=== PATIENT | male | born 1945 | race Caucasian/White ===

== ENCOUNTER → 2016-10-21 | Outpatient (CLI) | payer OTHER ==
[~2016-10-21] MED LIST: ASCO10003 PO; CHOL1000 PO; CITA20TA9 PO; CYAN100020 PO; DOCU-94 PO; FEXO1TAB49 PO; FINA5TAB PO; HYDR-4079 PO; LIDOCAINE HCL 2% 2 ML VIAL (20MG/ML) ONE; LOSA1TAB PO; MULT-506 PO; OMEG10007 PO; OMEP40CA PO; POME250C2 PO; PROPOFOL IV EMULSION 10 MG/ML 20 ML VIAL IV ONE; SALM50AE2 INH; TAMS0.4C38 PO; [UNRECOGNIZED DRUG - REMARK]
== END | disposition home or self-care (01) ==
LOC: C.LABPBG 11:28
PROVIDERS: ATTEND Neuromusculoskeletal Medicine & OMM
DX: Z11.59 Encounter for screening for other viral diseases (principal)

== ENCOUNTER → 2017-02-01 | Outpatient (CLI) | payer OTHER ==
[~2017-02-01] MED LIST changes: +ACET-1311 PO; +AMOX400S2 PO; +CLC6 PO; -LIDOCAINE HCL 2% 2 ML VIAL (20MG/ML) ONE; +MAGIC1 PO; +OMEP20TA PO; +PRD20 PO; +PRED20TA PO; -PROPOFOL IV EMULSION 10 MG/ML 20 ML VIAL IV ONE; +SRVDIN50 INH
[2017-02-01 12:59] LABS: BASO % 0.8 %; BASO ABS # 0.07 K/uL (0-0.2); COMPLETE YES; EOS % 2.7 %; IG% 0.1 %; LYMPH % 12.5 %; LYMPH ABS # 1.07 K/uL (1.2-3.4); MEAN CELL VOLUME 94.1 fL (80-100); MEAN CORPUSCULAR HEMOGLOBIN 31.5 pg (25-34); MEAN CORPUSCULAR HGB CONC 33.5 g/dl (32-36); MEAN PLATELET VOLUME 11.4 fL (7.4-10.4); MONO % 8.1 %; NEUT % 75.8 %; PLATELET COUNT 264 K/uL (130-400); RED BLOOD COUNT 4.89 M/uL (4.7-6.1); WHITE BLOOD COUNT 8.59 K/uL (4.8-10.8)
[2017-02-01 13:34] LABS: ESTIMATED AVERAGE GLUCOSE 126 mg/dl; HA1C FLAG Normal (Normal)
[2017-02-01 15:10] LABS: ALT/SGPT 47 U/L (12-78); AST/SGOT 50 U/L (15-37); BLOOD UREA NITROGEN 22 mg/dl (7-18); BUN/CREATININE RATIO 16.7 (10-20); CALCIUM 9.3 mg/dl (8.5-10.1); CARBON DIOXIDE 28 mmol/L (21-32); CHLORIDE 106 mmol/L (98-107); GLUCOSE 125 mg/dl (70-99); POTASSIUM 4.1 mmol/L (3.5-5.1); SODIUM 141 mmol/L (136-145)
[2017-02-01 15:15] LABS: ALB/GLOB RATIO 1.1 (0.9-2); ALKALINE PHOSPHATASE 64 U/L (45-117); CHOLESTEROL 231 mg/dl (0-200); CHOLESTEROL/HDL RATIO 4.9; HDL CHOLESTEROL 47 mg/dl; LDL CHOLESTEROL CALCULATED 125 mg/dl; TRIGLYCERIDES 296 mg/dl (0-150); VERY LOW DENSITY LIPOPROT CALC 59 mg/dl
--- NOTE | 2017-02-05 10:08 | CODING QUERY MEDICAL NECESSITY ---
CQSUPPORTING DIAGNOSIS NEEDED A supporting diagnosis is required for the test/procedure performed on this patient in order for us to be reimbursed by the patient's insurance. Please provide a supporting diagnosis for the following test/procedure listed below next to the test name along with your signature. *If there is no additional diagnosis for this patient that would support the following test/procedure please document that below next to the test/procedure. Test(s)/Procedure(s) that require a supporting diagnosis: DOS 02/01/17 GLYCATED HEMOGLOBIN Provider Signature: Date: Thank you Fauzia Hernandez [employer] Once completed, please kindly fax back to [phone] For questions please call [phone]
== END | disposition home or self-care (01) ==
LOC: C.LABPBG 10:54
PROVIDERS: ATTEND Internal Medicine
DX: K76.0 Fatty (change of) liver, not elsewhere classified (principal); Z12.5 Encounter for screening for malignant neoplasm of prostate; R73.01 Impaired fasting glucose

== ENCOUNTER 2017-07-16 07:03 | Inpatient (IN) | payer OTHER ==
[~2017-07-16] VITALS: Ht 182.9 cm; Wt 94.3 kg
[~2017-07-16 07:03] MED LIST changes: -ACET-1311 PO; -AMOX400S2 PO; -CLC6 PO; -MAGIC1 PO; -OMEP20TA PO; -PRD20 PO; -PRED20TA PO; -SRVDIN50 INH
--- NOTE | 2017-07-16 07:29 | EMERGENCY ROOM VISIT NOTE ---
History Report prepared by Ney: Mary Styles Under the Supervision of: Dr. Sadiq Martinez M.D. First contact with patient: 07:14 Chief Complaint: LEG PAIN,LEG INJURY Stated Complaint: LEG PAIN History of Present Illness The patient is a 71 year old male who presents to the Emergency Room with complaints of worsening right leg pain for the past couple of days. The majority of his pain is located across the top of his right foot. Standing and bearing weight exacerbate his pain. The patient states that his pain radiates up his leg and into his right knee. He reports swelling to the foot. He denies any recent injury or trauma to the leg. He rates his pain as a 10/10 in severity. He took 3 Tylenol and 3 hydrocodone this morning for his pain. He also reports right-sided back pain that started this morning. It is worsened with a deep breath or coughing. Source of History: patient Onset: a couple of days ago Position: leg (right) Symptom Intensity: 10/10 Quality: other (radiating) Timing: worsening Modifying Factors (Worsening): other (standing/weight bearing) Associated Symptoms: + back pain Review of Systems All systems have been listed, reviewed, and are negative other than those previously mentioned. Please see Additional Medical History Sheet. Past Medical & Surgical Medical Problems: (1) Anxiety (2) BPH (benign prostatic hypertrophy) (3) Cervical stenosis of spinal canal (4) Fatty liver (5) HX-ORAL/PHARYNX MALG NEC (6) Hyperlipidemia (7) HYPERTENSION NOS (8) Malignant neoplasm of tonsil (9) Pneumonia (10) Pulmonary nodules (11) UMBILICAL HERNIA Surgical Problems: (1) H/O colonoscopy (2) H/o kidney stone removal (3) H/O umbilical hernia repair (4) Hx of esophagogastroduodenoscopy (5) S/P tonsillectomy Family History Cardiac disorder BROTHER SISTER GRANDMOTHER FH: cancer MOTHER (liver [place]) BROTHER FATHER (lung [place]) Hypertension MOTHER BROTHER Stroke GRANDMOTHER Social History Smoking Status: Former Smoker Alcohol Use: none Marital Status: Housing Status: lives with family Occupation Status: retired Current/Historical Medications Scheduled Ascorbic Acid (Vitamin C), 1,000 MG PO DAILY Cholecalciferol (Vitamin D3), 2 TABS PO QAM Citalopram Hydrobromide (Celexa), 20 MG PO QPM Cyanocobalamin (Vitamin B12), 1,000 MCG PO QAM Diphenhy/Alum/Mag/Sucralfa (Magic Swizzle - Diphenhy/Alum/Mag/Sucralfa), 1 TSP PO DIRECTED Docusate Sodium (Colace), 1 CAP PO QAM Finasteride (Proscar), 5 MG PO QAM Fish Oil (Monterey-3), 1 CAP PO QAM Losartan Potassium (Cozaar), 25 MG PO QAM Multivitamin (Multivitamin), 1 TAB PO QAM Omeprazole (Omeprazole), 40 MG PO DAILY Pomegranate (Punica Granatum) (Pomegranate), 1 TAB PO QAM Prednisone (Prednisone), 20 MG PO BID Salmeterol Xinafoate (Serevent Diskus), 1 PUFF INH BID Tamsulosin Hcl (Flomax), 0.4 MG PO QPM Scheduled PRN Acetaminophen (Tylenol), 650 MG PO DIRECTED PRN for Pain Fexofenadine Hcl (Yue Allergy), 1 TAB PO QAM PRN for Seasonal Allergies Hydrocodone/Acetaminophen 10MG/325MG (C[place]alt 10MG/325MG), 1 TABS PO QID PRN for Pain Allergies Coded Allergies: Latex1 -Allergic Contact Dermititis (Verified Allergy, Unknown, patient states had allergy tests which tested + , 07/03/16) NO KNOWN DRUG ALLERGIES (Verified Allergy, Unknown, NKDA, 07/03/16) Physical Exam Vital Signs Date Time Temp Pulse Resp B/P (MAP) Pulse Ox O2 Delivery O2 Flow Rate FiO2 07/16/17 08:43 102 18 112/81 92 Room Air 07/16/17 07:14 36.9 101 20 163/96 91 Room Air Physical Exam GENERAL: Patient awake, alert, oriented x 3. Patient follows commands. Patient does not appear toxic. Patient is adequately hydrated and well- nourished. SKIN: No erythema, pallor, cyanosis or rash HEENT: Normal head, pupils equal, reactive to light and accommodation. Ears normal. Oral cavity and posterior pharynx appear normal. Neck: Without adenopathy, no neck vein distention. LUNGS: Clear to auscultation. Faint wheezing bilaterally, no rales, no rhonchi. HEART: No murmurs. No gallops. No rubs ABDOMEN: Soft, nontender. EXTREMITIES: Patient has slight swelling of the dorsum of the right foot and some palpable tenderness, no erythema or increased warmth. NEUROLOGIC: Cranial nerves II-XII within normal limits. No gross motor sensory function deficits. Medical Decision & Procedures ER Provider Diagnostic Interpretation: Radiology results as stated below per my review and radiologist interpretation: RIGHT FOOT 3 VIEWS CLINICAL HISTORY: Right foot pain. No trauma. FINDINGS: 3 views of the right foot are obtained. No prior studies are available for comparison at the time of dictation. The skeletal structures are osteopenic. No fracture is seen. Degenerative spurring is noted along the dorsal aspect of the tarsal bones and along the anterior tibial plafonds. Mild arthritic change and hallux valgus is present at the first metatarsophalangeal joint. The joint spaces are otherwise preserved. There is a tiny plantar calcaneal enthesophyte. Soft tissue edema is present along the dorsal aspect of the foot. IMPRESSION: 1. Dorsal soft tissue edema. No right foot fracture is identified. 2. Osteopenia and mild arthritic change as above. Electronically signed by: Rito García M.D. 07/16/2017 8:26 AM Dictated Date/Time: 07/16/2017 8:25 AM TWO VIEW CHEST CLINICAL HISTORY: Back pain. FINDINGS: PA and lateral chest radiographs are compared to study dated 12/07/2015. Correlation is made with chest CT dated 12/07/2015. The heart is top normal for projection and there is atherosclerotic calcification of the thoracic aorta. The pulmonary vasculature is noncongested. Chronic interstitial thickening and apical scarring are similar to previous. Airspace consolidation is present the right lung base, likely in the right middle lobe. No pleural effusion or pneumothorax is identified. The skeletal structures are osteopenic. Degenerative change is seen throughout the thoracic spine. Mild compression deformities are suggested in the midthoracic region. Fusion hardware is noted in the lower cervical spine. There is a subacute appearing/healing right rib fracture. IMPRESSION: 1. Airspace consolidation is seen at the right lung base, likely in the right middle lobe. Correlate clinically for evidence of aspiration pneumonitis/pneumonia. Radiographic follow-up to resolution is recommended. 2. Mild age-indeterminate compression deformities are suggested in the midthoracic region. There is also a subacute appearing/healing right-sided rib fracture. Electronically signed by: Rito García M.D. 07/16/2017 8:30 AM Dictated Date/Time: 07/16/2017 8:27 AM Laboratory Results 07/16/17 07:25 Red Blood Count 3.87, Mean Corpuscular Volume 93.8, Mean Corpuscular Hemoglobin 31.0, Mean Corpuscular Hemoglobin Concent 33.1, Mean Platelet Volume 10.5, Neutrophils (%) (Auto) 89.0, Lymphocytes (%) (Auto) 3.9, Monocytes (%) (Auto) 6.7, Eosinophils (%) (Auto) 0.0, Basophils (%) (Auto) 0.1, Neutrophils # (Auto) 7.07, Lymphocytes # (Auto) 0.31, Monocytes # (Auto) 0.53, Eosinophils # (Auto) 0.00, Basophils # (Auto) 0.01 07/16/17 07:25 Test 07/16/17 07:25 White Blood Count 7.94 K/uL (4.8-10.8) Red Blood Count 3.87 M/uL (4.7-6.1) Hemoglobin 12.0 g/dL (14.0-18.0) Hematocrit 36.3 % (42-52) Mean Corpuscular Volume 93.8 fL (80-100) Mean Corpuscular Hemoglobin 31.0 pg (25-34) Mean Corpuscular Hemoglobin Concent 33.1 g/dl (32-36) Platelet Count 173 K/uL (130-400) Mean Platelet Volume 10.5 fL (7.4-10.4) Neutrophils (%) (Auto) 89.0 % Lymphocytes (%) (Auto) 3.9 % Monocytes (%) (Auto) 6.7 % Eosinophils (%) (Auto) 0.0 % Basophils (%) (Auto) 0.1 % Neutrophils # (Auto) 7.07 K/uL (1.4-6.5) Lymphocytes # (Auto) 0.31 K/uL (1.2-3.4) Monocytes # (Auto) 0.53 K/uL (0.11-0.59) Eosinophils # (Auto) 0.00 K/uL (0-0.5) Basophils # (Auto) 0.01 K/uL (0-0.2) RDW Standard Deviation 50.4 fL (36.4-46.3) RDW Coefficient of Variation 14.8 % (11.5-14.5) Immature Granulocyte % (Auto) 0.3 % Immature Granulocyte # (Auto) 0.02 K/uL (0.00-0.02) Anion Gap 8.0 mmol/L (3-11) Est Creatinine Clear Calc Drug Dose 33.8 ml/min Estimated GFR () 31.4 Estimated GFR (Non- 27.1 BUN/Creatinine Ratio 27.6 (10-20) Uric Acid 9.2 mg/dl (2.6-7.2) Calcium Level 8.9 mg/dl (8.5-10.1) Laboratory results as stated above per my review. Medications Administered Medications (Trade) Dose Ordered Sig/Chay Route Start Time Stop Time Status Last Admin Dose Admin Tramadol HCl (Ultram Tab) 50 mg NOW STAT PO 07/16/17 09:52 07/16/17 09:54 DC 07/16/17 10:20 50 MG Prednisone (PredniSONE TAB) 20 mg ONE ONCE PO 07/16/17 10:15 07/16/17 10:16 DC 07/16/17 10:21 20 MG ED Course 0714: Past medical records reviewed. The patient was evaluated in room A10. A complete history and physical examination was performed. 0942: I reassessed the patient at this time. He is feeling better and resting comfortably. I discussed the results and treatment plan with the patient. I answered all pertaining questions that he had. He expressed understanding and verbalized agreement. 0948: I spoke with Dr. Cisneros. We discussed the patients case. The patient will be evaluated by the [facility] for further management. 0952: Ultram 50 mg PO 1000: Prednisone 20 mg PO Medical Decision Nurses notes reviewed. Medical history sheet reviewed. Differential diagnosis includes but is not limited to: gout, stress fracture, DVT, cellulitis, bronchitis, pneumonia, musculoskeletal pain. The patient arrived here complaining of right foot pain. Later in his stay he admitted to cough and occasional aspiration. Multiple labs and imaging were performed. The patient was found to have an aspiration pneumonia. He also has significant decline in his renal function. Uric acid is mildly elevated which may explain the pain in his foot. This is in conjunction with his renal insufficiency. The patient has a history of tonsillar carcinoma with radiation and chemotherapy. The patient will require further evaluation in the hospital with IV antibiotics. The patient was started on prednisone for treatment of possible gout. NSAIDs may be contraindicated in light of his renal function. Medication Reconcilliation Current Medication List: was personally reviewed by me Blood Pressure Screening Patient's blood pressure: Normal blood pressure Consults Time Called: 09 Consulting Physician: Dr. Cisneros Returned Call: [phone] Cisneros. We discussed the patients case. The patient will be evaluated by the [facility] for further management. Impression Primary Impression: Aspiration pneumonia Additional Impressions: Renal insufficiency Gout Hx of malignant neoplasm of tonsil Scribe Attestation The scribe's documentation has been prepared under my direction and personally reviewed by me in its entirety. I confirm that the note above accurately reflects all work, treatment, procedures, and medical decision making performed by me. Departure Information Dispostion Being Evaluated By Hospitalist Referrals Carlo Ahn M.D. (PCP) Patient Instructions My [facility] Problem Qualifiers Primary Impression: Aspiration pneumonia
[2017-07-16 07:38] LABS: BASO % 0.1 %; BASO ABS # 0.01 K/uL (0-0.2); COMPLETE YES; HEMATOCRIT 36.3 % (42-52); IG% 0.3 %; LYMPH % 3.9 %; LYMPH ABS # 0.31 K/uL (1.2-3.4); MEAN CELL VOLUME 93.8 fL (80-100); MEAN CORPUSCULAR HGB CONC 33.1 g/dl (32-36); MEAN PLATELET VOLUME 10.5 fL (7.4-10.4); MONO % 6.7 %; PLATELET COUNT 173 K/uL (130-400); RED BLOOD COUNT 3.87 M/uL (4.7-6.1); WHITE BLOOD COUNT 7.94 K/uL (4.8-10.8)
[2017-07-16] MEDS ORDERED: ACET-1311 PO (07:39)
[2017-07-16] MEDS ORDERED: OMEP20TA PO (07:39)
[2017-07-16] MEDS ORDERED: SRVDIN50 INH (07:39)
[2017-07-16] MEDS ORDERED: PRED20TA PO (07:39)
[2017-07-16] MEDS ORDERED: MAGIC1 PO (07:39)
[2017-07-16 07:56] LABS: BUN/CREATININE RATIO 27.6 (10-20); CALCIUM 8.9 mg/dl (8.5-10.1); CREATININE 2.36 mg/dl (0.60-1.40); POTASSIUM 4.5 mmol/L (3.5-5.1); URIC ACID 9.2 mg/dl (2.6-7.2)
--- NOTE | 2017-07-16 08:28 | DIAGNOSTIC IMAGING REPORT ---
RIGHT FOOT 3 VIEWS CLINICAL HISTORY: Right foot pain. No trauma. FINDINGS: 3 views of the right foot are obtained. No prior studies are available for comparison at the time of dictation. The skeletal structures are osteopenic. No fracture is seen. Degenerative spurring is noted along the dorsal aspect of the tarsal bones and along the anterior tibial plafonds. Mild arthritic change and hallux valgus is present at the first metatarsophalangeal joint. The joint spaces are otherwise preserved. There is a tiny plantar calcaneal enthesophyte. Soft tissue edema is present along the dorsal aspect of the foot. IMPRESSION: 1. Dorsal soft tissue edema. No right foot fracture is identified. 2. Osteopenia and mild arthritic change as above. Electronically signed by: Rito García M.D. 07/16/2017 8:26 AM Dictated Date/Time: 07/16/2017 8:25 AM
--- NOTE | 2017-07-16 08:31 | DIAGNOSTIC IMAGING REPORT ---
TWO VIEW CHEST CLINICAL HISTORY: Back pain. FINDINGS: PA and lateral chest radiographs are compared to study dated 12/07/2015. Correlation is made with chest CT dated 12/07/2015. The heart is top normal for projection and there is atherosclerotic calcification of the thoracic aorta. The pulmonary vasculature is noncongested. Chronic interstitial thickening and apical scarring are similar to previous. Airspace consolidation is present the right lung base, likely in the right middle lobe. No pleural effusion or pneumothorax is identified. The skeletal structures are osteopenic. Degenerative change is seen throughout the thoracic spine. Mild compression deformities are suggested in the midthoracic region. Fusion hardware is noted in the lower cervical spine. There is a subacute appearing/healing right rib fracture. IMPRESSION: 1. Airspace consolidation is seen at the right lung base, likely in the right middle lobe. Correlate clinically for evidence of aspiration pneumonitis/pneumonia. Radiographic follow-up to resolution is recommended. 2. Mild age-indeterminate compression deformities are suggested in the midthoracic region. There is also a subacute appearing/healing right-sided rib fracture. Electronically signed by: Rito García M.D. 07/16/2017 8:30 AM Dictated Date/Time: 07/16/2017 8:27 AM
[2017-07-16] MEDS ORDERED: TRAMADOL HCL 50 MG TAB PO STA (09:52)
[2017-07-16] MEDS ORDERED: ALUMINUM/MAGNESIUM/SIMETH (MAALOX MAX) 30 ML UDC PO PRN (10:30)
[2017-07-16] MEDS ORDERED: MAGNESIUM HYDROXIDE SUSP 30 ML UDC PO PRN (10:30)
[2017-07-16] MEDS ORDERED: ONDANSETRON INJ 2 MG/ML 2 ML VIAL IV PRN (10:30)
[2017-07-16] MEDS ORDERED: IV FLUIDS COMPLETED PRN (11:00)
[2017-07-16 11:41] VITALS: BP 166/90; PULSE 104; TEMP 36.7; O2SAT 93
[2017-07-16] MEDS ORDERED: COLCHICINE 0.6 MG TAB PO ONE ×2 (12:15→13:30)
[2017-07-16] MEDS ORDERED: SODIUM CHLORIDE 0.9% 1000ML 1,000 ML IV SCH (12:15)
[2017-07-16] MEDS ORDERED: FEXOFENADINE HCL 180 MG TAB PO PRN (12:45)
[2017-07-16] MEDS: HYDROCODONE/ACETAMI 10/325 TAB PO PRN ×2 (13:40→19:09)
[2017-07-16] MEDS: SODIUM CHLOR 0.45% + 20MEQ KCL 1,000 ML IV SCH ×2 (13:42→23:44)
[2017-07-16 14:17] LABS: URINE APPEARANCE CLEAR (CLEAR); URINE BILIRUBIN NEG (NEG); URINE COLOR YELLOW; URINE NITRITE NEG (NEG); URINE SPECIFIC GRAVITY 1.028 (1.000-1.030); UROBILINOGEN NEG (NEG)
[2017-07-16 14:26] LABS: MANUAL MICROSCOPIC REQUIRED? NO; REVIEW REQ? YES
--- NOTE | 2017-07-16 14:44 | DIAGNOSTIC IMAGING REPORT ---
VIDEO SWALLOW CLINICAL HISTORY: 71 years-old Male with please schedule per order. Pneumonia with history of upper esophageal with COMPARISON: Barium swallow study 06/16/2016, chest radiograph 07/16/2017 TECHNIQUE: Video fluoroscopic evaluation of swallowing was performed in the AP and lateral projections by the speech pathology staff. The patient is fed nectar-thick and thin liquid barium, a barium coated wafer, and barium pudding. FLUOROSCOPY TIME: 4.2 minutes. FINDINGS: Deep penetration and aspiration noted with thin and nectar thick liquid barium consistencies. Residue collection within the vallecula noted with pudding and cracker consistency. Anterior plate and screw fusion hardware with discectomy changes of the cervical spine again noted. IMPRESSION: 1. Aspiration with nectar thick and thin liquid consistencies. 2. Please see the speech pathologist report for detailed findings and recommendations. Electronically signed by: Abundio Taveras M.D. 07/16/2017 2:43 PM Dictated Date/Time: 07/16/2017 2:38 PM
[2017-07-16 15:00] VITALS: BP 148/84; PULSE 89; TEMP 36.8; O2SAT 91
[2017-07-16] MEDS: AMPICILLIN/SULBACTAM SOD INJ 3,000 MG in SODIUM CHLORIDE 0.9% 100ML 100 ML IV SCH ×2 (16:12→20:15)
[2017-07-16] MEDS ORDERED: NURSING VERBAL MED ORDER ONE (17:00)
[2017-07-16 19:21] VITALS: BP 185/93; PULSE 109; TEMP 37.1; O2SAT 93
--- NOTE | 2017-07-16 19:49 | History and Physical ---
History & Physical Date of Service Jul 16, 2017. History & Physical see dictation#[id number] gout - colchicine, steroids ARF - from poor PO intake, exceedingly likely prerenal. UA, IVF, BMP in AM aspiration pneumonia - appearing chronic aspiration - unasyn, speech eval rib fx - ?subacute. check vitamin D. if no clear nidus for osteoporosis, then dedicated rib imaging to r/o other underlying pathology
[2017-07-16] MEDS: SALMETEROL XINAFOATE 50MCG 28 BLISTER INH INH SCH (20:15)
[2017-07-16] MEDS: TAMSULOSIN HCL 0.4 MG CAP PO SCH (20:18)
[2017-07-16] MEDS: CITALOPRAM 20 MG TAB PO SCH (20:18)
[2017-07-16] MEDS: ACETAMINOPHEN 325 MG TAB PO PRN (20:41)
[2017-07-17] VITALS (10 sets, daily range): BP systolic 162–209; BP diastolic 74–105; PULSE 87–109; TEMP 36.8–37.6; O2SAT 92–98; BMI 34.0
[2017-07-17] MEDS: HYDROCODONE/ACETAMI 10/325 TAB PO PRN ×2 (00:44→08:16)
[2017-07-17] MEDS: ACETAMINOPHEN 325 MG TAB PO PRN (00:46)
[2017-07-17] MEDS ORDERED: MoRPHine SULFATE 2 MG/ML CARP IV ONE (02:00)
[2017-07-17] MEDS ORDERED: NURSING VERBAL MED ORDER ONE (02:00)
[2017-07-17] MEDS: AMPICILLIN/SULBACTAM SOD INJ 3,000 MG in SODIUM CHLORIDE 0.9% 100ML 100 ML IV SCH (02:12)
[2017-07-17] MEDS: SODIUM CHLOR 0.45% + 20MEQ KCL 1,000 ML IV SCH ×4 (05:44→21:32)
[2017-07-17] MEDS: LIDOCAINE HCL 2% VISCOUS SOLN 60 ML, DiphenhydrAMINE HCL SYRUP 150 MG, ALUMINUM/MAGNESI... MT PRN ×8 (05:47→08:37)
[2017-07-17] MEDS ORDERED: VANCOMYCIN INJ 2,000 MG in SODIUM CHLORIDE 0.9% 500ML 500 ML IV ONE (06:45)
[2017-07-17] MEDS ORDERED: VANCOMYCIN CONSULT ACTIVE PRN (06:45)
[2017-07-17 07:10] LABS: BUN/CREATININE RATIO 41.4 (10-20); CALCIUM 8.5 mg/dl (8.5-10.1); CREATININE 1.3 mg/dl (0.60-1.40); POTASSIUM 4.8 mmol/L (3.5-5.1)
[2017-07-17] MEDS: ASCORBIC ACID 500 MG TAB PO SCH (08:00)
[2017-07-17] MEDS: DOCUSATE SODIUM 100 MG CAP PO SCH (08:00)
[2017-07-17] MEDS ORDERED: POMEGRANATE PO SCH (08:00)
[2017-07-17] MEDS: SALMETEROL XINAFOATE 50MCG 28 BLISTER INH INH SCH ×2 (08:00→20:27)
[2017-07-17] MEDS: MULTIVITAMIN TAB PO SCH (08:00)
[2017-07-17] MEDS: OMEGA-3 (PURIFIED FISH OIL) 1 GM CAP PO SCH (08:00)
[2017-07-17] MEDS: CYANOCOBALAMIN 500 MCG TAB (VIT B-12) PO SCH (08:19)
[2017-07-17] MEDS: FINASTERIDE 5 MG TAB PO SCH (08:19)
[2017-07-17] MEDS: CHOLECALCIFEROL 1000 INTER.UNIT TAB PO SCH (08:20)
[2017-07-17] MEDS: PANTOprazole SOD 40 MG TAB PO SCH (08:20)
--- NOTE | 2017-07-17 08:38 | Pharmacy Progress Note ---
Pharmacy Abx Initial Consult Date of Service Jul 17, 2017. Pharmacy Dosing Scope Date of Consult: 07/17/17 Consultation requested by: Dr. Jean Baptiste Pharmacy is consulted to initiate VANCOMYCIN IV dosing therapy, order appropriate labs and adjust drug dose/frequency. Subjective The patient is a 71 year old male admitted on Jul 16, 2017 at 10:17 with complaints of L leg/foot pain as well as R sided back pain Objective Height (Feet): 5 Height (Inches): 8.00 Weight (Kilograms): 101.400 Vital Signs (Past 12Hrs) Vital Signs Past 12 Hours Date Time Temp Pulse Resp B/P (MAP) Pulse Ox O2 Delivery O2 Flow Rate FiO2 07/17/17 07:17 36.8 93 20 170/88 (115) 98 Nasal Cannula 2.0 07/17/17 03:10 90 172/86 (114) 07/17/17 01:26 96 190/96 (127) 07/17/17 00:18 37.6 95 20 188/95 (126) 92 Room Air 07/17/17 00:05 Nasal Cannula Lab Results (24Hrs) Laboratory Tests (24 Hours) Test 07/17/17 08:22 Micro Results Date/Time Source Procedure Growth Status 07/16/17 15:55 Blood Blood Culture - Preliminary Gram Positive Cocci Resulted 07/16/17 15:50 Blood Blood Culture - Preliminary Gram Positive Cocci Resulted Assessment & Plan Assessment * 71 year old male found to be bacteremic with 2 of 2 blood cx's growing GPC * CXR read as R lunch base airspace consolidation, likely in the RML * Vancomycin ordered for coverage of GPC bacteremia and aspiration PNX (+ aspiration noted on video swallow) * CLIVE noted on admission, likely secondary to decreased PO intake. Renal fxn appears to be recovering w/ IV hydration (SCR 2.36 -->1.3), good U.O. thus far * VSS, noted to be tachycardic but no hypotension noted. Has been afebrile since admission. Currently on 2L NC and O2 sat in upper 90's Plan Vancomycin IV * Loading dose: 2000 mg (~20 mg/kg) x 1 * Maintenance dose: 1500 mg IV (~15 mg/kg) every 16 hours * Goal trough level for bacteremia / pnx : 15 to 20 mcg/mL * Trough level ordered for 10/30/17 w/ 3rd maintenance dose * p'kinetic estimates: Vd 0.7L/kg; half-life ~12-13 hours Pharmacy will continue to follow and will adjust dose/frequency as necessary. Thank you.
[2017-07-17] MEDS ORDERED: VANCOMYCIN INJ 1,000 MG in SODIUM CHLORIDE 0.9% 250ML 250 ML IV SCH (09:00)
[2017-07-17] MEDS ORDERED: PERFLUTREN LIPID MICROSPHERE (DEFINITY) IV ONE (10:16)
[2017-07-17] MEDS ORDERED: MoRPHine SULFATE 4 MG/ML 1 ML CARP\\VIAL ONE (10:26)
[2017-07-17] MEDS ORDERED: LIDODERM (LIDOCAINE) PATCH 5% TD ONE (10:48)
--- NOTE | 2017-07-17 11:58 | DIAGNOSTIC IMAGING REPORT ---
(CHEST) THORAX WITHOUT CT DOSE: 728.43 mGy.cm HISTORY: Pain pneumonia, rib fracture, pain R back T10-12 region TECHNIQUE: Multiaxial CT images of the chest were performed without contrast. A dose lowering technique was utilized adhering to the principles of ALARA. COMPARISON: None. FINDINGS: Diffuse parenchymal infiltrate right mid and lower lung region. Underlying subtle multinodular component. Left lung is considered clear. No evidence for bulky adenopathy within the limitations of an unenhanced scan. Thoracic aorta shows moderate atherosclerotic change. There is a healing fracture of the right eighth rib in the midaxillary line. Limited evaluation the upper abdomen is unremarkable. IMPRESSION: 1. Diffuse parenchymal infiltrative process right mid and lower lung with underlying subtle nodular component. 2. Follow-up to resolution is suggested. 3. Healing fracture right eighth rib midaxillary line. The above report was generated using voice recognition software. It may contain grammatical, syntax or spelling errors. Electronically signed by: Rigo Goldberg M.D. 07/17/2017 11:56 AM Dictated Date/Time: 07/17/2017 11:54 AM
--- NOTE | 2017-07-17 12:25 | ECHOCARDIOGRAM REPORT ---
*NOTICE TO RECEIVING CONSTITUTION PARTY AGENCY This information is strictly Confidential and protected under [place] law. [place] law prohibits you from making any further disclosure of this information unless further disclosure is expressly permitted by the written consent of the person to whom it pertains or is authorized by law. A general authorization for the release of medical or other information is not sufficient for this purpose. Hospital accepts no responsibility if the information is made available to any other person, INCLUDING THE PATIENT. Interpretation Summary * Name: DEWAYNE BAKER Study Date: 07/17/2017 09:56 AM BP: 170/88 mmHg * Patient Location: [id number].[id number]\E409\[id number]\1 HR: 93 * : 1945 (M/d/yyyy) Gender: Male Height: 68 in * Age: 71 yrs Ethnicity: [place] Weight: 223 lb * Ordering Physician: Sohan Donohue * Performed By: Lelo Grey RDCS * * Reason For Study: ENDOCARDITIS * BSA: 2.1 m2 * -- Conclusions -- * 1. Normal LV size. Borderline concentric LVH. * 2. Normal LV systolic function. LVEF 60-65%. No regional wall motion abnormalities. * 3. Normal RV size and function. * 4. No significant valvular pathology. * 5. Borderline aortic root dilation (3.8 cm). * 6. No prior studies for comparison. Procedure Details * A complete two-dimensional transthoracic echocardiogram was performed (2D, M-mode, Doppler and color flow Doppler). * The study was technically difficult. * There were technical limitations due to patient'sPoor acoustic windows secondary to severe lung disease. * A contrast injection of Definity was performed to improve assessment of LV function. * Contrast was injected into an intravenous site in the right arm. * One vial of Definity ultrasound contrast was diluted in normal saline to a total volume of 10 ml. A total of '3' ml of solution was administered during imaging. * Lot # [id number] of Definity utilized for procedure. * Expiration date 07/07. * The attending nurse who injected the contrast agent was LORETA FERRERA RN. Left Ventricle * The left ventricle is grossly normal size. * There is borderline concentric left ventricular hypertrophy. * Ejection Fraction = 60-65%. * No regional wall motion abnormalities noted. Right Ventricle * The right ventricle is not well visualized. * The right ventricular systolic function is qualitatively normal. Atria * The left atrial size is normal. * Right atrial size is normal. * No ASD detected; PFO is not assessed. Mitral Valve * The mitral valve is grossly normal. * There is no vegetation seen on the mitral valve. * There is no mitral valve stenosis. * There is trace mitral regurgitation. Tricuspid Valve * The tricuspid valve is not well visualized. * Significant tricuspid regurgitation is absent. Aortic Valve * The aortic valve is not well visualized. * No hemodynamically significant valvular aortic stenosis. * There is no significant aortic regurgitation. Pulmonic Valve * The pulmonary valve is inadequately visualized, but the Doppler data is adequate for interpretation. * Pulmonic stenosis is absent. * There is no significant pulmonary regurgitation. Great Vessels * Borderline aortic root dilatation. Pericardium/Pleural * There is no pericardial effusion. Great Vessels * Normal inferior vena cava size and collapsability with sniff indicates a normal right atrial pressure of 3 mmHg MMode 2D Measurements and Calculations IVSd 1.2 cm IVSs 1.8 cm LVIDd 4.8 cm LVIDs 3.1 cm LVPWd 1.0 cm LVPWs 2.2 cm IVS/LVPW 1.2 FS 34.6 % EDV(Teich) 104.9 ml ESV(Teich) 38.1 ml EF(Teich) 63.7 % EDV(cubed) 107.2 ml ESV(cubed) 29.9 ml EF(cubed) 72.1 % % IVS thick 45.7 % % LVPW thick 110.1 % LV mass(C)d 199.8 grams LV mass(C)dI 93.3 grams/m\S\2 LV mass(C)s 272.5 grams LV mass(C)sI 127.3 grams/m\S\2 SV(Teich) 66.9 ml SI(Teich) 31.2 ml/m\S\2 SV(cubed) 77.3 ml SI(cubed) 36.1 ml/m\S\2 ACS 1.6 cm LVOT diam 2.0 cm LVOT area 3.0 cm\S\2 LVAd ap4 36.7 cm\S\2 LVLd ap4 9.3 cm EDV(MOD-sp4) 117.0 ml EDV(sp4-el) 123.4 ml LVAs ap4 18.3 cm\S\2 LVLs ap4 7.3 cm ESV(MOD-sp4) 36.4 ml ESV(sp4-el) 38.8 ml EF(MOD-sp4) 68.9 % EF(sp4-el) 68.5 % LVAd ap2 37.7 cm\S\2 LVLd ap2 9.6 cm EDV(MOD-sp2) 121.0 ml EDV(sp2-el) 125.5 ml LVAs ap2 19.2 cm\S\2 LVLs ap2 7.8 cm ESV(MOD-sp2) 39.4 ml ESV(sp2-el) 40.5 ml EF(MOD-sp2) 67.5 % EF(sp2-el) 67.7 % LVLd %diff 3.7 % EDV(MOD-bp) 120.6 ml LVLs %diff 5.6 % ESV(MOD-bp) 37.5 ml EF(MOD-bp) 68.9 % SV(MOD-sp4) 80.6 ml SI(MOD-sp4) 37.7 ml/m\S\2 SV(MOD-sp2) 81.6 ml SI(MOD-sp2) 38.1 ml/m\S\2 SV(MOD-bp) 83.1 ml SI(MOD-bp) 38.8 ml/m\S\2 SV(sp4-el) 84.6 ml SI(sp4-el) 39.5 ml/m\S\2 SV(sp2-el) 85.0 ml SI(sp2-el) 39.7 ml/m\S\2 Doppler Measurements and Calculations MV E max carla 120.2 cm/sec MV A max carla 104.1 cm/sec MV E/A 1.2 MV dec time 0.20 sec Ao V2 max 176.0 cm/sec Ao max PG 12.4 mmHg Ao max PG (full) 8.0 mmHg EDDIE(V,A) 1.8 cm\S\2 EDDIE(V,D) 1.8 cm\S\2 LV V1 max PG 4.3 mmHg LV V1 max 104.3 cm/sec MR max carla 614.3 cm/sec MR max PG 150.9 mmHg PA V2 max 106.9 cm/sec PA max PG 4.6 mmHg
--- NOTE | 2017-07-17 12:27 | DIAGNOSTIC IMAGING REPORT ---
ORBITS FOR MRI HISTORY: Pre-MRI pre-MRI screening. COMPARISON: None. FINDINGS: There are no radiopaque foreign bodies identified within the orbits. Small metallic foreign body overlying the right mandible. IMPRESSION: No radiopaque foreign bodies identified within the orbits. The above report was generated using voice recognition software. It may contain grammatical, syntax or spelling errors. Electronically signed by: Rigo Goldberg M.D. 07/17/2017 12:26 PM Dictated Date/Time: 07/17/2017 12:25 PM
--- NOTE | 2017-07-17 13:44 | DIAGNOSTIC IMAGING REPORT ---
R LOWER EXT NONJOINT W/O CLINICAL HISTORY: right foot extensor pain/swelling, bacteremia. ?myositis TECHNIQUE: Multiaxial MRI acquisition COMPARISON STUDY: None FINDINGS: Considerable soft tissue edema over the dorsal aspect of the foot. Findings of considerable degenerative change of the intertarsal as well as tarsometatarsal joints. The configuration of the bone marrow changes suggest the possibility of arthritic change versus potential gouty arthritis. A drainable abscess or collection is not appreciated. All major ligamentous and tendinous structures appear to be intact. IMPRESSION: 1. Considerable soft tissue edema primarily involving the subcutaneous fat dorsal to the foot 2. Considerable degenerative change of the intertarsal as well as tarsometatarsal joints. 3. Partial bone marrow replacing changes adjacent to the articular surface combined with degenerative subchondral cysts. 4. This potentially indicates underlying considerable erosive osteoarthritic change versus gouty arthritis. 5. Osteomyelitis cannot be entirely excluded, although this is felt to be less likely compared to the additional etiologies as noted 6. Mild soft tissue edema at the plantar aspect of the foot. 7. No evidence for significant ligamentous or tendinous disruption 8. No evidence for drainable abscess or collection. The above report was generated using voice recognition software. It may contain grammatical, syntax or spelling errors. Electronically signed by: Rigo Goldberg M.D. 07/17/2017 1:43 PM Dictated Date/Time: 07/17/2017 1:38 PM
[2017-07-17] MEDS: MoRPHine SULFATE 4 MG/ML 1 ML CARP\\VIAL IV PRN ×2 (13:57→20:24)
[2017-07-17] MEDS ORDERED: METOPROLOL TARTRATE 25 MG TAB PO ONE (14:57)
--- NOTE | 2017-07-17 17:16 | Progress Note ---
Subjective Date of Service: Jul 17, 2017. Subjective Pt evaluation today including: conversation w/ patient, physical exam, chart review, lab review, review of inpatient medication list foot hurts worse - top of foot worse when passively bending toes down, worse when actively bending toes up can't really walk on it and L foot hurting now too back pain worse breathing still OK no f/c/s discussed blood cultures discussed dx's / progress / next steps/ ddx etc w pt and with friends who came to visit him (with pt's permission) 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 Status: Acute (4) Renal insufficiency Status: Acute Review of Systems all other ROS otherwise negative except for as above Objective Vital Signs Date Time Temp Pulse Resp B/P (MAP) Pulse Ox O2 Delivery O2 Flow Rate FiO2 07/17/17 15:03 37.0 109 20 194/92 (126) 97 Nasal Cannula 2.0 07/17/17 08:00 98 Nasal Cannula 2.0 07/17/17 07:17 36.8 93 20 170/88 (115) 98 Nasal Cannula 2.0 07/17/17 03:10 90 172/86 (114) 07/17/17 01:26 96 190/96 (127) 07/17/17 00:18 37.6 95 20 188/95 (126) 92 Room Air 07/17/17 00:05 Nasal Cannula 07/16/17 19:21 37.1 109 20 185/93 (123) 93 Room Air Physical Exam General Appearance: no apparent distress Eyes: EOMI ENT: hearing grossly normal Neck: trachea midline Respiratory/Chest: no respiratory distress, no accessory muscle use, + pertinent finding (scattered rhonchi/wheeze R mid and lower lung, left fairly clear. tender to palp R mid back lower than yseterday more in area of ~10th rib ) Extremities: normal range of motion Neurologic/Psychiatric: bill board poster II-XII nml as tested, alert, normal mood/affect Skin: normal color, warm/dry Laboratory Results Last 24 Hours Test 07/17/17 05:27 Sodium Level 136 mmol/L Potassium Level 4.8 mmol/L Chloride Level 103 mmol/L Carbon Dioxide Level 23 mmol/L Anion Gap 10.0 mmol/L Blood Urea Nitrogen 54 mg/dl Creatinine 1.30 mg/dl Est Creatinine Clear Calc Drug Dose 61.3 ml/min Estimated GFR () 64.5 Estimated GFR (Non- 55.7 BUN/Creatinine Ratio 41.4 Random Glucose 116 mg/dl Calcium Level 8.5 mg/dl 25-Hydroxy Vitamin D Total 41.3 ng/ml Procalcitonin 4.69 ng/ml Assessment and Plan gram positive bacteremia -vanco pendning further ID&S -concern for septic emboli w foot pain - MRI foot, CT chest (more to assess rib for septic emboli, strongly suspect pneumonia is aspiration, and probably most likely nidus for bacteremia) -echo -once bacteria identified likely to need ID consult aspiration / dysphagia/ aspiration pneumonia -unasyn -speech eval and treat -supportive care ARF -due to poor PO intake -improved w fluids -continue to follow foot pain -gout vs infectious -stop steroids -check MRI -abx as above DVT proph -lovenox pain control -pain from above -tiered approach for pain control -follow
--- NOTE | 2017-07-17 18:08 | HISTORY & PHYSICAL EXAMINATION ---
DATE OF ADMISSION: 07/17/2017 ADMISSION HISTORY AND PHYSICAL CHIEF COMPLAINT: Right foot pain. HISTORY OF PRESENT ILLNESS: The patient is a pleasant 71-year-old male who notes that he has had right foot pain for about the last few days, it is mostly across the top of his right foot, it is worse with standing or weightbearing. He went to urgent care, I believe it was yesterday and they gave him prednisone, but it has not really helped and he came to the ER for that. He has not had fevers, chills, or sweats, but the foot pain has been getting worse. He incidentally also notes that he has really had poor p.o. intake recently, his corroborates this. He is having a hard time quantifying, but the medical student who initially interviewed the patient, he related possibly taking in as a little as 16 ounces of water a day recently and has had some trouble with esophageal pain with swallowing. Denies any cough or shortness of breath and again denies fevers, chills, or sweats. REVIEW OF SYSTEMS: Otherwise negative, except for as above. PAST MEDICAL HISTORY: Most notable for a primary squamous cell cancer of the throat, although this is a longstanding status post treatment issue that he believes is in remission, CKD stage III, COPD, chronic low back pain, anxiety, GERD, hyperglycemia, hypertension, fatty liver. HOME MEDICATIONS: Yue, calcium, Celexa, Colace, finasteride, fish oil, hydrocodone/acetaminophen, losartan, metaxalone, magic swizzle, omeprazole, pomegranate, Serevent, tamsulosin, vitamin B12 and vitamin C. PAST SURGICAL HISTORY: Includes nephrectomy, tonsillectomy, umbilical hernia repair, and cervical surgery. FAMILY HISTORY: Brother with hypertension and mom with anxiety. SOCIAL HISTORY: He is a former smoker. He is . ALLERGIES: LATEX. No known drug allergies. PHYSICAL EXAMINATION: VITAL SIGNS: Temp 36.9, pulse 101, respiratory rate 20, blood pressure 163/96, 91% on room air. GENERAL: He is awake, alert, oriented x3, pleasant, in no acute distress. HEENT: Normocephalic, atraumatic. Mucous membranes are moist. CARDIOVASCULAR: Regular without rubs, murmurs, or gallops. LUNGS: Show right-sided scattered rhonchi, a little bit diminished air entry in the right middle and lower with maybe a few rales and his right mid back is somewhat tender to palpation without any crepitus. His left lung is clear without rales, rhonchi, or wheezes. ABDOMEN: Soft, nondistended, nontender, no masses or organomegaly. EXTREMITIES: Without cyanosis, clubbing or edema. No calf tenderness. His right foot does have a mild degree of swelling, is fairly tender over the dorsum of his foot without crepitus without any focal joint swelling and actually does not hurt to move his toes as much as to push on the top of his foot and most of the pain when moving his toes is actually referred to the top of his foot, not in toe joints. SKIN: Shows no rashes, no pallor or icterus. Top of his foot only has very splotchy erythema, nothing contiguous, nothing dense, nothing of any true significance. NEUROLOGIC: Shows cranial nerves II-XII to be grossly intact. Gross motor and sensory are intact. MUSCULOSKELETAL: Shows the rib tenderness to palpation and the foot changes as above, otherwise no gross lesions. MENTAL STATUS: Shows good recent and remote recall. Normal mood and affect. Good judgment and insight. LABORATORY DATA AND DIAGNOSTICS: CBC shows a white count of 7.94, hemoglobin 12, platelets 173. Basic metabolic panel with sodium 137, potassium 4.5, chloride 104, CO2 25, BUN 65, creatinine 2.36, calcium 8.9, glucose 124; urate 9.2. Urinalysis is yellow, clear, specific gravity 1.028, 2+ protein, 2+ blood, 5-10 hyaline casts, 10-20 epithelial cells. Foot x-ray shows dorsal soft tissue edema, no fracture, osteopenia and arthritic changes. Chest x-ray shows airspace consolidation of the right lung base and likely in the right middle lobe consistent with an aspiration pneumonia pneumonitis as well as compression deformities in the mid thoracic region and a subacute healing appearing right rib fracture. ASSESSMENT AND PLAN: 1. Right foot pain and swelling. This appears most consistent with gout. He has been on prednisone, will continue this. We will also give him colchicine x1 and follow for improvement. 2. Acute renal failure, this is likely due to his poor p.o. intake. We will rehydrate and follow renal ultrasound and further workup if he does not respond linearly with fluids. 3. Dysphagia with aspiration pneumonia. This is likely chronic and he is surprisingly asymptomatic with it. We will start him on Unasyn, get a speech consult and then follow from there. 4. Hypertension. Continue his home medications except for hold his ARB, diuretic for now while he is in renal failure. 5. Mild anemia. Outpatient followup. 6. Benign prostatic hypertrophy. Continue his home medications. 7. Deep venous thrombosis prophylaxis. Ambulation for now. 8. Rib fracture. It is uncertain exactly how this came about. He does not really remember much trauma. We will check a vitamin D to screen for possibility of osteoporosis. Obviously, this is indefinitive, but it is extremely low than an osteoporotic fracture would seem likely and if it is not clearly osteoporosis then will need to workup further for possibly a different pathologic fracture, although this seems less likely. SHREED
[2017-07-17] MEDS: OXYCODONE/ACETAMINOPHEN 5-325 TAB PO PRN (18:37)
[2017-07-17] MEDS ORDERED: METOPROLOL TARTRATE 25 MG TAB PO SCH (20:00)
[2017-07-17] MEDS: CITALOPRAM 20 MG TAB PO SCH (20:28)
[2017-07-17] MEDS: TAMSULOSIN HCL 0.4 MG CAP PO SCH (20:29)
[2017-07-17] MEDS ORDERED: VANCOMYCIN INJ 1,500 MG in SODIUM CHLORIDE 0.9% 500ML 500 ML IV SCH (22:00)
[2017-07-18] VITALS (7 sets, daily range): BP systolic 165–205; BP diastolic 88–110; PULSE 80–108; TEMP 36.8–37.3; O2SAT 94–98; BMI 30.8
[2017-07-18] MEDS ORDERED: NURSING VERBAL MED ORDER ONE ×2 (00:30→02:45)
[2017-07-18] MEDS ORDERED: METOPROLOL TARTRATE 25 MG TAB PO STA (00:43)
[2017-07-18] MEDS ORDERED: HydrALAZINE HCL 20 MG/ML VIAL IV. ONE (03:00)
[2017-07-18] MEDS: OXYCODONE/ACETAMINOPHEN 5-325 TAB PO PRN ×3 (03:07→16:27)
[2017-07-18] MEDS: SODIUM CHLOR 0.45% + 20MEQ KCL 1,000 ML IV SCH ×3 (06:05→22:18)
[2017-07-18 06:13] LABS: PARTIAL THROMBOPLASTIN RATIO 1.3; PROTHROMBIN TIME (PATIENT) 11.2 SECONDS (9.0-12.0)
[2017-07-18 06:43] LABS: CREATININE 0.92 mg/dl (0.60-1.40)
[2017-07-18] MEDS: MULTIVITAMIN TAB PO SCH (09:25)
[2017-07-18] MEDS: SALMETEROL XINAFOATE 50MCG 28 BLISTER INH INH SCH (09:25)
[2017-07-18] MEDS: DOCUSATE SODIUM 100 MG CAP PO SCH (09:25)
[2017-07-18] MEDS: OMEGA-3 (PURIFIED FISH OIL) 1 GM CAP PO SCH (09:26)
[2017-07-18] MEDS: ASCORBIC ACID 500 MG TAB PO SCH (09:26)
[2017-07-18] MEDS: CHOLECALCIFEROL 1000 INTER.UNIT TAB PO SCH (09:27)
[2017-07-18] MEDS: LIDODERM (LIDOCAINE) PATCH 5% TD SCH (09:27)
[2017-07-18] MEDS: FINASTERIDE 5 MG TAB PO SCH (09:27)
[2017-07-18] MEDS: PANTOprazole SOD 40 MG TAB PO SCH (09:28)
[2017-07-18] MEDS: CYANOCOBALAMIN 500 MCG TAB (VIT B-12) PO SCH (09:28)
[2017-07-18] MEDS: ENOXAPARIN 40 MG/0.4 ML SYR SQ SCH (10:00)
--- NOTE | 2017-07-18 10:47 | Pharmacy Progress Note ---
Pharmacy Abx Dose Short Note Date of Service Jul 18, 2017. Assessment & Plan Assessment 71 year old male receiving Vancomycin for treatment of bacteremia, goal trough 15-20 mcg/mL. Based on decrease in Scr, will increase dose of vanc. Estimated CrCl=87 ml/min Day # 2 of antimicrobial therapy. Blood cultures pending. Plan Vancomycin * Vancomycin 1.75gm (17 mg/kg) IV q 14 hours * Trough level ordered for 07/19/17 @ 1330 Pharmacy will continue to follow and will adjust dose/frequency as necessary. Thank you.
[2017-07-18] MEDS: KETOROLAC TROMETHAMINE 15 MG/ML VIAL IV PRN ×2 (12:15→20:54)
[2017-07-18] MEDS: VANCOMYCIN INJ 1,750 MG in SODIUM CHLORIDE 0.9% 500ML 500 ML IV SCH (12:17)
--- NOTE | 2017-07-18 15:34 | Progress Note ---
Subjective Date of Service: Jul 18, 2017. Subjective Pt evaluation today including: conversation w/ patient, conversation w/ family , physical exam, chart review, lab review, review of studies, review of inpatient medication list updated on CT chest, MRI foot, echo feeling about the same - foot still really hurts and is really swollen, can't really bear weight sob actually a little today - notes that he can't really cough stuff up that he feels like he needs to present updated and answered all questions to the best of my ability 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 Status: Acute (4) Renal insufficiency Status: Acute Review of Systems all other ROS otherwise negative except for as above Objective Vital Signs Date Time Temp Pulse Resp B/P (MAP) Pulse Ox O2 Delivery O2 Flow Rate FiO2 07/18/17 15:16 Nasal Cannula 2.0 07/18/17 09:30 Nasal Cannula 2.0 07/18/17 07:25 37.2 80 20 176/98 (124) 97 07/18/17 03:15 200/104 (136) 07/18/17 00:00 97 Nasal Cannula 2.0 07/17/17 23:45 37.1 87 20 209/93 (131) 96 Nasal Cannula 2.0 190/105 (133) 07/17/17 20:31 103 202/98 (132) 07/17/17 16:40 89 162/74 (103) 07/17/17 16:00 97 Nasal Cannula 2.0 Physical Exam General Appearance: no apparent distress Eyes: EOMI ENT: hearing grossly normal Neck: trachea midline Respiratory/Chest: no respiratory distress, no accessory muscle use Extremities: + pertinent finding (b/l dorsum of foot swelling - R far worse than L. edematous tender no clear erythema today, no crepitis no fluctuance) Neurologic/Psychiatric: trust evaluation supervisor II-XII nml as tested, alert, normal mood/affect Skin: normal color, warm/dry Laboratory Results Last 24 Hours Test 07/18/17 05:27 Prothrombin Time 11.2 SECONDS Prothromb Time International Ratio 1.0 Activated Partial Thromboplast Time 33.1 SECONDS Partial Thromboplastin Ratio 1.3 Creatinine 0.92 mg/dl Est Creatinine Clear Calc Drug Dose 87.5 ml/min Estimated GFR () 98.0 Estimated GFR (Non- 84.6 Assessment and Plan strep bacteremia -consult ID -vanco pendning further ID&S -concern for septic emboli w foot pain - MRI foot most c/w gout but b/l feet, did not improve w colchicine -- will continue to follow and ask ID input in this regard -echo without vegetations, will await ID input on ?necessity of ELBERT aspiration / dysphagia/ aspiration pneumonia -unasyn -speech eval and treat -supportive care -add nebs ARF -due to poor PO intake -normalized w fluids -continue to follow foot pain -gout vs infectious -stopped steroids -MRI more c/w gout but with bacteremia, lack of response to colchicine and steroids, have concerns on infectious -abx as above, continue to follow -nothing appearing drainable DVT proph -lovenox pain control -pain from above -tiered approach for pain control -with normalization of creatinine, can safely add toradol rib fracture -noted. nothing pathologic appearing on CT
[2017-07-18] MEDS: ALBUT/IPRATROP 3MG/0.5MG NEB 3 ML VIAL INH SCH ×2 (16:00→19:04)
[2017-07-18] MEDS ORDERED: AMLODIPINE BESYLATE 5 MG TAB PO ONE (16:15)
[2017-07-18] MEDS: FLUTICASONE/SALMETEROL 250/50 (ADVAIR) 14 PUFF/1 INHALER INH SCH (20:00)
[2017-07-18] MEDS: METOPROLOL TARTRATE 25 MG TAB PO SCH (21:00)
[2017-07-18] MEDS: CITALOPRAM 20 MG TAB PO SCH (21:01)
[2017-07-18] MEDS: TAMSULOSIN HCL 0.4 MG CAP PO SCH (21:01)
[2017-07-19] VITALS (11 sets, daily range): BP systolic 155–187; BP diastolic 74–93; PULSE 78–105; TEMP 37–37.2; O2SAT 93–97; BMI 29.9
[2017-07-19] MEDS: OXYCODONE/ACETAMINOPHEN 5-325 TAB PO PRN ×4 (00:06→18:04)
[2017-07-19] MEDS: VANCOMYCIN INJ 1,750 MG in SODIUM CHLORIDE 0.9% 500ML 500 ML IV SCH ×2 (02:15→16:03)
[2017-07-19] MEDS: MoRPHine SULFATE 4 MG/ML 1 ML CARP\\VIAL IV PRN ×3 (04:49→20:43)
[2017-07-19] MEDS: SODIUM CHLOR 0.45% + 20MEQ KCL 1,000 ML IV SCH ×2 (04:53→07:49)
[2017-07-19] MEDS ORDERED: VANCOMYCIN TROUGH SCH ×2 (05:30→13:30)
[2017-07-19] MEDS: ALBUT/IPRATROP 3MG/0.5MG NEB 3 ML VIAL INH SCH ×5 (06:59→19:32)
[2017-07-19 07:30] LABS: CREATININE 0.94 mg/dl (0.60-1.40)
[2017-07-19] MEDS: KETOROLAC TROMETHAMINE 15 MG/ML VIAL IV PRN ×2 (07:44→16:06)
[2017-07-19] MEDS: FINASTERIDE 5 MG TAB PO SCH (07:49)
[2017-07-19] MEDS: DOCUSATE SODIUM 100 MG CAP PO SCH (07:49)
[2017-07-19] MEDS: FLUTICASONE/SALMETEROL 250/50 (ADVAIR) 14 PUFF/1 INHALER INH SCH (07:49)
[2017-07-19] MEDS: CHOLECALCIFEROL 1000 INTER.UNIT TAB PO SCH (07:50)
[2017-07-19] MEDS: CYANOCOBALAMIN 500 MCG TAB (VIT B-12) PO SCH (07:50)
[2017-07-19] MEDS: PANTOprazole SOD 40 MG TAB PO SCH (07:51)
[2017-07-19] MEDS: METOPROLOL TARTRATE 25 MG TAB PO SCH ×2 (07:51→20:36)
[2017-07-19] MEDS: OMEGA-3 (PURIFIED FISH OIL) 1 GM CAP PO SCH (07:52)
[2017-07-19] MEDS: ENOXAPARIN 40 MG/0.4 ML SYR SQ SCH (07:52)
[2017-07-19] MEDS: LIDODERM (LIDOCAINE) PATCH 5% TD SCH (07:53)
[2017-07-19] MEDS: MULTIVITAMIN TAB PO SCH (07:54)
[2017-07-19] MEDS: ASCORBIC ACID 500 MG TAB PO SCH (07:54)
[2017-07-19] MEDS ORDERED: AMLODIPINE BESYLATE 5 MG TAB PO SCH (08:00)
--- NOTE | 2017-07-19 10:25 | Progress Note ---
Progress Note Date of Service Jul 19, 2017. Progress Note ID Consult Dictated #[id number] A/P: 1. GBS Septicemia 2. Aspiration PNA -continue vanco for now, await final sensitivities and hopefully change to po abx for total 14 days, repeat cultures pending -thank you
[2017-07-19] MEDS ORDERED: AMLODIPINE BESYLATE 5 MG TAB PO ONE (10:30)
--- NOTE | 2017-07-19 10:34 | INFECT. DISEASE CONSULTATION ---
DATE OF CONSULTATION: 07/19/2017 REQUESTING PHYSICIAN: Sohan Donohue DO HISTORY OF PRESENT ILLNESS: This is a 71-year-old gentleman who was admitted to the hospital with right foot pain which began days prior to admission. He was diagnosed with suspected gout and treated with steroids and colchicine. He states his right foot pain is much improved, but now he is having pain in the left foot as well. He states that overall he is feeling much better. As part of his initial workup, blood cultures were obtained and are growing group B strep. Repeat blood cultures were obtained and are pending. He has been on broad spectrum antibiotics since admission. He currently is on vancomycin. He did have a mild temperature elevation upon admission, but has otherwise been afebrile. He does have a history of aspiration and a dry cough. A chest x-ray was done which did show right lower lobe infiltrate. A CAT scan of the chest was also performed which shows right lower lobe and right middle lobe infiltration. A sputum culture was obtained. He also had an MRI of the foot which showed osteoarthritis but no evidence of infection. He states he is tolerating antibiotics well. He is eating without difficulty. He did have a video swallow which did show aspiration of thickened liquids. He denies any chest pain or shortness of breath at this time. He denies any nausea, vomiting, diarrhea or abdominal pain. His remaining review of systems is reviewed and is unremarkable. PAST MEDICAL HISTORY: Significant for squamous cell cancer of the throat, chronic kidney disease, COPD, anxiety, GERD, hypertension and fatty liver. PAST SURGICAL HISTORY: Significant for nephrectomy, tonsillectomy, hernia repair and a spine surgery. FAMILY HISTORY: Noncontributory. SOCIAL HISTORY: Significant for history of tobacco use. He denies any alcohol or drug use. He is and lives with his . ALLERGIES: He has no known drug allergies. CURRENT MEDICATIONS: Include Norvasc, Lopressor, Advair, DuoNebs, vancomycin, Toradol, lidocaine patch, Lovenox, Percocet, morphine, vitamin D, Colace, Proscar, fish oil, multivitamins, vitamin C, vitamin B12, Protonix, Celexa, Flomax, Yue, Tylenol, Maalox, milk of magnesia and Zofran. PHYSICAL EXAMINATION: VITAL SIGNS: He is afebrile, pulse 94, respiratory rate 18, blood pressure 177/84, and oxygen saturation is 97% on room air. GENERAL: He is awake, alert and oriented x3. He is in no acute distress. HEENT: Mucous membranes are moist. Extraocular muscles are intact. HEART: Regular. LUNGS: Clear bilaterally. ABDOMEN: Soft, nontender. EXTREMITIES: There is no lower extremity edema. There is no erythema of either lower extremity. There are no open lesions. LABORATORY STUDIES: CBC reveals a white blood cell count of 7.9, hemoglobin 12, platelets of 173. Chemistry panel reveals a sodium of 136, potassium 4.8, chloride 103, bicarbonate 23, BUN 54, creatinine 1.3, it has improved to 0.9 today, glucose is 116. Procalcitonin is 4.6. Urinalysis was unremarkable. Blood cultures from the are growing group B strep. Final sensitivities are pending. Repeat blood cultures from the are pending. IMAGING: As above. ASSESSMENT AND PLAN: Group B strep septicemia, likely secondary to aspiration pneumonia. At this time, he can remain on vancomycin. Hopefully, sensitivities will return within the next 24 hours and hopefully he will be transitioned to oral antibiotics to complete a 2-week course. Echocardiogram could be performed as well to rule out any evidence of vegetation and his repeat blood cultures are pending. Thank you for this consultation.
--- NOTE | 2017-07-19 11:01 | Progress Note ---
Subjective Date of Service: Jul 19, 2017. 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, review of inpatient medication list Pain: pain in feet much better PO Intake: adequate Voiding: no voiding problems patient says that overall he is feeling better coughing up sofia sputum, less dyspnea no fever or chills, did have some sweats overnight reviewed blood cultures with Strep, repeat cultures pending Cr still stable eating and drinking well, will stop fluids appreciate ID consultation, strep bacteremia likely from pneumonia 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 Status: Acute (4) Renal insufficiency Status: Acute Review of Systems Constitutional: + sweats, + weakness, + fatigue Musculoskeletal: + joint pain (feet bilaterally, mostly in large toes) All Other Systems: Reviewed and Negative Medications Current Inpatient Medications Medications (Trade) Dose Ordered Sig/Chay Route Start Time Stop Time Status Last Admin Dose Admin Acetaminophen (Tylenol Tab) 650 mg Q4H PRN PO 07/16/17 10:30 08/15/17 10:29 07/17/17 00:46 650 MG Al Hydrox/Mg Hydrox/Simethicone (Maalox Max Susp) 15 ml Q4H PRN PO 07/16/17 10:30 08/15/17 10:29 Magnesium Hydroxide (Milk Of Magnesia Susp) 30 ml Q6H PRN PO 07/16/17 10:30 08/15/17 10:29 Ondansetron HCl (Zofran Inj) 4 mg Q6H PRN IV 07/16/17 10:30 08/15/17 10:29 Miscellaneous (Iv Fluids Completed) 1 ea PRN PRN N/A 07/16/17 11:00 07/16/18 10:59 Cholecalciferol (Vitamin D Tab) 2,000 inter.unit QAM PO 07/17/17 08:00 08/16/17 07:59 07/19/17 07:50 2,000 INTER.UNIT Citalopram Hydrobromide (celeXA TAB) 20 mg QPM PO 07/16/17 21:00 08/15/17 20:59 07/18/17 21:01 20 MG Docusate Sodium (coLACE CAP) 100 mg QAM PO 07/17/17 08:00 08/16/17 07:59 Fexofenadine HCl (Yue Tab) 180 mg QAM PRN PO 07/16/17 12:45 08/15/17 12:44 Finasteride (Proscar Tab) 5 mg QAM PO 07/17/17 08:00 08/16/17 07:59 07/19/17 07:49 5 MG Fish Oil ([place]-3 (Purified Fish Oil) Cap) 1 gm QAM PO 07/17/17 08:00 08/16/17 07:59 Multivitamins (Multivitamin Tab) 1 tab QAM PO 07/17/17 08:00 08/16/17 07:59 Tamsulosin HCl (Flomax Cap) 0.4 mg QPM PO 07/16/17 21:00 08/15/17 20:59 07/18/17 21:01 0.4 MG Ascorbic Acid (Vitamin C Tab) 1,000 mg DAILY PO 07/17/17 08:00 08/16/17 07:59 Cyanocobalamin (Vitamin B-12 Tab) 1,000 mcg QAM PO 07/17/17 08:00 08/16/17 07:59 07/19/17 07:50 1,000 MCG Pantoprazole Sodium (Protonix Tab) 40 mg QAM PO 07/17/17 08:00 08/16/17 07:59 07/19/17 07:51 40 MG Lidocaine HCl/ Diphenhydramine HCl/Al Hydroxide/ Mg Hydroxide/ Glycerin/Barcode Q4H PRN MT 07/16/17 17:15 08/15/17 17:14 07/17/17 08:37 5 ML Vancomycin HCl (Consult) 1 ea UD PRN N/A 07/17/17 06:45 08/16/17 06:44 Oxycodone/ Acetaminophen (Percocet 5-325mg Tab) 1 tab Q4H PRN PO 07/17/17 10:00 07/31/17 09:59 07/19/17 07:44 1 TAB Morphine Sulfate (MoRPHine SULFATE INJ) 4 mg Q4 PRN IV 07/17/17 10:00 07/31/17 09:59 07/19/17 10:34 4 MG Lidocaine (Lidoderm Patch 5%) 1 patch QAM TD 07/18/17 08:00 08/17/17 07:59 Miscellaneous (Remove Lidoderm Patch) 1 ea DAILY@21 N/A 07/17/17 21:00 08/16/17 20:59 07/17/17 20:28 1 EA Enoxaparin Sodium (Lovenox Inj) 40 mg QAM SQ 07/18/17 08:00 08/17/17 07:59 07/19/17 07:52 40 MG Metoprolol Tartrate (Lopressor Tab) 25 mg BID PO 07/18/17 20:00 08/16/17 19:59 07/19/17 07:51 25 MG Ketorolac Tromethamine (Toradol Inj) 15 mg Q6H PRN IV 07/18/17 08:45 07/23/17 08:44 07/19/17 07:44 15 MG Vancomycin HCl 1750 mg/Sodium Chloride 535 ml @ 200 mls/hr Q14H IV 07/18/17 12:00 07/31/17 21:59 07/19/17 02:15 200 MLS/HR Albuterol/ Ipratropium (Duoneb) 3 ml QIDR INH 07/18/17 16:00 08/17/17 15:59 07/19/17 06:59 3 ML Salmeterol Xinafoate/ Fluticasone (Advair Diskus 250/50 Inh) 1 puff BID INH 07/18/17 20:00 08/17/17 19:59 Amlodipine Besylate (Norvasc Tab) 10 mg QAM PO 07/20/17 08:00 08/18/17 07:59 Objective Vital Signs Date Time Temp Pulse Resp B/P (MAP) Pulse Ox O2 Delivery O2 Flow Rate FiO2 07/19/17 10:37 88 157/83 (107) 07/19/17 08:00 177/84 (115) 07/19/17 07:49 37.2 94 18 187/93 (124) 97 Room Air 07/19/17 07:01 91 16 96 Room Air 07/19/17 00:00 Room Air 07/18/17 23:25 37.3 80 20 165/94 (117) 94 Room Air 07/18/17 20:58 108 205/88 (127) 07/18/17 20:00 Room Air 07/18/17 19:08 100 16 96 Room Air 07/18/17 16:05 36.8 81 20 192/110 (137) 98 07/18/17 15:16 Nasal Cannula 2.0 Physical Exam General Appearance: WD/WN, no apparent distress Eyes: normal inspection, EOMI, sclerae normal ENT: normal ENT inspection, hearing grossly normal, pharynx normal Neck: supple, no adenopathy, no JVD, trachea midline Respiratory/Chest: chest non-tender, lungs clear, normal breath sounds, no respiratory distress, no accessory muscle use Cardiovascular: no edema, no gallop, no JVD, no murmur, + irregularly irregular Abdomen: normal bowel sounds, non tender, soft, no organomegaly Extremities: no pedal edema, no calf tenderness, pelvis stable, + pertinent finding (feet swollen, tender, decreased ROM) 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, no motor/sensory deficits, alert, normal mood/affect, oriented x 3 Skin: normal color, warm/dry, no rash Lymphatic: no adenopathy Laboratory Results Last 24 Hours Test 07/19/17 06:19 Creatinine 0.94 mg/dl Est Creatinine Clear Calc Drug Dose 90.8 ml/min Estimated GFR () 95.5 Estimated GFR (Non- 82.4 Assessment and Plan Strep bacteremia: most likely from pneumonia ID recommends to continue Vancomycin, follow up sensitivities and repeat cultures TTE negative for vegetations, no murmur on exam and no fevers, hold on ELBERT for now Aspiration / dysphagia/ aspiration pneumonia Vancomycin IV, will transition to PO once sensitivities back -speech eval and treat, soft diet nebulizers PRN coughing up sofia sputum today, less dyspnea ARF -due to poor PO intake -normalized w fluids - stop fluids today, eating and drinking well Irregular rhythm: on exam today was not consistent, could not make out if it was PVC's with pause will check EKG for rhythm check foot pain , suspect Gout will treat with Prednisone 20mg daily, Colchicine 0.6mg BID -MRI more c/w gout - feeling better today - uric acid was 9.6 feet swollen but less tender, no erythema DVT proph -lovenox pain control -pain from above -tiered approach for pain control -with normalization of creatinine, can safely add toradol rib fracture -noted. nothing pathologic appearing on CT PT/OT
[2017-07-19] MEDS ORDERED: COLCHICINE 0.6 MG TAB PO ONE (11:15)
[2017-07-19] MEDS ORDERED: NURSING VERBAL MED ORDER ONE (13:15)
[2017-07-19] MEDS: SALMETEROL XINAFOATE 50MCG 28 BLISTER INH INH SCH (20:35)
[2017-07-19] MEDS: COLCHICINE 0.6 MG TAB PO SCH (20:37)
[2017-07-19] MEDS: TAMSULOSIN HCL 0.4 MG CAP PO SCH (20:37)
[2017-07-19] MEDS: CITALOPRAM 20 MG TAB PO SCH (20:38)
[2017-07-20] VITALS (14 sets, daily range): BP systolic 154–176; BP diastolic 73–90; PULSE 76–98; TEMP 36.3–36.9; O2SAT 94–97; BMI 29.6
[2017-07-20] MEDS: OXYCODONE/ACETAMINOPHEN 5-325 TAB PO PRN ×4 (03:32→19:47)
[2017-07-20] MEDS: KETOROLAC TROMETHAMINE 15 MG/ML VIAL IV PRN ×2 (05:40→13:32)
[2017-07-20 06:39] LABS: MEAN CELL VOLUME 90.7 fL (80-100); MEAN CORPUSCULAR HEMOGLOBIN 30.9 pg (25-34); MEAN CORPUSCULAR HGB CONC 34.1 g/dl (32-36); MEAN PLATELET VOLUME 10.5 fL (7.4-10.4); PLATELET COUNT 191 K/uL (130-400); RED BLOOD COUNT 3.75 M/uL (4.7-6.1); WHITE BLOOD COUNT 9.83 K/uL (4.8-10.8)
[2017-07-20] MEDS: ALBUT/IPRATROP 3MG/0.5MG NEB 3 ML VIAL INH SCH ×4 (06:56→19:11)
[2017-07-20 07:10] LABS: CREATININE 0.93 mg/dl (0.60-1.40)
[2017-07-20] MEDS: SALMETEROL XINAFOATE 50MCG 28 BLISTER INH INH SCH ×2 (08:26→19:50)
[2017-07-20] MEDS: AMOXICILLIN/CLAVULANATE TAB 875 MG TAB PO SCH ×2 (08:27→15:46)
[2017-07-20] MEDS: COLCHICINE 0.6 MG TAB PO SCH ×2 (08:28→22:14)
[2017-07-20] MEDS: DOCUSATE SODIUM 100 MG CAP PO SCH (08:28)
[2017-07-20] MEDS: MULTIVITAMIN TAB PO SCH (08:29)
[2017-07-20] MEDS: METOPROLOL TARTRATE 25 MG TAB PO SCH ×2 (08:29→19:52)
[2017-07-20] MEDS: OMEGA-3 (PURIFIED FISH OIL) 1 GM CAP PO SCH (08:30)
[2017-07-20] MEDS: FINASTERIDE 5 MG TAB PO SCH (08:31)
[2017-07-20] MEDS: CYANOCOBALAMIN 500 MCG TAB (VIT B-12) PO SCH (08:32)
[2017-07-20] MEDS: PANTOprazole SOD 40 MG TAB PO SCH (08:32)
[2017-07-20] MEDS: ASCORBIC ACID 500 MG TAB PO SCH (08:32)
[2017-07-20] MEDS: CHOLECALCIFEROL 1000 INTER.UNIT TAB PO SCH (08:33)
[2017-07-20] MEDS: ENOXAPARIN 40 MG/0.4 ML SYR SQ SCH (08:34)
[2017-07-20] MEDS: LIDODERM (LIDOCAINE) PATCH 5% TD SCH (08:35)
[2017-07-20] MEDS: AMLODIPINE BESYLATE 5 MG TAB PO SCH (08:45)
[2017-07-20] MEDS: LIDOCAINE HCL 2% VISCOUS SOLN 60 ML, DiphenhydrAMINE HCL SYRUP 150 MG, ALUMINUM/MAGNESI... MT PRN ×4 (09:43)
--- NOTE | 2017-07-20 10:22 | Progress Note ---
Subjective Date of Service: Jul 20, 2017. Subjective no overnight events. afebrile abx transitioned to po augmentin yesterday after sensitivities returned. repeat cultures negative. TTE negative. wbc nml. 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 Status: Acute (4) Renal insufficiency Status: Acute Objective Vital Signs Date Time Temp Pulse Resp B/P (MAP) Pulse Ox O2 Delivery O2 Flow Rate FiO2 07/20/17 10:07 95 Room Air 07/20/17 08:42 Room Air 07/20/17 07:40 157/90 (112) 07/20/17 07:36 36.9 18 96 Room Air 07/20/17 06:57 87 16 96 Room Air 07/20/17 00:15 Room Air 07/19/17 23:55 37.0 90 20 165/74 (104) 96 Room Air 07/19/17 20:34 105 167/77 (107) 07/19/17 19:32 84 16 95 Room Air 07/19/17 16:00 Room Air 07/19/17 15:44 37.2 99 18 179/87 (117) 95 Room Air 07/19/17 15:17 78 16 95 Room Air 07/19/17 14:47 102 155/79 (104) 07/19/17 11:10 86 16 93 Room Air 07/19/17 10:37 88 157/83 (107) Laboratory Results Item Value Date Time Blood Culture - Final Complete 07/16/17 1555 Blood Group B Beta Strep Blood Culture - Final Complete 07/16/17 1550 Blood Group B Beta Strep Blood Culture - Preliminary Resulted 07/18/17 0904 Blood NO GROWTH TO DATE. Blood Culture - Preliminary Resulted 07/18/17 0920 Blood NO GROWTH TO DATE. Last 24 Hours Test 07/19/17 15:11 07/20/17 06:23 Vancomycin Level Trough 22.8 mcg/ml White Blood Count 9.83 K/uL Red Blood Count 3.75 M/uL Hemoglobin 11.6 g/dL Hematocrit 34.0 % Mean Corpuscular Volume 90.7 fL Mean Corpuscular Hemoglobin 30.9 pg Mean Corpuscular Hemoglobin Concent 34.1 g/dl RDW Standard Deviation 48.3 fL RDW Coefficient of Variation 14.7 % Platelet Count 191 K/uL Mean Platelet Volume 10.5 fL Creatinine 0.93 mg/dl Est Creatinine Clear Calc Drug Dose 91.3 ml/min Estimated GFR () 96.7 Estimated GFR (Non- 83.5 Assessment and Plan (1) Beta-hemolytic group B streptococcal sepsis Assessment & Plan: would give 14 days po augmentin from first negative culture. ok for d/c when otherwise stable. (2) Pneumonia
--- NOTE | 2017-07-20 14:39 | Progress Note ---
Subjective Date of Service: Jul 20, 2017. Subjective Pt evaluation today including: conversation w/ patient, conversation w/ family , physical exam, lab review, review of inpatient medication list Pain: still pain in feet but less, pain in low back and left hip PO Intake: adequate Voiding: no voiding problems patient feeling better overall, breathing better, less pain in feet ambulating better with walker c/o left hip hurting him, difficult to find comfortable position has a history of lumbar spinal stenosis, was supposed to have surgery over the summer discussed with , she has some concerns about his history of throat cancer, metastatic disease reviewed micro results, Strep sensitive to PCN discussed with Dr. 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 Status: Acute (4) Renal insufficiency Status: Acute Review of Systems Constitutional: + weakness, + fatigue Respiratory: + dyspnea on exertion Musculoskeletal: + joint pain (feet bilaterally, lower back, left hip, neck) All Other Systems: Reviewed and Negative Medications Current Inpatient Medications Medications (Trade) Dose Ordered Sig/Chay Route Start Time Stop Time Status Last Admin Dose Admin Acetaminophen (Tylenol Tab) 650 mg Q4H PRN PO 07/16/17 10:30 08/15/17 10:29 07/17/17 00:46 650 MG Al Hydrox/Mg Hydrox/Simethicone (Maalox Max Susp) 15 ml Q4H PRN PO 07/16/17 10:30 08/15/17 10:29 Magnesium Hydroxide (Milk Of Magnesia Susp) 30 ml Q6H PRN PO 07/16/17 10:30 08/15/17 10:29 Ondansetron HCl (Zofran Inj) 4 mg Q6H PRN IV 07/16/17 10:30 08/15/17 10:29 Miscellaneous (Iv Fluids Completed) 1 ea PRN PRN N/A 07/16/17 11:00 07/16/18 10:59 Cholecalciferol (Vitamin D Tab) 2,000 inter.unit QAM PO 07/17/17 08:00 08/16/17 07:59 07/20/17 08:33 2,000 INTER.UNIT Citalopram Hydrobromide (celeXA TAB) 20 mg QPM PO 07/16/17 21:00 11/26/17 20:59 07/19/17 20:38 20 MG Docusate Sodium (coLACE CAP) 100 mg QAM PO 07/17/17 08:00 08/16/17 07:59 07/20/17 08:28 100 MG Fexofenadine HCl (Yue Tab) 180 mg QAM PRN PO 07/16/17 12:45 08/15/17 12:44 Finasteride (Proscar Tab) 5 mg QAM PO 07/17/17 08:00 08/16/17 07:59 07/20/17 08:31 5 MG Fish Oil ([place]-3 (Purified Fish Oil) Cap) 1 gm QAM PO 07/17/17 08:00 08/16/17 07:59 Multivitamins (Multivitamin Tab) 1 tab QAM PO 07/17/17 08:00 08/16/17 07:59 07/20/17 08:29 1 TAB Tamsulosin HCl (Flomax Cap) 0.4 mg QPM PO 07/16/17 21:00 08/15/17 20:59 07/19/17 20:37 0.4 MG Ascorbic Acid (Vitamin C Tab) 1,000 mg DAILY PO 07/17/17 08:00 08/16/17 07:59 07/20/17 08:32 1,000 MG Cyanocobalamin (Vitamin B-12 Tab) 1,000 mcg QAM PO 07/17/17 08:00 08/16/17 07:59 07/20/17 08:32 1,000 MCG Pantoprazole Sodium (Protonix Tab) 40 mg QAM PO 07/17/17 08:00 08/16/17 07:59 07/20/17 08:32 40 MG Lidocaine HCl/ Diphenhydramine HCl/Al Hydroxide/ Mg Hydroxide/ Glycerin/Barcode Q4H PRN MT 07/16/17 17:15 08/15/17 17:14 07/20/17 09:43 5 ML Oxycodone/ Acetaminophen (Percocet 5-325mg Tab) 1 tab Q4H PRN PO 07/17/17 10:00 07/31/17 09:59 07/20/17 11:02 1 TAB Morphine Sulfate (MoRPHine SULFATE INJ) 4 mg Q4 PRN IV 07/17/17 10:00 07/31/17 09:59 07/19/17 20:43 4 MG Lidocaine (Lidoderm Patch 5%) 1 patch QAM TD 07/18/17 08:00 08/17/17 07:59 07/20/17 08:35 1 PATCH Miscellaneous (Remove Lidoderm Patch) 1 ea DAILY@21 N/A 07/17/17 21:00 08/16/17 20:59 07/17/17 20:28 1 EA Enoxaparin Sodium (Lovenox Inj) 40 mg QAM SQ 07/18/17 08:00 08/17/17 07:59 07/20/17 08:34 40 MG Metoprolol Tartrate (Lopressor Tab) 25 mg BID PO 07/18/17 20:00 08/16/17 19:59 07/20/17 08:29 25 MG Ketorolac Tromethamine (Toradol Inj) 15 mg Q6H PRN IV 07/18/17 08:45 07/23/17 08:44 07/20/17 13:32 15 MG Albuterol/ Ipratropium (Duoneb) 3 ml QIDR INH 07/18/17 16:00 08/17/17 15:59 07/20/17 11:32 3 ML Amlodipine Besylate (Norvasc Tab) 10 mg QAM PO 07/20/17 08:00 08/18/17 07:59 07/20/17 08:45 10 MG Colchicine (Colchicine Tab) 0.6 mg BID PO 07/19/17 20:00 08/18/17 19:59 07/20/17 08:28 0.6 MG Prednisone (PredniSONE TAB) 20 mg DAILY PO 07/20/17 08:00 08/19/17 07:59 07/20/17 08:31 20 MG Salmeterol Xinafoate (Serevent Diskus Inh) 1 puffs BID INH 07/19/17 20:00 08/18/17 19:59 07/20/17 08:26 1 PUFFS Amoxicillin/ Clavulanate Potassium (Augmentin Tab) 875 mg BIDM PO 07/20/17 08:00 07/31/17 07:59 07/20/17 08:27 875 MG Objective Vital Signs Date Time Temp Pulse Resp B/P (MAP) Pulse Ox O2 Delivery O2 Flow Rate FiO2 10/31/17 11:32 89 16 96 Room Air 07/20/17 11:27 158/82 (107) 07/20/17 11:19 36.7 85 20 96 Room Air 07/20/17 10:07 95 Room Air 07/20/17 08:42 Room Air 07/20/17 07:40 157/90 (112) 07/20/17 07:36 36.9 18 96 Room Air 07/20/17 06:57 87 16 96 Room Air 07/20/17 00:15 Room Air 07/19/17 23:55 37.0 90 20 165/74 (104) 96 Room Air 07/19/17 20:34 105 167/77 (107) 07/19/17 19:32 84 16 95 Room Air 07/19/17 16:00 Room Air 07/19/17 15:44 37.2 99 18 179/87 (117) 95 Room Air 07/19/17 15:17 78 16 95 Room Air 07/19/17 14:47 102 155/79 (104) Physical Exam General Appearance: WD/WN, no apparent distress ENT: normal ENT inspection, hearing grossly normal, pharynx normal Neck: supple, no adenopathy, no JVD, trachea midline Respiratory/Chest: chest non-tender, lungs clear, normal breath sounds, no respiratory distress, no accessory muscle use Cardiovascular: regular rate, rhythm, no edema, no gallop, no JVD, no murmur Abdomen: normal bowel sounds, non tender, soft, no organomegaly Extremities: non-tender, normal inspection, no pedal edema, no calf tenderness , normal capillary refill, pelvis stable 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, alert, normal mood/affect, oriented x 3, + pertinent finding (feet swollen and tender, decreased ROM of left hip due to pain) Skin: normal color, warm/dry, no rash Laboratory Results Last 24 Hours Test 07/19/17 15:11 07/20/17 06:23 Vancomycin Level Trough 22.8 mcg/ml White Blood Count 9.83 K/uL Red Blood Count 3.75 M/uL Hemoglobin 11.6 g/dL Hematocrit 34.0 % Mean Corpuscular Volume 90.7 fL Mean Corpuscular Hemoglobin 30.9 pg Mean Corpuscular Hemoglobin Concent 34.1 g/dl RDW Standard Deviation 48.3 fL RDW Coefficient of Variation 14.7 % Platelet Count 191 K/uL Mean Platelet Volume 10.5 fL Creatinine 0.93 mg/dl Est Creatinine Clear Calc Drug Dose 91.3 ml/min Estimated GFR () 96.7 Estimated GFR (Non- 83.5 Assessment and Plan Strep bacteremia: most likely from pneumonia ID recommends to treat with Augmentin, started today, complete 14 days total from negative cultures TTE negative for vegetations, no murmur on exam and no fevers Aspiration / dysphagia/ aspiration pneumonia Vancomycin IV initially, now treat with Augmentin for another 14 days -speech eval and treat, soft diet nebulizers PRN dyspnea improving, less coughing today ARF -resolved, stopped fluids Irregular rhythm: EKG with sinus rhythm and frequent PVC's foot pain , suspect Gout will treat with Prednisone 20mg daily, Colchicine 0.6mg BID -MRI more c/w gout - continues to improve, can now walk on feet although still painful - uric acid was 9.6 DVT proph -lovenox rib fracture -noted. nothing pathologic appearing on CT PT/OT Plan: continue Augmentin, look for pain in feet to improve to point he can go home
[2017-07-20] MEDS: CITALOPRAM 20 MG TAB PO SCH (19:53)
[2017-07-20] MEDS: TAMSULOSIN HCL 0.4 MG CAP PO SCH (19:53)
[2017-07-21] VITALS (11 sets, daily range): BP systolic 145–176; BP diastolic 74–78; PULSE 48–104; TEMP 36.5–36.9; O2SAT 92–98; BMI 28.4
[2017-07-21] MEDS: OXYCODONE/ACETAMINOPHEN 5-325 TAB PO PRN ×3 (00:58→08:57)
[2017-07-21] MEDS: KETOROLAC TROMETHAMINE 15 MG/ML VIAL IV PRN ×2 (05:48→12:25)
[2017-07-21] MEDS: ALBUT/IPRATROP 3MG/0.5MG NEB 3 ML VIAL INH SCH ×4 (07:06→19:08)
[2017-07-21] MEDS ORDERED: NURSING DECISION MEDICATION ORDER SCH (08:15)
[2017-07-21] MEDS: CHOLECALCIFEROL 1000 INTER.UNIT TAB PO SCH (08:51)
[2017-07-21] MEDS: DOCUSATE SODIUM 100 MG CAP PO SCH (08:51)
[2017-07-21] MEDS: METOPROLOL TARTRATE 25 MG TAB PO SCH ×2 (08:51→20:04)
[2017-07-21] MEDS: MULTIVITAMIN TAB PO SCH (08:51)
[2017-07-21] MEDS: COLCHICINE 0.6 MG TAB PO SCH ×2 (08:51→20:05)
[2017-07-21] MEDS: PANTOprazole SOD 40 MG TAB PO SCH (08:51)
[2017-07-21] MEDS: CYANOCOBALAMIN 500 MCG TAB (VIT B-12) PO SCH (08:51)
[2017-07-21] MEDS: AMLODIPINE BESYLATE 5 MG TAB PO SCH (08:51)
[2017-07-21] MEDS: SALMETEROL XINAFOATE 50MCG 28 BLISTER INH INH SCH ×2 (08:51→20:03)
[2017-07-21] MEDS: ASCORBIC ACID 500 MG TAB PO SCH (08:52)
[2017-07-21] MEDS: LIDODERM (LIDOCAINE) PATCH 5% TD SCH (08:52)
[2017-07-21] MEDS: ENOXAPARIN 40 MG/0.4 ML SYR SQ SCH (08:52)
[2017-07-21] MEDS: OMEGA-3 (PURIFIED FISH OIL) 1 GM CAP PO SCH (08:52)
[2017-07-21] MEDS: FINASTERIDE 5 MG TAB PO SCH (08:53)
[2017-07-21] MEDS: AMOXICILLIN/CLAVULANATE SUSP 400 MG/5 ML PO SCH ×2 (08:56→18:06)
--- NOTE | 2017-07-21 12:28 | Clinical Documentation Query ---
CLINICAL DOCUMENTATION QUERY Dr. SHAH, Internal medicine progress notes indicate pt with strep bacteremia. ID progress note indicates strep sepsis. To aid the coders in proper code assignment, please indicate if pt presented with sepsis. In your clinical opinion is this patient being managed for: ( ) Sepsis ( x) Not Agree ( ) Other explanation of clinical findings (Please Explain) ( ) Unable to determine (Please Define) ( ) Need to Discuss The medical record reflects the following clinical findings, treatment, and risk factors. Clinical Indicators: 71 yo male presenting with aspiration pneumonia. Presented with tachycardia, Cr 2.36, procalcitonin 4.69. Pt had been receiving treatment as an outpatient with prednisone therapy. Treatment: IV fluids, IV unasyn, ID consult, IV vancomycin, po augmentin Risk Factors: age, prednisone therapy, aspiration pneumonia Please clarify and document your clinical opinion in the progress notes and discharge summary. Terms such as "probable", "suspected", "likely", "questionable", "possible", or "still to be ruled out" are acceptable. IF IN AGREEMENT, YOU MUST DOCUMENT ABOVE DIAGNOSTIC STATEMENT IN DAILY PROGRESS NOTES AND DISCHARGE SUMMARY. This document is not part of the patient's record. Thank You, Mandi Victoria, RN [phone]
--- NOTE | 2017-07-21 12:49 | Progress Note ---
Subjective Date of Service: Jul 21, 2017. Subjective Pt evaluation today including: conversation w/ patient, physical exam, lab review, review of studies, review of inpatient medication list Pain: increased pain in ankles and feet PO Intake: adequate Voiding: no voiding problems patient was feeling better yesterday, he was ambulating better, was hoping to go home today but this morning his pain in the feet and ankles got a lot worse ankles and feet still considerably swollen reviewed MRI report again, described as sever, erosive osteoarthritic changes from patient's description, never had issues with his feet so this is all new discussed increasing Prednisone dose will ask Rheumatology to evaluate since he is not improving 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 Status: Acute (4) Renal insufficiency Status: Acute Review of Systems Musculoskeletal: + joint pain (feet and ankles bilaterally) All Other Systems: Reviewed and Negative Medications Current Inpatient Medications Medications (Trade) Dose Ordered Sig/Chay Route Start Time Stop Time Status Last Admin Dose Admin Acetaminophen (Tylenol Tab) 650 mg Q4H PRN PO 07/16/17 10:30 08/15/17 10:29 07/17/17 00:46 650 MG Al Hydrox/Mg Hydrox/Simethicone (Maalox Max Susp) 15 ml Q4H PRN PO 07/16/17 10:30 08/15/17 10:29 Magnesium Hydroxide (Milk Of Magnesia Susp) 30 ml Q6H PRN PO 07/16/17 10:30 08/15/17 10:29 Ondansetron HCl (Zofran Inj) 4 mg Q6H PRN IV 07/16/17 10:30 08/15/17 10:29 Miscellaneous (Iv Fluids Completed) 1 ea PRN PRN N/A 07/16/17 11:00 07/16/18 10:59 Cholecalciferol (Vitamin D Tab) 2,000 inter.unit QAM PO 07/17/17 08:00 08/16/17 07:59 07/21/17 08:51 2,000 INTER.UNIT Citalopram Hydrobromide (celeXA TAB) 20 mg QPM PO 07/16/17 21:00 08/15/17 20:59 07/20/17 19:53 20 MG Docusate Sodium (coLACE CAP) 100 mg QAM PO 07/17/17 08:00 08/16/17 07:59 07/21/17 08:51 100 MG Fexofenadine HCl (Yue Tab) 180 mg QAM PRN PO 07/16/17 12:45 08/15/17 12:44 Finasteride (Proscar Tab) 5 mg QAM PO 07/17/17 08:00 08/16/17 07:59 07/21/17 08:53 5 MG Fish Oil ([place]-3 (Purified Fish Oil) Cap) 1 gm QAM PO 07/17/17 08:00 08/16/17 07:59 Multivitamins (Multivitamin Tab) 1 tab QAM PO 07/17/17 08:00 08/16/17 07:59 07/21/17 08:51 1 TAB Tamsulosin HCl (Flomax Cap) 0.4 mg QPM PO 07/16/17 21:00 08/15/17 20:59 07/20/17 19:53 0.4 MG Ascorbic Acid (Vitamin C Tab) 1,000 mg DAILY PO 07/17/17 08:00 08/16/17 07:59 07/21/17 08:52 1,000 MG Cyanocobalamin (Vitamin B-12 Tab) 1,000 mcg QAM PO 07/17/17 08:00 08/16/17 07:59 07/21/17 08:51 1,000 MCG Pantoprazole Sodium (Protonix Tab) 40 mg QAM PO 07/17/17 08:00 08/16/17 07:59 07/21/17 08:51 40 MG Lidocaine HCl/ Diphenhydramine HCl/Al Hydroxide/ Mg Hydroxide/ Glycerin/Barcode Q4H PRN MT 07/16/17 17:15 08/15/17 17:14 07/20/17 09:43 5 ML Oxycodone/ Acetaminophen (Percocet 5-325mg Tab) 1 tab Q4H PRN PO 07/17/17 10:00 07/31/17 09:59 07/21/17 08:57 1 TAB Morphine Sulfate (MoRPHine SULFATE INJ) 4 mg Q4 PRN IV 07/17/17 10:00 07/31/17 09:59 07/19/17 20:43 4 MG Lidocaine (Lidoderm Patch 5%) 1 patch QAM TD 07/18/17 08:00 08/17/17 07:59 07/21/17 08:52 1 PATCH Miscellaneous (Remove Lidoderm Patch) 1 ea DAILY@21 N/A 07/17/17 21:00 08/16/17 20:59 07/20/17 19:53 1 EA Enoxaparin Sodium (Lovenox Inj) 40 mg QAM SQ 07/18/17 08:00 08/17/17 07:59 07/21/17 08:52 40 MG Metoprolol Tartrate (Lopressor Tab) 25 mg BID PO 07/18/17 20:00 08/16/17 19:59 07/21/17 08:51 25 MG Ketorolac Tromethamine (Toradol Inj) 15 mg Q6H PRN IV 07/18/17 08:45 07/23/17 08:44 07/21/17 12:25 15 MG Albuterol/ Ipratropium (Duoneb) 3 ml QIDR INH 07/18/17 16:00 08/17/17 15:59 07/21/17 11:28 3 ML Amlodipine Besylate (Norvasc Tab) 10 mg QAM PO 07/20/17 08:00 08/18/17 07:59 07/21/17 08:51 10 MG Colchicine (Colchicine Tab) 0.6 mg BID PO 07/19/17 20:00 08/18/17 19:59 07/21/17 08:51 0.6 MG Salmeterol Xinafoate (Serevent Diskus Inh) 1 puffs BID INH 07/19/17 20:00 08/18/17 19:59 07/21/17 08:51 1 PUFFS Amoxicillin/ Clavulanate Potassium (Augmentin Susp) 10.9 ml BIDM PO 07/21/17 08:00 07/31/17 08:01 07/21/17 08:56 10.9 ML Prednisone (PredniSONE TAB) 60 mg DAILY PO 07/22/17 08:00 08/19/17 07:59 Objective Vital Signs Date Time Temp Pulse Resp B/P (MAP) Pulse Ox O2 Delivery O2 Flow Rate FiO2 07/21/17 11:30 80 16 98 Room Air 07/21/17 11:08 Room Air 07/21/17 10:19 36.5 80 20 145/78 (100) 96 Room Air 07/21/17 08:58 76 07/21/17 07:21 36.8 48 22 170/78 (108) 98 Room Air 07/21/17 07:13 98 Room Air 07/21/17 07:09 67 16 98 Room Air 07/21/17 03:59 36.9 60 19 149/74 (99) 96 Room Air 07/21/17 00:00 Room Air 07/20/17 23:54 36.8 78 20 154/86 (108) 94 Room Air 07/20/17 20:00 Room Air 07/20/17 19:49 98 176/80 (112) 07/20/17 19:24 36.3 97 20 170/73 (105) 97 Room Air 07/20/17 19:11 81 16 96 Room Air 07/20/17 16:33 36.6 76 18 165/75 (105) 94 07/20/17 16:10 36.6 76 18 165/75 (105) 94 07/20/17 15:49 85 16 95 Room Air 07/20/17 15:28 Room Air Physical Exam General Appearance: WD/WN, no apparent distress ENT: normal ENT inspection, hearing grossly normal, pharynx normal Neck: supple, no adenopathy, no JVD, trachea midline Respiratory/Chest: chest non-tender, lungs clear, normal breath sounds, no respiratory distress, no accessory muscle use Cardiovascular: regular rate, rhythm, no edema, no gallop, no JVD, no murmur Abdomen: normal bowel sounds, non tender, soft, no organomegaly Extremities: no pedal edema, no calf tenderness, normal capillary refill, pelvis stable, + pertinent finding (bilateral ankle and foot swelling, tender, decreased ROM due to pain) Neurologic/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, no motor/sensory deficits, alert, normal mood/affect, oriented x 3 Skin: normal color, warm/dry, no rash Assessment and Plan Strep bacteremia, not sepsis: most likely from pneumonia ID recommends to treat with Augmentin, started today, complete 14 days total from negative cultures TTE negative for vegetations, no murmur on exam and no fevers Aspiration / dysphagia/ aspiration pneumonia Vancomycin IV initially, now treat with Augmentin for another 14 days -speech eval and treat, soft diet nebulizers PRN dyspnea improving, less coughing today ARF -resolved, stopped fluids Irregular rhythm: EKG with sinus rhythm and frequent PVC's foot pain and ankle pain and swelling, suspect Gout continues to have severe pain and swelling reviewed MRI again, described as 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 reactive arthritis? DVT proph -lovenox rib fracture -noted. nothing pathologic appearing on CT PT/OT Plan: continue Augmentin, Rheumatology consult, hopeful that increase Prednisone dose will improve pain so he can go home tomorrow
[2017-07-21] MEDS: OXYCODONE/ACETAMINOPHEN 10/325MG TAB PO PRN ×2 (15:39→20:03)
--- NOTE | 2017-07-21 17:54 | Rheumatology Consultation ---
Rheumatology Consultation Date of Consultation: Jul 21, 2017. 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 He had to leave work after a few hours and presented to [facility] where he was evaluated and told that his foot pain and swelling was due to gout. He recalls one prior episode of gout many years ago. He was prescribed prednisone. He went to hand picker the prescription and took his first dose in [place] parking lot [place] the shopping center. The next day , he could not bare weight so he called EMS and was brought to the emergency room. On admission, his labs were notable for elevated creatinine of 2.3, uric acid of 9.2, and normal CBC. His procalcitonin was elevated. Chest imaging demonstrated pneumonia for which he was started on IV antibiotics. He was given prednisone and colchicine. X-rays of his right foot did not demonstrate any fractures. MRI of the right foot showed soft tissue swelling with no distinct fluid collection, and bony changes suggestive of erosive osteoarthritic versus gouty arthritis. He was initially on prednisone 20 mg BID. His was noting some improvement in his foot pain until this morning when he had trouble ambulating. His prednisone was increased to 60 mg and rheumatology was consulted. He has a history of degenerative arthritis affecting his cervical and lumbar spine. He had cervical spine surgery and was to have lumbar spine surgery this year which he deferred. He wonders if being dehydrated could have triggered his gout flare. He does consume seafood but did not have any recently and he denies alcohol use. There is no family history of gout. This evening, his feet are feeling better, and he has been able to walk using the walker. 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 Stage III CKD PSH Cervical spine surgery Hernia repiar Nephrectomy Social History Smoking Status: Former Smoker History of Alcohol Use: No Marital Status: Housing Status: lives with significant other Occupation Status: retired Review of Systems Constitutional: No fever, No chills, No sweats, No weight loss, No weakness Eyes: No worsening of vision ENT: No sore throat Respiratory: No cough, No shortness of breath Cardiac: No chest pain Abdomen: No pain, No diarrhea, No constipation Musculoskeletal: + joint pain, + swelling, No muscle pain Neurologic: No weakness, No numbness/tingling Allergies Coded Allergies: Latex1 -Allergic Contact Dermititis (Verified Allergy, Unknown, patient states had allergy tests which tested + , 07/03/16) NO KNOWN DRUG ALLERGIES (Verified Allergy, Unknown, NKDA, 07/03/16) Medications Current Inpatient Medications Medications (Trade) Dose Ordered Sig/Chay Route Start Time Stop Time Status Last Admin Dose Admin Acetaminophen (Tylenol Tab) 650 mg Q4H PRN PO 07/16/17 10:30 08/15/17 10:29 07/17/17 00:46 650 MG Al Hydrox/Mg Hydrox/Simethicone (Maalox Max Susp) 15 ml Q4H PRN PO 07/16/17 10:30 08/15/17 10:29 Magnesium Hydroxide (Milk Of Magnesia Susp) 30 ml Q6H PRN PO 07/16/17 10:30 08/15/17 10:29 Ondansetron HCl (Zofran Inj) 4 mg Q6H PRN IV 07/16/17 10:30 08/15/17 10:29 Miscellaneous (Iv Fluids Completed) 1 ea PRN PRN N/A 07/16/17 11:00 07/16/18 10:59 Cholecalciferol (Vitamin D Tab) 2,000 inter.unit QAM PO 07/17/17 08:00 08/16/17 07:59 07/21/17 08:51 2,000 INTER.UNIT Citalopram Hydrobromide (celeXA TAB) 20 mg QPM PO 07/16/17 21:00 08/15/17 20:59 07/20/17 19:53 20 MG Docusate Sodium (coLACE CAP) 100 mg QAM PO 07/17/17 08:00 08/16/17 07:59 07/21/17 08:51 100 MG Fexofenadine HCl (Yue Tab) 180 mg QAM PRN PO 07/16/17 12:45 08/15/17 12:44 Finasteride (Proscar Tab) 5 mg QAM PO 07/17/17 08:00 08/16/17 07:59 07/21/17 08:53 5 MG Fish Oil ([place]-3 (Purified Fish Oil) Cap) 1 gm QAM PO 07/17/17 08:00 08/16/17 07:59 Multivitamins (Multivitamin Tab) 1 tab QAM PO 07/17/17 08:00 08/16/17 07:59 07/21/17 08:51 1 TAB Tamsulosin HCl (Flomax Cap) 0.4 mg QPM PO 07/16/17 21:00 08/15/17 20:59 07/20/17 19:53 0.4 MG Ascorbic Acid (Vitamin C Tab) 1,000 mg DAILY PO 07/17/17 08:00 08/16/17 07:59 07/21/17 08:52 1,000 MG Cyanocobalamin (Vitamin B-12 Tab) 1,000 mcg QAM PO 07/17/17 08:00 08/16/17 07:59 07/21/17 08:51 1,000 MCG Pantoprazole Sodium (Protonix Tab) 40 mg QAM PO 07/17/17 08:00 08/16/17 07:59 07/21/17 08:51 40 MG Lidocaine HCl/ Diphenhydramine HCl/Al Hydroxide/ Mg Hydroxide/ Glycerin/Barcode Q4H PRN MT 07/16/17 17:15 08/15/17 17:14 07/20/17 09:43 5 ML Morphine Sulfate (MoRPHine SULFATE INJ) 4 mg Q4 PRN IV 07/17/17 10:00 07/31/17 09:59 07/19/17 20:43 4 MG Lidocaine (Lidoderm Patch 5%) 1 patch QAM TD 07/18/17 08:00 08/17/17 07:59 07/21/17 08:52 1 PATCH Miscellaneous (Remove Lidoderm Patch) 1 ea DAILY@21 N/A 07/17/17 21:00 08/16/17 20:59 07/20/17 19:53 1 EA Enoxaparin Sodium (Lovenox Inj) 40 mg QAM SQ 07/18/17 08:00 08/17/17 07:59 07/21/17 08:52 40 MG Metoprolol Tartrate (Lopressor Tab) 25 mg BID PO 07/18/17 20:00 08/16/17 19:59 07/21/17 08:51 25 MG Ketorolac Tromethamine (Toradol Inj) 15 mg Q6H PRN IV 07/18/17 08:45 07/23/17 08:44 07/21/17 12:25 15 MG Albuterol/ Ipratropium (Duoneb) 3 ml QIDR INH 07/18/17 16:00 08/17/17 15:59 07/21/17 15:28 3 ML Amlodipine Besylate (Norvasc Tab) 10 mg QAM PO 07/20/17 08:00 08/18/17 07:59 07/21/17 08:51 10 MG Colchicine (Colchicine Tab) 0.6 mg BID PO 07/19/17 20:00 08/18/17 19:59 07/21/17 08:51 0.6 MG Salmeterol Xinafoate (Serevent Diskus Inh) 1 puffs BID INH 07/19/17 20:00 08/18/17 19:59 07/21/17 08:51 1 PUFFS Amoxicillin/ Clavulanate Potassium (Augmentin Susp) 10.9 ml BIDM PO 07/21/17 08:00 07/31/17 08:01 07/21/17 08:56 10.9 ML Prednisone (PredniSONE TAB) 60 mg DAILY PO 07/22/17 08:00 08/19/17 07:59 Oxycodone/ Acetaminophen (Percocet 10-325MG Tab) 1 tab Q4H PRN PO 07/21/17 15:30 08/04/17 15:29 07/21/17 15:39 1 TAB Physical Exam Date Time Temp Pulse Resp B/P (MAP) Pulse Ox O2 Delivery O2 Flow Rate FiO2 07/21/17 16:00 97 Room Air 07/21/17 15:30 60 16 97 Room Air 07/21/17 11:30 80 16 98 Room Air 07/21/17 11:08 Room Air 07/21/17 10:19 36.5 80 20 145/78 (100) 96 Room Air 07/21/17 08:58 76 07/21/17 07:21 36.8 48 22 170/78 (108) 98 Room Air 07/21/17 07:13 98 Room Air 07/21/17 07:09 67 16 98 Room Air 07/21/17 03:59 36.9 60 19 149/74 (99) 96 Room Air 07/21/17 00:00 Room Air 07/20/17 23:54 36.8 78 20 154/86 (108) 94 Room Air 07/20/17 20:00 Room Air 07/20/17 19:49 98 176/80 (112) 07/20/17 19:24 36.3 97 20 170/73 (105) 97 Room Air 07/20/17 19:11 81 16 96 Room Air General Appearance: WD/WN, no apparent distress Eyes: bilateral eyes normal inspection, bilateral eyes EOMI ENT: normal ENT inspection, hearing grossly normal Neck: supple Respiratory: chest non-tender, lungs clear, normal breath sounds Cardiovascular: regular rate, rhythm Abdomen: normal bowel sounds, non tender, soft Musculoskeletal: soft tissue swelling right greater than left of both feet; tenderness of the right midfoot. Neurologic/Psychiatric: no motor/sensory deficits uric acid 9.2 Assessment & Plan Assessment & Plan: 71 year old man with acute onset of pain and swelling of his right foot and interval development of swelling of his left foot. His presentation is consistent with a clinical diagnosis gout. He has osteoarthritis and the changes on MRI could still reflect erosive osteoarthritis. He noted initial improvement on prednisone. Given ongoing symptoms, he may metabolize methylprednisolone better or require higher dose of prednisone to treat this flare. Can also consider longer course of colchicine. Given that this is his first flare in many years, urate lowering therapy is not indicated at this time. I reviewed with the patient the lifestyle measures that can help to minimize gout flares. Reviewed how colchicine is used to treat first sign of gout flare if he develops another episode. Treatment of erosive osteoarthritis is symptomatic. Given his age and renal status, would avoid NSAIDs. I discussed with the patient that if he wants to see rheumatology as an outpatient he can be seen as a return patient in 2-4 weeks. Recommendations 1. Continue prednisone 60 mg daily for 3 more days then taper by 10 mg every 3 days until off 2. Consider adding colchicine 0.6 mg daily for 1 week. Potential side effects of colchicine reviewed. 3. Have patient follow-up with his PCP in 1-2 weeks from discharge. Thank you for allowing rheumatology to participate in the care of this patient.
[2017-07-21] MEDS: CITALOPRAM 20 MG TAB PO SCH (20:05)
[2017-07-21] MEDS: TAMSULOSIN HCL 0.4 MG CAP PO SCH (20:06)
[2017-07-22] VITALS: BP 156/74; PULSE 77; TEMP 36.7; O2SAT 95
[2017-07-22] MEDS: OXYCODONE/ACETAMINOPHEN 10/325MG TAB PO PRN ×2 (00:12→07:52)
[2017-07-22] MEDS: KETOROLAC TROMETHAMINE 15 MG/ML VIAL IV PRN (04:08)
[2017-07-22 04:12] VITALS: BP 165/89; PULSE 76; TEMP 36.7; O2SAT 97
[2017-07-22 06:26] VITALS: Ht 182.9 cm; Wt 94.3 kg
[2017-07-22] MEDS: ALBUT/IPRATROP 3MG/0.5MG NEB 3 ML VIAL INH SCH ×2 (07:12→11:21)
[2017-07-22 07:13] VITALS: PULSE 74; O2SAT 98
[2017-07-22 07:45] VITALS: BP 162/83; PULSE 76; TEMP 36.5; O2SAT 99
[2017-07-22] MEDS: AMLODIPINE BESYLATE 5 MG TAB PO SCH (07:45)
[2017-07-22] MEDS: SALMETEROL XINAFOATE 50MCG 28 BLISTER INH INH SCH (07:45)
[2017-07-22] MEDS: FINASTERIDE 5 MG TAB PO SCH (07:46)
[2017-07-22] MEDS: MULTIVITAMIN TAB PO SCH (07:46)
[2017-07-22] MEDS: CYANOCOBALAMIN 500 MCG TAB (VIT B-12) PO SCH (07:46)
[2017-07-22] MEDS: DOCUSATE SODIUM 100 MG CAP PO SCH (07:46)
[2017-07-22] MEDS: CHOLECALCIFEROL 1000 INTER.UNIT TAB PO SCH (07:46)
[2017-07-22] MEDS: PANTOprazole SOD 40 MG TAB PO SCH (07:46)
[2017-07-22] MEDS: METOPROLOL TARTRATE 25 MG TAB PO SCH (07:46)
[2017-07-22] MEDS: COLCHICINE 0.6 MG TAB PO SCH (07:46)
[2017-07-22] MEDS: ASCORBIC ACID 500 MG TAB PO SCH (07:47)
[2017-07-22] MEDS: ENOXAPARIN 40 MG/0.4 ML SYR SQ SCH (07:47)
[2017-07-22] MEDS: LIDODERM (LIDOCAINE) PATCH 5% TD SCH (07:47)
[2017-07-22] MEDS: OMEGA-3 (PURIFIED FISH OIL) 1 GM CAP PO SCH (07:47)
[2017-07-22] MEDS: LIDOCAINE HCL 2% VISCOUS SOLN 60 ML, DiphenhydrAMINE HCL SYRUP 150 MG, ALUMINUM/MAGNESI... MT PRN ×4 (07:52)
[2017-07-22] MEDS: AMOXICILLIN/CLAVULANATE SUSP 400 MG/5 ML PO SCH (07:52)
[2017-07-22 08:02] LABS: CREATININE 0.98 mg/dl (0.60-1.40)
[2017-07-22] MEDS ORDERED: PRD20 PO (09:16)
[2017-07-22] MEDS ORDERED: AMOX400S2 PO (09:16)
[2017-07-22] MEDS ORDERED: CLC6 PO (09:23)
--- NOTE | 2017-07-22 09:23 | Discharge Instructions ---
Discharge Instructions Date of Service Jul 22, 2017. Admission Reason for Admission: Pneumonia Discharge Discharge Diagnosis / Problem: Aspiration pneumonia, Strep bacteremia, acute gouty arthritis Discharge Goals Goal(s): Decrease discomfort, Improve function Activity Recommendations Activity Limitations: resume your previous activity Driving or Machine Use: do not drive while taking narcotics . Instructions / Follow-Up Instructions / Follow-Up Medications: - PREDNISONE: 60mg (3 tabs) for two more days (starting tomorrow AM) then decrease by 10mg to 50mg (2.5 tablets) for three days then 40mg for three days, 30mg for three days, 20mg for three days, 10mg for four days then stop - COLCHICINE: 0.6mg daily x 7 days - AUGMENTIN: one tablet twice a day for 10 more days, next dose due this evening , last dose would be evening on 08/01 Pneumonia with group B strep bacteremia: responding well to antibiotics, sensitive to Augmentin which you have been on for three days take Augmentin twice a day until 08/01 which would be 14 days total since negative blood cultures Acute gouty arthritis: recommendations from rheumatology, take Prednisone taper as described above, Colchicine for one more week dietary changes which include avoiding high protein intake, avoiding alcohol as this can increase uric acid levels FOLLOW UP - call for appointment with Dr. Carlo Ahn in 5-7 days for hospital follow up Current Hospital Diet Patient's current hospital diet: Regular Diet Discharge Diet Recommended Diet: Regular Diet (low protein, no alcohol) Pending Studies Studies pending at discharge: no Medical Emergencies . Who to Call and When: Medical Emergencies: If at any time you feel your situation is an emergency, please call 911 immediately. . Non-Emergent Contact Non-Emergency issues call your: Primary Care Provider Call Non-Emergent contact if: you have a fever, your pain is not controlled, your pain is worsening, you have any medication questions . . "Provider Documentation" section prepared by Mani Rosa. . [employer] Supervisor Recommendations [employer] Supervisor Recommendations: Rheumatology Recommendations 1. Continue prednisone 60 mg daily for 3 more days then taper by 10 mg every 3 days until off 2. Consider adding colchicine 0.6 mg daily for 1 week. Potential side effects of colchicine reviewed. 3. Have patient follow-up with his PCP in 1-2 weeks from discharge. VTE Core Measure Inpt VTE Proph given/why not?: Enoxaparin (Lovenox)SQ [place] Drug Monitoring Program Search Results: no issues identified
[2017-07-22 09:41] VITALS: BP 162/83; PULSE 76; TEMP 36.5; O2SAT 99
--- NOTE | 2017-07-22 11:05 | Discharge Summary ---
Discharge Summary Date of Service Jul 22, 2017. Discharge Summary Admission Date: Jul 17, 2017 at 08:47 Discharge Date: Jul 22, 2017 Discharge Disposition: Home with services Principal Diagnosis: Group B strep bacteremia from pneumonia Problems/Secondary Diagnoses: Acute gouty arthritis of bilateral ankles CLIVE, resolved Immunizations: Have You Had Influenza Vaccine: Yes History of Tetanus Vaccine?: No History of Pneumococcal: Yes History of Hepatitis B Vaccine: No Procedures: none Consultations: Infectious disease Rheumatology PT/OT Medication Reconciliation New Medications: Amoxicillin & Pot Clavulanate (Amoxicillin/Clavulanate P) 1 Melanie Melanie 10.9 ML PO BIDM, #21 TABS 0 Refills Colchicine (Colcrys) 0.6 Mg Tab 0.6 MG PO DAILY for 7 Days, #7 TAB 0 Refills Prednisone (Prednisone) 20 Mg Tab 60 MG PO DAILY, #29 TAB 0 Refills taper: 60mg x 2 days, then 50mg x 3 days, decrease by 10mg every 3 days until done Continued Medications: Acetaminophen (Tylenol) 325 Mg Tab 650 MG PO DIRECTED PRN for Pain, TAB Ascorbic Acid (Vitamin C) 1,000 Mg Tab 1000 MG PO DAILY for TAKES IN WINTER SEASON Cholecalciferol (Vitamin D3) 1,000 Unit Tab 2 TABS PO QAM for 90 Days, TAB 3 Refills Citalopram Hydrobromide (Celexa) 20 Mg Tab 20 MG PO QPM, TAB Cyanocobalamin (Vitamin B12) 1,000 Mcg Tab 1000 MCG PO QAM Diphenhy/Alum/Mag/Sucralfa (Magic Swizzle - Diphenhy/Alum/Mag/Sucralfa) Susp 1 TSP PO DIRECTED, #200 ML 1 Refill 30ML DIPHENHYDRAMINE SLN 12.5/5ML 60ML MAALOX 4GM CARAFATE SWISH AND SPIT Docusate Sodium (Colace) 100 Mg Cap 1 CAP PO QAM for 30 Days, #30 CAP TAKES ONLY NEEDED Fexofenadine Hcl (Yue Allergy) 180 Mg Tab 1 TAB PO QAM PRN for Seasonal Allergies for 14 Days, #14 TAB 2 Refills Finasteride (Proscar) 5 Mg Tab 5 MG PO QAM, TAB Fish Oil ([place]-3) 1 Ea Cap 1 CAP PO QAM, 0 Refills Hydrocodone/Acetaminophen 10MG/325MG ([place] 10MG/325MG) Tab 1 TABS PO QID PRN for Pain, TAB Losartan Potassium (Cozaar) 25 Mg Tab 25 MG PO QAM, TAB Multivitamin (Multivitamin) Tab 1 TAB PO QAM, 0 Refills Omeprazole (Omeprazole) 20 Mg Tab 40 MG PO DAILY, TAB 3 Refills Pomegranate (Punica Granatum) (Pomegranate) 250 Mg Cap 1 TAB PO QAM Salmeterol Xinafoate (Serevent Diskus) 28 Puffs/1400 Mcg Aerp 1 PUFF INH BID Tamsulosin Hcl (Flomax) 0.4 Mg Cap 0.4 MG PO QPM, CAP Discontinued Medications: Prednisone (Prednisone) 20 Mg Tab 20 MG PO BID, TAB Discharge Exam Patient feeling a lot better today, ambulating well, actually smiling today, pain improved greatly. He feels swelling in ankles is better. Appreciate rheumatology consultation and recommendations. Discussed plans for discharge in detail and provided detailed written instructions, all questions answered to his satisfaction. Review of Systems: Constitutional: + weakness, No fever, No chills, No sweats, No weight loss, No fatigue, No problem reported Eyes: No worsening of vision, No eye pain, No redness, No discharge, No diplopia, No problem reported ENT: No hearing loss, No unusual epistaxis, No nasal symptoms, No sore throat, No tinnitus, No dental problems, No trouble swallowing, No problem reported Respiratory: No cough, No sputum, No wheezing, No shortness of breath, No dyspnea on exertion, No dyspnea at rest, No hemoptysis, No problem reported Cardiovascular: No chest pain, No orthopnea, No PND, No edema, No claudication, No palpitations, No problem reported Abdomen: No pain, No nausea, No vomiting, No diarrhea, No constipation, No GI bleeding, No problem reported Musculoskeletal: + joint pain (mild pain in ankles bilaterally, much improved), No muscle pain, No swelling, No calf pain, No problem reported Genitourinary - Male: No hematuria, No dysuria, No urinary frequency, No urinary urgency Neurologic: No memory loss, No paralysis, No weakness, No numbness/tingling , No vertigo, No balance problems, No problem reported Psychiatric: No depression symptoms, No anhedonism, No anxiety, No insomnia , No substance abuse, No problem reported Endocrine: No fatigue, No excessive thirst, No excessive urination, No problem reported Hematologic / Lymphatic: No abnormal bleeding/bruising, No clotting problems , No swollen lymph nodes, No night sweats, No problem reported Integumentary: No rash, No itch, No new/changing skin lesions, No color change, No bleeding, No problem reported Physical Exam: General Appearance: WD/WN, no apparent distress Eyes: normal inspection, EOMI, sclerae normal ENT: normal ENT inspection, hearing grossly normal, pharynx normal Neck: supple, no adenopathy, no JVD, trachea midline Respiratory/Chest: chest non-tender, lungs clear, normal breath sounds, no respiratory distress, no accessory muscle use Cardiovascular: regular rate, rhythm, no edema, no gallop, no JVD, no murmur , normal peripheral pulses Abdomen / GI: normal bowel sounds, non tender, soft, no organomegaly Extremities: no calf tenderness, normal capillary refill, no pedal edema, pelvis stable, + swelling (bilateral ankles, less swollen today, less tender, increased active ROM) 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, no motor/sensory deficits , alert, normal mood/affect, normal reflexes, oriented x 3 Skin: normal color, warm/dry, no rash Lymphatic: no adenopathy Hospital Course Strep bacteremia, not sepsis: most likely from aspiration pneumonia ID recommends to treat with Augmentin, started 07/21, complete 14 days total from negative cultures last dose would be on 08/01 in the evening TTE negative for vegetations, no murmur on exam and no fevers, thus no evidence for endocarditis Aspiration / dysphagia/ aspiration pneumonia Vancomycin IV initially, now treat with Augmentin, complete 14 days which will be 08/01 in the evening -speech eval and treat, soft diet nebulizers PRN dyspnea and cough resolved, feels like he is breathing normally ARF -resolved, stopped fluids - was prerenal etiology in setting of pneumonia and bacteremia Irregular rhythm: EKG with sinus rhythm and frequent PVC's foot pain and ankle pain and swelling - - Acute gouty arthritis much improved on 60mg of Prednisone appreciate consult from Dr. 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 nothing pathologic appearing on CT PT/OT Plan: d/c to home with PCP follow up in one week, finish course of Augmentin, finish Prednisone taper and Colchicine for 1 week Total Time Spent: Greater than 30 minutes This includes examination of the patient, discharge planning, medication reconciliation, and communication with other providers. Discharge Instructions Please refer to the electronic Patient Visit Report (Discharge Instructions) for additional information. Follow-Up Dr. Ahn in 5-7 days Additional Copies To Carlo Ahn M.D.
[2017-07-22 11:22] VITALS: BP 136/78; PULSE 74; TEMP 36.7; O2SAT 93
== END 2017-07-22 12:26 | disposition home or self-care (01) | DRG 178 ==
LOC: EDBD 07:03 → C.EDA 07:04 → C.4E 10:17 → ENRESERV 11:02 → OBSVTOIN 07-17 08:47
PROVIDERS: ADMIT Family Medicine; ATTEND Internal Medicine
DX: J69.0 Pneumonitis due to inhalation of food and vomit (principal); R78.81 Bacteremia; N17.9 Acute kidney failure, unspecified; B95.1 Streptococcus, group B, as the cause of diseases classified elsewhere; M10.9 Gout, unspecified; R13.10 Dysphagia, unspecified; S22.31XD Fracture of one rib, right side, subsequent encounter for fracture with routine healing; X58.XXXD Exposure to other specified factors, subsequent encounter; I49.3 Ventricular premature depolarization; M15.4 Erosive (osteo)arthritis; I12.9 Hypertensive chronic kidney disease with stage 1 through stage 4 chronic kidney disease, or unspecified chronic kidney disease; N18.3 Chronic kidney disease, stage 3 (moderate); J44.9 Chronic obstructive pulmonary disease, unspecified; K21.9 Gastro-esophageal reflux disease without esophagitis; G89.29 Other chronic pain; M54.5 Low back pain; N40.0 Benign prostatic hyperplasia without lower urinary tract symptoms; D64.9 Anemia, unspecified; F41.9 Anxiety disorder, unspecified; Z87.891 Personal history of nicotine dependence; Z79.899 Other long term (current) drug therapy; Z79.52 Long term (current) use of systemic steroids; Z79.891 Long term (current) use of opiate analgesic

== ENCOUNTER → 2017-07-26 | Outpatient (CLI) | payer OTHER ==
[~2017-07-26] MED LIST changes: +ACET-1311 PO; +AMOX400S2 PO; +CLC6 PO; +MAGIC1 PO; +OMEP20TA PO; -OMEP40CA PO; +PRD20 PO; -SALM50AE2 INH; +SRVDIN50 INH; -[UNRECOGNIZED DRUG - REMARK]
[2017-07-26 12:19] LABS: BASO % 0.5 %; BASO ABS # 0.08 K/uL (0-0.2); COMPLETE YES; EOS % 0.5 %; HEMATOCRIT 37.3 % (42-52); IG% 0.7 %; LYMPH ABS # 1.62 K/uL (1.2-3.4); MEAN CELL VOLUME 93.5 fL (80-100); MEAN CORPUSCULAR HEMOGLOBIN 30.3 pg (25-34); MEAN CORPUSCULAR HGB CONC 32.4 g/dl (32-36); MONO % 6.9 %; NEUT % 81.4 %; PLATELET COUNT 602 K/uL (130-400); RED BLOOD COUNT 3.99 M/uL (4.7-6.1); WHITE BLOOD COUNT 16.18 K/uL (4.8-10.8)
[2017-07-26 12:53] LABS: ALT/SGPT 101 U/L (12-78); BLOOD UREA NITROGEN 36 mg/dl (7-18); BUN/CREATININE RATIO 29.5 (10-20); CALCIUM 9.4 mg/dl (8.5-10.1); CARBON DIOXIDE 31 mmol/L (21-32); CHLORIDE 97 mmol/L (98-107); CREATININE 1.23 mg/dl (0.60-1.40); GLUCOSE 80 mg/dl (70-99); POTASSIUM 4.4 mmol/L (3.5-5.1); SODIUM 133 mmol/L (136-145); URIC ACID 5.6 mg/dl (2.6-7.2)
[2017-07-26 12:56] LABS: ALB/GLOB RATIO 0.7 (0.9-2); ALKALINE PHOSPHATASE 88 U/L (45-117); AST/SGOT 42 U/L (15-37)
== END | disposition home or self-care (01) ==
LOC: C.LABPBG 09:20
PROVIDERS: ATTEND Internal Medicine
DX: N18.3 Chronic kidney disease, stage 3 (moderate) (principal); J69.0 Pneumonitis due to inhalation of food and vomit; R78.81 Bacteremia; M10.9 Gout, unspecified

== ENCOUNTER → 2017-08-09 | Outpatient (CLI) | payer OTHER ==
[2017-08-09 12:15] LABS: BASO % 0.3 %; BASO ABS # 0.04 K/uL (0-0.2); COMPLETE YES; EOS % 0.4 %; HEMATOCRIT 35.8 % (42-52); IG% 0.8 %; LYMPH % 5.9 %; MEAN CORPUSCULAR HEMOGLOBIN 30.6 pg (25-34); MEAN CORPUSCULAR HGB CONC 31.8 g/dl (32-36); MEAN PLATELET VOLUME 10.5 fL (7.4-10.4); MONO % 3.4 %; NEUT % 89.2 %; PLATELET COUNT 182 K/uL (130-400); RED BLOOD COUNT 3.73 M/uL (4.7-6.1); WHITE BLOOD COUNT 11.88 K/uL (4.8-10.8)
[2017-08-09 13:16] LABS: ALT/SGPT 60 U/L (12-78); AST/SGOT 24 U/L (15-37); BLOOD UREA NITROGEN 31 mg/dl (7-18); CALCIUM 9.2 mg/dl (8.5-10.1); CARBON DIOXIDE 26 mmol/L (21-32); CHLORIDE 104 mmol/L (98-107); CREATININE 1.07 mg/dl (0.60-1.40); GLUCOSE 118 mg/dl (70-99); POTASSIUM 4.7 mmol/L (3.5-5.1); SODIUM 138 mmol/L (136-145)
[2017-08-09 13:19] LABS: ALB/GLOB RATIO 0.8 (0.9-2); ALKALINE PHOSPHATASE 73 U/L (45-117)
== END | disposition home or self-care (01) ==
LOC: C.LABPBG 10:10
PROVIDERS: ATTEND Internal Medicine
DX: R78.81 Bacteremia (principal); J69.0 Pneumonitis due to inhalation of food and vomit

== ENCOUNTER → 2017-08-16 | Outpatient (CLI) | payer OTHER ==
[2017-08-16 17:40] LABS: BASO % 0.2 %; BASO ABS # 0.02 K/uL (0-0.2); EOS % 0.5 %; HEMATOCRIT 36.3 % (42-52); IG% 0.7 %; LYMPH % 15.6 %; MEAN CORPUSCULAR HEMOGLOBIN 30.4 pg (25-34); MEAN PLATELET VOLUME 10.6 fL (7.4-10.4); MONO % 6.4 %; NEUT % 76.6 %; PLATELET COUNT 232 K/uL (130-400); RED BLOOD COUNT 3.82 M/uL (4.7-6.1); WHITE BLOOD COUNT 10.87 K/uL (4.8-10.8)
[2017-08-16 17:47] LABS: ALT/SGPT 48 U/L (12-78); AST/SGOT 27 U/L (15-37); BLOOD UREA NITROGEN 31 mg/dl (7-18); BUN/CREATININE RATIO 28.9 (10-20); CALCIUM 9.1 mg/dl (8.5-10.1); CARBON DIOXIDE 28 mmol/L (21-32); CHLORIDE 101 mmol/L (98-107); CREATININE 1.06 mg/dl (0.60-1.40); GLUCOSE 85 mg/dl (70-99); POTASSIUM 3.9 mmol/L (3.5-5.1); SODIUM 137 mmol/L (136-145); URIC ACID 4.8 mg/dl (2.6-7.2)
[2017-08-16 17:50] LABS: ALB/GLOB RATIO 0.8 (0.9-2); ALKALINE PHOSPHATASE 70 U/L (45-117)
[2017-08-16 18:38] LABS: COMPLETE YES
== END | disposition home or self-care (01) ==
LOC: C.LABPBG 11:51
PROVIDERS: ATTEND Internal Medicine
DX: I10 Essential (primary) hypertension (principal); C14.0 Malignant neoplasm of pharynx, unspecified; N18.3 Chronic kidney disease, stage 3 (moderate); M10.9 Gout, unspecified

== ENCOUNTER → 2017-08-25 | Outpatient (CLI) | payer OTHER | END | disposition home or self-care (01) | LOC: C.LABPBG 13:28 | PROVIDERS: ATTEND Internal Medicine | DX: R78.81 Bacteremia (principal); Z87.01 Personal history of pneumonia (recurrent) ==

== ENCOUNTER → 2017-08-26 | Outpatient (CLI) | payer OTHER ==
--- NOTE | 2017-08-26 09:25 | DIAGNOSTIC IMAGING REPORT ---
R FOOT MIN 3 VIEWS ROUTINE CLINICAL HISTORY: M79.671 Foot pain pain COMPARISON: 07/16/2017 DISCUSSION: Mild soft tissue edema. Mild degenerative change unaltered from the prior exam. No new or interval process. Cortical margins appear intact. There is no evidence for soft tissue swelling. IMPRESSION: Mild soft tissue edema. Mild degenerative change. No acute process. No change from the prior study. The above report was generated using voice recognition software. It may contain grammatical, syntax or spelling errors. Electronically signed by: Rigo Goldberg M.D. 08/26/2017 9:24 AM Dictated Date/Time: 08/26/2017 9:23 AM
[2017-08-26 10:05] LABS: BASO % 0.8 %; BASO ABS # 0.07 K/uL (0-0.2); COMPLETE YES; EOS % 1.7 %; HEMATOCRIT 37.8 % (42-52); IG% 1.3 %; LYMPH % 10.7 %; LYMPH ABS # 0.91 K/uL (1.2-3.4); MEAN CELL VOLUME 95.9 fL (80-100); MEAN CORPUSCULAR HEMOGLOBIN 29.7 pg (25-34); MEAN PLATELET VOLUME 10.1 fL (7.4-10.4); NEUT % 79.5 %; PLATELET COUNT 222 K/uL (130-400); RED BLOOD COUNT 3.94 M/uL (4.7-6.1); WHITE BLOOD COUNT 8.48 K/uL (4.8-10.8)
[2017-08-26 10:34] LABS: ALT/SGPT 31 U/L (12-78); CREATININE 1.28 mg/dl (0.60-1.40)
[2017-08-26 10:36] LABS: ALKALINE PHOSPHATASE 90 U/L (45-117); AST/SGOT 19 U/L (15-37)
== END | disposition home or self-care (01) ==
LOC: C.RAD1850 08:49
PROVIDERS: ATTEND Internal Medicine Rheumatology
DX: M79.671 Pain in right foot (principal); R60.0 Localized edema; M89.8X7 Other specified disorders of bone, ankle and foot; M10.9 Gout, unspecified; M54.5 Low back pain

== ENCOUNTER 2017-09-27 09:32 | Inpatient (IN) | payer OTHER ==
[~2017-09-27] VITALS: Ht 172.7 cm; Wt 105.9 kg
[2017-09-27 10:58] LABS: BASO % 0.1 %; BASO ABS # 0.01 K/uL (0-0.2); EOS % 0.2 %; EOS ABS # 0.02 K/uL (0-0.5); HEMATOCRIT 38.6 % (42-52); HEMOGLOBIN 12.2 g/dL (14.0-18.0); IG# 0.16 K/uL (0.00-0.02); LYMPH % 4.3 %; LYMPH ABS # 0.47 K/uL (1.2-3.4); MEAN CORPUSCULAR HEMOGLOBIN 30.3 pg (25-34); MEAN CORPUSCULAR HGB CONC 31.6 g/dl (32-36); MEAN PLATELET VOLUME 10.3 fL (7.4-10.4); MONO % 1.9 %; MONO ABS # 0.21 K/uL (0.11-0.59); NEUT ABS # 10.09 K/uL (1.4-6.5); PLATELET COUNT 243 K/uL (130-400); RED CELL DISTRIBUTION WIDTH CV 15.8 % (11.5-14.5); RED CELL DISTRIBUTION WIDTH SD 54.8 fL (36.4-46.3); WHITE BLOOD COUNT 10.96 K/uL (4.8-10.8)
[2017-09-27 11:09] LABS: ALBUMIN 3.6 gm/dl (3.4-5.0); CALCIUM 8.7 mg/dl (8.5-10.1); CREATININE 1.63 mg/dl (0.60-1.40); POTASSIUM 4.5 mmol/L (3.5-5.1)
[2017-09-27 11:12] LABS: TOTAL PROTEIN 7.1 gm/dl (6.4-8.2)
--- NOTE | 2017-09-27 11:16 | DIAGNOSTIC IMAGING REPORT ---
CT LUMBAR SPINE WITHOUT CT DOSE: 1795.71 mGy.cm CLINICAL HISTORY: Low back pain status post trauma TECHNIQUE: Helical images were acquired in transverse plane. Reformatted sagittal and coronal images were reviewed. A dose lowering technique was utilized adhering to the principles of ALARA. CONTRAST: No contrast was administered COMPARISON STUDY: None. FINDINGS: L1-2 level: There is a mild circumference disc bulge. There is no significant spinal stenosis. L2-3 level: There is a posterior disc osteophyte complex. There is a circumferential disc bulge. There is mild spinal stenosis. L3-4 level: There is a circumferential disc bulge. There is moderate spinal stenosis. L4-5 level: There is a circumferential disc bulge present. There is mild to moderate spinal stenosis. L5-S1 level: There is a circumferential disc bulge present. There is mild spinal canal narrowing. There is acute superior L2 compression fracture. There is 4 mm of retropulsion. There is 33% loss in height. IMPRESSION: 1. Acute L2 compression fracture demonstrating 33% loss in height and 4 mm of retropulsion 2. Multilevel degenerative changes with multilevel spinal stenosis, most severe at the L3-4 level. Electronically signed by: Kyrie Cagle M.D. 09/27/2017 11:15 AM Dictated Date/Time: 09/27/2017 11:09 AM
--- NOTE | 2017-09-27 11:26 | EMERGENCY ROOM VISIT NOTE ---
History Report prepared by Ney: Russel Li Under the Supervision of: Dr. Mayra Williamson M.D. 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 He states that he was sweeping in a room of his house when he lost his balance and fell backwards onto a carpeted floor. He notes that he took three 10 mg hydrocodone, two Tylenol, and three muscle relaxers four hours ago. He notes that he is supposed to take a hydrocodone once every six hours for spinal stenosis. He regularly sees Dr. Rainey, orthopedic spine for his back. He states the pain is in his lumbar region. He currently rates his pain a 10/10 in severity. The patient has been essentially immobile at home since the accident. He denies any incontinence, leg pain, leg numbness, vomiting, or diarrhea. 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 He denies taking any recent chemotherapy treatment. 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 Review of Systems See HPI for pertinent positives & negatives. A total of 10 systems reviewed and were otherwise negative. Past Medical & Surgical Medical Problems: (1) Anxiety (2) Bacteremia (3) Beta-hemolytic group B streptococcal sepsis (4) BPH (benign prostatic hypertrophy) (5) Cervical stenosis of spinal canal (6) Fatty liver (7) HX-ORAL/PHARYNX MALG NEC (8) Hyperlipidemia (9) HYPERTENSION NOS (10) Malignant neoplasm of tonsil (11) Pneumonia (12) Pulmonary nodules (13) UMBILICAL HERNIA Surgical Problems: (1) H/O colonoscopy (2) H/o kidney stone removal (3) H/O umbilical hernia repair (4) Hx of esophagogastroduodenoscopy (5) S/P tonsillectomy Family History Cardiac disorder BROTHER SISTER GRANDMOTHER FH: cancer MOTHER (liver CA) BROTHER FATHER (lung CA) Hypertension MOTHER BROTHER Stroke GRANDMOTHER Social History Smoking Status: Current Every Day Smoker Alcohol Use: none Marital Status: Housing Status: lives with family Occupation Status: retired Current/Historical Medications Scheduled Ascorbic Acid (Vitamin C), 1,000 MG PO DAILY Cholecalciferol (Vitamin D3), 2,000 UNITS PO QAM Citalopram Hydrobromide (Celexa), 20 MG PO QPM Colchicine (Colcrys), 0.6 MG PO DAILY Cyanocobalamin (Vitamin B12), 1,000 MCG PO QAM Finasteride (Proscar), 5 MG PO QAM Fish Oil ([place]-3), 1 CAP PO QAM Losartan Potassium (Cozaar), 25 MG PO QAM Multivitamin (Multivitamin), 1 TAB PO QAM Omeprazole (Omeprazole), 40 MG PO DAILY Pomegranate (Punica Granatum) (Pomegranate), 250 MG PO QAM Salmeterol Xinafoate (Serevent Diskus), 1 PUFF INH BID Tamsulosin Hcl (Flomax), 0.4 MG PO QPM Scheduled PRN Acetaminophen (Tylenol), 650 MG PO DIRECTED PRN for Pain Docusate Sodium (Colace), 100 MG PO QAM PRN for Constipation Fexofenadine Hcl (Yue Allergy), 180 MG PO QAM PRN for Seasonal Allergies Hydrocodone/Acetaminophen 10MG/325MG ([place] 10MG/325MG), 1 TABS PO QID PRN for Pain Allergies Coded Allergies: Latex1 -Allergic Contact Dermititis (Verified Allergy, Unknown, patient states had allergy tests which tested + , 09/27/17) NO KNOWN DRUG ALLERGIES (Verified Allergy, Unknown, NKDA, 09/27/17) Physical Exam Vital Signs Date Time Temp Pulse Resp B/P (MAP) Pulse Ox O2 Delivery O2 Flow Rate FiO2 09/27/17 14:08 95 Room Air 09/27/17 12:59 85 09/27/17 12:30 87 20 129/63 95 Room Air 09/27/17 10:45 93 16 109/70 97 Room Air 09/27/17 09:41 94 09/27/17 09:40 36.7 100 16 132/72 97 Room Air Physical Exam Vital signs reviewed. General: Generally well-appearing 71-year-old male, in some discomfort. Diaphoretic. HEENT: No scleral icterus, PERRLA, neck supple. Atraumatic. Cardiovascular: Regular rate and rhythm, no extra sounds. Pulmonary: Clear to auscultation bilaterally, normal work of breathing. Abdomen: Soft, nontender, nondistended, positive bowel sounds. Obese. Musculoskeletal: Atraumatic, no peripheral edema. Non-tender and no step-offs or swelling appreciated to lumbar spine. Neurologic: Patient awake alert and oriented x 3, full strength in all 4 extremities. Cranial nerves 2 through 12 grossly intact. Negative straight leg raise bilaterally. Skin: Warm, dry, no rash Medical Decision & Procedures ER Provider Diagnostic Interpretation: Radiology results as stated below per my review and radiologist interpretation: CT LUMBAR SPINE WITHOUT CT DOSE: 1795.71 mGy.cm CLINICAL HISTORY: Low back pain status post trauma TECHNIQUE: Helical images were acquired in transverse plane. Reformatted sagittal and coronal images were reviewed. A dose lowering technique was utilized adhering to the principles of ALARA. CONTRAST: No contrast was administered COMPARISON STUDY: None. FINDINGS: L1-2 level: There is a mild circumference disc bulge. There is no significant spinal stenosis. L2-3 level: There is a posterior disc osteophyte complex. There is a circumferential disc bulge. There is mild spinal stenosis. L3-4 level: There is a circumferential disc bulge. There is moderate spinal stenosis. L4-5 level: There is a circumferential disc bulge present. There is mild to moderate spinal stenosis. L5-S1 level: There is a circumferential disc bulge present. There is mild spinal canal narrowing. There is acute superior L2 compression fracture. There is 4 mm of retropulsion. There is 33% loss in height. IMPRESSION: 1. Acute L2 compression fracture demonstrating 33% loss in height and 4 mm of retropulsion 2. Multilevel degenerative changes with multilevel spinal stenosis, most severe at the L3-4 level. Electronically signed by: Kyrie Cagle M.D. 09/27/2017 11:15 AM Dictated Date/Time: 09/27/2017 11:09 AM Laboratory Results 09/27/17 09:09 Red Blood Count 4.02, Mean Corpuscular Volume 96.0, Mean Corpuscular Hemoglobin 30.3, Mean Corpuscular Hemoglobin Concent 31.6, Mean Platelet Volume 10.3, Neutrophils (%) (Auto) 92.0, Lymphocytes (%) (Auto) 4.3, Monocytes (%) (Auto) 1.9, Eosinophils (%) (Auto) 0.2, Basophils (%) (Auto) 0.1, Neutrophils # (Auto) 10.09, Lymphocytes # (Auto) 0.47, Monocytes # (Auto) 0.21, Eosinophils # (Auto) 0.02, Basophils # (Auto) 0.01 09/27/17 09:09 Test 09/27/17 09:09 09/27/17 13:09 White Blood Count 10.96 K/uL (4.8-10.8) Red Blood Count 4.02 M/uL (4.7-6.1) Hemoglobin 12.2 g/dL (14.0-18.0) Hematocrit 38.6 % (42-52) Mean Corpuscular Volume 96.0 fL (80-100) Mean Corpuscular Hemoglobin 30.3 pg (25-34) Mean Corpuscular Hemoglobin Concent 31.6 g/dl (32-36) Platelet Count 243 K/uL (130-400) Mean Platelet Volume 10.3 fL (7.4-10.4) Neutrophils (%) (Auto) 92.0 % Lymphocytes (%) (Auto) 4.3 % Monocytes (%) (Auto) 1.9 % Eosinophils (%) (Auto) 0.2 % Basophils (%) (Auto) 0.1 % Neutrophils # (Auto) 10.09 K/uL (1.4-6.5) Lymphocytes # (Auto) 0.47 K/uL (1.2-3.4) Monocytes # (Auto) 0.21 K/uL (0.11-0.59) Eosinophils # (Auto) 0.02 K/uL (0-0.5) Basophils # (Auto) 0.01 K/uL (0-0.2) RDW Standard Deviation 54.8 fL (36.4-46.3) RDW Coefficient of Variation 15.8 % (11.5-14.5) Immature Granulocyte % (Auto) 1.5 % Immature Granulocyte # (Auto) 0.16 K/uL (0.00-0.02) Anion Gap 8.0 mmol/L (3-11) Est Creatinine Clear Calc Drug Dose 50.4 ml/min Estimated GFR () 49.1 Estimated GFR (Non- 42.4 BUN/Creatinine Ratio 23.7 (10-20) Calcium Level 8.7 mg/dl (8.5-10.1) Total Bilirubin 0.4 mg/dl (0.2-1) Direct Bilirubin 0.1 mg/dl (0-0.2) Aspartate Amino Transf (AST/SGOT) 12 U/L (15-37) Alanine Aminotransferase (ALT/SGPT) 25 U/L (12-78) Alkaline Phosphatase 53 U/L (45-117) Total Protein 7.1 gm/dl (6.4-8.2) Albumin 3.6 gm/dl (3.4-5.0) Urine Color DK YELLOW Urine Appearance CLEAR (CLEAR) Urine pH 5.0 (4.5-7.5) Urine Specific [place] 1.035 (1.000-1.030) Urine Protein 1+ (NEG) Urine Glucose (UA) NEG (NEG) Urine Ketones TRACE (NEG) Urine Occult Blood NEG (NEG) Urine Nitrite NEG (NEG) Urine Bilirubin NEG (NEG) Urine Urobilinogen NEG (NEG) Urine Leukocyte Esterase NEG (NEG) Urine WBC (Auto) 1-5 /hpf (0-5) Urine RBC (Auto) 0-4 /hpf (0-4) Urine Hyaline Casts (Auto) 5-10 /lpf (0-5) Urine Epithelial Cells (Auto) 5-10 /lpf (0-5) Urine Bacteria (Auto) NEG (NEG) Laboratory results per my review. Medications Administered Medications (Trade) Dose Ordered Sig/Chay Route Start Time Stop Time Status Last Admin Dose Admin Morphine Sulfate (MoRPHine SULFATE INJ) 4 mg NOW STAT IV 09/27/17 11:59 09/27/17 12:00 DC 09/27/17 12:07 4 MG Morphine Sulfate (MoRPHine SULFATE INJ) 4 mg NOW STAT IV 09/27/17 13:27 09/27/17 13:28 DC 09/27/17 13:53 4 MG ED Course 1001: Past medical records reviewed. The patient was evaluated in room B8. A complete history and physical examination was performed. 1159: Ordered Morphine Sulfate 4 mg IV 1315: I reassessed the patient at this time. He is still having pain. 1327: Ordered Morphine Sulfate 4 mg IV 1355: I reassessed the patient at this time. He is still having pain. I updated the patient. 1358: I spoke with brenda Marino. We discussed the patients case. The patient will be evaluated by the [facility] for further management. 1402: I spoke with Dr. Rainey, orthopedic surgery. We discussed the patients case. He will consult with the patient. He does not believe it is a surgical case. Medical Decision Differential diagnosis: Etiologies such as musculoskeletal, disc herniation, fracture, aortic disease, metastatic disease, cord compression, discitis, infection, renal colic, gastrointestinal, acute exacerbation of chronic back pain, sciatica, cauda equina, as well as others were entertained. This patient was evaluated and appeared to be in some discomfort. Patient is noted to be diaphoretic. He has taken a large amount of narcotic and muscle relaxer prior to arrival. CT imaging of the lumbar spine reveals an L2 compression fracture with 33% height loss and 4 mm of retropulsion. The patient did receive IV morphine in the emergency department for pain management 2 doses. Laboratory work reveals a mild elevation of the creatinine above baseline. He does have a chronic mild leukocytosis. The hospitalist service was consulted for admission due to intractable pain. Orthopedic spine was consulted, Dr. Rainey. There was a delay in call back as he was in the operating room. He will consult on the patient during his hospitalization. The patient is aware of the plan and agrees. Medication Reconcilliation Current Medication List: was personally reviewed by me Blood Pressure Screening Patient's blood pressure: Normal blood pressure Consults Time Called: 1219 Consulting Physician: Dr. Rainey, orthopedic surgery Returned Call: [address] Rainey, orthopedic surgery. We discussed the patients case. He will consult with the patient. He does not believe it is a surgical case. Additional Consults: Time Called: 1358 Consulted Physician: brenda Marino Additional Comments: I spoke with brenda Marino. We discussed the patients case. The patient will be evaluated by the [facility] for further management. Impression Primary Impression: Compression fracture of L2 lumbar vertebra Additional Impression: Intractable back pain Scribe Attestation The scribe's documentation has been prepared under my direction and personally reviewed by me in its entirety. I confirm that the note above accurately reflects all work, treatment, procedures, and medical decision making performed by me. Departure Information Dispostion Being Evaluated By Hospitalist Referrals Carlo Ahn M.D. (PCP) Patient Instructions My [facility] Problem Qualifiers Primary Impression: Compression fracture of L2 lumbar vertebra Encounter type: initial encounter Fracture type: closed Qualified Codes: S32.020A - Wedge compression fracture of second lumbar vertebra, initial encounter for closed fracture
[2017-09-27] MEDS ORDERED: MoRPHine SULFATE 4 MG/ML 1 ML CARP\\VIAL IV STA ×2 (11:59→13:27)
[2017-09-27 14:08] VITALS: O2SAT 95; Ht 172.7 cm; Wt 105.9 kg
[2017-09-27] MEDS ORDERED: HYDROmorphone INJ 1 MG/ML SYR IV STA (15:07)
--- NOTE | 2017-09-27 15:12 | History and Physical ---
History & Physical Date & Time of Service: Sep 27, 2017 at 15:11 Chief Complaint: Back Pain Primary Care Physician: Carlo Ahn M.D. History of Present Illness Source: patient 71 yo male was helping with house work. He was sweeping the floor where he had bended forward. When he got back up he fell backwards and on his gluteus. Afterwards he had 10/ 10 pain in his lumbar spine. Patient came to ER and was found to have a compression fracture in L2. Currently, pain is dull, in lumbar region 10/10, non radiating. Patient denies paresthesias, fecal, urinary incontinence, weakness in lower extremities. 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 (7) Pulmonary nodules Status: Chronic (8) UMBILICAL HERNIA Status: Chronic Surgical Problems: (1) H/O colonoscopy Status: Chronic (2) H/o kidney stone removal Status: Chronic (3) H/O umbilical hernia repair Status: Chronic (4) Hx of esophagogastroduodenoscopy Status: Chronic (5) S/P tonsillectomy Status: Chronic Family History Cardiac disorder BROTHER SISTER GRANDMOTHER FH: cancer MOTHER (liver CA) BROTHER FATHER (lung CA) Hypertension MOTHER BROTHER Stroke GRANDMOTHER Social History Smoking Status: Former Smoker Smokeless Tobacco Use: No Alcohol Use: none Marital Status: Housing status: lives with significant other Occupational Status: retired Immunizations History of Influenza Vaccine: Yes History of Tetanus Vaccine?: No History of Pneumococcal: Yes History of Hepatitis B Vaccine: No Multi-Drug Resistant Organisms History of MDRO: No Allergies Coded Allergies: Latex1 -Allergic Contact Dermititis (Verified Allergy, Unknown, patient states had allergy tests which tested + , 09/27/17) NO KNOWN DRUG ALLERGIES (Verified Allergy, Unknown, NKDA, 09/27/17) Home Medications Scheduled Ascorbic Acid (Vitamin C), 1,000 MG PO DAILY Cholecalciferol (Vitamin D3), 2,000 UNITS PO QAM Citalopram Hydrobromide (Celexa), 20 MG PO QPM Colchicine (Colcrys), 0.6 MG PO DAILY Cyanocobalamin (Vitamin B12), 1,000 MCG PO QAM Finasteride (Proscar), 5 MG PO QAM Fish Oil ([place]-3), 1 CAP PO QAM Losartan Potassium (Cozaar), 25 MG PO QAM Multivitamin (Multivitamin), 1 TAB PO QAM Omeprazole (Omeprazole), 40 MG PO DAILY Pomegranate (Punica Granatum) (Pomegranate), 250 MG PO QAM Salmeterol Xinafoate (Serevent Diskus), 1 PUFF INH BID Tamsulosin Hcl (Flomax), 0.4 MG PO QPM Scheduled PRN Acetaminophen (Tylenol), 650 MG PO DIRECTED PRN for Pain Docusate Sodium (Colace), 100 MG PO QAM PRN for Constipation Fexofenadine Hcl (Yue Allergy), 180 MG PO QAM PRN for Seasonal Allergies Hydrocodone/Acetaminophen 10MG/325MG ([place] 10MG/325MG), 1 TABS PO QID PRN for Pain Review of Systems Constitutional: No fever, No chills Eyes: No worsening of vision ENT: No hearing loss Respiratory: No cough, No sputum Cardiovascular: No chest pain, No orthopnea Abdomen: No nausea Musculoskeletal: + joint pain, + muscle pain Genitourinary - Male: No hematuria, No dysuria Neurologic: No memory loss Psychiatric: No depression symptoms Endocrine: No fatigue, No excessive thirst Integumentary: No rash, No itch Allergic / Immunologic: No environmental allergies, No seasonal allergies Physical Exam Vital Signs Date Time Temp Pulse Resp B/P (MAP) Pulse Ox O2 Delivery O2 Flow Rate FiO2 09/27/17 14:30 82 18 144/91 95 Room Air 09/27/17 14:08 95 Room Air 09/27/17 12:59 85 09/27/17 12:30 87 20 129/63 95 Room Air 09/27/17 10:45 93 16 109/70 97 Room Air 09/27/17 09:41 94 09/27/17 09:40 36.7 100 16 132/72 97 Room Air General Appearance: WD/WN, + moderate distress, + obese Head: normocephalic Eyes: normal inspection ENT: normal ENT inspection Neck: supple, no adenopathy Respiratory/Chest: chest non-tender, lungs clear, normal breath sounds Cardiovascular: regular rate, rhythm, no edema Abdomen/GI: normal bowel sounds, non tender, soft Back: normal inspection Extremities/Musculoskelatal: normal inspection Neurologic/Psych: apartment leasing agent II-XII nml as tested, no motor/sensory deficits, alert Skin: normal color, warm/dry Lymphatic: no adenopathy Diagnostics Laboratory Results Results Past 24 Hours Test 09/27/17 09:09 09/27/17 13:09 Range/Units White Blood Count 10.96 4.8-10.8 K/uL Red Blood Count 4.02 4.7-6.1 M/uL Hemoglobin 12.2 14.0-18.0 g/dL Hematocrit 38.6 42-52 % Mean Corpuscular Volume 96.0 80-100 fL Mean Corpuscular Hemoglobin 30.3 25-34 pg Mean Corpuscular Hemoglobin Concent 31.6 32-36 g/dl Platelet Count 243 130-400 K/uL Mean Platelet Volume 10.3 7.4-10.4 fL Neutrophils (%) (Auto) 92.0 % Lymphocytes (%) (Auto) 4.3 % Monocytes (%) (Auto) 1.9 % Eosinophils (%) (Auto) 0.2 % Basophils (%) (Auto) 0.1 % Neutrophils # (Auto) 10.09 1.4-6.5 K/uL Lymphocytes # (Auto) 0.47 1.2-3.4 K/uL Monocytes # (Auto) 0.21 0.11-0.59 K/uL Eosinophils # (Auto) 0.02 0-0.5 K/uL Basophils # (Auto) 0.01 0-0.2 K/uL RDW Standard Deviation 54.8 36.4-46.3 fL RDW Coefficient of Variation 15.8 11.5-14.5 % Immature Granulocyte % (Auto) 1.5 % Immature Granulocyte # (Auto) 0.16 0.00-0.02 K/uL Sodium Level 133 136-145 mmol/L Potassium Level 4.5 3.5-5.1 mmol/L Chloride Level 102 98-107 mmol/L Carbon Dioxide Level 23 21-32 mmol/L Anion Gap 8.0 3-11 mmol/L Blood Urea Nitrogen 39 7-18 mg/dl Creatinine 1.63 0.60-1.40 mg/dl Est Creatinine Clear Calc Drug Dose 50.4 ml/min Estimated GFR () 49.1 Estimated GFR (Non- 42.4 BUN/Creatinine Ratio 23.7 10-20 Random Glucose 139 70-99 mg/dl Calcium Level 8.7 8.5-10.1 mg/dl Total Bilirubin 0.4 0.2-1 mg/dl Direct Bilirubin 0.1 0-0.2 mg/dl Aspartate Amino Transf (AST/SGOT) 12 15-37 U/L Alanine Aminotransferase (ALT/SGPT) 25 12-78 U/L Alkaline Phosphatase 53 45-117 U/L Total Protein 7.1 6.4-8.2 gm/dl Albumin 3.6 3.4-5.0 gm/dl Urine Color DK YELLOW Urine Appearance CLEAR CLEAR Urine pH 5.0 4.5-7.5 Urine Specific [place] 1.035 1.000-1.030 Urine Protein 1+ NEG Urine Glucose (UA) NEG NEG Urine Ketones TRACE NEG Urine Occult Blood NEG NEG Urine Nitrite NEG NEG Urine Bilirubin NEG NEG Urine Urobilinogen NEG NEG Urine Leukocyte Esterase NEG NEG Urine WBC (Auto) 1-5 0-5 /hpf Urine RBC (Auto) 0-4 0-4 /hpf Urine Hyaline Casts (Auto) 5-10 0-5 /lpf Urine Epithelial Cells (Auto) 5-10 0-5 /lpf Urine Bacteria (Auto) NEG NEG Diagnostic Radiology DIAGNOSTIC IMAGING [~ rep ct add3]] CT LUMBAR SPINE WITHOUT CT DOSE: 1795.71 mGy.cm CLINICAL HISTORY: Low back pain status post trauma TECHNIQUE: Helical images were acquired in transverse plane. Reformatted sagittal and coronal images were reviewed. A dose lowering technique was utilized adhering to the principles of ALARA. CONTRAST: No contrast was administered COMPARISON STUDY: None. FINDINGS: L1-2 level: There is a mild circumference disc bulge. There is no significant spinal stenosis. L2-3 level: There is a posterior disc osteophyte complex. There is a circumferential disc bulge. There is mild spinal stenosis. L3-4 level: There is a circumferential disc bulge. There is moderate spinal stenosis. L4-5 level: There is a circumferential disc bulge present. There is mild to moderate spinal stenosis. L5-S1 level: There is a circumferential disc bulge present. There is mild spinal canal narrowing. There is acute superior L2 compression fracture. There is 4 mm of retropulsion. There is 33% loss in height. IMPRESSION: 1. Acute L2 compression fracture demonstrating 33% loss in height and 4 mm of retropulsion 2. Multilevel degenerative changes with multilevel spinal stenosis, most severe at the L3-4 level. Electronically signed by: Kyrie Cagle M.D. 09/27/2017 11:15 AM EKG Sinus rhythm with frequent Premature ventricular complexes Otherwise normal ECG Impression Assessment and Plan Compression fracture in L2 in a 71 yo male Admit to [facility] Consult ortho. It appears patient does not require surgery. Will treat with opiates. Patient is not opiate naive as he has chronic pain. Patient will also be on calcitonin nasally to help with his pain. will consult PT and OT HTN continue home meds at goal. Anxiety continue home meds BPH contnue home meds. controlled Level of Care Med/Surg Advanced Directives Existing Living Will: No Existing Power of [employer] Systems Administrator: No Resuscitation Status FULL RESUSCITATION VTE Prophylaxis Risk Level: Moderate Given or contraindicated: Unfractionated heparin SQ Social Service Consult None Apply
[2017-09-27] MEDS ORDERED: DOCUSATE SODIUM 100 MG CAP PO PRN (15:15)
[2017-09-27] MEDS ORDERED: FEXOFENADINE HCL 180 MG TAB PO PRN (15:15)
[2017-09-27] MEDS ORDERED: PNEUMOCOCCAL POLYSACCHARIDES 25 MCG/0.5 ML VIAL/SYR IM. ONE (15:15)
[2017-09-27 16:30] VITALS: BP 141/75; PULSE 62; TEMP 36.9; O2SAT 92
[2017-09-27] MEDS: CITALOPRAM 20 MG TAB PO SCH (20:53)
[2017-09-27] MEDS: TAMSULOSIN HCL 0.4 MG CAP PO SCH (20:53)
[2017-09-27] MEDS: CALCITONIN SALMON NA 200 IU/AC 3.7 ML BTL SCH (20:54)
[2017-09-27] MEDS: SALMETEROL XINAFOATE 50MCG 28 BLISTER INH INH SCH (20:54)
[2017-09-27] MEDS: HEPARIN SOD 5000 UNIT/0.5 ML CARP SQ SCH (20:59)
[2017-09-27] MEDS: HYDROmorphone INJ 1 MG/ML SYR IV PRN (21:20)
[2017-09-27 23:00] VITALS: BP 159/86; PULSE 81; TEMP 36.7; O2SAT 96
[2017-09-28] MEDS ORDERED: MoRPHine SULFATE 4 MG/ML 1 ML CARP\\VIAL IV PRN (02:25)
[2017-09-28] MEDS ORDERED: MoRPHine SULFATE 4 MG/ML 1 ML CARP\\VIAL ONE (02:41)
[2017-09-28] MEDS: HYDROmorphone INJ 1 MG/ML SYR IV PRN ×4 (05:21→23:58)
[2017-09-28] MEDS: HEPARIN SOD 5000 UNIT/0.5 ML CARP SQ SCH ×2 (05:22→13:20)
[2017-09-28 07:03] VITALS: BP 138/69; PULSE 56; TEMP 36.7; O2SAT 91
[2017-09-28] MEDS ORDERED: POMEGRANATE PO SCH (09:00)
[2017-09-28] MEDS: SALMETEROL XINAFOATE 50MCG 28 BLISTER INH INH SCH ×2 (09:16→21:26)
[2017-09-28] MEDS: ASCORBIC ACID 500 MG TAB PO SCH (09:17)
[2017-09-28] MEDS: MULTIVITAMIN TAB PO SCH (09:17)
[2017-09-28] MEDS: LOSARTAN POTASSIUM 25 MG TAB PO SCH (09:17)
[2017-09-28] MEDS: COLCHICINE 0.6 MG TAB PO SCH (09:17)
[2017-09-28] MEDS: FINASTERIDE 5 MG TAB PO SCH (09:18)
[2017-09-28] MEDS: CYANOCOBALAMIN 500 MCG TAB (VIT B-12) PO SCH (09:18)
[2017-09-28] MEDS: PANTOprazole SOD 40 MG TAB PO SCH (09:18)
[2017-09-28] MEDS ORDERED: ONDANSETRON INJ 2 MG/ML 2 ML VIAL ONE (09:35)
[2017-09-28] MEDS ORDERED: ONDANSETRON INJ 2 MG/ML 2 ML VIAL IV PRN (09:45)
[2017-09-28] MEDS ORDERED: NURSING VERBAL MED ORDER ONE (09:45)
[2017-09-28] MEDS ORDERED: ALLO300T2 PO (11:55)
[2017-09-28] MEDS ORDERED: PRED10TA PO (11:55)
[2017-09-28] MEDS ORDERED: DOCUSATE SODIUM 100 MG CAP PO PRN (12:00)
--- NOTE | 2017-09-28 12:10 | Orthopedic Consultation ---
Orthopedic Consultation Date of Consultation: Sep 28, 2017. Attending Physician: Stacie Hernandez MD Reason for Consultation: Back pain History of Present Illness This is a 71-year-old male well-known to me the presents with the onset of acute back pain. Patient fell Wednesday at home. Landing directly on his buttocks and noting the onset of immediate lumbar back pain. He denies any numbness or tingling in the lower extremities. She does currently take hydrocodone 10 mg every 6 hours for ongoing back issues secondary to spinal stenosis. This pain is much different an acute. Motion poorly is not involving any changes in lower extremity function or bowel bladder. In terms are to the point that he was unable to take care of himself at home was subsequently admitted for evaluation. Past Medical/Surgical History Medical Problems: (1) Aspiration pneumonia Status: Acute (2) Compression fracture of L2 lumbar vertebra Status: Acute (3) Gout Status: Acute (4) Hx of malignant neoplasm of tonsil Status: Acute (5) Intractable back pain Status: Acute (6) Renal insufficiency Status: Acute Family History Cardiac disorder BROTHER SISTER GRANDMOTHER FH: cancer MOTHER (liver CA) BROTHER FATHER (lung CA) Hypertension MOTHER BROTHER Stroke GRANDMOTHER Social History Smoking Status: Former Smoker Smokeless Tobacco Use: No Alcohol Use: none Marital Status: Housing Status: lives with family Occupation Status: retired Allergies Coded Allergies: Latex1 -Allergic Contact Dermititis (Verified Allergy, Unknown, patient states had allergy tests which tested + , 09/27/17) NO KNOWN DRUG ALLERGIES (Verified Allergy, Unknown, NKDA, 09/27/17) Home Medications Scheduled Allopurinol (Zyloprim), 300 MG PO DAILY Ascorbic Acid (Vitamin C), 1,000 MG PO DAILY Cholecalciferol (Vitamin D3), 2,000 UNITS PO QAM Citalopram Hydrobromide (Celexa), 20 MG PO QPM Colchicine (Colcrys), 0.6 MG PO DAILY Cyanocobalamin (Vitamin B12), 1,000 MCG PO QAM Finasteride (Proscar), 5 MG PO QAM Fish Oil ([place]-3), 1 CAP PO QAM Losartan Potassium (Cozaar), 25 MG PO QAM Multivitamin (Multivitamin), 1 TAB PO QAM Omeprazole (Omeprazole), 40 MG PO DAILY Pomegranate (Punica Granatum) (Pomegranate), 250 MG PO QAM Prednisone Tab (Prednisone), 20 MG PO DAILY Salmeterol Xinafoate (Serevent Diskus), 1 PUFF INH BID Tamsulosin Hcl (Flomax), 0.4 MG PO QPM Scheduled PRN Acetaminophen (Tylenol), 650 MG PO DIRECTED PRN for Pain Docusate Sodium (Colace), 100 MG PO QAM PRN for Constipation Fexofenadine Hcl (Yue Allergy), 180 MG PO QAM PRN for Seasonal Allergies Hydrocodone/Acetaminophen 10MG/325MG ([place] 10MG/325MG), 1 TABS PO QID PRN for Pain Current Inpatient Medications Current Inpatient Medications Medications (Trade) Dose Ordered Sig/Chay Route Start Time Stop Time Status Last Admin Dose Admin Citalopram Hydrobromide (celeXA TAB) 20 mg QPM PO 09/27/17 21:00 10/27/17 20:59 09/27/17 20:53 20 MG Colchicine (Colchicine Tab) 0.6 mg DAILY PO 09/28/17 09:00 10/28/17 08:59 09/28/17 09:17 0.6 MG Fexofenadine HCl (Yue Tab) 180 mg QAM PRN PO 09/27/17 15:15 10/27/17 15:14 Finasteride (Proscar Tab) 5 mg QAM PO 09/28/17 09:00 10/28/17 08:59 09/28/17 09:18 5 MG Losartan Potassium (coZAAR TAB) 25 mg QAM PO 09/28/17 09:00 10/28/17 08:59 09/28/17 09:17 25 MG Multivitamins (Multivitamin Tab) 1 tab QAM PO 09/28/17 09:00 10/28/17 08:59 09/28/17 09:17 1 TAB Salmeterol Xinafoate (Serevent Diskus Inh) 1 puffs BID INH 09/27/17 21:00 10/27/17 20:59 09/28/17 09:16 1 PUFFS Tamsulosin HCl (Flomax Cap) 0.4 mg QPM PO 09/27/17 21:00 10/27/17 20:59 1/8/18 20:53 0.4 MG Ascorbic Acid (Vitamin C Tab) 1,000 mg DAILY PO 09/28/17 09:00 10/28/17 08:59 09/28/17 09:17 1,000 MG Cyanocobalamin (Vitamin B-12 Tab) 1,000 mcg QAM PO 09/28/17 09:00 10/28/17 08:59 09/28/17 09:18 1,000 MCG Pantoprazole Sodium (Protonix Tab) 40 mg QAM PO 09/28/17 09:00 10/28/17 08:59 09/28/17 09:18 40 MG Heparin Sodium (Porcine) (Heparin Sq 5000 Unit/0.5ml) 5,000 unit Q8H SQ 09/27/17 22:00 10/27/17 15:14 09/28/17 05:22 5,000 UNIT Calcitonin [place] (Fortical Nasal [place]) 1 spray QPM NA 09/27/17 21:00 10/27/17 20:59 Acetaminophen/ Hydrocodone Bitart ([place] 10/325 Tab) 1 tab QID PRN PO 09/28/17 09:30 10/12/17 09:29 Ondansetron HCl (Zofran Inj) 4 mg Q8H PRN IV 09/28/17 09:45 10/28/17 09:44 Docusate Sodium (coLACE CAP) 100 mg BID PRN PO 09/28/17 12:00 10/27/17 15:14 Hydromorphone HCl (Dilaudid Inj) 1 mg Q4H PRN IV 09/28/17 12:00 10/11/17 15:29 Allopurinol (Zyloprim Tab) 300 mg DAILY PO 09/29/17 09:00 10/29/17 08:59 Cholecalciferol (Vitamin D Tab) 2,000 inter.unit QAM PO 09/29/17 09:00 10/29/17 08:59 Prednisone (PredniSONE TAB) 20 mg DAILY PO 09/29/17 09:00 10/29/17 08:59 Cholecalciferol (Vitamin D Tab) 2,000 inter.unit 1215 ONCE PO 09/28/17 12:15 09/28/17 12:16 Prednisone (PredniSONE TAB) 20 mg 1215 ONCE PO 09/28/17 12:15 09/28/17 12:16 Allopurinol (Zyloprim Tab) 300 mg 1215 ONCE PO 09/28/17 12:15 09/28/17 12:16 Physical Exam Date Time Temp Pulse Resp B/P (MAP) Pulse Ox O2 Delivery O2 Flow Rate FiO2 09/28/17 08:15 Room Air 09/28/17 07:03 36.7 56 18 138/69 (92) 91 Room Air 09/27/17 23:45 Room Air 09/27/17 23:00 36.7 81 18 159/86 (110) 96 Room Air 09/27/17 19:45 Room Air 09/27/17 16:30 36.9 62 18 141/75 (97) 92 Room Air 09/27/17 16:30 92 Room Air 09/27/17 15:41 84 16 131/74 93 Room Air 09/27/17 15:14 83 18 94 09/27/17 14:30 82 18 144/91 95 Room Air 09/27/17 14:08 95 Room Air 09/27/17 12:59 85 09/27/17 12:30 87 20 129/63 95 Room Air On exam patient is sitting at the bedside. He has no abnormal skin markings along the lumbar spine. He has increased pain to palpation percussion across lumbar spine. He has full sensation bilateral extremities. Negative logroll. Strength is intact. Laboratory Results Last 24 Hours Test 09/27/17 13:09 Urine Color DK YELLOW Urine Appearance CLEAR Urine pH 5.0 Urine Specific [place] 1.035 Urine Protein 1+ Urine Glucose (UA) NEG Urine Ketones TRACE Urine Occult Blood NEG Urine Nitrite NEG Urine Bilirubin NEG Urine Urobilinogen NEG Urine Leukocyte Esterase NEG Urine WBC (Auto) 1-5 /hpf Urine RBC (Auto) 0-4 /hpf Urine Hyaline Casts (Auto) 5-10 /lpf Urine Epithelial Cells (Auto) 5-10 /lpf Urine Bacteria (Auto) NEG Assessment & Plan Assessment L2 compression fracture. Plan at this time he is very uncomfortable and not tolerating are medical management. We discussed possible surgical intervention. Would require a kyphoplasty of L2. Risks benefits pros cons and alternatives were outlined in detail. Risk include but not limited to from anesthesia blindness sterile paralysis nerve damage but last current transfusion infection requiring reoperation. Benefits of hopefully being marked improvement of his axial symptoms. This time would like to pursue surgery. We'll have this arranged performed hopefully tomorrow.
[2017-09-28] MEDS ORDERED: CHOLECALCIFEROL 1000 INTER.UNIT TAB PO ONE (12:15)
[2017-09-28] MEDS ORDERED: ALLOPURINOL 300 MG TAB PO ONE (12:15)
--- NOTE | 2017-09-28 12:36 | Clinical Documentation Query ---
QUERY 1 OF [address] SALEEM, In your clinical opinion is this patient being managed for: ( x ) osteoporotic vertebral compression fracture ( ) Not Agree ( ) Other explanation of clinical findings (Please Explain) ( ) Unable to determine (Please Define) ( ) Need to Discuss The medical record reflects the following clinical findings, treatment, and risk factors. Clinical Indicators: 71 yo male with a ground level fall onto a carpeted surface and sustaining a L2 compression fracture. Treatment: orthopedic consult, plan for kyphoplasty, calcitonin nasal spray Risk Factors: age, hx of malignant neoplasm with chemo and radiation tx, chronic prilosec therapy Some fractures may occur d/t minor trauma or without any trauma at all. This type of fracture is generally predisposed by underlying conditions like metastatic disease, osteoporosis, and osteopenia. Only the physician can determine whether the fracture is out of proportion to the degree of trauma. QUERY 2 OF 2 In your clinical opinion is this patient being managed for: ( x) Acute kidney failure ( ) Not Agree ( ) Other explanation of clinical findings (Please Explain) ( ) Unable to determine (Please Define) ( ) Need to Discuss The medical record reflects the following clinical findings, treatment, and risk factors. Clinical Indicators: 71 yo male presenting with vertebral compression fx. Initial Cr 1.63. Review of historical Cr showed range of 0.92-1.28. Treatment: IV fluids Risk Factors: HTN, dehydration Please clarify and document your clinical opinion in the progress notes and discharge summary. Terms such as "probable", "suspected", "likely", "questionable", "possible", or "still to be ruled out" are acceptable. IF IN AGREEMENT, YOU MUST DOCUMENT ABOVE DIAGNOSTIC STATEMENT IN DAILY PROGRESS NOTES AND DISCHARGE SUMMARY. This document is not part of the patient's record. Thank You, Mandi Victoria RN [phone]
[2017-09-28] MEDS: HYDROCODONE/ACETAMI 10/325 TAB PO PRN ×3 (13:18→21:37)
--- NOTE | 2017-09-28 15:01 | Anesthesiology Progress Note ---
Anesthesia Progress Note Date of Service Sep 28, 2017. Progress Notes Mr. Macario is slated for a kyphoplasty on 09/29/[address] Rainey. NKDA. Multiple anesthetics before without difficulty. Patient has a hx/o tonsillar cancer (2005 ) treated with tonsillectomy and chemo/rads. He is able to be supine. Denies SOB. Does have swallowing difficulties treated with EGD/dilation. Of note, he had ACDF done in [address] Rainey and was a grade 1 view with a MAC 3. Other PMH sig for recent PNA (jun 2017), HTN, HLD, Stage 3 CKD, Anxiety, obesity. Former smoker (quit 2005). Able to walk stairs without SOB. EKG shows sinus rhythm with PVC's. Exam notable for decreased extension, MP 3, no teeth and small mouth opening. Plan for GETA. Consent obtained. All questions answered. Appears optimized prior to surgery tomorrow.
[2017-09-28 15:41] VITALS: BP 151/89; PULSE 79; TEMP 36.6; O2SAT 92
--- NOTE | 2017-09-28 20:54 | Hospitalist Progress Note ---
Hospitalist Progress Note Date of Service Sep 28, 2017. Subjective Pt evaluation today including: conversation w/ patient, conversation w/ eyewear consultant (orthopedic surgeon) Voiding: no voiding problems Patient still with severe pain in the lower back in the midline that radiates to the paraspinous muscle region but not down his legs. He denies numbness or tingling in the legs. He denies bowel or bladder issues. Discussed the case with orthopedic surgery at the bedside and he will undergo kyphoplasty tomorrow. Patient reports he has not had any cardiac issues in the past. He can easily walk up and down flight of stairs without any chest pain or shortness of breath. He reports he can walk for miles at a time and is an avid samuel without any cardiopulmonary issues. He has never had a cardiac stress test or catheterization. Constitutional: No fever Respiratory: No shortness of breath Cardiovascular: No chest pain All Other Systems: Reviewed and Negative Objective Vital Signs Date Time Temp Pulse Resp B/P (MAP) Pulse Ox O2 Delivery O2 Flow Rate FiO2 09/28/17 17:10 Room Air 09/28/17 15:41 36.6 79 18 151/89 (109) 92 Room Air 09/28/17 08:15 Room Air 09/28/17 07:03 36.7 56 18 138/69 (92) 91 Room Air 09/27/17 23:45 Room Air 09/27/17 23:00 36.7 81 18 159/86 (110) 96 Room Air Physical Exam General Appearance: WD/WN, no apparent distress Eyes: normal inspection, sclerae normal ENT: hearing grossly normal, pharynx normal Neck: no carotid bruits, trachea midline, + pertinent finding (has firmness of the anterior neck secondary to previous radiation therapy) Respiratory/Chest: lungs clear, normal breath sounds, no respiratory distress, no accessory muscle use Cardiovascular: regular rate, rhythm, no edema, no gallop, no JVD, no murmur Abdomen: normal bowel sounds, non tender, soft Extremities: non-tender, normal inspection, no pedal edema, no calf tenderness , + pertinent finding (positive tenderness to palpation in the lumbar spine region) Neurologic/Psychiatric: no motor/sensory deficits, alert, normal mood/affect, oriented x 3 Skin: normal color, warm/dry, no rash Assessment and Plan This patient is a 71-year-old male with a history of COPD, former smoker who quit 2005, pulmonary nodules, 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 He presents with intractable lower back pain after a mechanical fall which resulted in an acute compression fracture in L2. L2 acute compression fracture/osteoporotic vertebral compression fracture/ chronic lumbar spinal stenosis-with intractable pain -Add on his home hydrocodone and increase IV Dilaudid frequency to 1 mg IV every 4 hours when necessary -DC IV morphine as is not helping at all for his pain -Continue calcitonin nasal spray -Appreciate orthopedic consultation-plan for kyphoplasty tomorrow -He can easily achieve at least 4 METS and with no ongoing/acute cardiac issues , normal ECG, he is at acceptable risk for this intermediate risk procedure and should proceed with surgery -Hold subcutaneous heparin -Nothing by mouth after midnight, start D5 half-normal saline when nothing by mouth HTN/HL-fairly well controlled at this time -Continue losartan Anxiety-stable continue Celexa BPH-stable -Continue Flomax and finasteride COPD/former smoker/pulmonary nodules-stable this time. Had nodular opacities on CT chest June 2017 when admitted for pneumonia. I do not see evidence of repeat imaging performed since then to ensure resolution. -Continue Serevent inhaler, bronchodilators as needed -Follow up with PCP and/or pulmonology for his pulmonary nodules for surveillance given high risk due to smoking history GERD-stable -Continue PPI Gout-with recent recurrent flare in his bilateral ankles and feet. He has been on a prednisone taper over the last 5 weeks, along with taking allopurinol and colchicine daily for prophylaxis. These medications were not listed in his home med reconciliation. -Add on prednisone 20 mg daily for 4 more days, then decrease to 10 mg daily for one week, then stop -Continue colchicine 0.6 mg daily -Continue allopurinol 3 mg daily Prophylaxis-heparin subcutaneous-now on hold for surgery tomorrow Disposition-will need PT/OT evaluations to see if he needs rehabilitation placement Full code
[2017-09-28] MEDS: CALCITONIN SALMON NA 200 IU/AC 3.7 ML BTL SCH (21:00)
[2017-09-28] MEDS: TAMSULOSIN HCL 0.4 MG CAP PO SCH (21:26)
[2017-09-28] MEDS: CITALOPRAM 20 MG TAB PO SCH (21:27)
[2017-09-28 23:00] VITALS: BP 168/94; PULSE 56; TEMP 36.9; O2SAT 93
[2017-09-28] MEDS: D5W AND 1/2NSS 1,000 ML IV SCH (23:47)
[2017-09-28 23:53] VITALS: BP 161/88
[2017-09-29] VITALS (10 sets, daily range): BP systolic 152–182; BP diastolic 67–92; PULSE 73–109; TEMP 36.5–37.1; O2SAT 93–95
[2017-09-29] MEDS: HYDROmorphone INJ 1 MG/ML SYR IV PRN ×8 (03:49→23:29)
[2017-09-29 08:01] LABS: BASO % 0.3 %; BASO ABS # 0.02 K/uL (0-0.2); EOS % 1.7 %; EOS ABS # 0.11 K/uL (0-0.5); HEMATOCRIT 37.7 % (42-52); HEMOGLOBIN 12.2 g/dL (14.0-18.0); IG# 0.06 K/uL (0.00-0.02); LYMPH % 9.2 %; MEAN CELL VOLUME 94.3 fL (80-100); MEAN CORPUSCULAR HEMOGLOBIN 30.5 pg (25-34); MEAN CORPUSCULAR HGB CONC 32.4 g/dl (32-36); MEAN PLATELET VOLUME 9.9 fL (7.4-10.4); MONO ABS # 0.52 K/uL (0.11-0.59); NEUT % 79.9 %; NEUT ABS # 5.22 K/uL (1.4-6.5); PLATELET COUNT 207 K/uL (130-400); RED CELL DISTRIBUTION WIDTH CV 15.3 % (11.5-14.5); RED CELL DISTRIBUTION WIDTH SD 52.8 fL (36.4-46.3); WHITE BLOOD COUNT 6.53 K/uL (4.8-10.8)
[2017-09-29 08:09] LABS: INR 0.9 (0.9-1.1); PTT PATIENT 25.2 SECONDS (21.0-31.0)
[2017-09-29] MEDS: MULTIVITAMIN TAB PO SCH (08:16)
[2017-09-29] MEDS: CYANOCOBALAMIN 500 MCG TAB (VIT B-12) PO SCH (08:16)
[2017-09-29] MEDS: SALMETEROL XINAFOATE 50MCG 28 BLISTER INH INH SCH ×2 (08:16→21:19)
[2017-09-29] MEDS: PANTOprazole SOD 40 MG TAB PO SCH (08:16)
[2017-09-29] MEDS: ASCORBIC ACID 500 MG TAB PO SCH (08:16)
[2017-09-29] MEDS: ALLOPURINOL 300 MG TAB PO SCH (08:17)
[2017-09-29] MEDS: CHOLECALCIFEROL 1000 INTER.UNIT TAB PO SCH (08:17)
[2017-09-29] MEDS: COLCHICINE 0.6 MG TAB PO SCH (08:18)
[2017-09-29] MEDS: LOSARTAN POTASSIUM 25 MG TAB PO SCH (08:18)
[2017-09-29] MEDS: FINASTERIDE 5 MG TAB PO SCH (08:18)
[2017-09-29 08:37] LABS: CALCIUM 8.9 mg/dl (8.5-10.1); CREATININE 1.18 mg/dl (0.60-1.40); POTASSIUM 3.8 mmol/L (3.5-5.1)
[2017-09-29] MEDS ORDERED: HydrALAZINE HCL 20 MG/ML VIAL IV. PRN (08:45)
[2017-09-29] MEDS ORDERED: ONDANSETRON INJ 2 MG/ML 2 ML VIAL ONE (12:38)
[2017-09-29] MEDS ORDERED: PROPOFOL IV EMULSION 10 MG/ML 20 ML VIAL IV ONE (12:38)
[2017-09-29] MEDS ORDERED: DEXAMETHASONE SOD INJ 4 MG/ML VIAL ONE (12:38)
[2017-09-29] MEDS ORDERED: FENTANYL CITRATE INJ 50 MCG/1 ML 2 ML VIAL ONE (12:38)
[2017-09-29] MEDS ORDERED: NEOSTIGMINE METHYLSULFATE 1 MG/ML 10ML VIAL ONE (12:38)
[2017-09-29] MEDS ORDERED: MIDAZOLAM HCL 1 MG/ML 2ML VIAL ONE (12:38)
[2017-09-29] MEDS ORDERED: LIDOCAINE HCL 2% 2 ML VIAL (20MG/ML) ONE (12:38)
[2017-09-29] MEDS ORDERED: GLYCOPYRROLATE INJ 0.2 MG/ML VIAL ONE (12:38)
[2017-09-29] MEDS: D5W AND 1/2NSS 1,000 ML IV SCH (12:42)
[2017-09-29] MEDS ORDERED: CONRAY 60% 50 ML VIAL ONE (13:46)
[2017-09-29] MEDS ORDERED: BUPIVACAINE 0.5 % 5 MG/1 ML MPF 30ML VIAL ONE (13:47)
--- NOTE | 2017-09-29 14:14 | History & Physical Bridge Note ---
H&P Re-Evaluation Bridge Note: I have examined the patient, reviewed the History & Physical and in the interval since the performance of the History & Physical I have noted the following changes of clinical significance: No changes noted
[2017-09-29] MEDS ORDERED: CEFAZOLIN SOD 2000MG/10 ML IV PUSH IV ONE (14:20)
[2017-09-29] MEDS ORDERED: NURSING VERBAL MED ORDER ONE (14:30)
[2017-09-29] MEDS ORDERED: ROCURONIUM BROMIDE 10 MG/ML 5 ML VIAL IV ONE (14:46)
[2017-09-29] MEDS ORDERED: SUCCINYLCHOLINE CHLORIDE 20 MG/ML 10 ML VIAL IV ONE (14:46)
[2017-09-29] MEDS ORDERED: PHENYLEPHRINE 100MCG/ML 5ML SYR ONE (14:46)
--- NOTE | 2017-09-29 15:15 | [facility] Operative Report ---
Operative Report Operative Date Sep 29, 2017. Pre-Operative Diagnosis L2 compression fracture Post-Operative Diagnosis L2 compression fracture Procedure(s) Performed #1 kyphoplasty L2 vertebral body. #2 biopsy of L2 vertebral body. Surgeon Dr. Rainey X Ray Developing Machine Operator Surgeon(s) none Estimated Blood Loss 5 ML Findings Expected per diagnosis Specimens a. L2 Vertebral Body Description of Procedure Patient was met with preoperatively case discussed all questions addressed. After informed consent obtained patient was taken back to the operative suite underwent intubation placed in a prone position the Rl table chest pads and hip bolsters. All bony prominences were well-padded eyes inspected to ensure no external pressure placed upon them. This point the thoracal lumbar spine was prepped and draped in normal sterile fashion. With the assistance of fluoroscopy in AP and lateral planes we identified the L2 vertebral body and pedicles. 2 small incisions were made just lateral to the L2 pedicles and 2 Kyphon working cannulas were placed by way of a transpedicular approach into the vertebral body of L2. 2 core biopsies were then obtained. I then inserted 20 mm Kyphon balloons. These were sequentially inflated with fluoroscopic visualization. Balloons were subsequently removed and injected partially 6 mL of Kyphon cement with fluoroscopic visualization. A demonstrated excellent interdigitation and fill of the vertebral body. After this is complete the working apparatus was removed. The small incisions were closed the subcutaneous Monocryl and sterile dressing placed. Patient was then awakened and taken as PACU stable condition. I attest to the content of the Intraoperative Record and any orders documented therein. Any exceptions are noted below.
--- NOTE | 2017-09-29 15:29 | DIAGNOSTIC IMAGING REPORT ---
LUMBAR SPINE, INTRAOPERATIVE FLUOROSCOPY HISTORY: L2 kyphoplasty. FLUOROSCOPY TIME: 1 minute and 55 seconds. FINDINGS: Intraoperative fluoroscopy was provided for the lumbar spine. 2 fluoroscopic spot images were obtained. There is cement seen within the L2 vertebral body. Only a trace amount of cement is seen along the lateral side. The majority of the cement is within the vertebral body. IMPRESSION: Fluoroscopy provided for a L2 kyphoplasty. Electronically signed by: Jesús Berrios M.D. 09/29/2017 3:27 PM Dictated Date/Time: 09/29/2017 3:26 PM
[2017-09-29] MEDS ORDERED: ONDANSETRON INJ 2 MG/ML 2 ML VIAL IV PRN ×2 (15:30)
[2017-09-29] MEDS ORDERED: PROMETHAZINE HCL INJ 12.5 MG in SODIUM CHLORIDE 0.9% 50ML 50 ML IV PRN (15:30)
[2017-09-29] MEDS ORDERED: ATROPINE SULFATE 0.1 MG/ML 5ML SYR IV PRN (15:30)
[2017-09-29] MEDS ORDERED: LABETALOL HCL IV 5 MG/ML 20ML IV PRN (15:30)
[2017-09-29] MEDS ORDERED: MAGNESIUM HYDROXIDE SUSP 30 ML UDC PO PRN (15:30)
[2017-09-29] MEDS ORDERED: FLUMAZENIL 0.1 MG/1 ML 10 ML VIAL IV PRN (15:30)
[2017-09-29] MEDS ORDERED: NALOXONE HCL 0.4 MG/1 ML VIAL/CARP IV PRN (15:30)
[2017-09-29] MEDS ORDERED: EpHEDrine SULFATE INJ 50 MG/ML AMP IV PRN (15:30)
--- NOTE | 2017-09-29 15:53 | Anesthesiology Progress Note ---
Anesthesia Post Op Note Date & Time Sep 29, 2017 at 15:53 Vital Signs Pain Intensity: 4 Vital Signs Past 12 Hours Date Time Temp Pulse Resp B/P (MAP) Pulse Ox O2 Delivery O2 Flow Rate FiO2 09/29/17 15:45 95 18 169/94 98 Oxymask 10 09/29/17 15:36 98 18 169/88 98 Oxymask 10 09/29/17 15:27 36.9 100 18 176/95 95 Oxymask 10 09/29/17 08:15 Room Air 09/29/17 07:56 95 Room Air 09/29/17 07:39 36.8 81 18 178/82 (114) 95 Room Air Notes Mental Status: alert / awake / arousable, participated in evaluation Pt Amnestic to Procedure: Yes Nausea / Vomiting: adequately controlled Pain: adequately controlled Airway Patency, RR, SpO2: stable & adequate BP & HR: stable & adequate Hydration State: stable & adequate Anesthetic Complications: no major complications apparent
[2017-09-29] MEDS: HYDROCODONE/ACETAMI 10/325 TAB PO PRN (16:44)
--- NOTE | 2017-09-29 20:18 | Hospitalist Progress Note ---
Hospitalist Progress Note Date of Service Sep 29, 2017. Subjective Pt evaluation today including: conversation w/ patient, conversation w/ family () Pt seen this AM prior to his kyphoplasty. He was still in a lot of pain,. but felt the dilaudid was helping. No CP or SOB. Male : No incontinence Neurologic: No paralysis, No weakness, No numbness/tingling All Other Systems: Reviewed and Negative Objective Vital Signs Date Time Temp Pulse Resp B/P (MAP) Pulse Ox O2 Delivery O2 Flow Rate FiO2 09/29/17 19:45 36.7 81 20 182/92 (122) 95 Room Air 09/29/17 18:56 36.5 80 18 167/80 (109) 93 Room Air 09/29/17 17:47 37.1 109 18 179/85 (116) 94 Room Air 09/29/17 17:15 36.8 81 18 152/76 (101) 94 Room Air 09/29/17 16:45 36.5 81 18 163/83 (109) 94 Room Air 09/29/17 16:15 36.9 95 18 162/67 (98) 94 Nasal Cannula 2.0 09/29/17 16:15 94 Nasal Cannula 2.0 09/29/17 16:15 94 Nasal Cannula 2.0 09/29/17 16:05 36.6 09/29/17 15:55 90 18 164/95 97 Nasal Cannula 4 09/29/17 15:45 95 18 169/94 98 Oxymask 10 09/29/17 15:36 98 18 169/88 98 Oxymask 10 09/29/17 15:27 36.9 100 18 176/95 95 Oxymask 10 09/29/17 08:15 Room Air 09/29/17 07:56 95 Room Air 09/29/17 07:39 36.8 81 18 178/82 (114) 95 Room Air 09/28/17 23:53 161/88 (112) 09/28/17 23:45 Room Air 09/28/17 23:00 36.9 56 16 168/94 (118) 93 Room Air Physical Exam General Appearance: WD/WN, no apparent distress Eyes: normal inspection, sclerae normal ENT: hearing grossly normal Neck: trachea midline Respiratory/Chest: lungs clear, normal breath sounds, no respiratory distress, no accessory muscle use Cardiovascular: regular rate, rhythm, no edema, no gallop, no murmur Abdomen: normal bowel sounds, non tender, soft, no organomegaly Extremities: non-tender, normal inspection, no pedal edema, no calf tenderness Neurologic/Psychiatric: alert, normal mood/affect, oriented x 3 Skin: normal color, warm/dry, no rash Laboratory Results Last 24 Hours Test 09/29/17 07:27 White Blood Count 6.53 K/uL Red Blood Count 4.00 M/uL Hemoglobin 12.2 g/dL Hematocrit 37.7 % Mean Corpuscular Volume 94.3 fL Mean Corpuscular Hemoglobin 30.5 pg Mean Corpuscular Hemoglobin Concent 32.4 g/dl Platelet Count 207 K/uL Mean Platelet Volume 9.9 fL Neutrophils (%) (Auto) 79.9 % Lymphocytes (%) (Auto) 9.2 % Monocytes (%) (Auto) 8.0 % Eosinophils (%) (Auto) 1.7 % Basophils (%) (Auto) 0.3 % Neutrophils # (Auto) 5.22 K/uL Lymphocytes # (Auto) 0.60 K/uL Monocytes # (Auto) 0.52 K/uL Eosinophils # (Auto) 0.11 K/uL Basophils # (Auto) 0.02 K/uL RDW Standard Deviation 52.8 fL RDW Coefficient of Variation 15.3 % Immature Granulocyte % (Auto) 0.9 % Immature Granulocyte # (Auto) 0.06 K/uL Prothrombin Time 9.8 SECONDS Prothromb Time International Ratio 0.9 Activated Partial Thromboplast Time 25.2 SECONDS Partial Thromboplastin Ratio 1.0 Sodium Level 136 mmol/L Potassium Level 3.8 mmol/L Chloride Level 101 mmol/L Carbon Dioxide Level 27 mmol/L Anion Gap 8.0 mmol/L Blood Urea Nitrogen 30 mg/dl Creatinine 1.18 mg/dl Est Creatinine Clear Calc Drug Dose 69.7 ml/min Estimated GFR () 72.5 Estimated GFR (Non- 62.6 BUN/Creatinine Ratio 25.1 Random Glucose 105 mg/dl Calcium Level 8.9 mg/dl Magnesium Level 2.0 mg/dl Assessment and Plan This patient is a 71-year-old male with a history of COPD, former smoker who quit 2005, pulmonary nodules, 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 He presents with intractable lower back pain after a mechanical fall which resulted in an acute compression fracture in L2. L2 acute compression fracture/osteoporotic vertebral compression fracture/ chronic lumbar spinal stenosis-with intractable pain -Now s/p kyphoplasty today -continue home dose of po hydrocodone prn and Dilaudid 1 mg IV every 4 hours when necessary -Continue calcitonin nasal spray -Appreciate orthopedic consultation -Held subcutaneous heparin for surgery -will keep overnight after surgery to ensure adequate pain control post-op -dc IVFs post-op HTN/HL- BPs elevated, could be secondary to pain, prednisone -Continue losartan 25mg daily, consider increasing dose if not controlled -IV hydralazine prn CLIVE- records management assistant elevated to 1.63 on admission, baseline records management assistant 0.92-1.28. Treated with IVFs, likely from dehydration from poor po intake and pain -now records management assistant returned to 1.18-resolved -follow PRP Anxiety-stable continue Celexa BPH-stable -Continue Flomax and finasteride COPD/former smoker/pulmonary nodules-stable this time. Had nodular opacities on CT chest June 2017 when admitted for pneumonia. I do not see evidence of repeat imaging performed since then to ensure resolution. -Continue Serevent inhaler, bronchodilators as needed -Follow up with PCP and/or pulmonology for his pulmonary nodules for surveillance given high risk due to smoking history GERD-stable -Continue PPI Gout-with recent recurrent flare in his bilateral ankles and feet. He has been on a prednisone taper over the last 5 weeks, along with taking allopurinol and colchicine daily for prophylaxis. These medications were not listed in his home med reconciliation. -continue prednisone 20 mg daily through Wednesday, then decrease to 10 mg daily for one week, then stop as per pt's instructions from Rheum -Continue colchicine 0.6 mg daily -Continue allopurinol 300 mg daily Prophylaxis-heparin subcutaneous-on hold due to procedure today Disposition-will need PT/OT evaluations to see if he needs rehabilitation placement Full code
[2017-09-29] MEDS: CALCITONIN SALMON NA 200 IU/AC 3.7 ML BTL SCH (21:00)
[2017-09-29] MEDS: CITALOPRAM 20 MG TAB PO SCH (21:19)
[2017-09-29] MEDS: TAMSULOSIN HCL 0.4 MG CAP PO SCH (21:19)
[2017-09-29] MEDS: DOCUSATE SODIUM 100 MG CAP PO SCH (21:21)
[2017-09-29] MEDS: CEFAZOLIN IV 1,000 MG in SYRINGE 0 ML IV SCH (21:40)
[2017-09-30 03:20] VITALS: BP 143/81; PULSE 66; TEMP 36.5; O2SAT 93
[2017-09-30] MEDS: CEFAZOLIN IV 1,000 MG in SYRINGE 0 ML IV SCH (05:48)
[2017-09-30] MEDS: HYDROmorphone INJ 1 MG/ML SYR IV PRN ×2 (06:45→13:01)
[2017-09-30 07:11] LABS: BASO % 0.1 %; BASO ABS # 0.01 K/uL (0-0.2); EOS % 0.1 %; EOS ABS # 0.01 K/uL (0-0.5); HEMATOCRIT 38.5 % (42-52); HEMOGLOBIN 12.4 g/dL (14.0-18.0); IG# 0.06 K/uL (0.00-0.02); LYMPH % 7.6 %; LYMPH ABS # 0.67 K/uL (1.2-3.4); MEAN CELL VOLUME 94.6 fL (80-100); MEAN CORPUSCULAR HEMOGLOBIN 30.5 pg (25-34); MEAN CORPUSCULAR HGB CONC 32.2 g/dl (32-36); MEAN PLATELET VOLUME 10.1 fL (7.4-10.4); MONO % 6.9 %; MONO ABS # 0.61 K/uL (0.11-0.59); NEUT % 84.6 %; NEUT ABS # 7.43 K/uL (1.4-6.5); PLATELET COUNT 229 K/uL (130-400); RED CELL DISTRIBUTION WIDTH CV 15.3 % (11.5-14.5); RED CELL DISTRIBUTION WIDTH SD 52.5 fL (36.4-46.3); WHITE BLOOD COUNT 8.79 K/uL (4.8-10.8)
[2017-09-30 07:32] VITALS: BP 194/96; PULSE 90; TEMP 36.4; O2SAT 95
[2017-09-30] MEDS: FINASTERIDE 5 MG TAB PO SCH (07:49)
[2017-09-30] MEDS: SALMETEROL XINAFOATE 50MCG 28 BLISTER INH INH SCH (07:49)
[2017-09-30 07:50] LABS: CALCIUM 9.5 mg/dl (8.5-10.1); CREATININE 1.33 mg/dl (0.60-1.40)
[2017-09-30] MEDS: CHOLECALCIFEROL 1000 INTER.UNIT TAB PO SCH (07:50)
[2017-09-30] MEDS: LOSARTAN POTASSIUM 25 MG TAB PO SCH (07:50)
[2017-09-30] MEDS: MULTIVITAMIN TAB PO SCH (07:50)
[2017-09-30] MEDS: ALLOPURINOL 300 MG TAB PO SCH (07:50)
[2017-09-30] MEDS: CYANOCOBALAMIN 500 MCG TAB (VIT B-12) PO SCH (07:50)
[2017-09-30] MEDS: COLCHICINE 0.6 MG TAB PO SCH (07:51)
[2017-09-30] MEDS: DOCUSATE SODIUM 100 MG CAP PO SCH (07:51)
[2017-09-30] MEDS: ASCORBIC ACID 500 MG TAB PO SCH (07:51)
[2017-09-30] MEDS: PANTOprazole SOD 40 MG TAB PO SCH (07:51)
--- NOTE | 2017-09-30 08:47 | Progress Note ---
Progress Note Date of Service Sep 30, 2017. Progress Note Patient is postop day #1. Back pain is markedly improved. He denies any leg symptoms at this time. Assessment status post kyphoplasty L2. Plan at this time he is ready for discharge from an orthopedic standpoint. I would like to see him back in the office in 2 weeks for x-rays and assess his progress.
[2017-09-30 09:08] VITALS: BP 149/72
[2017-09-30 10:05] VITALS: BP 126/72; PULSE 85; O2SAT 91
[2017-09-30 11:15] VITALS: BP 149/72; PULSE 90; TEMP 36.4; O2SAT 95
[2017-09-30] MEDS ORDERED: HYDR-4079 PO (11:18)
--- NOTE | 2017-09-30 11:22 | Discharge Instructions ---
Discharge Instructions Date of Service Sep 30, 2017. Admission Reason for Admission: Compression Fracture Of L2 Lumbar Vertebra Discharge Discharge Diagnosis / Problem: Compression fracture, s/p kyphoplasty Discharge Goals Goal(s): Decrease discomfort, Improve function Activity Recommendations Activity Limitations: per Instructions/Follow-up section Lifting Limitations: no more than 25 pounds Exercise/Sports Limitations: as tolerated May Resume Sexual Activity: when tolerated Shower/Bathe: no limitations Driving or Machine Use: no driving while on Hydrocodone . Instructions / Follow-Up Instructions / Follow-Up Medications: - HYDROCODONE: renewed for pain control In summary, you had an osteoporotic compression fracture of L2 vertebrae, treated with kyphoplasty FOLLOW UP - Dr. Ahn in one week for hospital follow up - Dr. Rainey in two weeks for repeat x-rays and follow up, call for appointment , Current Hospital Diet Patient's current hospital diet: Regular Diet Discharge Diet Recommended Diet: Regular Diet Procedures Procedures Performed: #1 kyphoplasty L2 vertebral body. #2 biopsy of L2 vertebral body. Pending Studies Studies pending at discharge: yes List of pending studies: pathology results from biopsy, Dr. Rainey will have these results Medical Emergencies . Who to Call and When: Medical Emergencies: If at any time you feel your situation is an emergency, please call 911 immediately. . Non-Emergent Contact Non-Emergency issues call your: Primary Care Provider, Surgeon Call Non-Emergent contact if: your pain is not controlled, you have any medication questions . . "Provider Documentation" section prepared by Mani Rosa. . VTE Core Measure Inpt VTE Proph given/why not?: Unfractionated heparin [place] Drug Monitoring Program Search Results: patient reviewed within database
[2017-09-30] MEDS ORDERED: MCLIN (15:13)
--- NOTE | 2017-09-30 15:17 | Discharge Summary ---
Discharge Summary Date of Service Sep 30, 2017. Discharge Summary Admission Date: Sep 27, 2017 at 15:19 Discharge Date: Sep 30, 2017 Discharge Disposition: Home Principal Diagnosis: L2 compression fracture Problems/Secondary Diagnoses: Chronic pain Bilateral gouty arthritis in ankles CLIVE, resolved HTN Immunizations: Have You Had Influenza Vaccine: Yes History of Tetanus Vaccine?: No History of Pneumococcal: Yes History of Hepatitis B Vaccine: No Procedures: Kyphoplasty Consultations: Orthopedic surgery Medication Reconciliation Continued Medications: Acetaminophen (Tylenol) 325 Mg Tab 650 MG PO DIRECTED PRN for Pain, TAB Allopurinol (Zyloprim) 300 Mg Tab 300 MG PO DAILY for 30 Days, #30 TAB Ascorbic Acid (Vitamin C) 1,000 Mg Tab 1000 MG PO DAILY for TAKES IN WINTER SEASON Cholecalciferol (Vitamin D3) 1,000 Unit Tab 2000 UNITS PO QAM for 90 Days, TAB 3 Refills Citalopram Hydrobromide (Celexa) 20 Mg Tab 20 MG PO QPM, TAB Colchicine (Colcrys) 0.6 Mg Tab 0.6 MG PO DAILY for 7 Days, #7 TAB 0 Refills Cyanocobalamin (Vitamin B12) 1,000 Mcg Tab 1000 MCG PO QAM Docusate Sodium (Colace) 100 Mg Cap 100 MG PO QAM PRN for Constipation for 30 Days, #30 CAP Fexofenadine Hcl (Yue Allergy) 180 Mg Tab 180 MG PO QAM PRN for Seasonal Allergies for 14 Days, #14 TAB 2 Refills Finasteride (Proscar) 5 Mg Tab 5 MG PO QAM, TAB Fish Oil ([place]-3) 1 Ea Cap 1 CAP PO QAM, 0 Refills Hydrocodone/Acetaminophen 10MG/325MG ([place] 10MG/325MG) Tab 1 TABS PO QID PRN for Pain, #120 TAB 0 Refills (This prescription has been renewed) Losartan Potassium (Cozaar) 25 Mg Tab 25 MG PO QAM, TAB Multivitamin (Multivitamin) Tab 1 TAB PO QAM, 0 Refills Omeprazole (Omeprazole) 20 Mg Tab 40 MG PO DAILY, TAB 3 Refills Pomegranate ([place] Granatum) (Pomegranate) 250 Mg Cap 250 MG PO QAM Prednisone Tab (Prednisone) 10 Mg Tab 20 MG PO DAILY for 4 Days, #8 TAB and then decrease to 10mg daily x 1 week Salmeterol Xinafoate (Serevent Diskus) 28 Puffs/1400 Mcg Aerp 1 PUFF INH BID Tamsulosin Hcl (Flomax) 0.4 Mg Cap 0.4 MG PO QPM, CAP Discharge Exam patient feeling well, still with pain after kyphoplasty but not as severe, Hydrocodone helping. Ankle pain is controlled. He says he feels ready to go home, able to ambulate without assistance Reviewed plan for Hydrocodone, follow up with Dr. Rainey, follow up with Rheumatology Review of Systems: Constitutional: No fever, No chills, No sweats, No weight loss, No weakness , No fatigue, No problem reported Eyes: No worsening of vision, No eye pain, No redness, No discharge, No diplopia, No problem reported ENT: No hearing loss, No unusual epistaxis, No nasal symptoms, No sore throat, No tinnitus, No dental problems, No trouble swallowing, No problem reported Respiratory: No cough, No sputum, No wheezing, No shortness of breath, No dyspnea on exertion, No dyspnea at rest, No hemoptysis, No problem reported Cardiovascular: No chest pain, No orthopnea, No PND, No edema, No claudication, No palpitations, No problem reported Abdomen: No pain, No nausea, No vomiting, No diarrhea, No constipation, No GI bleeding, No problem reported Musculoskeletal: + joint pain (low back, ankles), No muscle pain, No swelling, No calf pain, No problem reported Genitourinary - Male: No hematuria, No dysuria, No urinary frequency, No urinary urgency Neurologic: No memory loss, No paralysis, No weakness, No numbness/tingling , No vertigo, No balance problems, No problem reported Psychiatric: No depression symptoms, No anhedonism, No anxiety, No insomnia , No substance abuse, No problem reported Endocrine: No fatigue, No excessive thirst, No excessive urination, No problem reported Hematologic / Lymphatic: No abnormal bleeding/bruising, No clotting problems , No swollen lymph nodes, No night sweats, No problem reported Integumentary: No rash, No itch, No new/changing skin lesions, No color change, No bleeding, No problem reported Physical Exam: General Appearance: no apparent distress, + obese Eyes: normal inspection, EOMI, sclerae normal ENT: normal ENT inspection, hearing grossly normal, pharynx normal Neck: supple, no adenopathy, no JVD, trachea midline Respiratory/Chest: chest non-tender, lungs clear, normal breath sounds, no respiratory distress, no accessory muscle use Cardiovascular: regular rate, rhythm, no edema, no gallop, no JVD, no murmur , normal peripheral pulses Abdomen / GI: normal bowel sounds, non tender, soft, no organomegaly Extremities: no calf tenderness, normal capillary refill, no pedal edema, normal range of motion, pelvis stable, + pertinent finding (ankles swollen, decreased ROM in lower back) Neurologic/Psychiatric: business intelligence reporting analyst II-XII nml as tested, no motor/sensory deficits , alert, normal mood/affect, normal reflexes, oriented x 3 Skin: normal color, warm/dry, no rash Hospital Course This patient is a 71-year-old male with a history of COPD, former smoker who quit 2005, pulmonary nodules, 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 He presents with intractable lower back pain after a mechanical fall which resulted in an acute compression fracture in L2. L2 acute compression fracture/osteoporotic vertebral compression fracture/ chronic lumbar spinal stenosis-with intractable pain s/p kyphoplasty on 09/29/17, tolerated well, pain is less severe now will be okay on Hydrocodone 10/325mg continue Calcitonin nasal spray follow up with rheumatology to discuss further treatment of osteoporosis follow up with Dr. Rainey in two weeks for x-ray and reassessment HTN/HL- BPs elevated, secondary to pain -Continue losartan 25mg daily -IV hydralazine prn CLIVE- product control and logistics analyst elevated to 1.63 on admission, baseline product control and logistics analyst 0.92-1.28. Treated with IVFs, likely from dehydration from poor po intake and pain -resolved, Cr is 1.1, making adequate urine Anxiety-stable continue Celexa BPH-stable -Continue Flomax and finasteride COPD/former smoker/pulmonary nodules-stable this time. Had nodular opacities on CT chest June 2017 when admitted for pneumonia. I do not see evidence of repeat imaging performed since then to ensure resolution. -Continue Serevent inhaler, bronchodilators as needed -Follow up with PCP and/or pulmonology for his pulmonary nodules for surveillance given high risk due to smoking history GERD-stable -Continue PPI Gout-with recent recurrent flare in his bilateral ankles and feet. He has been on a prednisone taper over the last 5 weeks, along with taking allopurinol and colchicine daily for prophylaxis. These medications were not listed in his home med reconciliation. -continue prednisone 20 mg daily through Wednesday, then decrease to 10 mg daily for one week, then stop as per pt's instructions from Rheum -Continue colchicine 0.6 mg daily -Continue allopurinol 300 mg daily Prophylaxis-heparin subcutaneous-on hold due to procedure today Disposition-will need PT/OT evaluations to see if he needs rehabilitation placement Full code Total Time Spent: Greater than 30 minutes This includes examination of the patient, discharge planning, medication reconciliation, and communication with other providers. Discharge Instructions Please refer to the electronic Patient Visit Report (Discharge Instructions) for additional information. Follow-Up Dr. Arredondo as previously scheduled for gouty arthritis Dr. Rainey in two weeks Dr. Carlo Ahn Additional Copies To Hira Rainey D.Esteban.; Carlo Ahn M.D.; Cristina Arredondo MD
[2017-10-01] MEDS ORDERED: BISACODYL 10 MG SUPP PR PRN (06:00)
[2017-10-01] MEDS ORDERED: BISACODYL 5 MG TABEC PO PRN (06:00)
[2017-10-01] MEDS ORDERED: POLYETHYLENE (MIRALAX) 17 GM PACK PO SCH (09:00)
== END 2017-09-30 13:43 | disposition home or self-care (01) | DRG 478 ==
LOC: EDBD 09:32 → C.EDB 09:33 → C.MSN 15:19 → ENRESERV 15:31
PROVIDERS: ADMIT Internal Medicine Sports Medicine; ATTEND Internal Medicine
PROC: 0QS00ZZ Reposition Lumbar Vertebra, Open Approach (ICD-10-PCS; principal; 2017-09-29 07:30)
PROC: 0QB00ZX Excision of Lumbar Vertebra, Open Approach, Diagnostic (ICD-10-PCS; principal; 2017-09-29 07:30)
DX: M80.08XA Age-related osteoporosis with current pathological fracture, vertebra(e), initial encounter for fracture (principal); N17.9 Acute kidney failure, unspecified; M48.061 Spinal stenosis, lumbar region without neurogenic claudication; E78.5 Hyperlipidemia, unspecified; I10 Essential (primary) hypertension; F41.9 Anxiety disorder, unspecified; N40.0 Benign prostatic hyperplasia without lower urinary tract symptoms; M10.9 Gout, unspecified; J44.9 Chronic obstructive pulmonary disease, unspecified; K21.9 Gastro-esophageal reflux disease without esophagitis; Z79.899 Other long term (current) drug therapy; W18.30XA Fall on same level, unspecified, initial encounter; Y93.E5 Activity, floor mopping and cleaning; Y92.009 Unspecified place in unspecified non-institutional (private) residence as the place of occurrence of the external cause; Z87.891 Personal history of nicotine dependence

== ENCOUNTER → 2017-10-07 | Outpatient (CLI) | payer OTHER ==
[~2017-10-07] MED LIST changes: +ALLO300T2 PO; -AMOX400S2 PO; -MAGIC1 PO; +MCLIN; -PRD20 PO
[2017-10-07 18:17] LABS: BASO % 0.2 %; BASO ABS # 0.02 K/uL (0-0.2); EOS % 0.2 %; EOS ABS # 0.02 K/uL (0-0.5); HEMATOCRIT 42.3 % (42-52); HEMOGLOBIN 13.8 g/dL (14.0-18.0); IG# 0.13 K/uL (0.00-0.02); LYMPH % 9.8 %; LYMPH ABS # 0.85 K/uL (1.2-3.4); MEAN CELL VOLUME 93.6 fL (80-100); MEAN CORPUSCULAR HEMOGLOBIN 30.5 pg (25-34); MEAN CORPUSCULAR HGB CONC 32.6 g/dl (32-36); MEAN PLATELET VOLUME 10.2 fL (7.4-10.4); MONO % 6.7 %; MONO ABS # 0.58 K/uL (0.11-0.59); NEUT % 81.6 %; NEUT ABS # 7.05 K/uL (1.4-6.5); PLATELET COUNT 300 K/uL (130-400); RED CELL DISTRIBUTION WIDTH CV 15.4 % (11.5-14.5); RED CELL DISTRIBUTION WIDTH SD 52.7 fL (36.4-46.3); WHITE BLOOD COUNT 8.65 K/uL (4.8-10.8)
[2017-10-07 18:27] LABS: ALBUMIN 3.7 gm/dl (3.4-5.0); ALT/SGPT 21 U/L (12-78); AST/SGOT 13 U/L (15-37); CALCIUM 9.5 mg/dl (8.5-10.1); CREATININE 1.14 mg/dl (0.60-1.40)
[2017-10-07 18:45] LABS: ALKALINE PHOSPHATASE 79 U/L (45-117); TOTAL PROTEIN 7.3 gm/dl (6.4-8.2); URIC ACID 3.5 mg/dl (2.6-7.2)
== END | disposition home or self-care (01) ==
LOC: C.LABPBG 15:39
PROVIDERS: ATTEND Internal Medicine Rheumatology
DX: M10.9 Gout, unspecified (principal); M80.00XA Age-related osteoporosis with current pathological fracture, unspecified site, initial encounter for fracture; S32.020A Wedge compression fracture of second lumbar vertebra, initial encounter for closed fracture; X58.XXXA Exposure to other specified factors, initial encounter

== ENCOUNTER → 2018-02-03 | Day surgery (SDC) | payer OTHER ==
[2018-02-02 13:27] VITALS: Ht 170.2 cm; Wt 90.9 kg
[~2018-02-03] VITALS: Ht 170.2 cm; Wt 90.9 kg
[~2018-02-03] MED LIST changes: -CLC6 PO; +FENTANYL CITRATE INJ 50 MCG/1 ML 2 ML VIAL ONE; -HYDR-4079 PO; +IBUP-1050 PO; +LIDOCAINE HCL 2% 2 ML VIAL (20MG/ML) ONE; -MCLIN; -OMEG10007 PO; -POME250C2 PO; +PROPOFOL IV EMULSION 10 MG/ML 20 ML VIAL ONE
--- NOTE | 2018-02-03 14:27 | Endo History and Physical ---
History & Physical Date of Service: February 03, 2018. Chief Complaint: Dysphagia Referring Physician: Dr Carlo Ahn History of Present Illness For EGD Past Surgical History Hx Cardiac Surgery: No Hx Internal Defibrillator: No Hx Pacemaker: No Hx Abdominal Surgery: Yes (UMBILICAL HERNIA) Hx of Implantable Prosthesis: No Hx Post-Op Nausea and Vomiting: No Hx Cancer Surgery: No Hx Thoracic Surgery: No Hx Orthopedic: Yes (C4-C5 FUSION,L2 KYPHOPLASTY ) Hx Urinary Tract Surgery: Yes (CYSTO STONE REMOVAL) Family History None Social History Smoking Status: Former Smoker Hx Substance Use: No ( ) Hx Alcohol Use: No Allergies Coded Allergies: Latex1 -Allergic Contact Dermititis (Verified Allergy, Unknown, patient states had allergy tests which tested + , 02/03/18) NO KNOWN DRUG ALLERGIES (Verified Allergy, Unknown, NKDA, 02/03/18) Current Medications Reported Home Medications Medications Dose Route/Sig Max Daily Dose Days Date Category Advil (Ibuprofen) 200 Mg Tab 400 Mg PO PRN 02/02/18 Reported Zyloprim (Allopurinol) 300 Mg Tab 300 Mg PO QAM 02/02/18 Reported Tylenol (Acetaminophen) 325 Mg Tab 650 Mg PO DIRECTED PRN 07/16/17 Reported Omeprazole 20 Mg Tab 40 Mg PO QAM 07/16/17 Reported Serevent Diskus (Salmeterol Xinafoate) 28 Puffs/1400 Mcg Aerp 1 Puff INH BID 07/16/17 Reported Yue Allergy (Fexofenadine Hcl) 180 Mg Tab 180 Mg PO QAM PRN 14 06/26/16 Reported Proscar (Finasteride) 5 Mg Tab 5 Mg PO QAM 03/26/16 Reported Flomax (Tamsulosin Hcl) 0.4 Mg Cap 0.4 Mg PO QPM 03/26/16 Reported Colace (Docusate Sodium) 100 Mg Cap 100 Mg PO QAM PRN 30 12/07/15 Reported Vitamin B12 (Cyanocobalamin) 1,000 Mcg Tab 1,000 Mcg PO QAM 12/07/15 Reported Vitamin D3 (Cholecalciferol) 1,000 Unit Tab 2,000 Units PO QAM 90 12/07/15 Reported Vitamin C (Ascorbic Acid) 1,000 Mg Tab 1,000 Mg PO QAM 12/07/15 Reported Celexa (Citalopram Hydrobromide) 20 Mg Tab 20 Mg PO QPM 12/07/15 Reported Cozaar (Losartan Potassium) 25 Mg Tab 25 Mg PO QAM 12/07/15 Reported Multivitamin (Multivitamins) Tab 1 Tab PO QAM 07/29/11 Reported Vital Signs Weight (Kilograms): 90.91 Height (Feet): 5 Height (Inches): 7 Date Time Temp Pulse Resp B/P (MAP) Pulse Ox O2 Delivery O2 Flow Rate FiO2 02/03/18 14:03 36.8 86 18 142/73 (96) 97 Room Air Physical Exam General Appearance: WD/WN, + pertinent finding (Hx tonsillar cancer) Respiratory/Chest: Respiratory effort: no dyspnea Cardiovascular: Apical Impulse: not displaced Heart Auscultation: RRR Abdomen: Inspection & Palpation: soft Assessment and Plan Dysphagia for EGD
--- NOTE | 2018-02-03 14:52 | Discharge Instructions ---
Endoscopy Patient Instructions Date / Procedure(s) Performed February 03, 2018. EGD Allergy Information Coded Allergies: Latex1 -Allergic Contact Dermititis (Verified Allergy, Unknown, patient states had allergy tests which tested + , 02/03/18) NO KNOWN DRUG ALLERGIES (Verified Allergy, Unknown, NKDA, 02/03/18) Discharge Date / Findings February 03, 2018. Nodule in cricopharyngeus Medication Instructions Restart Stopped Medication(s): resume meds Reported Home Medications Medications Dose Route/Sig Max Daily Dose Days Date Category Advil (Ibuprofen) 200 Mg Tab 400 Mg PO PRN 02/02/18 Reported Zyloprim (Allopurinol) 300 Mg Tab 300 Mg PO QAM 02/02/18 Reported Tylenol (Acetaminophen) 325 Mg Tab 650 Mg PO DIRECTED PRN 07/16/17 Reported Omeprazole 20 Mg Tab 40 Mg PO QAM 07/16/17 Reported Serevent Diskus (Salmeterol Xinafoate) 28 Puffs/1400 Mcg Aerp 1 Puff INH BID 07/16/17 Reported Yue Allergy (Fexofenadine Hcl) 180 Mg Tab 180 Mg PO QAM PRN 14 06/26/16 Reported Proscar (Finasteride) 5 Mg Tab 5 Mg PO QAM 03/26/16 Reported Flomax (Tamsulosin Hcl) 0.4 Mg Cap 0.4 Mg PO QPM 03/26/16 Reported Colace (Docusate Sodium) 100 Mg Cap 100 Mg PO QAM PRN 30 12/07/15 Reported Vitamin B12 (Cyanocobalamin) 1,000 Mcg Tab 1,000 Mcg PO QAM 12/07/15 Reported Vitamin D3 (Cholecalciferol) 1,000 Unit Tab 2,000 Units PO QAM 90 12/07/15 Reported Vitamin C (Ascorbic Acid) 1,000 Mg Tab 1,000 Mg PO QAM 12/07/15 Reported Celexa (Citalopram Hydrobromide) 20 Mg Tab 20 Mg PO QPM 12/07/15 Reported Cozaar (Losartan Potassium) 25 Mg Tab 25 Mg PO QAM 12/07/15 Reported Multivitamin (Multivitamins) Tab 1 Tab PO QAM 07/29/11 Reported Provider Instructions Activity Restrictions - No exercising or heavy lifting for 24 hours. - Do not drink alcohol the day of the procedure. - Do not drive a car or operate machinery until the day after the procedure. - Do not make any important decisions or sign important papers in 24 hours after the procedure. Following Day: - Return to full activity which may include returning to work/school. Diet Start your diet with liquids and light foods (jello, soup, juice, toast). Then eat your usual diet if not nauseated. Treatment For Common After Affects For mild abdominal pain, bloating, or excessive gas: - Rest - Eat lightly - Lie on right side Follow-Up Information Follow-up with Dr Carlo Ahn as scheduled Anesthesia Information What You Should Know You have had a procedure that required some medicine to reduce anxiety and discomfort. This treatment is called moderate sedation. After receiving the treatment, you may be sleepy, but you will be able to breathe on your own. The effects of the treatment may last for several hours. Follow these instructions along with Activity/Diet recommendations noted above: * Do NOT do anything where dizziness or clumsiness would be dangerous. * Rest quietly at home today, then you can be up and about tomorrow. * Have a responsible person stay with you the rest of today. * You may have had an I.V. today. If so, you may take the dressing off later today. Recommendations Call your doctor if: * Trouble breathing * Continuous vomiting for more than 24 hours * Temperature above 101 degrees * Severe abdominal pain or bloating * Pain not relieved by pain medicine ordered * There is increased drainage or redness from any incision * A large amount of rectal bleeding greater than 2-3 tablespoons. (If you had a polyp/s removed or have hemorrhoids, a small amount of blood - from the rectum is to be expected.) * You have any unanswered questions or concerns. IN THE EVENT OF A SERIOUS EMERGENCY, GO TO THE NEAREST EMERGENCY ROOM Your discharge instructions were prepared by provider Manny Durant. Patient Instructions Signature Page Shaka Amirah Patient (or Guardian) Signature/Date: I have read and understand the instructions given to me by my caregivers. Caregiver/RN/Doctor Signature/Date: The above-named patient and/or guardian has received patient instructions on this date. + Original Patient Signature Page (only) stays with chart. Please make copy for patient.
--- NOTE | 2018-02-03 15:03 | GI REPORT ---
Patient Name: Shaka Macario Procedure Date: 02/03/2018 1:54 PM Date of : 1945 Admit Type: Outpatient Age: 72 Gender: Male Attending MD: Manny Durant MD Procedure: Upper GI endoscopy Providers: Manny Durant MD Referring MD: Carlo Ahn Indications: Dysphagia Medicines: Fentanyl 50 micrograms IV, Propofol total dose 300 mg IV, Lidocaine 80 mg IV Complications: No immediate complications. Estimated Blood Loss: Estimated blood loss was minimal. Procedure: Pre-Anesthesia Assessment: - Prior to the procedure, a History and Physical was performed, and patient medications, allergies and sensitivities were reviewed. The patient's tolerance of previous anesthesia was reviewed. - The risks and benefits of the procedure and the sedation options and risks were discussed with the patient. All questions were answered and informed consent was obtained. After obtaining informed consent, the endoscope was passed under direct vision. Throughout the procedure, the patient's blood pressure, pulse, and oxygen saturations were monitored continuously. The On-site loaner was introduced through the mouth, and advanced to the second part of duodenum. The upper GI endoscopy was accomplished without difficulty. The patient tolerated the procedure well. Findings: A single 6 mm mucosal nodule with a localized distribution was found at the cricopharyngeus. Biopsies were taken with a cold forceps for histology. Estimated blood loss was minimal. The Z-line was regular and was found 40 cm from the incisors. One benign-appearing, intrinsic stenosis was found. This stenosis was mildly severe and. The stenosis was traversed. A guidewire was placed and the scope was withdrawn. Dilation was performed with a Savary dilator with no resistance at 51 Fr. The entire examined stomach was normal. A large non-bleeding diverticulum was found in the first portion of the duodenum and in the second portion of the duodenum. Impression: - Mucosal nodule found in the esophagus. Biopsied. - Z-line regular, 40 cm from the incisors. - Benign-appearing esophageal stenosis. Dilated. - Normal stomach. - Non-bleeding duodenal diverticulum. Recommendation: - Discharge patient to home (ambulatory). - Continue present medications. - Await pathology results. - Return to primary care physician PRN. Manny Durant M.D. Manny Durant MD 02/03/2018 3:02:28 PM This report has been signed electronically. Note Initiated On: 02/03/2018 1:54 PM Number of Addenda: 0 I attest to the content of the Intraoperative Record and orders documented therein, exceptions below {[id number]}
--- NOTE | 2018-02-03 15:14 | Anesthesiology Progress Note ---
Anesthesia Post Op Note Date & Time February 03, 2018 at 15:14 Vital Signs Pain Intensity: 3 Vital Signs Past 12 Hours Date Time Temp Pulse Resp B/P (MAP) Pulse Ox O2 Delivery O2 Flow Rate FiO2 02/03/18 14:03 36.8 86 18 142/73 (96) 97 Room Air Notes Mental Status: alert / awake / arousable, participated in evaluation Pt Amnestic to Procedure: Yes Nausea / Vomiting: adequately controlled Pain: adequately controlled Airway Patency, RR, SpO2: stable & adequate BP & HR: stable & adequate Hydration State: stable & adequate Anesthetic Complications: no major complications apparent
[2018-02-03 15:32] VITALS: BP 164/92; PULSE 88; O2SAT 95
== END | disposition home or self-care (01) ==
LOC: C.GI 13:29
PROVIDERS: ATTEND Internal Medicine Gastroenterology
DX: C14.0 Malignant neoplasm of pharynx, unspecified (principal); K22.2 Esophageal obstruction; K57.10 Diverticulosis of small intestine without perforation or abscess without bleeding; J44.9 Chronic obstructive pulmonary disease, unspecified; I10 Essential (primary) hypertension; Z85.89 Personal history of malignant neoplasm of other organs and systems; Z91.040 Latex allergy status; Z98.890 Other specified postprocedural states; Z87.891 Personal history of nicotine dependence; Z79.899 Other long term (current) drug therapy; E66.9 Obesity, unspecified; Z68.31 Body mass index [BMI] 31.0-31.9, adult; M19.90 Unspecified osteoarthritis, unspecified site

== ENCOUNTER → 2018-05-06 | Outpatient (CLI) | payer OTHER ==
[~2018-05-06] MED LIST changes: -FENTANYL CITRATE INJ 50 MCG/1 ML 2 ML VIAL ONE; -LIDOCAINE HCL 2% 2 ML VIAL (20MG/ML) ONE; -PROPOFOL IV EMULSION 10 MG/ML 20 ML VIAL ONE
--- NOTE | 2018-05-06 15:26 | DIAGNOSTIC IMAGING REPORT ---
LOWER EXTREMITY WITHOUT CLINICAL HISTORY: 72 years-old Male presenting with RT MIDFOOT DJD. TECHNIQUE: Multidetector CT of the right foot was performed without the use of intravenous contrast. IV contrast: None. A dose lowering technique was used consistent with the principles of ALARA (as low as reasonably achievable). COMPARISON: PET/CT from 02/21/2018 and right foot radiographs from 08/26/2017. CT DOSE (mGy.cm): The estimated cumulative dose is 221.85 mGy.cm. FINDINGS: Frame Bander topogram: Unremarkable. Osteophytosis along the posterior aspect of the talar dome and anterior and posterior aspect of the tibial plafond consistent with degenerative change. There is mild joint space loss at the tibiotalar articulation. Osteophytosis also noted to a lesser degree at the talofibular articulation. Or erosions and sclerosis of the middle cuneiform and minimally at the dorsal base of the second metatarsal. This minimally involves the articulation of the medial and middle cuneiforms. No acute fracture or malalignment. Limited evaluation of the soft tissues on this noncontrast CT demonstrates mild subcutaneous edema primarily along the plantar aspect. This is nonspecific. No gross evidence of a fluid collection. Muscle bulk grossly normal. IMPRESSION: 1. Osseous erosions and sclerosis centered around the middle cuneiform and primarily affecting the middle cuneiform-second metatarsal articulation. The presence of osseous erosions and sclerosis raises concern for osteonecrosis. Superimposed infection is difficult to exclude. Further evaluation with noncontrast MR of the midfoot recommended. Electronically signed by: Carlo Murillo M.D. 05/06/2018 3:24 PM Dictated Date/Time: 05/06/2018 3:15 PM
== END | disposition home or self-care (01) ==
LOC: C.CTS 14:22
PROVIDERS: ATTEND Orthopaedic Surgery Sports Medicine
DX: M19.071 Primary osteoarthritis, right ankle and foot (principal)

== ENCOUNTER 2018-10-24 02:49 | Observation (INO) ==
--- NOTE | 2018-10-24 03:07 | Emergency Department Note ---
History of Present Illness General Chief complaint: Fall Time Seen by Provider: 10/24/18 02:51 History of Present Illness Maximum Pain Intensity: 5 This is a 72-year-old male that presents to the emergency department via ambulance with complaints of "fall". The patient notes that he has had frequent falls recently but notes that the reason he had the ambulance called this evening is because he went to the bathroom and immediately felt nauseous and epigastric abdominal pain and then became very sweaty. He notes also pain in the left side of the face which she has had for 3 days, droopiness of the left eye for the past week, and left shoulder pain/left armpit pain for the same amount of time. The pain in the abdomen though began just prior to arrival. He points to the epigastric region just inferior to where his feeding tube is placed as a location of pain. He notes he uses a feeding tube for both hydration and food secondary to the history of esophageal cancer. He notes a history of stroke. No history of PR. No chest pain or shortness of breath. Home Medications Home Medications Medication Instructions Recorded Confirmed Type acetaminophen [Acetaminophen Extra 500 mg PO Q4 PRN 08/29/18 10/24/18 History Strength] allopurinol 300 mg PO DAILY 08/29/18 10/24/18 History aspirin [Aspir-81] 81 mg PO DAILY 08/29/18 10/24/18 History atorvastatin 20 mg PO DAILY 08/29/18 10/24/18 History citalopram 20 mg PO DAILY 08/29/18 10/24/18 History clopidogrel [Plavix] 75 mg PO DAILY 08/29/18 10/24/18 History doxazosin 1 mg PO HS 08/29/18 10/24/18 History gabapentin 300 mg PO TID 08/29/18 10/24/18 History metaxalone 800 mg PO TID PRN 08/29/18 10/24/18 History metoprolol tartrate 50 mg PO Q8 08/29/18 10/24/18 History oxycodone 2.5 ml PO Q4 PRN 08/29/18 10/24/18 History salmeterol [Serevent Diskus] 1 inh INHALATION BID 08/29/18 10/24/18 History B1,B2,B3,B6,[id number] 5 ml PO DAILY 10/24/18 10/24/18 History [Eldertonic] artificial saliva (yerbas-lyt) 1 applic MUCOUS MEMBRANE QID PRN 10/24/18 History [Mouth Kote] calcium caseinate-whey [ProSource] 1 packet PO TID 10/24/18 10/24/18 History fructoligosaccharides-polydex 1 packet PO TID 10/24/18 10/24/18 History [HyFiber with FOS] guaifenesin 20 ml PO Q4 PRN 10/24/18 10/24/18 History lansoprazole 30 mg PO DAILY 10/24/18 10/24/18 History multivitamin [Multiple Vitamins] 1 tab PO DAILY 10/24/18 10/24/18 History Allergies Allergy/AdvReac Type Severity Reaction Status Date / Time latex Allergy Unknown patient Verified 10/24/18 03:43 states had allergy tests which tested + No Known Drug Allergies Allergy Unknown NKDA Verified 10/24/18 03:43 Past Med/Surg History Medical History Anxiety Fatty liver (Chronic) Pulmonary nodules (Chronic) BPH (benign prostatic hypertrophy) (Chronic) Hyperlipidemia (Chronic) Cervical stenosis of spinal canal 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" Bacteremia Beta-hemolytic group B streptococcal sepsis Pneumonia Surgical History S/P tonsillectomy (Chronic) H/O colonoscopy (Chronic) Hx of esophagogastroduodenoscopy (Chronic) H/O umbilical hernia repair (Chronic) Family History Other No significant family history Social History Feels Safe at Home: Yes Smoking Status: Never smoker Preferred Language: Palauan Review of Systems A total of 10 systems reviewed and were otherwise negative Physical Exam Vital Signs Vital Signs - 24 hr 10/24/18 02:58 10/24/18 03:00 10/24/18 03:16 Temperature 36.5 C Temperature Source Oral Sepsis Recent Fever Within 48 Hours No Sepsis New/Unexplained Change in Mental Status No Sepsis Action Taken by Nursing No Action Required Pulse Rate 70 68 Respiratory Rate 14 20 Respiratory Effort / Characteristics Non-Labored Spontaneous Respiratory Depth Normal Blood Pressure 122/66 104/69 Blood Pressure Mean 84 80 Pulse Oximetry 99 97 Oxygen Delivery Method Room Air Room Air Room Air Oxygen Flow Rate 10/24/18 03:19 10/24/18 03:39 10/24/18 04:00 Temperature Temperature Source Sepsis Recent Fever Within 48 Hours Sepsis New/Unexplained Change in Mental Status Sepsis Action Taken by Nursing Pulse Rate 74 69 75 Respiratory Rate 22 21 15 Respiratory Effort / Characteristics Respiratory Depth Blood Pressure 112/69 121/65 132/74 Blood Pressure Mean 83 83 93 Pulse Oximetry 100 100 94 Oxygen Delivery Method Room Air Room Air Room Air Oxygen Flow Rate 10/24/18 04:42 10/24/18 04:46 10/24/18 05:01 Temperature Temperature Source Sepsis Recent Fever Within 48 Hours Sepsis New/Unexplained Change in Mental Status Sepsis Action Taken by Nursing Pulse Rate 72 Respiratory Rate 12 Respiratory Effort / Characteristics Respiratory Depth Blood Pressure 121/66 Blood Pressure Mean 84 Pulse Oximetry 87 L 99 100 Oxygen Delivery Method Room Air Nasal Cannula Nasal Cannula Oxygen Flow Rate 2 2 10/24/18 05:30 10/24/18 06:00 10/24/18 06:30 Temperature Temperature Source Sepsis Recent Fever Within 48 Hours Sepsis New/Unexplained Change in Mental Status Sepsis Action Taken by Nursing Pulse Rate 76 67 67 Respiratory Rate 16 19 21 Respiratory Effort / Characteristics Respiratory Depth Blood Pressure 124/66 128/68 113/72 Blood Pressure Mean 85 88 85 Pulse Oximetry 99 99 99 Oxygen Delivery Method Nasal Cannula Nasal Cannula Nasal Cannula Oxygen Flow Rate 2 2 2 10/24/18 06:34 Temperature Temperature Source Sepsis Recent Fever Within 48 Hours Sepsis New/Unexplained Change in Mental Status Sepsis Action Taken by Nursing Pulse Rate 63 Respiratory Rate 18 Respiratory Effort / Characteristics Respiratory Depth Blood Pressure 113/72 Blood Pressure Mean Pulse Oximetry 99 Oxygen Delivery Method Nasal Cannula Oxygen Flow Rate 2 VITAL SIGNS - Vital signs and nursing notes were reviewed. Stable. Afebrile. GENERAL - 72-year-old male appearing his stated age who is in no acute distress. Communicates well with provider and answers questions appropriately. SKIN - Without rashes. Minor questionable drooping noted to the left eye lids HEAD - NC/AT. EYES - PERRL with EOMI bilaterally. Sclera anicteric. Bulbar conjunctiva pink and moist with no injection noted. EARS - No deformities of external structures noted on gross examination bilaterally. NOSE - Midline and without cyanosis. No epistaxis or purulent drainage noted. Septum midline without deviation or septal hematoma noted. MOUTH/OROPHARYNX - Without perioral cyanosis. Buccal mucosa pink and moist and without leukoplakia. NECK - Neck with FROM. No nuchal rigidity. LUNGS - Chest wall symmetric without accessory muscle use, intercostals retractions, or central cyanosis. Normal vesicular breath sounds CTA B/L. No wheezes, rales, or rhonchi appreciated. CARDIAC - RRR with S1/S2. No murmur, rubs, or gallops appreciated. ABDOMEN - Abdominal contour normal without pulsations or visible masses. Feeding tube noted in epigastric region without surrounding erythema or drainage. BS normoactive all four quadrants. Minimal epigastric abdominal tenderness noted. No palpable masses, hepatosplenomegaly, or ascites noted. EXTREMITIES - No clubbing or peripheral cyanosis. No pretibial edema present. + 5/5 strength noted in UE/LE bilaterally. NEUROLOGIC - Cranial nerves II through XII grossly intact. Sensory intact to light touch throughout. PSYCH - A&O, and cooperates fully with examiner. Pt is very pleasant and interacts well with examiner. Course Administered Medications Ioversol (Optiray 320 100ml) 100 ml IV ONCE PRN PRN Reason: Interaction Checking Stop: 10/28/18 04:32 Last Admin: 10/24/18 04:37 Dose: 92 ml Discontinued Medications Morphine Sulfate (Morphine Sulfate) 2 mg IV NOW STA Stop: 10/24/18 03:50 Last Admin: 10/24/18 03:52 Dose: 2 mg Morphine Sulfate (Morphine Sulfate) 2 mg IV NOW STA Stop: 10/24/18 05:44 Last Admin: 10/24/18 05:48 Dose: 2 mg Ondansetron HCl (Zofran) 4 mg IV NOW STA Stop: 10/24/18 04:14 Last Admin: 10/24/18 04:17 Dose: 4 mg Medical Decision Making Laboratory Data Result diagrams: 10/24/18 03:10 10/24/18 03:10 Lab Results 10/24/18 10/24/18 10/24/18 Range/Units 03:10 03:10 03:10 WBC 12.74 H (4.8-10.8) K/uL RBC 3.51 L (4.7-6.1) M/uL Hgb 9.6 L (14.0-18.0) g/dL Hct 31.3 L (42-52) % MCV 89.2 (80-100) fL MCH 27.4 (25-34) pg MCHC 30.7 L (32-36) g/dL RDW Std Deviation 53.7 H (36.4-46.3) fL RDW Coeff of Kobi 16.5 H (11.5-14.5) % Plt Count 254 (130-400) K/uL MPV 11.6 H (7.4-10.4) fL Immature Gran % (Auto) 0.2 % Neut % (Auto) 88.8 % Lymph % (Auto) 4.9 % [place] % (Auto) 4.6 % Eos % (Auto) 1.2 % Baso % (Auto) 0.3 % Immature Gran # (Auto) 0.03 H (0.00-0.02) K/uL Neut # (Auto) 11.30 H (1.4-6.5) K/uL Lymph # (Auto) 0.63 L (1.2-3.4) K/uL [place] # (Auto) 0.59 (0.11-0.59) K/uL Eos # (Auto) 0.15 (0-0.5) K/uL Baso # (Auto) 0.04 (0-0.2) K/uL PT 10.3 (9.0-12.0) Seconds INR 1.0 (0.9-1.1) APTT 23.4 (21.0-31.0) Seconds PTT Ratio 0.9 Sodium 136 (136-145) mmol/L Potassium 4.2 (3.5-5.1) mmol/L Chloride 99 (98-107) mmol/L Carbon Dioxide 30 (21-32) mmol/L Anion Gap 7.0 (3-11) BUN 54 H (7-18) mg/dl Creatinine 1.18 (0.6-1.4) mg/dl Est Cr Clr Drug Dosing Not Reportable Est GFR ( Amer) 72.0 Est GFR (Non-Af Amer) 62.2 BUN/Creatinine Ratio 45.6 H (10-20) Glucose 123 H (70-99) mg/dl Lactate (0.4-2.0) mmol/L Calcium 9.7 (8.5-10.1) mg/dl Magnesium 2.0 (1.8-2.4) mg/dl Total Bilirubin 0.3 (0.2-1) mg/dl AST 17 (15-37) U/L ALT 16 (12-78) U/L Alkaline Phosphatase 76 (45-117) U/L Troponin I < 0.015 (0-0.045) ng/ml Total Protein 7.9 (6.4-8.2) gm/dl Albumin 3.6 (3.4-5.0) gm/dl Globulin 4.3 H (2.5-4.0) gm/dl Albumin/Globulin Ratio 0.8 L (0.9-2) Lipase 68 L (73-393) U/L 10/24/18 Range/Units 03:10 WBC (4.8-10.8) K/uL RBC (4.7-6.1) M/uL Hgb (14.0-18.0) g/dL Hct (42-52) % MCV (80-100) fL MCH (25-34) pg MCHC (32-36) g/dL RDW Std Deviation (36.4-46.3) fL RDW Coeff of Kobi (11.5-14.5) % Plt Count (130-400) K/uL MPV (7.4-10.4) fL Immature Gran % (Auto) % Neut % (Auto) % Lymph % (Auto) % [place] % (Auto) % Eos % (Auto) % Baso % (Auto) % Immature Gran # (Auto) (0.00-0.02) K/uL Neut # (Auto) (1.4-6.5) K/uL Lymph # (Auto) (1.2-3.4) K/uL [place] # (Auto) (0.11-0.59) K/uL Eos # (Auto) (0-0.5) K/uL Baso # (Auto) (0-0.2) K/uL PT (9.0-12.0) Seconds INR (0.9-1.1) APTT (21.0-31.0) Seconds PTT Ratio Sodium (136-145) mmol/L Potassium (3.5-5.1) mmol/L Chloride (98-107) mmol/L Carbon Dioxide (21-32) mmol/L Anion Gap (3-11) BUN (7-18) mg/dl Creatinine (0.6-1.4) mg/dl Est Cr Clr Drug Dosing Est GFR ( Amer) Est GFR (Non-Af Amer) BUN/Creatinine Ratio (10-20) Glucose (70-99) mg/dl Lactate 1.1 (0.4-2.0) mmol/L Calcium (8.5-10.1) mg/dl Magnesium (1.8-2.4) mg/dl Total Bilirubin (0.2-1) mg/dl AST (15-37) U/L ALT (12-78) U/L Alkaline Phosphatase (45-117) U/L Troponin I (0-0.045) ng/ml Total Protein (6.4-8.2) gm/dl Albumin (3.4-5.0) gm/dl Globulin (2.5-4.0) gm/dl Albumin/Globulin Ratio (0.9-2) Lipase (73-393) U/L Imaging Data Radiologist's Impression: CT HEAD: No acute intracranial hemorrhage, mass effect or edema. No evidence of acute cortical stroke. Periventricular small vessel ischemic change. No midline shift or hydrocephalus. Diffuse parenchymal atrophy. Old focal infarct involving the centrum semiovale area of the left frontal lobe. Dense atherosclerotic calcifications of the carotid siphons and vertebrobasilar arteries. Visualized sinuses and mastoid air cells are clear. Radiologist: Dustin Vazquez M.D. Study ready at 03:42 and initial results transmitted at 03:45 CT ABDOMEN & PELVIS With Contrast: Distal colonic diverticulosis but no acute diverticulitis. No other evidence for bowel free air. Bilateral renal cysts. No obstructive uropathy. Small fat-containing left inguinal hernia. Small fat-containing inguinal hernias. Radiologist: Dustin Vazquez M.D. Study ready at 04:40 and initial results transmitted at 04:56 Chest one view portable per my interpretation: No infiltrate, no pneumothorax. Heart is normal in size. 3 superior mediastinal cerclage wires visualized. There is change compared to previous. MDM Narrative Patient was seen and evaluated as above a 3. Review was performed of nursing notes and vital signs. After obtaining a thorough history and physical examination the above work up was performed. He presents today via ambulance with syncope, weakness and abdominal pain. There is no focal neurologic deficit on exam other than the left eyelid droop which the patient notes has been going on for about 1 week. No evidence of PR. Chest x-ray per my interpretation an EKG was obtained and reveals sinus bradycardia, with PVC. He also has a headache on the left side, as well as abdominal pain. He has a history of stroke. CT scan was obtained of the head. Results as above. Essentially no acute process. CBC reveals leukocytosis of 12.74, anemia with hemoglobin of 9.6 which is an interval change, normal coags, creatinine with BUN of 54, negative troponin and lipase. Nearly 1 hour after the patient was administered morphine I was called by the nurse noting the patient was slightly hypoxic. He was placed up on oxygen. Given the patient's syncope, subjective weakness and hypoxia do believe that further evaluation and management is warranted in the inpatient setting. Please refer to further documentation regarding his stay. Case discussed with the hospitalist. Case was discussed with the attending physician. I attest that I have personally reviewed the patient medication list. I attest that I have reviewed the patient's blood pressure and it was found to be elevated likely secondary to presentation. In the evaluation and treatment of this patient, the following differential diagnoses were considered: PR, ASC, Dysrhythmia, Angina, Mediastinitis, GERD, Esophagitis, PE, Pneumonia, Bronchitis, Costochondritis, Rib Fracture, Zoster, Concussion, Contrecoup Injury, Brain Tumor, Depression, Encephalitis, Hypothyroidism, Meningitis, CVA, TIA, Migraine, Cluster Headache, Intracranial Abnormality, Intracranial Hemorrhage, Subdural Hematoma, Subarachnoid Hemorrhage , Hydrocephalus, among others. Impression & Plan Syncope, Weakness, Hypoxia Discharge Plan Visit Data Chief Complaint: Fall ED Provider: Argelia Alexandra ED Midlevel Provider: Dennis Miranda Discharge Problem: Syncope, Weakness, Hypoxia Patient Disposition: Admitted As Inpatient Discharge Instructions Interventions: ED Discharge Assessment Last Done: 10/24/18 06:34 Forms Stand Alone Forms: My [employer] Prescriptions Prescriptions: No Action multivitamin [Multiple Vitamins] Tablet 1 tab PO DAILY RF: 0 guaifenesin 100 mg/5 mL Liquid 20 ml PO Q4 PRN (Reason: Cough) RF: 0 lansoprazole 30 mg Capsule,Delayed Release(Dr/Ec) 30 mg PO DAILY RF: 0 artificial saliva (yerbas-lyt) [Mouth Kote] Aerosol,[place] 1 applic Mucous Membrane QID PRN (Reason: Unknown) RF: 0 calcium caseinate-whey [ProSource] 7.5 gram Packet 1 packet PO TID RF: 0 B1,B2,B3,B6,[id number] [Eldertonic] 0.5-0.6-7-0.7 mg Elixir 5 ml PO DAILY RF: 0 fructoligosaccharides-polydex [HyFiber with FOS] 12 gram/30 mL Liquid In Packet 1 packet PO TID RF: 0 atorvastatin 20 mg Tablet 20 mg PO DAILY RF: 0 doxazosin 1 mg Tablet 1 mg PO HS RF: 0 oxycodone 5 mg/5 mL Solution 2.5 ml PO Q4 PRN (Reason: Pain) RF: 0 clopidogrel [Plavix] 75 mg Tablet 75 mg PO DAILY RF: 0 aspirin [Aspir-81] 81 mg Tablet,Delayed Release (Dr/Ec) 81 mg PO DAILY RF: 0 acetaminophen [Acetaminophen Extra Strength] 500 mg Tablet 500 mg PO Q4 PRN (Reason: Pain) RF: 0 citalopram 20 mg Tablet 20 mg PO DAILY RF: 0 metoprolol tartrate 50 mg Tablet 50 mg PO Q8 RF: 0 salmeterol [Serevent Diskus] 50 mcg/dose Blister With Device 1 inh INHALATION BID RF: 0 gabapentin 300 mg Capsule 300 mg PO TID RF: 0 allopurinol 300 mg Tablet 300 mg PO DAILY RF: 0 metaxalone 800 mg Tablet 800 mg PO TID PRN (Reason: Muscle Spasm) RF: 0 Referrals Referrals: Carlo Ahn MD [Primary Care Provider] -
[2018-10-24 03:30] LABS: Basophils # (auto) 0.04 K/uL (0-0.2); Basophils % (auto) 0.3 %; Eosinophils # (auto) 0.15 K/uL (0-0.5); Eosinophils % (auto) 1.2 %; Hematocrit (blood only) 31.3 % (42-52); Hemoglobin 9.6 g/dL (14.0-18.0); Immature Granulocytes # (auto) 0.03 K/uL (0.00-0.02); Immature Granulocytes % (auto) 0.2 %; Lymphocytes # (auto) 0.63 K/uL (1.2-3.4); Lymphocytes % (auto) 4.9 %; Mean Corpuscular Hgb Conc 30.7 g/dL (32-36); Mean Corpuscular Volume 89.2 fL (80-100); Mean Platelet Volume 11.6 fL (7.4-10.4); Monocytes # (auto) 0.59 K/uL (0.11-0.59); Monocytes % (auto) 4.6 %; Neutrophils % (auto) 88.8 %; Platelet Count 254 K/uL (130-400); RDW Coefficient of Variation 16.5 % (11.5-14.5); RDW Standard Deviation 53.7 fL (36.4-46.3); Red Blood Count 3.51 M/uL (4.7-6.1); White Blood Count 12.74 K/uL (4.8-10.8)
[2018-10-24 03:42] LABS: Partial Thromboplastin Ratio 0.9; Partial Thromboplastin Time 23.4 Seconds (21.0-31.0); Prothrombin Time 10.3 Seconds (9.0-12.0)
[2018-10-24 03:47] LABS: Alanine Aminotransferase 16 U/L (12-78); Albumin Level 3.6 gm/dl (3.4-5.0); Aspartate Aminotransferase 17 U/L (15-37); BUN Creatinine Ratio 45.6 (10-20); Blood Urea Nitrogen 54 mg/dl (7-18); Calcium 9.7 mg/dl (8.5-10.1); Carbon Dioxide 30 mmol/L (21-32); Chloride 99 mmol/L (98-107); Est GFR (Non-African American) 62.2; Glucose 123 mg/dl (70-99); Potassium 4.2 mmol/L (3.5-5.1); Sodium 136 mmol/L (136-145)
[2018-10-24] MEDS ORDERED: MoRPHine SULFATE 2 MG/ML CARP IV STA ×2 (03:49→05:43)
[2018-10-24 03:52] LABS: Albumin Globulin Ratio 0.8 (0.9-2); Alkaline Phosphatase 76 U/L (45-117); Bilirubin,Total 0.3 mg/dl (0.2-1); Globulin 4.3 gm/dl (2.5-4.0); Total Protein 7.9 gm/dl (6.4-8.2); Troponin I < 0.015 ng/ml (0-0.045)
[2018-10-24] MEDS ORDERED: ONDANSETRON INJ 2 MG/ML 2 ML VIAL IV STA (04:13)
[2018-10-24] MEDS ORDERED: IOVERSOL 100ml IV PRN (04:33)
--- NOTE | 2018-10-24 05:26 | Emergency Department Note ---
ED Visit Note I saw this patient in conjunction with Dennis Miranda PA-C. I agree with his decision making and treatment plan. .
--- NOTE | 2018-10-24 06:45 | CT Scan Report ---
CT OF THE ABDOMEN AND PELVIS WITH CONTRAST CLINICAL HISTORY: Epigastric abd pain, diaphoresis, nausea. COMPARISON STUDY: CT of the chest abdomen and pelvis December 07, 2015 PET/CT February 21, 2018. TECHNIQUE: Following IV administration of 92 mL of Optiray-320, axial images of the abdomen and pelvi s were obtained from the lung bases to the proximal femurs. Images were reviewed in the axial, sagitt al, and coronal planes. IV contrast was administered without complication. Automated exposure contro l was utilized for the study. A dose lowering technique was utilized adhering to the principles of A AUSTYN. CT DOSE: 896.43 mGy.cm FINDINGS: Lung bases are clear. The liver, spleen, adrenal glands and pancreas are unremarkable. Ther e is no peripancreatic or pericholecystic infiltration water attenuation bilateral renal lesions refl ect cysts. There is a thin septation within a 7.1 cm right renal cyst. A 1 cm hyperdense lesion withi n the lower pole of the right kidney reflects a hyperdense cyst and correlating with unenhanced PET/C T of February 21, 2018. There is no hydronephrosis. Fat-containing bilateral inguinal hernias are noted. T here is colonic diverticulosis without evidence for acute diverticulitis. There is no evidence for a bowel obstruction. The appendix is normal. A splenule is present. Multiple old bilateral rib fracture s are noted. A gastrostomy tube is in place. There is no lymphadenopathy. Note is made of an L2 verte bral augmentation. IMPRESSION: 1. No acute process within the abdomen or pelvis. 2. Colonic diverticulosis without evidence for acute diverticulitis. No bowel obstruction. Normal toni endix. 3. Fat-containing bilateral inguinal hernias. Electronically signed by: Augie Briseno M.D. 10/24/2018 6:43 AM
--- NOTE | 2018-10-24 06:48 | History & Physical Report ---
Date of Service October 24, 2018 Assessment & Plan (1) Syncope: 72 y/o M Hx esophageal CA 2006 which has recently recurred, feeding tube following CA surgery, HTN, HLD, CVA, CKD III, CVA 2018, BPH. The pt felt nauseous and had central abdominal discomfort early AM. He was in the bathroom as he thought he was going to vomit, and lost consciousness for approximately a minute. His called EMS and he was brought to the hospital. At the time of admission he describes some nausea, denies CP or SOB. Labs EKG, CT head, CT abdomen obtained in the ER are unremarkable. The pt recently had a recurrence of a mass on the L side of his neck which was diagnosed as a recurrence of his CA. For the past week he describes pain on the L side of his face and neck and has had mild ptosis of his L eyelid. 1) Syncope - nausea and abdominal discomfort. The pt's symptoms have largely resolved. The description of his syncope comports with a vasovagal episode which was likely brought about by nausea. He will be monitored on telemetry, we will obtain an additional troponin, provide IVF and provide the pt with his tube feeds as scheduled to determine if he can tolerate his nutrition. 2) Ptosis and L facial pain. This is likely stemming from his mass and nerve encroachment. He will need to follow up with his oncologist and may need Rtx. The pt had an appointment with his oncologist today which he will obviously not be able to attend. We should contact his oncologist to inform them. He is scheduled with Dr Trujillo. 3) HTN - cont metoprolol 4) History of CVA - cont Plavix, Statin 5) Gout - cont Allopurinol 6) CKD III - BUN is slightly elevated above baseline - he will receive IVF regardless Full code - Heparin prophylaxis Total time for this admit including review of labs, meds, imaging, records - discussion with pt and ER attending - 42 min History of Present Illness Chief Complaint: Abdominal pain and syncope Primary Care Provider: Carlo Ahn MD 72 y/o M Hx Esophageal CA 2006 which has recently recurred, feeding tube following CA surgery, HTN, HLD, CVA, CKD III, CVA 2018, BPH. The pt felt nauseous and had central abdominal discomfort early AM. He was in the bathroom as he thought he was going to vomit, and lost consciousness for approximately a minute. His called EMS and he was brought to the hospital. At the time of admission he describes some nausea, denies CP or SOB. Labs EKG, CT head, CT abdomen obtained in the ER are unremarkable. The pt recently had a recurrence of a mass on the L side of his neck which was diagnosed as a recurrence of his CA. For the past week he describes pain on the L side of his face and neck and has had mild ptosis of his L eyelid. 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 He was in remission until 02/2018 when he was diagnosed with esophageal CA. He underwent resection and neoesophagus surgery with placement of a feeding tube 05/2018. He was diagnosed with an additional malignant mass on his L neck 08/2018 and is pending an oncology consultation to determine the course of treatment. 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 Occurred when he was having esophageal surgery. 3) HTN 4) BPH 5) Gout 6) GERD 7) CKD III 8) Pulmonary nodules 9) Anxiety 10) Gout 11) Cervical radiculopathy 12) Hepatic steatosis Surgical: 1) Esophageal surgery 2) C5-6 discectomy and fusion Family: Father due to lung CA Mother due to hepatocellular CA Social: Quit smoking 2005, does not drink 1) 3) Allergies Allergy/AdvReac Type Severity Reaction Status Date / Time latex Allergy Unknown patient Verified 10/24/18 03:43 states had allergy tests which tested + No Known Drug Allergies Allergy Unknown NKDA Verified 10/24/18 03:43 Home Medications Home Medications Medication Instructions Recorded Confirmed Type acetaminophen [Acetaminophen Extra 500 mg PO Q4 PRN 08/29/18 10/24/18 History Strength] allopurinol 300 mg PO DAILY 08/29/18 10/24/18 History aspirin [Aspir-81] 81 mg PO DAILY 08/29/18 10/24/18 History atorvastatin 20 mg PO DAILY 08/29/18 10/24/18 History citalopram 20 mg PO DAILY 08/29/18 10/24/18 History clopidogrel [Plavix] 75 mg PO DAILY 08/29/18 10/24/18 History doxazosin 1 mg PO HS 08/29/18 10/24/18 History gabapentin 300 mg PO TID 08/29/18 10/24/18 History metaxalone 800 mg PO TID PRN 08/29/18 10/24/18 History metoprolol tartrate 50 mg PO Q8 08/29/18 10/24/18 History oxycodone 2.5 ml PO Q4 PRN 08/29/18 10/24/18 History salmeterol [Serevent Diskus] 1 inh INHALATION BID 08/29/18 10/24/18 History B1,B2,B3,B6,M92-hglthm-[id number]-tqbj 5 ml PO DAILY 10/24/18 10/24/18 History [Eldertonic] artificial saliva (yerbas-lyt) 1 applic MUCOUS MEMBRANE QID PRN 10/24/18 History [Mouth Kote] calcium caseinate-whey [ProSource] 1 packet PO TID 10/24/18 10/24/18 History fructoligosaccharides-polydex 1 packet PO TID 10/24/18 10/24/18 History [HyFiber with FOS] guaifenesin 20 ml PO Q4 PRN 10/24/18 10/24/18 History lansoprazole 30 mg PO DAILY 10/24/18 10/24/18 History multivitamin [Multiple Vitamins] 1 tab PO DAILY 10/24/18 10/24/18 History Past Med/Surg History Medical History Anxiety Fatty liver (Chronic) Pulmonary nodules (Chronic) BPH (benign prostatic hypertrophy) (Chronic) Hyperlipidemia (Chronic) Cervical stenosis of spinal canal 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" Bacteremia Beta-hemolytic group B streptococcal sepsis Pneumonia Surgical History S/P tonsillectomy (Chronic) H/O colonoscopy (Chronic) Hx of esophagogastroduodenoscopy (Chronic) H/O umbilical hernia repair (Chronic) Family History Other No significant family history Social History Current Living Situation: Spouse Other Information That Helps Us Care for You: No Feels Safe at Home: Yes Safety Concerns: Feels Safe At This Time Smoking Status: Former smoker Tobacco Cessation Education Requested by Patient : No Hx Alcohol Use: No Hx Substance Use: No Beliefs That Will Affect Care: None Preferred Language: Vietnamese Communication Ability: Effective Rubber Stamp Dies Inspector Required: No Review of Systems Gen: Denies fevers, night sweats, rigors, fatigue, malaise, weight loss/gain ENT: Denies congestion, throat pain, hearing loss Eyes: Denies acute visual changes CV: Denies CP, palpitations Pulmonary: Denies SOB, cough, wheezing GI: Abdominal pain, nausea Neuro: Denies acute or unilateral weakness, acute gait impairment - pain on L face - ptosis x 1 week, syncope Musculoskeletal: Denies joint pain, inflammation Endocrine: Denies polydipsia, polyuria Skin: Denies acute rashes or ulcers Physical Exam 2 Vital Signs (Past 24 Hours): Last Vital Signs Temp 36.5 C 10/24/18 02:58 Pulse 63 10/24/18 06:34 Resp 18 10/24/18 06:34 BP 113/72 10/24/18 06:34 Pulse Ox 99 10/24/18 06:34 Physical Exam: General: AAO x 3, no distress ENT: No erythema or exudates, no thrush Eyes: NIGHAT, EOMI Head and neck: Normocephalic, atraumatic, No JVD, neck is supple - mass on L neck Chest/heart: Nontender, S1,2, RRR, no murmurs, no gallops Lungs: CTAB, no wheezing or crackles Abdomen: Nontender, nondistended - PEG site clean Neuro: AAO x 3, speech is clear - mild L ptosis - R arm weakness which is chronic Musculoskeletal: No joint inflammation, muscle tenderness, FROM Skin: No acute rashes or ulcers Extremities: No clubbing, cyanosis, edema _ (1) Syncope Encounter type: Syncope type:
[2018-10-24] MEDS ORDERED: guaiFENesin SUGAR FREE 100 MG/5 ML UDC PO PRN (06:55)
[2018-10-24] MEDS ORDERED: ACETAMINOPHEN 325 MG TAB PO PRN (06:55)
[2018-10-24] MEDS ORDERED: ARTIFICIAL SALIVA Mucous Membrane PRN (06:55)
[2018-10-24] MEDS ORDERED: OXYCODONE HCL SOLN 5 MG/5 ML UDC PO PRN (06:55)
[2018-10-24] MEDS ORDERED: MAGNESIUM HYDROXIDE SUSP 30 ML UDC PO PRN (06:55)
[2018-10-24] MEDS ORDERED: ONDANSETRON INJ 2 MG/ML 2 ML VIAL IV PRN (06:55)
[2018-10-24] MEDS ORDERED: POLYETHYLENE (MIRALAX) 17 GM PACK PO PRN (06:55)
[2018-10-24] MEDS ORDERED: ALUMINUM/MAGNESIUM SUSP 30 ML UDC PO PRN (06:55)
--- NOTE | 2018-10-24 07:05 | CT Scan Report ---
CT SCAN OF THE BRAIN WITHOUT IV CONTRAST CLINICAL HISTORY: Left-sided facial pain. Headache. Eye droop. COMPARISON STUDY: No priors. TECHNIQUE: Unenhanced axial CT scan of the brain is performed from the vertex to the skull base. A do se lowering technique was utilized adhering to the principles of ALARA. CT DOSE: 537.48 mGy.cm FINDINGS: Brain parenchyma: There are age-related involutional changes noting mild subcortical and periventric ular microangiopathic change. There is no hemorrhage, mass effect, or evidence of acute territorial i schemia by CT criteria. Matta-white matter differentiation is preserved. No extra-axial fluid collecti on is seen. Ventricles, sulci, cisterns: Prominent secondary to involutional change. Intracranial vasculature: There is atherosclerotic calcification of the cavernous carotid and vertebr al arteries. Calvarium: Unremarkable. Sinuses and mastoids: The visualized paranasal sinuses are clear. The mastoid air cells are well pneu matized. Orbits: The bony orbits are grossly intact. IMPRESSION: There is no hemorrhage, mass effect, or evidence of acute territorial ischemia by CT maddison gonzalez. Electronically signed by: Rito García M.D. 10/24/2018 7:03 AM
--- NOTE | 2018-10-24 07:17 | XRay Report ---
SINGLE VIEW CHEST CLINICAL HISTORY: Epigastric abdominal pain. FINDINGS: An AP, portable, upright chest radiograph is compared to study dated 08/29/2018 and correla sherrill with chest CT dated 03/28/2018. The examination is degraded by portable technique and apical lordot ic positioning. The patient is status post midline sternotomy. The heart is top normal for projectio n and there is atherosclerotic calcification of the thoracic aorta. The pulmonary vasculature is nonc ongested. Emphysema and chronic interstitial thickening are similar to previous. No airspace consolid ation or large pleural effusion is identified. Mild atelectasis is noted at the left lung base. No pn eumothorax is seen. The skeletal structures are osteopenic. The bony thorax is grossly intact. Fusion hardware is noted in the lower cervical spine. Arthritic change is noted in the shoulders and thorac ic spine. Surgical clips and vascular stents are seen in the lower neck. IMPRESSION: Emphysematous change with no acute cardiopulmonary abnormality. Electronically signed by: Rito García M.D. 10/24/2018 7:16 AM
[2018-10-24 07:54] LABS: Appearance Urine Clear (Clear); Bacteria Urine Automated Negative (Negative); Bilirubin Urine Negative (Negative); Cast Urine Automated 0 /lpf (0-5); Color Urine Yellow; Glucose Urine UA Negative (Negative); Ketones Urine Negative (Negative); Leukocyte Esterase Urine Negative (Negative); Nitrite Urine Negative (Negative); Protein Urine Trace (Negative); Specific Gravity Urine > 1.045 (1.000-1.030); Urobilinogen Urine Negative (Negative); WBC Urine Automated 0 /hpf (0-5); pH Urine 5.5 (4.5-7.5)
[2018-10-24] MEDS ORDERED: MAGNESIUM HYDROXIDE SUSP 30 ML UDC PEG PRN (08:15)
[2018-10-24] MEDS ORDERED: OXYCODONE HCL SOLN 5 MG/5 ML UDC GT PRN (08:30)
[2018-10-24] MEDS ORDERED: POLYETHYLENE (MIRALAX) 17 GM PACK PEG PRN (08:30)
[2018-10-24] MEDS ORDERED: guaiFENesin SUGAR FREE 100 MG/5 ML UDC GT PRN (08:30)
[2018-10-24] MEDS: ASPIRIN 81 MG CHEW PEG SCH (08:52)
[2018-10-24] MEDS: CITALOPRAM 20 MG TAB PEG SCH (08:53)
[2018-10-24] MEDS: ATORVASTATIN 20 MG TAB PEG SCH (08:54)
[2018-10-24] MEDS: LANSOPRAZOLE 30 MG SOLTAB PEG SCH (08:54)
[2018-10-24] MEDS: CLOPIDOGREL BISULFATE 75 MG TAB PEG SCH (08:54)
[2018-10-24] MEDS: GABAPENTIN 250 MG/5 ML 470 ML BTL PEG SCH ×3 (08:54→21:28)
[2018-10-24] MEDS: PROSOURCE NO CARB 30 ML/PKT PEG SCH ×3 (08:55→21:22)
[2018-10-24] MEDS: SALMETEROL XINAFOATE 50MCG 28 BLISTER INH INH SCH ×2 (08:55→21:21)
[2018-10-24] MEDS: ALLOPURINOL 300 MG TAB PEG SCH (08:56)
[2018-10-24] MEDS: SODIUM CHLORIDE 0.9% 500 ML IV SCH ×2 (08:59→11:06)
[2018-10-24] MEDS ORDERED: PANTOprazole 40 MG TAB PO SCH (09:00)
[2018-10-24] MEDS ORDERED: GABAPENTIN 300 MG CAP PO SCH (09:00)
[2018-10-24] MEDS ORDERED: ATORVASTATIN 20 MG TAB PO SCH (09:00)
[2018-10-24] MEDS ORDERED: CITALOPRAM 20 MG TAB PO SCH (09:00)
[2018-10-24] MEDS ORDERED: ALLOPURINOL 300 MG TAB PO SCH (09:00)
[2018-10-24] MEDS ORDERED: ASPIRIN 81 MG ECTAB PO SCH ×2 (09:00)
[2018-10-24] MEDS ORDERED: CLOPIDOGREL BISULFATE 75 MG TAB PO SCH (09:00)
--- NOTE | 2018-10-24 09:25 | Hospitalist Progress Note ---
Date of Service October 24, 2018 Assessment & Plan (1) Syncope: 72 y/o M Hx esophageal CA 2005 which has recently recurred, feeding tube following CA surgery, HTN, HLD, CVA, CKD III, CVA 2018, BPH. The pt felt nauseous and had central abdominal discomfort early AM. He was in the bathroom as he thought he was going to vomit, and lost consciousness for approximately a minute. His called EMS and he was brought to the hospital. At the time of admission he describes some nausea, denies CP or SOB. Labs EKG, CT head, CT abdomen obtained in the ER are unremarkable. The pt recently had a recurrence of a mass on the L side of his neck which was diagnosed as a recurrence of his CA. For the past week he describes pain on the L side of his face and neck and has had mild ptosis of his L eyelid. 1) Syncope - nausea and abdominal discomfort. The description of his syncope comports with a vasovagal episode concern with a mass proximity to the carotid bulb will be considered 2) Ptosis and L facial pain. This is likely stemming from his mass and nerve encroachment. Patient states is been present for the last few weeks that his oncologist at [facility] are aware of that and he will follow-up locally with Dr Trujillo. 3) HTN - cont metoprolol patient not orthostatic upon recheck 4) History of CVA - cont Plavix, Statin 5) Gout - cont Allopurinol 6) CKD III - IVF regardless Full code - Heparin prophylaxis Subjective Speech patient states he feels back to his normal baseline except his pain management is not been but usually is at home. We did increase the oxycodone to 5 which he takes 3 times a day he does have some pain in his right foot which was not x-rayed at his initial intake and this will be x-rayed sometime this evening His syncope may be related to his left neck mass which could be progression of his carotid bulb and creating vagal response he does have left eye ptosis which he states is been present for some time Review of Systems ROS: well nourished well developed. Has left eye drooping but no double vision blurry vision No problems with speech or swallowing Patient can notice the swelling to the left neck No palpitations, chest pain or pressure No Wheezing or breathing issues No abdominal pain nausea vomiting diarrhea changes in appetite or weight No burning urine urine frequency or changes in color No focal joint pain or muscle pain No skin rashes or oral lesions No unusual bruising or bleeding No focused back pain or numbness or loss of strength No changes in memory or confusion Physical Exam 2 Vital Signs (Past 24 Hours): Last Vital Signs Temp 36.5 C 10/24/18 07:20 Pulse 70 10/24/18 07:20 Resp 21 10/24/18 07:20 BP 132/74 10/24/18 07:20 Pulse Ox 99 10/24/18 07:20 The patient appeared well nourished and normally developed. He does have left eye ptosis as mentioned in obvious visible mass on his left neck Vital signs as documented. Head exam is unremarkable. normocephalic, atraumatic Neck is without jugular venous distension, this mass is near his carotid bulb which could impact vagal response Lungs are clear to auscultation and percussion. Cardiac exam reveals Rhythm is regular. First and second heart sounds normal. Abdominal exam reveals normal bowel sounds, no masses, no organomegaly does have a feeding tube in place Extremities are nonedematous and both pedal pulses are present Neurologic exam is A&Ox3, strength is equal bilateral Psychologically seems neither anxious or depressed Skin is warm Dry the fourth and fifth toes on his right foot have some ecchymosis and x-rays pending _ (1) Syncope Encounter type: Syncope type:
[2018-10-24] MEDS: OXYCODONE HCL SOLN 5 MG/5 ML UDC GT SCH ×2 (13:42→21:31)
[2018-10-24] MEDS: METOPROLOL TARTRATE 50 MG TAB PO SCH ×2 (13:43→21:24)
[2018-10-24] MEDS: HEPARIN SOD 5,000 UNIT/0.5 ML VIAL SQ SCH ×2 (13:43→21:20)
[2018-10-24] MEDS ORDERED: [UNRECOGNIZED DRUG - OTHER] PO SCH (14:00)
[2018-10-24] MEDS ORDERED: METOPROLOL TARTRATE 50 MG TAB PO SCH (14:00)
[2018-10-24] MEDS ORDERED: OR MISCELLANEOUS MED SCH (14:00)
[2018-10-24] MEDS: ACETAMINOPHEN 325 MG TAB PEG PRN (18:11)
[2018-10-24] MEDS: METAXALONE 800 MG TABLET PO PRN (18:12)
--- NOTE | 2018-10-24 19:53 | XRay Report ---
XR foot RT min 3V routine HISTORY: 72 years-old Male right foot mone toes acute right-sided foot pain status post trauma COMPARISON: Right foot radiographs 08/26/2017 TECHNIQUE: 3 views of the right foot FINDINGS: Mildly demineralized appearance of the bones. At least mild degenerative changes about the metatarsop halangeal and interphalangeal joints. Moderate degenerative changes about the midfoot and tibiotalar joint. Minimal spurring about the calcaneus. Mild dorsal soft tissue swelling about the forefoot. Ill -defined linear lucency involves the fifth middle phalanx with lucency also involving the proximal ar ticular surface. IMPRESSION: 1. Mild forefoot soft tissue swelling without acute displaced fracture or dislocation. 2. Ill-defined linear lucency about the fifth middle phalanx involving the proximal articular cortex may reflect acute nondisplaced intra-articular fracture. Correlate with point tenderness. 3. Degenerative changes as above. The above report was generated using voice recognition software. It may contain grammatical, syntax o r spelling errors. Electronically signed by: Abundio Taveras M.D. 10/24/2018 7:52 PM
[2018-10-24] MEDS ORDERED: DOXAZOSIN MESYLATE 1 MG TAB PO SCH (21:00)
--- NOTE | 2018-10-25 01:44 | Consultation Report ---
DATE OF CONSULTATION: 10/24/2018 REASON FOR CONSULTATION: A 72-year-old well known to [facility] with recurrent head and neck cancer. HISTORY OF PRESENT ILLNESS: Mr. Macario is a very pleasant 72-year-old gentleman with history of esophageal cancer and more recently diagnosed with cricopharyngeal nodule, was admitted to [facility] after a syncopal episode. At approximately 2 in the morning, the patient got up from his bed, fell nauseous and stomach pain. He apparently went into his bathroom with the intent to vomit, and the next thing he knew he was on the floor, apparently lost consciousness for at least a minute. His contacted EMS, and he was brought to the hospital. This gentleman has a very complex past medical history. I last saw Mr. 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 Because of his prior history of tonsillar cancer back in 2004, this gentleman had received chemoradiation for that diagnosis. Therefore, I was seeking surgical options and possibly radiation therapy if the nodule proved to be outside the original treated field. When I saw him in February, the plan was to send him to [facility] in [place] for a surgical consultation. Biopsy was carried out of the right tonsil on 04/27/2018 consistent with squamous cell carcinoma, HPV associated (P16 positive). Because of the complex nature of his case, Mr. Macario's circumstance was reviewed at [place], and there were several opinions against surgery and others who were more in favor of a surgical procedure. He subsequently underwent surgery of the hypopharynx with reconstruction utilizing radial forearm freeflap. The hospitalization was extended by postoperative embolic stroke and right hemiparesis. He was then admitted to the rehab facility thereafter. Mr. Macario's swallowing capabilities are minimal, he is now on enteral feedings. Unfortunately, he has now developed a left posterior cervical mass that has well circumscribed on his most recent PET scan. With this recurrence, he has been referred to both medical and radiation oncology to discuss combined modality approach. PAST MEDICAL HISTORY: Again is significant for tonsillar cancer, originally diagnosed in 2005, treated with chemoradiation. Patient remained in remission when he was diagnosed with a cricopharyngeal nodule, 02/2018, underwent resection and neoesophagus surgery with placement of a feeding tube in 05/2018. He was recently diagnosed with recurrent left posterior cervical mass and pending both medical and radiation oncology consultation. He also suffered from a CVA with residual right upper extremity weakness in the fall of 2017. He suffers from hypertension, benign prostatic hypertrophy, gout, GERD, chronic kidney disease, pulmonary nodules, anxiety, cervical radiculopathy, and hepatic steatosis. PAST SURGICAL HISTORY: Facetectomy, C5-C6, esophageal surgery as described in the past medical history. MEDICATIONS: Home medications include lansoprazole 30 mg p.o. daily, guaifenesin 20 mL p.o. q.4 h. p.r.n., Artificial Saliva 1 application mucous membranes every other day p.r.n., salmeterol (Serevent Diskus) 1 inhalation b.i.d., oxycodone 2.5 mL p.o. q.4 h., metoprolol 50 mg p.o. q.8 h., metaxalone 800 mg p.o. t.i.d. p.r.n., gabapentin 300 mg p.o. t.i.d., doxazosin 1 mg p.o. at bedtime, Plavix 75 mg p.o. daily, citalopram 20 mg p.o. daily, atorvastatin 20 mg p.o. daily, aspirin 81 mg p.o. daily, allopurinol 300 mg p.o. daily. ALLERGIES: LATEX. SOCIAL HISTORY: Patient is retired. He is . He is a former tobacco user. Negative for alcohol or illicit drugs. FAMILY HISTORY: Noncontributory. REVIEW OF SYSTEMS: GENERAL: Patient was admitted for a syncopal episode with loss of consciousness. He also complained of headache, which was mainly left-sided leading up to admission. SKIN: No rashes or lesions. No history of dermatoses. HEENT: Again positive for left-sided headache. No visual or hearing deficits. No sinus symptoms. Positive for dysphagia from his reconstructed esophageal surgery. LYMPHATICS: Positive for left cervical lymphadenopathy. HEART: Negative for coronary artery disease. No current angina or palpitations. PULMONARY: Negative for COPD. He is not acutely short of breath or dyspneic on exertion. GASTROINTESTINAL: Negative for abdominal pain. No nausea, vomiting, diarrhea, or constipation. GENITOURINARY: No hematuria, dysuria, or urinary incontinence. PSYCHIATRIC: Positive for history of anxiety. MUSCULOSKELETAL: No muscle weakness. No arthralgias or myalgias. No history of rheumatologic disease. ENDOCRINE: Negative for diabetes or thyroid disease. NEUROLOGIC: Negative for seizures. Positive for embolic right-sided stroke. HEMATOLOGIC: Negative for anemia, thrombophilia, or bleeding diathesis. PHYSICAL EXAMINATION: GENERAL: Very pleasant 72-year-old gentleman, lying supine, awake, alert, appropriate, in no acute distress. VITAL SIGNS: Temperature 36.6, pulse 77, respiratory rate 16, blood pressure 161/87. SKIN: Warm, dry, noncyanotic, without petechiae, rash, or ecchymosis. HEENT: Head is atraumatic and normocephalic. Eyes: PERRLA, EOMI. Sclerae are nonicteric. No conjunctival injection. Nares are patent, without rhinorrhea or discharge. Throat is clear. Tongue midline. Mucous membranes are moist. NECK: Posterior cervical mass, approximately 4 cm in diameter, palpable, firm. LYMPHATICS: No anterior cervical or supraclavicular lymphadenopathy. HEART: Regular rate and rhythm. No clicks, rubs, murmurs, gallops. LUNGS: Clear to auscultation bilaterally. ABDOMEN: Soft, nontender, nondistended, without palpable hepatosplenomegaly. PEG tube in place, functional. EXTREMITIES: Musculoskeletal strength slightly diminished in the right upper extremity, otherwise pulses are equal in all 4 quadrants. NEUROLOGICAL: Patient is awake, alert, oriented x3. Cranial nerves grossly intact. LABORATORY DATA: WBC count 12,740, hemoglobin 9.6, platelet count 254,000. Sodium 136, potassium 4.2, chloride 99, carbon dioxide 30, BUN 54, creatinine 1.18. RADIOGRAPHIC DATA: On CT scan of the abdomen and pelvis, no acute process within the abdomen or pelvis. On CT scan of the head, no evidence of hemorrhage, mass effect, or evidence of intracerebral metastatic disease or ischemia. IMPRESSION: 1. Syncopal episode. 2. Ptosis and left-sided facial pain. 3. Hypertension. 4. History of CVA. 5. Gout. 6. Chronic kidney disease. 7. 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 PLAN: I had the pleasure of visiting with Shaka at bedside today. I was contacted by Dr. Cisneros, managing hospitalist, advising me on Mr. Macario's admission to the hospital. Apparently, he suffered a syncopal episode while at home this morning. I have not seen Mr. Macario since late February, at which time he was seeking consultation in [place] for a possible surgical resection of a cricopharyngeal nodule that was confirmed to be extension of squamous cell carcinoma, possibly from his previously diagnosed tonsillar cancer in 2005. I was looking into various options including possibly incorporating radiation if this nodule was at the original treated field. Shortly thereafter, I lost Mr. Macario to follow up; however, was able to track down clinical notes outlining Mr. Macario's care, which is summarized in the HPI. Clearly, more recently, he has developed left posterior cervical mass, which is I suspect an extension of his disease. The right tonsil was biopsied back on 04/27/2018 confirming squamous cell carcinoma, HPV positive. I alerted Dr. Limon from radiation that Mr. Macario would be seeing by them. Perhaps considering his scheduled appointment for them is tomorrow, submit a consult, and Dr. Limon would be more than happy to see him as an inpatient. I believe the plan moving forward will be chemoradiation. I would like to see Mr. Macario once he is discharged for a full explanation of treatment moving forward. Nothing further to add while he is in house, and I will plan to see him very soon upon discharge. Thank you very much for allowing me to participate in his care. If you have any questions or concerns, feel free to contact me at any time.
[2018-10-25] MEDS: ACETAMINOPHEN 325 MG TAB PEG PRN ×2 (03:16→11:43)
[2018-10-25] MEDS: METAXALONE 800 MG TABLET PO PRN (03:16)
[2018-10-25] MEDS: METOPROLOL TARTRATE 50 MG TAB PO SCH (05:46)
[2018-10-25] MEDS: HEPARIN SOD 5,000 UNIT/0.5 ML VIAL SQ SCH (05:47)
[2018-10-25] MEDS: ATORVASTATIN 20 MG TAB PEG SCH (08:22)
[2018-10-25] MEDS: ALLOPURINOL 300 MG TAB PEG SCH (08:22)
[2018-10-25] MEDS: CITALOPRAM 20 MG TAB PEG SCH (08:22)
[2018-10-25] MEDS: CLOPIDOGREL BISULFATE 75 MG TAB PEG SCH (08:22)
[2018-10-25] MEDS: ASPIRIN 81 MG CHEW PEG SCH ×2 (08:23→08:59)
[2018-10-25] MEDS: LANSOPRAZOLE 30 MG SOLTAB PEG SCH (08:23)
[2018-10-25] MEDS: PROSOURCE NO CARB 30 ML/PKT PEG SCH (08:25)
[2018-10-25] MEDS: SALMETEROL XINAFOATE 50MCG 28 BLISTER INH INH SCH (08:25)
[2018-10-25] MEDS: OXYCODONE HCL SOLN 5 MG/5 ML UDC GT SCH (08:27)
[2018-10-25] MEDS: GABAPENTIN 250 MG/5 ML 470 ML BTL PEG SCH (08:34)
[2018-10-25] MEDS ORDERED: [UNRECOGNIZED DRUG - MIXTURE] PEG SCH (09:00)
--- NOTE | 2018-10-25 13:30 | Radiation OncologyConsultation ---
Date of Consultation October 25, 2018 Patient was seen prior to discharge on same day. Assessment & Plan (1) Cancer of hypopharynx: Assessment: Mr. 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 The patient had a long disease-free interval. The patient did require multiple dilations of the esophagus due to esophageal stricture formation. More recently, the patient was being evaluated for a dilation of the esophagus in January 2018 and underwent an endoscopy which revealed a mass involving the cricopharyngeus region and was biopsied and positive for squamous cell carcinoma. The patient underwent a workup and was evaluated at the head and neck multidisciplinary team at [facility]. The recommendation was for the patient to undergo a surgical resection (cervical esophagectomy, partial pharyngectomy) with neck dissection which occurred on 06/16/[address] Batista, Dr. Rodriguez and Dr. Pickering. 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 Unfortunately, the patient developed recurrent disease involving the left neck and parapharyngeal space which was biopsy-proven in September 2018. The patient has been admitted to the hospital for a syncopal episode. Dr. Trujillo from medical oncology was consulted who discussed treatment options for his head and neck cancer including chemotherapy and radiation therapy. We are now seen the patient in consultation to discuss the role of radiation therapy. The patient will be discharged from the hospital later today. The patient's case will be discussed at the head and neck multidisciplinary tumor board at [facility]. Treatment Options: 1. Concurrent chemotherapy and radiation therapy. 2. Induction chemotherapy followed by radiation therapy. 3. Surgical resection if the patient is deemed a surgical candidate by Dr. Batista and his team. Recommendation/Plan: I will discuss the case with Dr. Batista and obtain recommendations from the multidisciplinary head and neck tumor board discussion that is scheduled for tomorrow. I have spoken with the patient about consideration of radiation therapy and we will tentatively schedule him for a CT simulation for treatment planning. I did also mention to him the potential benefit of induction chemotherapy followed by radiation therapy to reduce the overall burden of tumor and potentially reduce the treatment volume for radiation therapy. Plan: 1. Patient will be scheduled for a tentative CT simulation for treatment planning. This scan may be canceled if the general consensus is for the patient to either undergo surgical resection or start with induction chemotherapy. 2. I plan to discuss his case with both Dr. Trujillo and Dr. Batista to make a final determination about his treatment plan. This information will then be conveyed to the patient as well. Rationale/Explanation of Treatment: We have explained the indications, alternatives, benefits, risks and side effects of radiation therapy for head/ neck cancer. We have explained the most common side effects including but are not limited to skin erythema, skin break down, hair loss, fibrosis, adhesion development, heart failure and heart disease, esophagitis, esophageal stenosis, bowel obstruction, urinary symptoms, thyroid disorders, mucositis, nauesea, vomiting, diarrhea, anemia, fatigue, carotid artery stenosis, and development of secondary malignancy. Additionally, patients suffer may have xerostomia, stomatitis, glossitis, dysphagia, aspiration, mandibular osteoradionecrosis, mucocutaneous fistula formation, lymphedema in the neck, pharyngeal edema, mucositis, loss of taste. We also discussed that male patients may have issues with erections (potency) and infertility issues depending on their age and area of treatment. We have explained the CT simulation process and treatment planning. We explained what to expect before, during and after treatment on a regular basis. The patient understands and would be willing to consent to treatment. We have explained to the patient that there is an increased risk of overlap from the previous course of radiation therapy and the current course of radiation therapy which can increase the risk of all acute and late side effects of radiation therapy. Specifically, we are concerned about damage to the spinal cord, brainstem and brachial plexus. The patient had multiple questions which were answered to their full satisfaction. Thank you for allowing us to participate in the care of this patient. This chart was completed in part utilizing [employer] Speech Voice Recognition software. Attempts were made to minimize the grammatical errors, random word insertions, pronoun errors and incomplete sentences. Any formal questions or concerns about the content, text or information contained within the body of this dictation should be directly addressed to the provider for clarification. Iza Limon MD Department of Radiation Oncology [facility] Present on Admission?: Yes History of Present Illness Reason for Consultation: Recurrent Head/Neck Cancer Requesting Physician: Moe Cisneros MD Attending Physician: Iza Limon MD History of Present Illness 05/2006. Patient completed course of chemotherapy and radiation therapy for right tonsil squamous cell carcinoma, [id number]. 02/03/2018. Patient was planning to undergo a dilatation of an esophageal stricture and was noted to have a lesion near his cricopharyngeus. Cricopharyngeus nodule, biopsy. Well-differentiated keratinizing squamous cell carcinoma. 06/16/2018. Cervical esophagectomy, partial pharyngectomy, left neck dissection , left central neck dissection, medial node dissection by Dr. Anne, Dr. Rodriguez and Dr. Batista. Pathology reveals squamous cell carcinoma involving the cervical esophagus and hypopharynx. The tumor involved the submucosa of the esophagus. Greatest dimension was 3.5 cm. Margins were negative for resection. Closest margin was deep margin and was 1 mm. Lymphovascular invasion was identified. Perineural invasion was not identified. 10 lymph nodes were excised and all were negative for metastatic carcinoma. 09/27/2018. Soft tissue neck ultrasound. IMPRESSION: 1. At the site of clinically palpable nodularity is a benign-appearing lymph node measuring 1.2 cm. 2. Medially inferior to this is a heterogeneous irregular mass measuring 3.7 x 3.[address] of the soft tissue neck is recommended for further evaluation. 09/16/2018. PET/CT. IMPRESSION: 1. Large soft tissue masses within/adjacent to the remaining cervical esophagus as well as the lateral neck are highly suspicious for recurrent/metastatic disease. These lesions were not seen on CT from June 2018. The left common carotid artery that contains a stent is encased between the 2 masses. 2. Extensive postoperative changes within the neck and chest with intense FDG avidity at the site of the median sternotomy, favor postoperative reaction of healing and less likely postsurgical inflammatory/infectious complication, clinical correlation is recommended. 10/12/2018. Neck mass, left, ultrasound-guided FNA biopsy. Positive for squamous cell carcinoma. 10/24/2018. Patient admitted to [facility] for evaluation 10/26/2018. Patient's case is scheduled to be discussed at multidisciplinary head and neck tumor board. Currently, the patient complains of a mass involving his left neck. He denies any significant dysphagia. He has no other significant symptoms currently related to his head and neck cancer. Allergies Allergy/AdvReac Type Severity Reaction Status Date / Time latex Allergy Unknown patient Verified 10/24/18 03:43 states had allergy tests which tested + No Known Drug Allergies Allergy Unknown NKDA Verified 10/24/18 03:43 Home Medications Home Medications Medication Instructions Recorded Confirmed Type acetaminophen [Acetaminophen Extra 500 mg PO Q4 PRN 08/29/18 10/24/18 History Strength] allopurinol 300 mg PO DAILY 08/29/18 10/24/18 History aspirin [Aspir-81] 81 mg PO DAILY 08/29/18 10/24/18 History atorvastatin 20 mg PO DAILY 08/29/18 10/24/18 History citalopram 20 mg PO DAILY 08/29/18 10/24/18 History clopidogrel [Plavix] 75 mg PO DAILY 08/29/18 10/24/18 History doxazosin 1 mg PO HS 08/29/18 10/24/18 History gabapentin 300 mg PO TID 08/29/18 10/24/18 History metaxalone 800 mg PO TID PRN 08/29/18 10/24/18 History metoprolol tartrate 50 mg PO Q8 08/29/18 10/24/18 History salmeterol [Serevent Diskus] 1 inh INHALATION BID 08/29/18 10/24/18 History B1,B2,B3,B6,B64-ueazop-Yu-caqy 5 ml PO DAILY 10/24/18 10/24/18 History [Eldertonic] artificial saliva (yerbas-lyt) 1 applic MUCOUS MEMBRANE QID PRN 10/24/18 History [Mouth Kote] calcium caseinate-whey [ProSource] 1 packet PO TID 10/24/18 10/24/18 History fructoligosaccharides-polydex 1 packet PO TID 10/24/18 10/24/18 History [HyFiber with FOS] guaifenesin 20 ml PO Q4 PRN 10/24/18 10/24/18 History lansoprazole 30 mg PO DAILY 10/24/18 10/24/18 History multivitamin [Multiple Vitamins] 1 tab PO DAILY 10/24/18 10/24/18 History oxycodone 5 ml PO Q4 PRN #0 ml 10/25/18 10/24/18 Rx Patient History Medical History Anxiety Fatty liver (Chronic) Pulmonary nodules (Chronic) BPH (benign prostatic hypertrophy) (Chronic) Hyperlipidemia (Chronic) Cervical stenosis of spinal canal 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" Bacteremia Beta-hemolytic group B streptococcal sepsis Pneumonia Surgical History S/P tonsillectomy (Chronic) H/O colonoscopy (Chronic) Hx of esophagogastroduodenoscopy (Chronic) H/O umbilical hernia repair (Chronic) Family History Other No significant family history Social History Current Living Situation: Spouse Feels Safe at Home: Yes Smoking Status: Former smoker Hx Alcohol Use: No Hx Substance Use: No Beliefs That Will Affect Care: None Preferred Language: Greenlandic Review of Systems Constitutional: as per Subjective / HPI Eyes: as per Subjective / HPI Ear, Nose, Mouth, Throat: as per Subjective / HPI Respiratory: as per Subjective / HPI Cardiovascular: as per Subjective / HPI Gastrointestinal: as per Subjective / HPI Musculoskeletal: as per Subjective / HPI Integumentary: as per Subjective / HPI Neurologic: as per Subjective / HPI Psychiatric: as per Subjective / HPI Endocrine: as per Subjective / HPI Hematologic / Lymphatic: as per Subjective / HPI Allergy / Immunological: as per Subjective / HPI Physical Exam 2 Vital Signs (Past 24 Hours): Last Vital Signs Temp 36.9 C 10/25/18 11:28 Pulse 64 10/25/18 11:28 Resp 15 10/25/18 11:28 BP 125/64 10/25/18 11:28 Pulse Ox 92 10/25/18 11:28 Constitutional: WD/WN, vitals as above Eyes: PERRL, conjunctivae normal, anicteric sclerae ENMT: external ear and nose normal, oropharynx normal Neck: Extensive left neck lymphadenopathy, mass feels matted in the hard and is not mobile. The lymphadenopathy extends from level 2 to level 4 on the left. Respiratory: normal respiratory effort, lungs clear to auscultation Cardiovascular: RRR, no murmur, no edema Skin: no rashes, warm and dry Psychiatric: A+Ox3, euthymic affect Results Additional Studies 10/24/18 03:00 ECG [address] head/brain wo con Urgent 10/24/18 03:01 XR chest 1V portable Stat 10/24/18 04:06 CT abd pelvis IV con only Urgent 10/24/18 18:31 XR foot RT min 3V routine Routine Time Spent Attending I spent 45 minutes for this consultation, which included obtaining clinical information, performing a physical exam, recommending a plan of action and answering questions. Greater than 50% of the time spent was direct face to face interaction with the patient.
--- NOTE | 2018-10-25 17:20 | Discharge Summary ---
Date of Service October 25, 2018 Admission HPI Per Admitting Provider 72 y/o M Hx Esophageal CA 2005 which has recently recurred, feeding tube following CA surgery, HTN, HLD, CVA, CKD III, CVA 2018, BPH. The pt felt nauseous and had central abdominal discomfort early AM. He was in the bathroom as he thought he was going to vomit, and lost consciousness for approximately a minute. His called EMS and he was brought to the hospital. At the time of admission he describes some nausea, denies CP or SOB. Labs EKG, CT head, CT abdomen obtained in the ER are unremarkable. The pt recently had a recurrence of a mass on the L side of his neck which was diagnosed as a recurrence of his CA. For the past week he describes pain on the L side of his face and neck and has had mild ptosis of his L eyelid. 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 He was in remission until 02/2018 when he was diagnosed with esophageal CA. He underwent resection and neoesophagus surgery with placement of a feeding tube 05/2018. He was diagnosed with an additional malignant mass on his L neck 08/2018 and is pending an oncology consultation to determine the course of treatment. 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 Occurred when he was having esophageal surgery. 3) HTN 4) BPH 5) Gout 6) GERD 7) CKD III 8) Pulmonary nodules 9) Anxiety 10) Gout 11) Cervical radiculopathy 12) Hepatic steatosis Surgical: 1) Esophageal surgery 2) C5-6 discectomy and fusion Family: Father due to lung CA Mother due to hepatocellular CA Social: Quit smoking 2005, does not drink 1) 3) Principal Diagnosis Syncope Recurrence of head neck cancer to the left neck Discharge Exam Constitutional well developed and average body habitus Eyes no conjunctival abnormality and no scleral abnormality Neck normal visual inspection and trachea midline There is a firm mass to the left side of his neck over his carotid area Respiratory + respiratory distress (This is mild patient states this is baseline); + abnormal respiratory effort Auscultation: lungs clear to auscultation bilaterally (Poor air movement is noted) Cardiovascular RRR, no murmur, no edema Gastrointestinal (Abdomen) normal bowel sounds, soft, nontender, no hepatosplenomegaly Musculoskeletal no cyanosis or clubbing, extremities motor strength 5/5 Discharge Data Allergies Allergy/AdvReac Type Severity Reaction Status Date / Time latex Allergy Unknown patient Verified 10/24/18 03:43 states had allergy tests which tested + No Known Drug Allergies Allergy Unknown NKDA Verified 10/24/18 03:43 Consultations 10/24/18 05:29 ED Decision to Admit Stat 10/24/18 10:21 Consult Oncology Routine 10/25/18 09:25 Consult Radiation Oncology Routine Ordered Studies 10/24/18 03:00 CT head/brain wo con Urgent 10/24/18 04:06 CT abd pelvis IV con only Urgent Hospital Course (1) Syncope: 72 y/o M Hx esophageal CA 2006 which has recently recurred, feeding tube following CA surgery, HTN, HLD, CVA, CKD III, CVA 2018, BPH. The pt felt nauseous and had central abdominal discomfort early AM. He was in the bathroom as he thought he was going to vomit, and lost consciousness for approximately a minute. His called EMS and he was brought to the hospital. At the time of admission he describes some nausea, denies CP or SOB. Labs EKG, CT head, CT abdomen obtained in the ER are unremarkable. The pt recently had a recurrence of a mass on the L side of his neck which was diagnosed as a recurrence of his CA. For the past week he describes pain on the L side of his face and neck and has had mild ptosis of his L eyelid. 1) Syncope - nausea and abdominal discomfort. The description of his syncope comports with a vasovagal episode concern with a mass proximity to the carotid bulb will be considered patient states he was putting a heating pad on his left neck and some putting some pressure on a prior to the event that he walked to the bathroom and he fell over 2) Ptosis and L facial pain. This is likely stemming from his mass and nerve encroachment. Patient states is been present for the last few weeks that his oncologist at [facility] are aware of that and he will follow-up locally with Dr Trujillo. He was seen prior to discharge by radiation oncology Dr. Iza Limon 3) HTN - cont metoprolol patient not orthostatic upon recheck 4) History of CVA - cont Plavix, Statin 5) Gout - cont Allopurinol 6) CKD III - IVF regardless Full code - Total Time Total Time Spent Total Time Spent (In Minutes): greater than 30 minutes were required to prepare discharge Discharge Plan Discharge Items Patient Disposition: Home - Home Health Services Reason For Visit: CP, NEURO DEFICITS Discharge Diagnosis: passing out neck mass possible vasovagal syncope Discharge Goals: Decrease discomfort Activity: Resume your previous activity Non-emergency contact: Primary Care Provider, Specialist and Oncologist Call non-emergency contact if: you have any medication questions Follow-up/Referrals: Iza Limon MD [Physician] - Jeyson Trujillo DO [Physician] - Diet: Regular Addtl Provider Instructions: Please follow up with Dr Iza Limon Radiation oncology Prescriptions: Continue multivitamin [Multiple Vitamins] Tablet 1 tab PO DAILY RF: 0 guaifenesin 100 mg/5 mL Liquid 20 ml PO Q4 PRN (Reason: Cough) RF: 0 lansoprazole 30 mg Capsule,Delayed Release(Dr/Ec) 30 mg PO DAILY RF: 0 artificial saliva (yerbas-lyt) [Mouth Kote] Aerosol,[place] 1 applic Mucous Membrane QID PRN (Reason: Unknown) RF: 0 calcium caseinate-whey [ProSource] 7.5 gram Packet 1 packet PO TID RF: 0 B1,B2,B3,B6,D93-axwbvy-Cv-xaiy [Eldertonic] 0.5-0.6-7-0.7 mg Elixir 5 ml PO DAILY RF: 0 fructoligosaccharides-polydex [HyFiber with FOS] 12 gram/30 mL Liquid In Packet 1 packet PO TID RF: 0 atorvastatin 20 mg Tablet 20 mg PO DAILY RF: 0 doxazosin 1 mg Tablet 1 mg PO HS RF: 0 clopidogrel [Plavix] 75 mg Tablet 75 mg PO DAILY RF: 0 aspirin [Aspir-81] 81 mg Tablet,Delayed Release (Dr/Ec) 81 mg PO DAILY RF: 0 acetaminophen [Acetaminophen Extra Strength] 500 mg Tablet 500 mg PO Q4 PRN (Reason: Pain) RF: 0 citalopram 20 mg Tablet 20 mg PO DAILY RF: 0 metoprolol tartrate 50 mg Tablet 50 mg PO Q8 RF: 0 salmeterol [Serevent Diskus] 50 mcg/dose Blister With Device 1 inh INHALATION BID RF: 0 gabapentin 300 mg Capsule 300 mg PO TID RF: 0 allopurinol 300 mg Tablet 300 mg PO DAILY RF: 0 metaxalone 800 mg Tablet 800 mg PO TID PRN (Reason: Muscle Spasm) RF: 0 Changed oxycodone 5 mg/5 mL Solution 5 ml PO Q4 PRN (Reason: Pain) Qty: 0 RF: 0 Stand-Alone Forms: [facility] Discharge Orders: Discharge Order (Routine); Ordered 10/25/18 Ordered By: Moe Cisneros Admission Data Admit Date/Time: 10/24/18 06:19 Attending Provider: Moe Cisneros Admit Provider: Boubacar Real Primary Care Provider: Carlo Ahn Other Providers: Boubacar Real ; Jeyson Trujillo V ; Iza Limon Service: Telemetry Other Interventions: Discharge Summary Assessment (RN) Last Done: 10/25/18 11:28 DC Date/Time DO NOT enter until pt leaves facility: 10/25/18 12:25
== END 2018-10-25 12:25 | disposition home health service (06) ==
LOC: ED 02:49 → 1E 06:19 → SUATTDRO 06:19 → INTOOBSV 06:19 → 1E 06:34

== ENCOUNTER 2018-10-31 15:15 | Observation (INO) ==
--- NOTE | 2018-10-31 16:58 | XRay Report ---
SINGLE VIEW CHEST CLINICAL HISTORY: Syncope. FINDINGS: An AP, portable, upright chest radiograph is compared to study dated 10/24/2018 and correlate d with chest CT dated 03/28/2018. The examination is degraded by portable technique and patient rotatio n. The patient is status post midline sternotomy. The heart is top normal for projection. The pulmon estuardo vasculature is noncongested. Chronic interstitial thickening is similar to previous. No airspace consolidation or large pleural effusion is identified. Apical scarring is noted. No pneumothorax is s een. The skeletal structures are osteopenic. The bony thorax is grossly intact. Fusion hardware is no sherrill in the lower cervical spine. Stents are present in carotid arteries bilaterally. Surgical clips a re noted in the left neck. IMPRESSION: No acute cardiopulmonary abnormality. Electronically signed by: Rito García M.D. 10/31/2018 4:56 PM
[2018-10-31 17:11] LABS: Basophils # (auto) 0.03 K/uL (0-0.2); Basophils % (auto) 0.3 %; Eosinophils # (auto) 0.08 K/uL (0-0.5); Eosinophils % (auto) 0.8 %; Hematocrit (blood only) 32.6 % (42-52); Hemoglobin 9.8 g/dL (14.0-18.0); Immature Granulocytes # (auto) 0.03 K/uL (0.00-0.02); Immature Granulocytes % (auto) 0.3 %; Lymphocytes # (auto) 0.57 K/uL (1.2-3.4); Lymphocytes % (auto) 5.7 %; Mean Corpuscular Hgb Conc 30.1 g/dL (32-36); Mean Corpuscular Volume 90.8 fL (80-100); Mean Platelet Volume 11.5 fL (7.4-10.4); Monocytes # (auto) 0.25 K/uL (0.11-0.59); Monocytes % (auto) 2.5 %; Neutrophils # (auto) 9.12 K/uL (1.4-6.5); Neutrophils % (auto) 90.4 %; Platelet Count 218 K/uL (130-400); RDW Coefficient of Variation 16.6 % (11.5-14.5); Red Blood Count 3.59 M/uL (4.7-6.1); White Blood Count 10.08 K/uL (4.8-10.8)
[2018-10-31 17:18] LABS: Prothrombin Time 10.5 Seconds (9.0-12.0)
[2018-10-31 17:35] LABS: Alanine Aminotransferase 14 U/L (12-78); Albumin Level 3.3 gm/dl (3.4-5.0); Aspartate Aminotransferase 14 U/L (15-37); BUN Creatinine Ratio 42.3 (10-20); Blood Urea Nitrogen 54 mg/dl (7-18); Calcium 9.1 mg/dl (8.5-10.1); Carbon Dioxide 30 mmol/L (21-32); Chloride 102 mmol/L (98-107); Creatinine Clr Calc Pharmacy 54.6 ml/min; Est GFR (African American) 65.4; Est GFR (Non-African American) 56.5; Glucose 156 mg/dl (70-99); Magnesium 2.2 mg/dl (1.8-2.4); Potassium 4.4 mmol/L (3.5-5.1); Sodium 135 mmol/L (136-145)
[2018-10-31 17:46] LABS: Albumin Globulin Ratio 0.8 (0.9-2); Alkaline Phosphatase 82 U/L (45-117); Bilirubin,Total 0.2 mg/dl (0.2-1); Globulin 4.1 gm/dl (2.5-4.0); NT Pro B Type Natriuretic Pept 249 pg/ml (0-900); Total Protein 7.4 gm/dl (6.4-8.2); Troponin I < 0.015 ng/ml (0-0.045)
--- NOTE | 2018-10-31 18:21 | CT Scan Report ---
CT SCAN OF THE BRAIN WITHOUT IV CONTRAST CLINICAL HISTORY: Headache. Syncope. COMPARISON STUDY: CT of the brain dated 10/24/2018. TECHNIQUE: Unenhanced axial CT scan of the brain is performed from the vertex to the skull base. A do se lowering technique was utilized adhering to the principles of ALARA. FINDINGS: Brain parenchyma: There are age-related involutional changes noting mild subcortical and periventric ular microangiopathic change. Tiny foci of left frontal and left parietal encephalomalacia are consis tent with remote infarcts. There is no hemorrhage, mass effect, or evidence of acute territorial isch emia by CT criteria. Matta-white matter differentiation is preserved. No extra-axial fluid collection is seen. Ventricles, sulci, cisterns: Prominent secondary to involutional change. Intracranial vasculature: There is atherosclerotic calcification of the cavernous carotid and vertebr al arteries. Calvarium: Unremarkable. Sinuses and mastoids: There is trace mucosal thickening within the ethmoid and left sphenoid sinuses. The mastoid air cells are well pneumatized. Orbits: The bony orbits are grossly intact. IMPRESSION: There is no hemorrhage, mass effect, or evidence of acute territorial ischemia by CT maddison gonzalez. Electronically signed by: Rito García M.D. 10/31/2018 6:15 PM
[2018-10-31] MEDS ORDERED: OPTIRAY 320 125ml IV PRN (18:27)
--- NOTE | 2018-10-31 18:34 | CT Scan Report ---
CTA ANGIOGRAPHY OF THE HEAD CLINICAL HISTORY: Headache. Neck mass. COMPARISON STUDY: Head CT October 24, 2018 and October 31, 2018. TECHNIQUE: Helical axial images of the head were obtained following uneventful intravenous administr ation of 115 cc of Optiray 320. Automated exposure control was utilized for the study. A dose lower ing technique was utilized adhering to the principles of ALARA. FINDINGS: Please note that the CTA of the neck will be reported separately. No acute intracranial hem orrhage, midline shift or mass effect is present. A few old infarcts are noted. Ventricular system is normal. The basilar cisterns are patent. There are no extra-axial collections. There is mild atheros clerotic plaque within the bilateral cavernous carotids. No intracranial aneurysm, dissection or abru pt vessel cut off is identified. The bilateral M1, M2, A1 and A2 segments are patent. The posterior c irculation is also intact. IMPRESSION: Unremarkable CTA of the head for age. Electronically signed by: Augie Briseno M.D. 10/31/2018 6:32 PM
--- NOTE | 2018-10-31 18:37 | CT Scan Report ---
CT ANGIOGRAM OF THE CHEST CLINICAL HISTORY: Syncope. COMPARISON STUDY: Chest x-ray dated 10/31/2018. Chest CT scans dated 03/28/2018 and 07/17/2017. PET CT dated 10/21/2011. TECHNIQUE: Following the IV administration of 115 cc of Optiray 320, CT angiogram of the chest was pe rformed from the upper abdomen to the thoracic inlet utilizing the pulmonary embolus protocol. Images are reviewed in the axial, sagittal, and coronal planes. 3-D MIPS images are created and assessed. I V contrast was administered without complication. A dose lowering technique was utilized adhering to the principles of ALARA. The examination is compromised by motion artifact, as well as by streak art ifact from the arms which could not be elevated above the chest. FINDINGS: Lower neck: There is a large mass lesion centered in the left lower neck around the carotid artery. T his measures approximately 7.5 x 6 cm and appears increased in size from the 09/16/2018 PET examinati on. This encases the left carotid artery, and bilateral carotid artery stents are in place. Numerous surgical clips are seen in the neck. This lesion causes mass effect on the adjacent pharynx. 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 The right lobe appears atr ophic. Thoracic aorta: There is mild atherosclerotic calcification of the thoracic aorta, which is normal in caliber and demonstrates standard 3-vessel arch anatomy. No dissection is seen. Pulmonary vasculature: The pulmonary trunk is normal in caliber. There are no filling defects identif ied in main, lobar, or segmental pulmonary branches to suggest pulmonary embolus. Heart: The patient is status post midline sternotomy. The heart is normal in size and without pericar dial effusion. Lungs and pleural spaces: Evaluation of the lung parenchyma is modestly degraded by motion artifact. There is no airspace consolidation or pleural effusion. Bibasilar scarring/atelectasis is observed. T here are scattered calcified granulomas. The trachea and central airways are clear. Mediastinum: There is no mediastinal lymphadenopathy. Prema: Clear. Axillae: There is no axillary lymphadenopathy. Upper abdomen: A gastrostomy tube is in place. Reflux of contrast is noted in the IVC and hepatic vei ns. Skeletal structures: The skeletal structures are osteopenic. An osteoblastic focus within the right l ateral 8th rib, as is a focus in the left anterior 7th rib. Fusion hardware is noted in the lower cer vical spine. A subacute right posterior 11th rib fracture is unchanged. A superior plate compression deformity of L2 is partially imaged. IMPRESSION: 1. Streak and motion compromised examination. 2. There is no evidence of pulmonary embolus in the main, lobar, or segmental pulmonary arteries. 3. There is no airspace consolidation or pleural effusion. 4. A large mass lesion in the left lower neck centered around the left carotid artery has increased i n size from 09/16/2018. 5. Sclerotic foci within bilateral ribs are similar to previous. Electronically signed by: Rito García M.D. 10/31/2018 6:36 PM
--- NOTE | 2018-10-31 18:44 | CT Scan Report ---
CT ANGIOGRAPHY OF THE NECK WITH CONTRAST CLINICAL HISTORY: Neck mass. Esophageal cancer. COMPARISON STUDY: Carotid ultrasound July 29, 2011. PET/CT September 16, 2018. Technique: CT angiography of the carotid and vertebral arteries was obtained using [employer] 320 IV and 3D reconstruction on an independent workstation. NASCET criteria was utilized. Automated exposure c ontrol was utilized for the study. A dose lowering technique was utilized adhering to the principles of ALARA. Findings: Please note that the chest CT will be reported separately. A left lower neck mass has incre ased in size since PET/CT of September 16, 2018. This mass measures approximately 7.5 x 4.2 cm. It pre viously measured 6.5 x 3.5 cm. The mass/conglomerate adenopathy encases the left common carotid arter y which is patent. There are bilateral carotid stents which are patent. There is irregularity with be aded appearance of the proximal right internal carotid artery with mild multifocal stenoses. There is tortuosity of the proximal left internal carotid artery with mild multifocal stenoses. A linear defe ct within the distal left common carotid artery is probably post surgical. The bilateral vertebral ar teries are patent. No additional cervical masses are present. Postoperative findings within the left neck are noted. Chest CT will be reported separate. IMPRESSION: 1. Moderate increase in size of a left lower neck mass which measures 7.5 x 4.2 cm since PET/CT of 2017. This is consistent with malignancy. This mass/conglomerate adenopathy encases the le ft common carotid artery which is patent. 2. Patent bilateral carotid stents. Mild multifocal stenoses with vascular irregularity within the pr oximal bilateral internal carotid arteries. 3. Patent bilateral vertebral arteries. Electronically signed by: Augie Briseno M.D. 10/31/2018 6:42 PM
[2018-10-31] MEDS ORDERED: MoRPHine SULFATE 4 MG/ML 1 ML CARP\\VIAL IV STA (20:02)
[2018-10-31] MEDS: SODIUM CHLORIDE 0.9% 1000ML 1,000 ML IV SCH ×2 (20:13→21:44)
[2018-10-31 20:24] LABS: Appearance Urine Clear (Clear); Bacteria Urine Automated Negative (Negative); Bilirubin Urine Negative (Negative); Color Urine Yellow; Glucose Urine UA Negative (Negative); Ketones Urine Negative (Negative); Leukocyte Esterase Urine Negative (Negative); Nitrite Urine Negative (Negative); Protein Urine 1+ (Negative); Specific Gravity Urine 1.028 (1.000-1.030); Urobilinogen Urine Negative (Negative); pH Urine 6.5 (4.5-7.5)
[2018-10-31] MEDS ORDERED: ARTIFICIAL SALIVA Mucous Membrane PRN (21:21)
[2018-10-31] MEDS ORDERED: [UNRECOGNIZED DRUG - OTHER] PO SCH (21:21)
[2018-10-31] MEDS ORDERED: guaiFENesin SUGAR FREE 100 MG/5 ML UDC PO PRN (21:21)
[2018-10-31] MEDS ORDERED: [UNRECOGNIZED DRUG - OTHER] PO SCH (21:21)
[2018-10-31] MEDS ORDERED: METAXALONE 800 MG TABLET PO PRN (21:21)
[2018-10-31] MEDS ORDERED: GABAPENTIN 300 MG CAP PO SCH (21:21)
[2018-10-31] MEDS ORDERED: MoRPHine SULFATE 4 MG/ML 1 ML CARP\\VIAL IV PRN (21:21)
[2018-10-31] MEDS ORDERED: ACETAMINOPHEN 500 MG TAB PO PRN (21:21)
[2018-10-31] MEDS ORDERED: OXYCODONE HCL SOLN 5 MG/5 ML UDC PO PRN (21:21)
[2018-10-31] MEDS ORDERED: ONDANSETRON 4 MG TAB PO PRN (21:21)
[2018-10-31] MEDS ORDERED: DOXAZOSIN MESYLATE 1 MG TAB PO SCH (21:21)
[2018-10-31] MEDS ORDERED: ACETAMINOPHEN SOLN 500 MG/15.62 ML UDP PEG PRN (21:44)
[2018-10-31] MEDS ORDERED: guaiFENesin SUGAR FREE 100 MG/5 ML UDC GT PRN (21:48)
[2018-10-31] MEDS: OXYCODONE HCL SOLN 5 MG/5 ML UDC GT PRN (22:10)
[2018-10-31] MEDS: METOPROLOL TARTRATE 50 MG TAB PO SCH (22:21)
[2018-10-31] MEDS: DOXAZOSIN MESYLATE 1 MG TAB PEG SCH (22:22)
[2018-10-31] MEDS: SALMETEROL XINAFOATE 50MCG 28 BLISTER INH INH SCH (22:22)
[2018-10-31] MEDS: ENOXAPARIN INJ 40 MG/0.4 ML SYR SQ SCH (22:22)
[2018-10-31] MEDS: GABAPENTIN 250 MG/5 ML 470 ML BTL PEG SCH (22:23)
[2018-10-31] MEDS: MoRPHine SULFATE 4 MG/ML 1 ML CARP\\VIAL IV PRN (22:35)
[2018-11-01] MEDS: TUBE FEEDING WATER FLUSH GT SCH ×4 (00:18→19:04)
[2018-11-01] MEDS: MoRPHine SULFATE 4 MG/ML 1 ML CARP\\VIAL IV PRN ×4 (02:47→19:27)
--- NOTE | 2018-11-01 03:04 | Emergency Department Note ---
Entered by Cristi Solorio acting as a scribe for History of Present Illness General Chief complaint: Syncope Stated complaint: SYNCOPE X2 Time Seen by Provider: 10/31/18 16:15 Source: patient History of Present Illness Provider complaint: Syncope Onset (ago): minute(s) (Just prior to arrival) Location: head Radiation: back Severity: similar to prior episodes Pain Consistency: + other (Episodic) Maximum Pain Intensity: 7 Relieved By: + none Exacerbated By: + none Associated symptoms: + chest pain, + diaphoresis, + headaches, + nausea/ vomiting (No vomiting) and + weakness; no cough and no fever/chills The patient is a 73 year old male who presents to the Emergency Room after enduring two syncopal episodes just prior to arrival. He states he was on his way to the bathroom when he started feeling very weak, nauseated, diaphoretic, and got a headache. Soon after this he lost consciousness and does not remember anything following until he was on the floor where he woke up. After about 15- 20 minutes, his son and helped him up to the toilet when his vision became impaired and he syncopized again. Prior to the events today he felt completely normal. Currently he still has the headache and still nauseous, even after taking 2 Zofran at home and receiving another in the ambulance en route. 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 He states the pain is there pretty much everyday until he takes his pain medication. The patient was admitted here last week for 2 syncopal events as well that were thought to be vasovagal. He also has a mass on the left side of his neck that is thought to be compressing his carotid artery. His bowel movements have been normal with no bloody or black stool, since he has stopped his iron supplement. He is also on Plavix for Afib but has stopped taking Aspirin because he started coughing up blood. Home Medications Home Medications Medication Instructions Recorded Confirmed Type acetaminophen [Acetaminophen Extra 500 mg PO Q4 PRN 08/29/18 10/31/18 History Strength] allopurinol 300 mg PO DAILY 08/29/18 10/31/18 History aspirin [Aspir-81] 81 mg PO DAILY 08/29/18 10/31/18 History atorvastatin 20 mg PO DAILY 08/29/18 10/31/18 History citalopram 20 mg PO DAILY 08/29/18 10/31/18 History clopidogrel [Plavix] 75 mg PO DAILY 08/29/18 10/31/18 History doxazosin 1 mg PO HS 08/29/18 10/31/18 History gabapentin 300 mg PO TID 08/29/18 10/31/18 History metaxalone 800 mg PO TID PRN 08/29/18 10/31/18 History metoprolol tartrate 50 mg PO Q8 08/29/18 10/31/18 History salmeterol [Serevent Diskus] 1 inh INHALATION BID 08/29/18 10/31/18 History B1,B2,B3,B6,Q28-djjpyi-Av-wqie 5 ml PO DAILY 10/24/18 10/31/18 History [Eldertonic] artificial saliva (yerbas-lyt) 1 applic MUCOUS MEMBRANE QID PRN 10/24/18 History [Mouth Kote] calcium caseinate-whey [ProSource] 1 packet PO TID 10/24/18 10/31/18 History fructoligosaccharides-polydex 1 packet PO TID 10/24/18 10/31/18 History [HyFiber with FOS] guaifenesin 20 ml PO Q4 PRN 10/24/18 10/31/18 History lansoprazole 30 mg PO DAILY 10/24/18 10/31/18 History multivitamin [Multiple Vitamins] 1 tab PO DAILY 10/24/18 10/31/18 History oxycodone 5 ml PO Q4 PRN #0 ml 10/25/18 10/31/18 Rx ondansetron HCl 4 mg PO DAILY PRN 10/31/18 10/31/18 History Allergies Allergy/AdvReac Type Severity Reaction Status Date / Time latex Allergy Unknown patient Verified 10/31/18 17:21 states had allergy tests which tested + No Known Drug Allergies Allergy Unknown NKDA Verified 10/31/18 17:21 Past Med/Surg History Medical History Anxiety Fatty liver (Chronic) Pulmonary nodules (Chronic) BPH (benign prostatic hypertrophy) (Chronic) Hyperlipidemia (Chronic) Cervical stenosis of spinal canal 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" Bacteremia Beta-hemolytic group B streptococcal sepsis Pneumonia CKD (chronic kidney disease) stage 3, GFR 30-59 ml/min CVA (cerebral vascular accident) Hypertension Surgical History S/P tonsillectomy (Chronic) H/O colonoscopy (Chronic) Hx of esophagogastroduodenoscopy (Chronic) H/O umbilical hernia repair (Chronic) Social History Current Living Situation: Spouse Other Information That Helps Us Care for You: Yes Feels Safe at Home: Yes Safety Concerns: Feels Safe At This Time Smoking Status: Former smoker Hx Alcohol Use: No Hx Substance Use: No Beliefs That Will Affect Care: None Preferred Language: Bengali Communication Ability: Effective Parimutuel Clerk Required: No Review of Systems See HPI for pertinent positives & negatives. and A total of 10 systems reviewed and were otherwise negative Physical Exam Vital Signs Vital Signs - 24 hr 10/31/18 15:15 10/31/18 16:48 10/31/18 17:01 Temperature 36.6 C Temperature Source Oral Sepsis Recent Fever Within 48 Hours No Sepsis New/Unexplained Change in Mental Status No Sepsis Action Taken by Nursing No Action Required Pulse Rate - Lying Pulse Rate - Sitting Pulse Rate - Standing Pulse Rate 72 72 64 Pulse Rate [Apical] Pulse Rate [Finger] Pulse Rhythm Regular Pulse Rhythm [Apical] Pulse Strength [Apical] Respiratory Rate 16 28 H 15 Respiratory Effort / Characteristics Non-Labored Respiratory Depth Normal Respiratory Pattern Regular Blood Pressure - Lying Blood Pressure - Sitting Blood Pressure- Standing Blood Pressure 120/66 133/70 127/62 Blood Pressure [Right Arm] Blood Pressure Mean 84 91 83 Blood Pressure Mean [Right Arm] Blood Pressure Position [Right Arm] Pulse Oximetry 100 98 98 Oxygen Delivery Method Room Air 10/31/18 17:30 10/31/18 18:24 10/31/18 18:30 Temperature Temperature Source Sepsis Recent Fever Within 48 Hours Sepsis New/Unexplained Change in Mental Status Sepsis Action Taken by Nursing Pulse Rate - Lying Pulse Rate - Sitting Pulse Rate - Standing Pulse Rate 74 71 64 Pulse Rate [Apical] Pulse Rate [Finger] Pulse Rhythm Pulse Rhythm [Apical] Pulse Strength [Apical] Respiratory Rate 13 16 16 Respiratory Effort / Characteristics Respiratory Depth Respiratory Pattern Blood Pressure - Lying Blood Pressure - Sitting Blood Pressure- Standing Blood Pressure 124/76 174/91 H 165/93 H Blood Pressure [Right Arm] Blood Pressure Mean 92 118 117 Blood Pressure Mean [Right Arm] Blood Pressure Position [Right Arm] Pulse Oximetry 96 95 96 Oxygen Delivery Method 10/31/18 19:00 10/31/18 20:00 10/31/18 20:50 Temperature Temperature Source Sepsis Recent Fever Within 48 Hours Sepsis New/Unexplained Change in Mental Status Sepsis Action Taken by Nursing Pulse Rate - Lying 73 Pulse Rate - Sitting 74 Pulse Rate - Standing 72 Pulse Rate 83 Pulse Rate [Apical] 74 Pulse Rate [Finger] Pulse Rhythm Pulse Rhythm [Apical] Pulse Strength [Apical] Respiratory Rate 18 18 Respiratory Effort / Characteristics Non-Labored Spontaneous Respiratory Depth Normal Respiratory Pattern Regular Blood Pressure - Lying 154/90 H Blood Pressure - Sitting 145/81 H Blood Pressure- Standing 125/75 Blood Pressure 158/92 H Blood Pressure [Right Arm] 171/77 H Blood Pressure Mean Blood Pressure Mean [Right Arm] 108 Blood Pressure Position [Right Arm] Sitting Pulse Oximetry 94 94 Oxygen Delivery Method Room Air Room Air 10/31/18 21:00 10/31/18 21:21 10/31/18 22:23 Temperature 36.7 C Temperature Source Oral Sepsis Recent Fever Within 48 Hours Sepsis New/Unexplained Change in Mental Status Sepsis Action Taken by Nursing Pulse Rate - Lying Pulse Rate - Sitting Pulse Rate - Standing Pulse Rate Pulse Rate [Apical] 72 Pulse Rate [Finger] Pulse Rhythm Pulse Rhythm [Apical] Regular Pulse Strength [Apical] Normal Respiratory Rate 18 Respiratory Effort / Characteristics Non-Labored Spontaneous SOB on Exertion Non-Labored Spontaneous Respiratory Depth Normal Normal Normal Respiratory Pattern Regular Blood Pressure - Lying Blood Pressure - Sitting Blood Pressure- Standing Blood Pressure Blood Pressure [Right Arm] 173/61 H Blood Pressure Mean Blood Pressure Mean [Right Arm] 98 Blood Pressure Position [Right Arm] Pulse Oximetry 96 Oxygen Delivery Method Room Air Room Air 10/31/18 23:45 11/01/18 00:05 11/01/18 02:34 Temperature 36.8 C Temperature Source Oral Sepsis Recent Fever Within 48 Hours Sepsis New/Unexplained Change in Mental Status Sepsis Action Taken by Nursing Pulse Rate - Lying Pulse Rate - Sitting Pulse Rate - Standing Pulse Rate 81 Pulse Rate [Apical] Pulse Rate [Finger] 66 Pulse Rhythm Pulse Rhythm [Apical] Pulse Strength [Apical] Respiratory Rate 17 Respiratory Effort / Characteristics Spontaneous SOB on Exertion Respiratory Depth Normal Respiratory Pattern Regular Blood Pressure - Lying Blood Pressure - Sitting Blood Pressure- Standing Blood Pressure Blood Pressure [Right Arm] 136/77 Blood Pressure Mean Blood Pressure Mean [Right Arm] 96 Blood Pressure Position [Right Arm] Lying Pulse Oximetry 94 Oxygen Delivery Method Room Air Room Air GENERAL: alert, well appearing, well nourished, no distress, non-toxic EYE EXAM: normal conjunctiva, PERRL and EOM's grossly intact, mild ptosis of left eye OROPHARYNX: no exudate, no erythema, lips, buccal mucosa, and tongue normal and mucous membranes are dry NECK: supple, no nuchal rigidity, no adenopathy, non-tender, obvious mass to the left face and upper neck LUNGS: Clear to auscultation. Normal chest wall mechanics, no w/r/r HEART: no murmurs, S1 normal and S2 normal ABDOMEN: abdomen soft, non-tender, normo-active bowel sounds, no masses, no rebound or guarding. PEG tube in abdomen with no surrounding erythema, bleeding or discharge BACK: Back is symmetrical on inspection and there is no deformity, no midline tenderness, no CVA tenderness. SKIN: no rashes and no bruising UPPER EXTREMITIES: upper extremities are grossly normal. FROM, nml pulses b/l. LOWER EXTREMITIES: No pitting edema. FROM, nml pulses b/l. NEURO EXAM: Normal sensorium, cranial nerves II-XII grossly intact, normal speech, no gross weakness of arms, no gross weakness of legs. Course 162: Past medical records reviewed. The patient was evaluated in room C12, and a complete history and physical examination were performed. 1904: I reevaluated the patient and he is complaining about pain in his head, face and neck. 1912: I spoke Dr. Cassandra Marcus and he agrees with the plan to admit the patient given the recurrence of syncopal episodes. 1921: Updated the patient on the plan of treatment and he agrees. 1934: I spoke to Dr. Magdaleno Ramirez [facility] Hospitalist about the patient's case and she is going to accept him for further evaluation. Consultations Consultation #1: I spoke Dr. Cassandra Marcus and he agrees with the plan to admit the patient given the recurrence of syncopal episodes. Time: 19:13 Consultation #2: I spoke to Dr. Magdaleno Ramirez [facility] Hospitalist about the patient's case and she is going to accept him for further evaluation. Time: 19:35 Administered Medications Doxazosin Mesylate (Cardura) 1 mg PEG HS MOE Stop: 11/30/18 21:20 Last Admin: 10/31/18 22:22 Dose: 1 mg Enoxaparin Sodium (Lovenox) 40 mg SQ Q24H MOE Stop: 11/30/18 21:59 Last Admin: 10/31/18 22:22 Dose: 40 mg Gabapentin (Neurontin) 300 mg PEG TID MOE Stop: 11/30/18 21:59 Last Admin: 10/31/18 22:23 Dose: 300 mg Guaifenesin (Robitussin Sugar Free Syrup) 400 mg GT Q4H PRN PRN Reason: Cough Stop: 11/30/18 21:47 Last Admin: 10/31/18 22:21 Dose: 400 mg Metoprolol Tartrate (Lopressor) 50 mg PO Q8 MOE Stop: 11/30/18 21:59 Last Admin: 10/31/18 22:21 Dose: 50 mg Morphine Sulfate (Morphine Sulfate) 4 mg IV Q4H PRN PRN Reason: Pain Stop: 11/14/18 21:20 Last Admin: 11/01/18 02:47 Dose: 4 mg Admin: 10/31/18 22:35 Dose: 4 mg Oxycodone HCl (Roxicodone) 5 mg GT Q4H PRN PRN Reason: Pain Stop: 11/14/18 21:51 Last Admin: 10/31/18 22:10 Dose: 5 mg Salmeterol Xinafoate (Serevent Diskus) 1 puffs INH BID MOE Stop: 11/30/18 21:20 Last Admin: 10/31/18 22:22 Dose: 1 puffs Sterile Water (Tube Feeding Water Flush) 0 ea GT Q6 MOE Stop: 12/01/18 00:00 Last Admin: 11/01/18 00:18 Dose: 1 ea Discontinued Medications Sodium Chloride (Nss 1000ml) 1,000 mls @ 250 mls/hr IV .Q4H MOE Stop: 11/30/18 16:44 Last Admin: 10/31/18 21:44 Dose: Not Given Infusion: 10/31/18 21:43 Dose: 0 mls/hr Admin: 10/31/18 20:13 Dose: 250 mls/hr Ioversol (Optiray 320 125ml) 116 ml IV ONCE PRN PRN Reason: Interaction Checking Stop: 11/04/18 18:26 Last Admin: 10/31/18 18:28 Dose: 116 ml Morphine Sulfate (Morphine Sulfate) 4 mg IV NOW STA Stop: 10/31/18 20:03 Last Admin: 10/31/18 20:13 Dose: 4 mg Medical Decision Making Differential Diagnosis Differential diagnosis includes etiologies such as vasovagal event, infection, hypoglycemia, electrolyte abnormalities, cardiac sources, intracerebral event, toxicologic, neurologic, as well as others were entertained. Medical Records Attestation: I reviewed the patient's medical records. Home Medications Current Medication List: was personally reviewed by me Laboratory Data Attestation: I reviewed the patient's lab results. Result diagrams: 10/31/18 16:44 10/31/18 16:47 Lab Results 10/31/18 10/31/18 10/31/18 Range/Units 16:44 16:47 16:47 WBC 10.08 (4.8-10.8) K/uL RBC 3.59 L (4.7-6.1) M/uL Hgb 9.8 L (14.0-18.0) g/dL Hct 32.6 L (42-52) % MCV 90.8 (80-100) fL MCH 27.3 (25-34) pg MCHC 30.1 L (32-36) g/dL RDW Std Deviation 55.0 H (36.4-46.3) fL RDW Coeff of Kobi 16.6 H (11.5-14.5) % Plt Count 218 (130-400) K/uL MPV 11.5 H (7.4-10.4) fL Immature Gran % (Auto) 0.3 % Neut % (Auto) 90.4 % Lymph % (Auto) 5.7 % Kendall % (Auto) 2.5 % Eos % (Auto) 0.8 % Baso % (Auto) 0.3 % Immature Gran # (Auto) 0.03 H (0.00-0.02) K/uL Neut # (Auto) 9.12 H (1.4-6.5) K/uL Lymph # (Auto) 0.57 L (1.2-3.4) K/uL Kendall # (Auto) 0.25 (0.11-0.59) K/uL Eos # (Auto) 0.08 (0-0.5) K/uL Baso # (Auto) 0.03 (0-0.2) K/uL PT 10.5 (9.0-12.0) Seconds INR 1.0 (0.9-1.1) Sodium 135 L (136-145) mmol/L Potassium 4.4 (3.5-5.1) mmol/L Chloride 102 (98-107) mmol/L Carbon Dioxide 30 (21-32) mmol/L Anion Gap 3.0 (3-11) BUN 54 H (7-18) mg/dl Creatinine 1.27 (0.6-1.4) mg/dl Est Cr Clr Drug Dosing 54.6 ml/min Est GFR ( Amer) 65.4 Est GFR (Non-Af Amer) 56.5 BUN/Creatinine Ratio 42.3 H (10-20) Glucose 156 H (70-99) mg/dl POC Lactic Acid Nick (0.90-1.70) mmol/L Calcium 9.1 (8.5-10.1) mg/dl Magnesium 2.2 (1.8-2.4) mg/dl Total Bilirubin 0.2 (0.2-1) mg/dl AST 14 L (15-37) U/L ALT 14 (12-78) U/L Alkaline Phosphatase 82 (45-117) U/L Troponin I < 0.015 (0-0.045) ng/ml NT-Pro-B Natriuret Pep 249 (0-900) pg/ml Total Protein 7.4 (6.4-8.2) gm/dl Albumin 3.3 L (3.4-5.0) gm/dl Globulin 4.1 H (2.5-4.0) gm/dl Albumin/Globulin Ratio 0.8 L (0.9-2) Lipase 60 L (73-393) U/L TSH 3.520 (0.300-4.500) uIu/ml Urine Color Urine Appearance (Clear) Urine pH (4.5-7.5) Ur Specific [place] (1.000-1.030) Urine Protein (Negative) Urine Glucose (UA) (Negative) Urine Ketones (Negative) Urine Blood (Negative) Urine Nitrite (Negative) Urine Bilirubin (Negative) Urine Urobilinogen (Negative) Ur Leukocyte Esterase (Negative) Urine WBC (Auto) (0-5) /hpf Urine RBC (Auto) (0-4) /hpf U Hyaline Cast (Auto) (0-5) /lpf U Epithel Cells (Auto) (0-5) /lpf Urine Bacteria (Auto) (Negative) 10/31/18 10/31/18 Range/Units 16:52 18:24 WBC (4.8-10.8) K/uL RBC (4.7-6.1) M/uL Hgb (14.0-18.0) g/dL Hct (42-52) % MCV (80-100) fL MCH (25-34) pg MCHC (32-36) g/dL RDW Std Deviation (36.4-46.3) fL RDW Coeff of Kobi (11.5-14.5) % Plt Count (130-400) K/uL MPV (7.4-10.4) fL Immature Gran % (Auto) % Neut % (Auto) % Lymph % (Auto) % Kendall % (Auto) % Eos % (Auto) % Baso % (Auto) % Immature Gran # (Auto) (0.00-0.02) K/uL Neut # (Auto) (1.4-6.5) K/uL Lymph # (Auto) (1.2-3.4) K/uL Kendall # (Auto) (0.11-0.59) K/uL Eos # (Auto) (0-0.5) K/uL Baso # (Auto) (0-0.2) K/uL PT (9.0-12.0) Seconds INR (0.9-1.1) Sodium (136-145) mmol/L Potassium (3.5-5.1) mmol/L Chloride (98-107) mmol/L Carbon Dioxide (21-32) mmol/L Anion Gap (3-11) BUN (7-18) mg/dl Creatinine (0.6-1.4) mg/dl Est Cr Clr Drug Dosing ml/min Est GFR ( Amer) Est GFR (Non-Af Amer) BUN/Creatinine Ratio (10-20) Glucose (70-99) mg/dl POC Lactic Acid Nick 1.08 (0.90-1.70) mmol/L Calcium (8.5-10.1) mg/dl Magnesium (1.8-2.4) mg/dl Total Bilirubin (0.2-1) mg/dl AST (15-37) U/L ALT (12-78) U/L Alkaline Phosphatase (45-117) U/L Troponin I (0-0.045) ng/ml NT-Pro-B Natriuret Pep (0-900) pg/ml Total Protein (6.4-8.2) gm/dl Albumin (3.4-5.0) gm/dl Globulin (2.5-4.0) gm/dl Albumin/Globulin Ratio (0.9-2) Lipase (73-393) U/L TSH (0.300-4.500) uIu/ml Urine Color Yellow Urine Appearance Clear (Clear) Urine pH 6.5 (4.5-7.5) Ur Specific [place] 1.028 (1.000-1.030) Urine Protein 1+ H (Negative) Urine Glucose (UA) Negative (Negative) Urine Ketones Negative (Negative) Urine Blood Negative (Negative) Urine Nitrite Negative (Negative) Urine Bilirubin Negative (Negative) Urine Urobilinogen Negative (Negative) Ur Leukocyte Esterase Negative (Negative) Urine WBC (Auto) 1-5 (0-5) /hpf Urine RBC (Auto) 0-4 (0-4) /hpf U Hyaline Cast (Auto) 1-5 (0-5) /lpf U Epithel Cells (Auto) 5-10 H (0-5) /lpf Urine Bacteria (Auto) Negative (Negative) Imaging Data Radiologist's Impression: Radiology results as stated below per my review and the radiologist's interpretation: SINGLE VIEW CHEST CLINICAL HISTORY: Syncope. FINDINGS: An AP, portable, upright chest radiograph is compared to study dated and correlated with chest CT dated 03/28/2018. The examination is degraded by portable technique and patient rotation. The patient is status post midline sternotomy. The heart is top normal for projection. The pulmonary vasculature is noncongested. Chronic interstitial thickening is similar to previous. No airspace consolidation or large pleural effusion is identified. Apical scarring is noted. No pneumothorax is seen. The skeletal structures are osteopenic. The bony thorax is grossly intact. Fusion hardware is noted in the lower cervical spine. Stents are present in carotid arteries bilaterally. Surgical clips are noted in the left neck. IMPRESSION: No acute cardiopulmonary abnormality. Electronically signed by: Rito García M.D. 10/31/2018 4:[address] SCAN OF THE BRAIN WITHOUT IV CONTRAST CLINICAL HISTORY: Headache. Syncope. COMPARISON STUDY: CT of the brain dated 10/24/2018. TECHNIQUE: Unenhanced axial CT scan of the brain is performed from the vertex to the skull base. A dose lowering technique was utilized adhering to the principles of ALARA. FINDINGS: Brain parenchyma: There are age-related involutional changes noting mild subcortical and periventricular microangiopathic change. Tiny foci of left frontal and left parietal encephalomalacia are consistent with remote infarcts. There is no hemorrhage, mass effect, or evidence of acute territorial ischemia by CT criteria. Matta-white matter differentiation is preserved. No extra-axial fluid collection is seen. Ventricles, sulci, cisterns: Prominent secondary to involutional change. Intracranial vasculature: There is atherosclerotic calcification of the cavernous carotid and vertebral arteries. Calvarium: Unremarkable. Sinuses and mastoids: There is trace mucosal thickening within the ethmoid and left sphenoid sinuses. The mastoid air cells are well pneumatized. Orbits: The bony orbits are grossly intact. IMPRESSION: There is no hemorrhage, mass effect, or evidence of acute territorial ischemia by CT criteria. Electronically signed by: Rito García M.D. 10/31/2018 6:15 PM CTA ANGIOGRAPHY OF THE HEAD CLINICAL HISTORY: Headache. Neck mass. COMPARISON STUDY: Head CT October 24, 2018 and October 31, 2018. TECHNIQUE: Helical axial images of the head were obtained following uneventful intravenous administration of 115 cc of Optiray 320. Automated exposure control was utilized for the study. A dose lowering technique was utilized adhering to the principles of ALARA. FINDINGS: Please note that the CTA of the neck will be reported separately. No acute intracranial hemorrhage, midline shift or mass effect is present. A few old infarcts are noted. Ventricular system is normal. The basilar cisterns are patent. There are no extra-axial collections. There is mild atherosclerotic plaque within the bilateral cavernous carotids. No intracranial aneurysm, dissection or abrupt vessel cut off is identified. The bilateral M1, M2, A1 and A2 segments are patent. The posterior circulation is also intact. IMPRESSION: Unremarkable CTA of the head for age. Electronically signed by: Augie Briseno M.D. 10/31/2018 6:[address] ANGIOGRAPHY OF THE NECK WITH CONTRAST CLINICAL HISTORY: Neck mass. Esophageal cancer. COMPARISON STUDY: Carotid ultrasound July 29, 2011. PET/CT September 16, 2018. Technique: CT angiography of the carotid and vertebral arteries was obtained using Optiray 320 IV and 3D reconstruction on an independent workstation. NASCET criteria was utilized. Automated exposure control was utilized for the study. A dose lowering technique was utilized adhering to the principles of ALARA. Findings: Please note that the chest CT will be reported separately. A left lower neck mass has increased in size since PET/CT of September 16, 2018. This mass measures approximately 7.5 x 4.2 cm. It previously measured 6.5 x 3.5 cm. The mass/conglomerate adenopathy encases the left common carotid artery which is patent. There are bilateral carotid stents which are patent. There is irregularity with beaded appearance of the proximal right internal carotid artery with mild multifocal stenoses. There is tortuosity of the proximal left internal carotid artery with mild multifocal stenoses. A linear defect within the distal left common carotid artery is probably post surgical. The bilateral vertebral arteries are patent. No additional cervical masses are present. Postoperative findings within the left neck are noted. Chest CT will be reported separate. IMPRESSION: 1. Moderate increase in size of a left lower neck mass which measures 7.5 x 4.2 cm since PET/CT of September 08, 2018. This is consistent with malignancy. This mass/conglomerate adenopathy encases the left common carotid artery which is patent. 2. Patent bilateral carotid stents. Mild multifocal stenoses with vascular irregularity within the proximal bilateral internal carotid arteries. 3. Patent bilateral vertebral arteries. Electronically signed by: Augie Briseno M.D. 10/31/2018 6:[address] ANGIOGRAM OF THE CHEST CLINICAL HISTORY: Syncope. COMPARISON STUDY: Chest x-ray dated 10/31/2018. Chest CT scans dated 03/28/2018 and 07/17/2017. PET CT dated 10/21/2011. TECHNIQUE: Following the IV administration of 115 cc of Optiray 320, CT angiogram of the chest was performed from the upper abdomen to the thoracic inlet utilizing the pulmonary embolus protocol. Images are reviewed in the axial , sagittal, and coronal planes. 3-D MIPS images are created and assessed. IV contrast was administered without complication. A dose lowering technique was utilized adhering to the principles of ALARA. The examination is compromised by motion artifact, as well as by streak artifact from the arms which could not be elevated above the chest. FINDINGS: Lower neck: There is a large mass lesion centered in the left lower neck around the carotid artery. This measures approximately 7.5 x 6 cm and appears increased in size from the 09/16/2018 PET examination. This encases the left carotid artery, and bilateral carotid artery stents are in place. Numerous surgical clips are seen in the neck. This lesion causes mass effect on the adjacent pharynx. 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 The right lobe appears atrophic. Thoracic aorta: There is mild atherosclerotic calcification of the thoracic aorta, which is normal in caliber and demonstrates standard 3-vessel arch anatomy. No dissection is seen. Pulmonary vasculature: The pulmonary trunk is normal in caliber. There are no filling defects identified in main, lobar, or segmental pulmonary branches to suggest pulmonary embolus. Heart: The patient is status post midline sternotomy. The heart is normal in size and without pericardial effusion. Lungs and pleural spaces: Evaluation of the lung parenchyma is modestly degraded by motion artifact. There is no airspace consolidation or pleural effusion. Bibasilar scarring/atelectasis is observed. There are scattered calcified granulomas. The trachea and central airways are clear. Mediastinum: There is no mediastinal lymphadenopathy. Prema: Clear. Axillae: There is no axillary lymphadenopathy. Upper abdomen: A gastrostomy tube is in place. Reflux of contrast is noted in the IVC and hepatic veins. Skeletal structures: The skeletal structures are osteopenic. An osteoblastic focus within the right lateral 8th rib, as is a focus in the left anterior 7th rib. Fusion hardware is noted in the lower cervical spine. A subacute right posterior 11th rib fracture is unchanged. A superior plate compression deformity of L2 is partially imaged. IMPRESSION: 1. Streak and motion compromised examination. 2. There is no evidence of pulmonary embolus in the main, lobar, or segmental pulmonary arteries. 3. There is no airspace consolidation or pleural effusion. 4. A large mass lesion in the left lower neck centered around the left carotid artery has increased in size from 09/16/2018. 5. Sclerotic foci within bilateral ribs are similar to previous. Electronically signed by: Rito García M.D. 10/31/2018 6:36 PM ECG Data Attestation: I personally reviewed and interpreted this ECG as follows: Indication: syncope Rate (beats per minute): 70 Rhythm: sinus rhythm Findings: + other (Right axis deviation) and + PVC; no acute ischemic change Blood Pressure Blood Pressure Findings: Elevated blood pressure Blood Pressure Disposition: further management by hospitalist MDM Narrative Pt here denying any additional symptoms. Pt with similar episode last week and was admitted. Case discussed with oncology given pt is set to start chemo this week. Pt with prodromal symptoms suggestive of a vasovagal component, however, given additional recurrence, concern for alternative etiology also. Pt with no significant cardiac hx per his report, but has risk factors for ACS, and mentions he had previously been told he had a.fib. No dysrhythmia noted on tele , only occasional PVC's. Pt given IVF. No findings to suggest bactereamia/ sepsis. Pt made aware of all results and was in agreement with the plan. Pt hemodynamically stable while in the ER. Impression & Plan Syncope, Weakness, Cancer of neck, Anemia Discharge Plan Visit Data *Final* Discharge Date/Time: 10/31/18 20:50 Chief Complaint: Syncope Stated Complaint: SYNCOPE X2 ED Provider: Sylvia Sahu Discharge Problem: Syncope, Weakness, Cancer of neck, Anemia Patient Disposition: Admitted As Inpatient Condition: Fair Discharge Instructions Interventions: ED Discharge Assessment Last Done: 10/31/18 20:50 The scribe's documentation has been prepared under my direction and personally reviewed by me in its entirety. I confirm that the note above accurately reflects all work, treatment, procedures, and medical decision making performed by me.
--- NOTE | 2018-11-01 03:08 | History & Physical Report ---
Date of Service October 31, 2018 Assessment & Plan (1) Syncope: Recurrent, +prodrome ?vasovagal vs mechanical component with tumor causing compression -Telemetry -Check echo -Oncology consult - appreciate assistance -Consider cardiology consultation (2) Cancer of neck: -Oncology consult as above -Patient to start chemo this week (3) Hyperlipidemia: -Continue Lipitor 20mg po daily (4) BPH (benign prostatic hypertrophy): -Continue Doxazosin F/E/N - NSS x 500mL, monitor electrolytes and replete as needed, TF - patient takes 2-jamel 1 8oz can QID as well as ProSource QID and HiFiber 1 Tbsp QID, Dietary consulted. Will give Boost x 1 can for dinner. Free H2O flushes. MOnitor electrolytes Ppx - Lovenox. 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 He presents today with syncope. Patient was admitted for the same earlier this month (10/24/18). His prior admission he reports that he got up from sleeping on his left side and was walking to the bathroom. He became dizzy and nauseated and fell x 3. He was admitted x 2 days. Thought to be secondary to vasovagal syncope. Concern for mass effect near the carotid bulb contributing to symptoms. He was discharged home in stable condition. Patient presents today with recurrent syncopal event. Reports that today around 14:00 he had just completed a tube feeding and he got up and was walking to the bathroom. As before, he became dizzy and nauseated as well as weak and sweaty. He blacked out before he got the the bathroom and then again on the commode. Episodes were witnessed by his . Lasted appx 1 minute Patient denies chest pain, palpitations, prior syncopal events aside from those mentioned above. Syncope has no positional component, no symptoms with shaving or turning head. No symptoms occurring with meals or with urination or defecation. Patient denies relationship with medication timing and syncope. Allergies Allergy/AdvReac Type Severity Reaction Status Date / Time latex Allergy Unknown patient Verified 10/31/18 17:21 states had allergy tests which tested + No Known Drug Allergies Allergy Unknown NKDA Verified 10/31/18 17:21 Home Medications Home Medications Medication Instructions Recorded Confirmed Type acetaminophen [Acetaminophen Extra 500 mg PO Q4 PRN 08/29/18 10/31/18 History Strength] allopurinol 300 mg PO DAILY 08/29/18 10/31/18 History aspirin [Aspir-81] 81 mg PO DAILY 08/29/18 10/31/18 History atorvastatin 20 mg PO DAILY 08/29/18 10/31/18 History citalopram 20 mg PO DAILY 08/29/18 10/31/18 History clopidogrel [Plavix] 75 mg PO DAILY 08/29/18 10/31/18 History doxazosin 1 mg PO HS 08/29/18 10/31/18 History gabapentin 300 mg PO TID 08/29/18 10/31/18 History metaxalone 800 mg PO TID PRN 08/29/18 10/31/18 History metoprolol tartrate 50 mg PO Q8 08/29/18 10/31/18 History salmeterol [Serevent Diskus] 1 inh INHALATION BID 08/29/18 10/31/18 History B1,B2,B3,B6,C66-mvwxhj-Om-navu 5 ml PO DAILY 10/24/18 10/31/18 History [Eldertonic] artificial saliva (yerbas-lyt) 1 applic MUCOUS MEMBRANE QID PRN 10/24/18 History [Mouth Kote] calcium caseinate-whey [ProSource] 1 packet PO TID 10/24/18 10/31/18 History fructoligosaccharides-polydex 1 packet PO TID 10/24/18 10/31/18 History [HyFiber with FOS] guaifenesin 20 ml PO Q4 PRN 10/24/18 10/31/18 History lansoprazole 30 mg PO DAILY 10/24/18 10/31/18 History multivitamin [Multiple Vitamins] 1 tab PO DAILY 10/24/18 10/31/18 History oxycodone 5 ml PO Q4 PRN #0 ml 10/25/18 10/31/18 Rx ondansetron HCl 4 mg PO DAILY PRN 10/31/18 10/31/18 History Past Med/Surg History Medical History Anxiety Fatty liver (Chronic) Pulmonary nodules (Chronic) BPH (benign prostatic hypertrophy) (Chronic) Hyperlipidemia (Chronic) Cervical stenosis of spinal canal 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" Bacteremia Beta-hemolytic group B streptococcal sepsis Pneumonia CKD (chronic kidney disease) stage 3, GFR 30-59 ml/min CVA (cerebral vascular accident) Hypertension Surgical History S/P tonsillectomy (Chronic) H/O colonoscopy (Chronic) Hx of esophagogastroduodenoscopy (Chronic) H/O umbilical hernia repair (Chronic) Family History Other Hepatocellular carcinoma Lung cancer Social History Current Living Situation: Spouse Other Information That Helps Us Care for You: Yes Feels Safe at Home: Yes Safety Concerns: Feels Safe At This Time Smoking Status: Former smoker Hx Alcohol Use: No Hx Substance Use: No Beliefs That Will Affect Care: None Preferred Language: Swedish Communication Ability: Effective Dementia Program Director Required: No Review of Systems All systems reviewed & are unremarkable except as noted in HPI & below occasional palpitations - no relation with syncope and palpitations or exertion nausea Physical Exam 2 Vital Signs (Past 24 Hours): Last Vital Signs Temp 36.8 C 11/01/18 00:05 Pulse 81 11/01/18 02:34 Resp 17 11/01/18 00:05 BP 136/77 11/01/18 00:05 Pulse Ox 94 11/01/18 00:05 Physical Exam: General: patient resting comfortably, NAD, non-toxic in appearance, AA&O x 4 Skin: warm, dry, intact, no rashes or lesions HEENT: NC/AT, PERRL, EOMI, anicteric sclera, conjunctiva without injection, external ear normal to inspection and nontender, nares patent, moist mucus membranes, dentition intact, no oropharyngeal lesions, neck supple, trachea midline, no LAD, no thyromegaly, no JVD, large firm mass on left side of face/ neck. Heart: +S1/S2, regular, no m/r/g Lungs: equal air entry bilaterally, no rales/rhonchi/wheezes Abd: +BS, soft, NT/ND, no masses/organomegaly/ascites Ext: warm, 2+ pulses in UE/LE bilaterally, no clubbing/cyanosis or edema Neuro: nonfocal, patient AA&O x 4, speech intact, no facial droop, moving all extremities on command with equal strength 5/5 Results & Data Laboratory Results Lab Results 10/31/18 10/31/18 10/31/18 Range/Units 16:44 16:47 16:47 WBC 10.08 (4.8-10.8) K/uL RBC 3.59 L (4.7-6.1) M/uL Hgb 9.8 L (14.0-18.0) g/dL Hct 32.6 L (42-52) % MCV 90.8 (80-100) fL MCH 27.3 (25-34) pg MCHC 30.1 L (32-36) g/dL RDW Std Deviation 55.0 H (36.4-46.3) fL RDW Coeff of Kobi 16.6 H (11.5-14.5) % Plt Count 218 (130-400) K/uL MPV 11.5 H (7.4-10.4) fL Immature Gran % (Auto) 0.3 % Neut % (Auto) 90.4 % Lymph % (Auto) 5.7 % Charlton % (Auto) 2.5 % Eos % (Auto) 0.8 % Baso % (Auto) 0.3 % Immature Gran # (Auto) 0.03 H (0.00-0.02) K/uL Neut # (Auto) 9.12 H (1.4-6.5) K/uL Lymph # (Auto) 0.57 L (1.2-3.4) K/uL Charlton # (Auto) 0.25 (0.11-0.59) K/uL Eos # (Auto) 0.08 (0-0.5) K/uL Baso # (Auto) 0.03 (0-0.2) K/uL PT 10.5 (9.0-12.0) Seconds INR 1.0 (0.9-1.1) Sodium 135 L (136-145) mmol/L Potassium 4.4 (3.5-5.1) mmol/L Chloride 102 (98-107) mmol/L Carbon Dioxide 30 (21-32) mmol/L Anion Gap 3.0 (3-11) BUN 54 H (7-18) mg/dl Creatinine 1.27 (0.6-1.4) mg/dl Est Cr Clr Drug Dosing 54.6 ml/min Est GFR ( Amer) 65.4 Est GFR (Non-Af Amer) 56.5 BUN/Creatinine Ratio 42.3 H (10-20) Glucose 156 H (70-99) mg/dl POC Lactic Acid Nick (0.90-1.70) mmol/L Calcium 9.1 (8.5-10.1) mg/dl Magnesium 2.2 (1.8-2.4) mg/dl Total Bilirubin 0.2 (0.2-1) mg/dl AST 14 L (15-37) U/L ALT 14 (12-78) U/L Alkaline Phosphatase 82 (45-117) U/L Troponin I < 0.015 (0-0.045) ng/ml NT-Pro-B Natriuret Pep 249 (0-900) pg/ml Total Protein 7.4 (6.4-8.2) gm/dl Albumin 3.3 L (3.4-5.0) gm/dl Globulin 4.1 H (2.5-4.0) gm/dl Albumin/Globulin Ratio 0.8 L (0.9-2) Lipase 60 L (73-393) U/L TSH 3.520 (0.300-4.500) uIu/ml Urine Color Urine Appearance (Clear) Urine pH (4.5-7.5) Ur Specific [place] (1.000-1.030) Urine Protein (Negative) Urine Glucose (UA) (Negative) Urine Ketones (Negative) Urine Blood (Negative) Urine Nitrite (Negative) Urine Bilirubin (Negative) Urine Urobilinogen (Negative) Ur Leukocyte Esterase (Negative) Urine WBC (Auto) (0-5) /hpf Urine RBC (Auto) (0-4) /hpf U Hyaline Cast (Auto) (0-5) /lpf U Epithel Cells (Auto) (0-5) /lpf Urine Bacteria (Auto) (Negative) 10/31/18 10/31/18 Range/Units 16:52 18:24 WBC (4.8-10.8) K/uL RBC (4.7-6.1) M/uL Hgb (14.0-18.0) g/dL Hct (42-52) % MCV (80-100) fL MCH (25-34) pg MCHC (32-36) g/dL RDW Std Deviation (36.4-46.3) fL RDW Coeff of Kobi (11.5-14.5) % Plt Count (130-400) K/uL MPV (7.4-10.4) fL Immature Gran % (Auto) % Neut % (Auto) % Lymph % (Auto) % Charlton % (Auto) % Eos % (Auto) % Baso % (Auto) % Immature Gran # (Auto) (0.00-0.02) K/uL Neut # (Auto) (1.4-6.5) K/uL Lymph # (Auto) (1.2-3.4) K/uL Charlton # (Auto) (0.11-0.59) K/uL Eos # (Auto) (0-0.5) K/uL Baso # (Auto) (0-0.2) K/uL PT (9.0-12.0) Seconds INR (0.9-1.1) Sodium (136-145) mmol/L Potassium (3.5-5.1) mmol/L Chloride (98-107) mmol/L Carbon Dioxide (21-32) mmol/L Anion Gap (3-11) BUN (7-18) mg/dl Creatinine (0.6-1.4) mg/dl Est Cr Clr Drug Dosing ml/min Est GFR ( Amer) Est GFR (Non-Af Amer) BUN/Creatinine Ratio (10-20) Glucose (70-99) mg/dl POC Lactic Acid Nick 1.08 (0.90-1.70) mmol/L Calcium (8.5-10.1) mg/dl Magnesium (1.8-2.4) mg/dl Total Bilirubin (0.2-1) mg/dl AST (15-37) U/L ALT (12-78) U/L Alkaline Phosphatase (45-117) U/L Troponin I (0-0.045) ng/ml NT-Pro-B Natriuret Pep (0-900) pg/ml Total Protein (6.4-8.2) gm/dl Albumin (3.4-5.0) gm/dl Globulin (2.5-4.0) gm/dl Albumin/Globulin Ratio (0.9-2) Lipase (73-393) U/L TSH (0.300-4.500) uIu/ml Urine Color Yellow Urine Appearance Clear (Clear) Urine pH 6.5 (4.5-7.5) Ur Specific [place] 1.028 (1.000-1.030) Urine Protein 1+ H (Negative) Urine Glucose (UA) Negative (Negative) Urine Ketones Negative (Negative) Urine Blood Negative (Negative) Urine Nitrite Negative (Negative) Urine Bilirubin Negative (Negative) Urine Urobilinogen Negative (Negative) Ur Leukocyte Esterase Negative (Negative) Urine WBC (Auto) 1-5 (0-5) /hpf Urine RBC (Auto) 0-4 (0-4) /hpf U Hyaline Cast (Auto) 1-5 (0-5) /lpf U Epithel Cells (Auto) 5-10 H (0-5) /lpf Urine Bacteria (Auto) Negative (Negative) Diagnostic Findings CT ANGIOGRAM OF THE CHEST CLINICAL HISTORY: Syncope. COMPARISON STUDY: Chest x-ray dated 10/31/2018. Chest CT scans dated 03/28/2018 and 07/17/2017. PET CT dated 10/21/2011. TECHNIQUE: Following the IV administration of 115 cc of Optiray 320, CT angiogram of the chest was performed from the upper abdomen to the thoracic inlet utilizing the pulmonary embolus protocol. Images are reviewed in the axial , sagittal, and coronal planes. 3-D MIPS images are created and assessed. IV contrast was administered without complication. A dose lowering technique was utilized adhering to the principles of ALARA. The examination is compromised by motion artifact, as well as by streak artifact from the arms which could not be elevated above the chest. FINDINGS: Lower neck: There is a large mass lesion centered in the left lower neck around the carotid artery. This measures approximately 7.5 x 6 cm and appears increased in size from the 09/16/2018 PET examination. This encases the left carotid artery, and bilateral carotid artery stents are in place. Numerous surgical clips are seen in the neck. This lesion causes mass effect on the adjacent pharynx. 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 The right lobe appears atrophic. Thoracic aorta: There is mild atherosclerotic calcification of the thoracic aorta, which is normal in caliber and demonstrates standard 3-vessel arch anatomy. No dissection is seen. Pulmonary vasculature: The pulmonary trunk is normal in caliber. There are no filling defects identified in main, lobar, or segmental pulmonary branches to suggest pulmonary embolus. Heart: The patient is status post midline sternotomy. The heart is normal in size and without pericardial effusion. Lungs and pleural spaces: Evaluation of the lung parenchyma is modestly degraded by motion artifact. There is no airspace consolidation or pleural effusion. Bibasilar scarring/atelectasis is observed. There are scattered calcified granulomas. The trachea and central airways are clear. Mediastinum: There is no mediastinal lymphadenopathy. Prema: Clear. Axillae: There is no axillary lymphadenopathy. Upper abdomen: A gastrostomy tube is in place. Reflux of contrast is noted in the IVC and hepatic veins. Skeletal structures: The skeletal structures are osteopenic. An osteoblastic focus within the right lateral 8th rib, as is a focus in the left anterior 7th rib. Fusion hardware is noted in the lower cervical spine. A subacute right posterior 11th rib fracture is unchanged. A superior plate compression deformity of L2 is partially imaged. IMPRESSION: 1. Streak and motion compromised examination. 2. There is no evidence of pulmonary embolus in the main, lobar, or segmental pulmonary arteries. 3. There is no airspace consolidation or pleural effusion. 4. A large mass lesion in the left lower neck centered around the left carotid artery has increased in size from 09/16/2018. 5. Sclerotic foci within bilateral ribs are similar to previous. Electronically signed by: Rito García M.D. 10/31/2018 6:36 PM Dictated: 10/31/18 1821 SINGLE VIEW CHEST CLINICAL HISTORY: Syncope. FINDINGS: An AP, portable, upright chest radiograph is compared to study dated and correlated with chest CT dated 03/28/2018. The examination is degraded by portable technique and patient rotation. The patient is status post midline sternotomy. The heart is top normal for projection. The pulmonary vasculature is noncongested. Chronic interstitial thickening is similar to previous. No airspace consolidation or large pleural effusion is identified. Apical scarring is noted. No pneumothorax is seen. The skeletal structures are osteopenic. The bony thorax is grossly intact. Fusion hardware is noted in the lower cervical spine. Stents are present in carotid arteries bilaterally. Surgical clips are noted in the left neck. IMPRESSION: No acute cardiopulmonary abnormality. Electronically signed by: Rito García M.D. 10/31/2018 4:56 PM Dictated: 10/31/18 1655 Transcribed: 10/31/[address] SCAN OF THE BRAIN WITHOUT IV CONTRAST CLINICAL HISTORY: Headache. Syncope. COMPARISON STUDY: CT of the brain dated 10/24/2018. TECHNIQUE: Unenhanced axial CT scan of the brain is performed from the vertex to the skull base. A dose lowering technique was utilized adhering to the principles of ALARA. FINDINGS: Brain parenchyma: There are age-related involutional changes noting mild subcortical and periventricular microangiopathic change. Tiny foci of left frontal and left parietal encephalomalacia are consistent with remote infarcts. There is no hemorrhage, mass effect, or evidence of acute territorial ischemia by CT criteria. Matta-white matter differentiation is preserved. No extra-axial fluid collection is seen. Ventricles, sulci, cisterns: Prominent secondary to involutional change. Intracranial vasculature: There is atherosclerotic calcification of the cavernous carotid and vertebral arteries. Calvarium: Unremarkable. Sinuses and mastoids: There is trace mucosal thickening within the ethmoid and left sphenoid sinuses. The mastoid air cells are well pneumatized. Orbits: The bony orbits are grossly intact. IMPRESSION: There is no hemorrhage, mass effect, or evidence of acute territorial ischemia by CT criteria. Electronically signed by: Rito García M.D. 10/31/2018 6:15 PM CTA ANGIOGRAPHY OF THE HEAD CLINICAL HISTORY: Headache. Neck mass. COMPARISON STUDY: Head CT October 24, 2018 and October 31, 2018. TECHNIQUE: Helical axial images of the head were obtained following uneventful intravenous administration of 115 cc of Optiray 320. Automated exposure control was utilized for the study. A dose lowering technique was utilized adhering to the principles of ALARA. FINDINGS: Please note that the CTA of the neck will be reported separately. No acute intracranial hemorrhage, midline shift or mass effect is present. A few old infarcts are noted. Ventricular system is normal. The basilar cisterns are patent. There are no extra-axial collections. There is mild atherosclerotic plaque within the bilateral cavernous carotids. No intracranial aneurysm, dissection or abrupt vessel cut off is identified. The bilateral M1, M2, A1 and A2 segments are patent. The posterior circulation is also intact. IMPRESSION: Unremarkable CTA of the head for age. Electronically signed by: Augie Briseno M.D. 10/31/2018 6:[address] ANGIOGRAPHY OF THE NECK WITH CONTRAST CLINICAL HISTORY: Neck mass. Esophageal cancer. COMPARISON STUDY: Carotid ultrasound July 29, 2011. PET/CT September 16, 2018. Technique: CT angiography of the carotid and vertebral arteries was obtained using [employer]ra[employer]zasa 320 IV and 3D reconstruction on an independent workstation. NASCET criteria was utilized. Automated exposure control was utilized for the study. A dose lowering technique was utilized adhering to the principles of ALARA. Findings: Please note that the chest CT will be reported separately. A left lower neck mass has increased in size since PET/CT of September 16, 2018. This mass measures approximately 7.5 x 4.2 cm. It previously measured 6.5 x 3.5 cm. The mass/conglomerate adenopathy encases the left common carotid artery which is patent. There are bilateral carotid stents which are patent. There is irregularity with beaded appearance of the proximal right internal carotid artery with mild multifocal stenoses. There is tortuosity of the proximal left internal carotid artery with mild multifocal stenoses. A linear defect within the distal left common carotid artery is probably post surgical. The bilateral vertebral arteries are patent. No additional cervical masses are present. Postoperative findings within the left neck are noted. Chest CT will be reported separate. IMPRESSION: 1. Moderate increase in size of a left lower neck mass which measures 7.5 x 4.2 cm since PET/CT of September 08, 2018. This is consistent with malignancy. This mass/conglomerate adenopathy encases the left common carotid artery which is patent. 2. Patent bilateral carotid stents. Mild multifocal stenoses with vascular irregularity within the proximal bilateral internal carotid arteries. 3. Patent bilateral vertebral arteries. Electronically signed by: Augie Briseno M.D. 10/31/2018 6:42 PM ECG Additional Comments: NSR at 70bpm with PVCs, right axis, MY=649, QRS=94, EBm=368 , no ischemia Code Status & VTE Plan Code Status dnr VTE Prophylaxis Plan VTE Prophylaxis will be ordered: Yes Critical Care Time Critical Care Time: No _ (1) Syncope Encounter type: Syncope type: unspecified Qualified Code(s): R55 - Syncope and collapse (2) Hyperlipidemia Hyperlipidemia type: unspecified Qualified Code(s): E78.5 - Hyperlipidemia, unspecified (3) BPH (benign prostatic hypertrophy) Lower urinary tract symptom presence: symptoms absent Qualified Code(s): N40.0 - Benign prostatic hyperplasia without lower urinary tract symptoms
[2018-11-01] MEDS: OXYCODONE HCL SOLN 5 MG/5 ML UDC GT PRN ×2 (03:29→10:32)
[2018-11-01 05:41] LABS: Basophils # (auto) 0.05 K/uL (0-0.2); Basophils % (auto) 0.6 %; Eosinophils # (auto) 0.21 K/uL (0-0.5); Eosinophils % (auto) 2.4 %; Hematocrit (blood only) 32.3 % (42-52); Hemoglobin 9.7 g/dL (14.0-18.0); Immature Granulocytes # (auto) 0.01 K/uL (0.00-0.02); Immature Granulocytes % (auto) 0.1 %; Lymphocytes # (auto) 0.84 K/uL (1.2-3.4); Lymphocytes % (auto) 9.4 %; Mean Corpuscular Volume 90.2 fL (80-100); Mean Platelet Volume 11.1 fL (7.4-10.4); Monocytes # (auto) 0.85 K/uL (0.11-0.59); Monocytes % (auto) 9.6 %; Neutrophils # (auto) 6.93 K/uL (1.4-6.5); Neutrophils % (auto) 77.9 %; Platelet Count 221 K/uL (130-400); RDW Coefficient of Variation 16.4 % (11.5-14.5); RDW Standard Deviation 54.2 fL (36.4-46.3); Red Blood Count 3.58 M/uL (4.7-6.1); White Blood Count 8.89 K/uL (4.8-10.8)
[2018-11-01] MEDS: METOPROLOL TARTRATE 50 MG TAB PO SCH ×3 (06:11→21:02)
[2018-11-01 06:16] LABS: BUN Creatinine Ratio 42.9 (10-20); Calcium 9.2 mg/dl (8.5-10.1); Creatinine Clr Calc Pharmacy 62.1 ml/min; Est GFR (African American) 85.3; Est GFR (Non-African American) 73.6; Potassium 3.8 mmol/L (3.5-5.1)
[2018-11-01] MEDS: SALMETEROL XINAFOATE 50MCG 28 BLISTER INH INH SCH ×2 (08:16→21:03)
[2018-11-01] MEDS: MULTI VIT W/MINERALS LIQUID 15 ML UDP PEG SCH (08:16)
[2018-11-01] MEDS: CLOPIDOGREL BISULFATE 75 MG TAB PEG SCH (08:17)
[2018-11-01] MEDS: ATORVASTATIN 20 MG TAB PEG SCH (08:17)
[2018-11-01] MEDS: ALLOPURINOL 300 MG TAB PEG SCH (08:17)
[2018-11-01] MEDS: LANSOPRAZOLE 30 MG SOLTAB PEG SCH (08:18)
[2018-11-01] MEDS: CITALOPRAM 20 MG TAB PEG SCH (08:18)
[2018-11-01] MEDS: GABAPENTIN 250 MG/5 ML 470 ML BTL PEG SCH ×3 (08:20→21:02)
[2018-11-01] MEDS ORDERED: CLOPIDOGREL BISULFATE 75 MG TAB PO SCH (09:00)
[2018-11-01] MEDS ORDERED: ALLOPURINOL 300 MG TAB PO SCH (09:00)
[2018-11-01] MEDS ORDERED: [UNRECOGNIZED DRUG - MIXTURE] PO SCH (09:00)
[2018-11-01] MEDS ORDERED: MULTIVITAMIN TAB PO SCH (09:00)
[2018-11-01] MEDS ORDERED: PANTOprazole 40 MG TAB PO SCH (09:00)
[2018-11-01] MEDS ORDERED: CITALOPRAM 20 MG TAB PO SCH (09:00)
[2018-11-01] MEDS ORDERED: ATORVASTATIN 20 MG TAB PO SCH (09:00)
--- NOTE | 2018-11-01 11:51 | Family Medicine Progress Note ---
Date of Service November 01, 2018 Assessment & Plan (1) Syncope: 73-year-old male with past medical history of tonsillar and cricopharyngeal cancer presents with syncope. He was recently admitted on 2018 for recurrent syncope and was discharged with diagnosis of vasovagal syncope. During that admission, there was some concern that there was a mass- effect near the carotid bulb. Syncope Concern for tumor compression versus vasovagal syncope, versus orthostasis, versus medication adverse effects -Also entertaining the possibility of cluster headache vs temporal arteritis considering prodromal unilateral headache with visual disturbances--will order ESR with am labs We will follow-up with echocardiogram, patient being followed on telemetry Orthostatic blood pressures ordered and were positive. Peg tube flushed with 1 L water. Started IVF 100 mls - If persistently orthostatic - consider holding doxazosin. - Concomitant narcotic med use could be contributing as well. Past medical history of head neck cancer Consult placed for oncology Hyperlipidemia/CAD/hypertension Continue Lipitor 20 mg Continue metoprolol, Plavix BPH Continue doxazosin Depression Continue citalopram Gout Continue allopurinol DVT prophylaxis Lovenox FEN - NS 100 mls/hr (2) Anemia: (3) Weakness: (4) Cancer of neck: (5) Cancer of hypopharynx: (6) Weakness: (7) Syncope: (8) Hypoxia: Supervising Physician Co-Signing Physician Notes Resident Physician Supervision Note: I independently interviewed and examined the patient and verified the rosenberg history and physical, reviewed labs and image studies, discussed the case with the resident Dr. Jane and agree with the findings and care plan. Subjective 73-year-old male with past medical history of tonsillar and cricopharyngeal cancer presents with syncope. He was recently admitted on 10/24/2018 for recurrent syncope and was discharged with diagnosis of vasovagal syncope. During that admission, there was some concern that there was a mass-effect near the carotid bulb. Patient described the episodes prior to syncope being associated with a headache lasting about 30 minutes behind his left eye. He also describes diaphoresis and visual disturbances. He states that he would peroidically " black out". Today is feeling well--no additional episodes Review of Systems Constitutional; patient denies fevers, chills, night sweats Cardio; patient denies chest pain, palpitations, lower extremity swelling Pulmonary; patient denies cough, respiratory distress, wheezing GI; patient denies abdominal pain, nausea, vomiting, diarrhea Neuro; patient denies weakness, sensation issues or other focal neuro deficits Physical Exam 2 Vital Signs (Past 24 Hours): Last Vital Signs Temp 36.8 C 11/01/18 11:33 Pulse 88 11/01/18 11:33 Resp 18 11/01/18 11:33 BP 135/61 11/01/18 11:33 Pulse Ox 96 11/01/18 11:33 Physical Exam: General; no acute distress, normocephalic/atraumatic HEENT; neck is supple/nontender, no LAD of cervical or supraclavicular nodes Cardio; regular rate and rhythm, normal S1-S2, no murmurs/rubs/gallops Pulmonary; clear to auscultation bilaterally, no wheezing/rales/rhonchi Abdomen; nontender, nondistended, normal bowel sounds Extremities; no deformity, no clubbing/cyanosis, no edema Neuro; alert and oriented x4, normal speech, answering questions appropriately, no facial droop, normal strength throughout, cranial nerves grossly intact, negative cerebellar testing Results & Data Laboratory Results Laboratory Last Values WBC 8.89 K/uL (4.8-10.8) 11/01/18 05:31 RBC 3.58 M/uL (4.7-6.1) L 11/01/18 05:31 Hgb 9.7 g/dL (14.0-18.0) L 11/01/18 05:31 Hct 32.3 % (42-52) L 11/01/18 05:31 MCV 90.2 fL (80-100) 11/01/18 05:31 MCH 27.1 pg (25-34) 11/01/18 05:31 MCHC 30.0 g/dL (32-36) L 11/01/18 05:31 RDW Std Deviation 54.2 fL (36.4-46.3) H 11/01/18 05:31 RDW Coeff of Kobi 16.4 % (11.5-14.5) H 11/01/18 05:31 Plt Count 221 K/uL (130-400) 11/01/18 05:31 MPV 11.1 fL (7.4-10.4) H 11/01/18 05:31 Immature Gran % (Auto) 0.1 % 11/01/18 05:31 Neut % (Auto) 77.9 % 11/01/18 05:31 Lymph % (Auto) 9.4 % 11/01/18 05:31 [place] % (Auto) 9.6 % 11/01/18 05:31 Eos % (Auto) 2.4 % 11/01/18 05:31 Baso % (Auto) 0.6 % 11/01/18 05:31 Immature Gran # (Auto) 0.01 K/uL (0.00-0.02) 11/01/18 05:31 Neut # (Auto) 6.93 K/uL (1.4-6.5) H 11/01/18 05:31 Lymph # (Auto) 0.84 K/uL (1.2-3.4) L 11/01/18 05:31 [place] # (Auto) 0.85 K/uL (0.11-0.59) H 11/01/18 05:31 Eos # (Auto) 0.21 K/uL (0-0.5) 11/01/18 05:31 Baso # (Auto) 0.05 K/uL (0-0.2) 11/01/18 05:31 PT 10.5 Seconds (9.0-12.0) 10/31/18 16:47 INR 1.0 (0.9-1.1) 10/31/18 16:47 Sodium 137 mmol/L (136-145) 11/01/18 05:31 Potassium 3.8 mmol/L (3.5-5.1) 11/01/18 05:31 Chloride 103 mmol/L (98-107) 11/01/18 05:31 Carbon Dioxide 31 mmol/L (21-32) 11/01/18 05:31 Anion Gap 3.0 (3-11) 11/01/18 05:31 BUN 44 mg/dl (7-18) H 11/01/18 05:31 Creatinine 1.02 mg/dl (0.6-1.4) 11/01/18 05:31 Est Cr Clr Drug Dosing 62.1 ml/min 11/01/18 05:31 Est GFR ( Amer) 85.3 11/01/18 05:31 Est GFR (Non-Af Amer) 73.6 11/01/18 05:31 BUN/Creatinine Ratio 42.9 (10-20) H 11/01/18 05:31 Glucose 104 mg/dl (70-99) H 11/01/18 05:31 POC Lactic Acid Nick 1.08 mmol/L (0.90-1.70) 10/31/18 16:52 Calcium 9.2 mg/dl (8.5-10.1) 11/01/18 05:31 Magnesium 2.2 mg/dl (1.8-2.4) 10/31/18 16:47 Total Bilirubin 0.2 mg/dl (0.2-1) 10/31/18 16:47 AST 14 U/L (15-37) L 10/31/18 16:47 ALT 14 U/L (12-78) 10/31/18 16:47 Alkaline Phosphatase 82 U/L (45-117) 10/31/18 16:47 Troponin I < 0.015 ng/ml (0-0.045) 10/31/18 16:47 NT-Pro-B Natriuret Pep 249 pg/ml (0-900) 10/31/18 16:47 Total Protein 7.4 gm/dl (6.4-8.2) 10/31/18 16:47 Albumin 3.3 gm/dl (3.4-5.0) L 10/31/18 16:47 Globulin 4.1 gm/dl (2.5-4.0) H 10/31/18 16:47 Albumin/Globulin Ratio 0.8 (0.9-2) L 10/31/18 16:47 Lipase 60 U/L (73-393) L 10/31/18 16:47 TSH 3.520 uIu/ml (0.300-4.500) 10/31/18 16:47 Urine Color Yellow 10/31/18 18:24 Urine Appearance Clear (Clear) 10/31/18 18:24 Urine pH 6.5 (4.5-7.5) 10/31/18 18:24 Ur Specific [place] 1.028 (1.000-1.030) 10/31/18 18:24 Urine Protein 1+ (Negative) H 10/31/18 18:24 Urine Glucose (UA) Negative (Negative) 10/31/18 18:24 Urine Ketones Negative (Negative) 10/31/18 18:24 Urine Blood Negative (Negative) 10/31/18 18:24 Urine Nitrite Negative (Negative) 10/31/18 18:24 Urine Bilirubin Negative (Negative) 10/31/18 18:24 Urine Urobilinogen Negative (Negative) 10/31/18 18:24 Ur Leukocyte Esterase Negative (Negative) 10/31/18 18:24 Urine WBC (Auto) 1-5 /hpf (0-5) 10/31/18 18:24 Urine RBC (Auto) 0-4 /hpf (0-4) 10/31/18 18:24 U Hyaline Cast (Auto) 1-5 /lpf (0-5) 10/31/18 18:24 U Epithel Cells (Auto) 5-10 /lpf (0-5) H 10/31/18 18:24 Urine Bacteria (Auto) Negative (Negative) 10/31/18 18:24 Resident Activity Tracking Resident Involvement: Resident Care Provided Care Provided: [facility] _ (1) Anemia Anemia type: unspecified type Bone marrow failure anemia type: Chronic kidney disease stage: Folate deficiency anemia type: Hemolytic anemia type: Iron deficiency anemia type: Other causes of anemia: Vitamin B12 deficiency anemia type: Qualified Code(s): D64.9 - Anemia, unspecified (2) Syncope Encounter type: Syncope type: (3) Syncope Encounter type: Syncope type: unspecified Qualified Code(s): R55 - Syncope and collapse
[2018-11-01] MEDS: OXYCODONE HCL SOLN 5 MG/5 ML UDC GT SCH ×2 (16:52→21:02)
[2018-11-01] MEDS: SODIUM CHLORIDE 0.9% 1000ML 1,000 ML IV SCH (16:53)
[2018-11-01] MEDS: DOXAZOSIN MESYLATE 1 MG TAB PEG SCH (21:02)
[2018-11-01] MEDS: ENOXAPARIN INJ 40 MG/0.4 ML SYR SQ SCH (21:03)
[2018-11-02] MEDS: TUBE FEEDING WATER FLUSH GT SCH ×4 (00:05→17:25)
[2018-11-02] MEDS: OXYCODONE HCL SOLN 5 MG/5 ML UDC GT SCH ×5 (00:05→16:28)
[2018-11-02] MEDS: SODIUM CHLORIDE 0.9% 1000ML 1,000 ML IV SCH ×2 (02:30→12:37)
[2018-11-02] MEDS: MoRPHine SULFATE 4 MG/ML 1 ML CARP\\VIAL IV PRN (03:25)
[2018-11-02] MEDS: METOPROLOL TARTRATE 50 MG TAB PO SCH ×2 (05:02→15:16)
[2018-11-02] MEDS: GABAPENTIN 250 MG/5 ML 470 ML BTL PEG SCH ×2 (09:07→15:17)
[2018-11-02] MEDS: ATORVASTATIN 20 MG TAB PEG SCH (09:07)
[2018-11-02] MEDS: MULTI VIT W/MINERALS LIQUID 15 ML UDP PEG SCH (09:07)
[2018-11-02] MEDS: SALMETEROL XINAFOATE 50MCG 28 BLISTER INH INH SCH (09:08)
[2018-11-02] MEDS: LANSOPRAZOLE 30 MG SOLTAB PEG SCH (09:53)
[2018-11-02] MEDS: ALLOPURINOL 300 MG TAB PEG SCH (09:53)
[2018-11-02] MEDS: CITALOPRAM 20 MG TAB PEG SCH (09:53)
[2018-11-02] MEDS: CLOPIDOGREL BISULFATE 75 MG TAB PEG SCH (09:53)
--- NOTE | 2018-11-02 10:24 | Palliative Care Consultation ---
Date of Consultation November 02, 2018 Assessment & Plan (1) Goals of care, counseling/discussion: -73 year old male with PMH of tonsillar and cricopharyngeal cancer, s/p surgical flap procedure/chemo/radiation in 2005, who now has recurrent malignancy in left neck, s/p PEG tube placement July 2018, presented to [facility] with syncope. Patient was recently admitted on 10/24/2018 for recurrent syncope and was discharged with diagnosis of vasovagal syncope. During that admission, there was some concern that there was a mass-effect near the carotid bulb causing the vasovagal response. He is admitted to telemetry to monitor. CTA chest, head, and neck obtained which shows increase in size of left neck mass from 09/16/18 PET/CT scan. Also showed osteoblastic focus within the right lateral 8th rib, as is a focus in the left anterior 7th rib. Patient does have pain in left neck and posterior chest wall about where these lesions would be. Pain is 6-7/10, sometimes at 8/10 at its worst. Plans were to start chemo therapy today, but it's obviously on hold due to hospitalization. Dr. Trujillo did come to see patient today and is following. Palliative care is consulted for pain control and supportive care. -See below for pain management recs. -Patient is completely independent and drives. Lives with his . Plan is to do chemo and possible radiation per the patient. He tolerated his treatment pretty well when he had cancer back in the . His family is supportive. -Introduced palliative care including Dr. Mckeon's outpatient service for cancer-related pain management. Checked [place] PDMP, patient has been receiving oxycodone 5mg/5ml solution from his PCP on a monthly basis. No other narcotics. -We will follow for any pain management and supportive care needs. (2) Cancer related pain: -Pain in left neck radiations to left shoulder/back area (about the area of the rib lesions). -Pain is 6-7/10. Is 8/10 at its worst and at that point is unbearable. -Patient has used three doses of IV morphine 4mg in last 24 hours, totaling 12mg. -Has been receiving oxycodone 5mg via GT Q4h around the clock since admission. -Needs long-acting pain medication. -Will start fentanyl patch 12mcg/hr. Patient has used fentanyl patch in the past (during first cancer treatment, was at 100mcg/hr) and tolerated well. -Will decrease morphine to Q8h PRN breakthrough pain. -Continue oxycodone 5mg Q4h for now, plan to decrease once fentanyl patch is working and will completely DC morphine at that time. -Monitor for sedation or respiratory depression (RR <12bpm). (3) Syncope: Encounter type: Syncope type: unspecified Qualified Code(s): R55 - Syncope and collapse (4) Anemia: Anemia type: unspecified type Bone marrow failure anemia type: Chronic kidney disease stage: Folate deficiency anemia type: Hemolytic anemia type: Iron deficiency anemia type: Other causes of anemia: Vitamin B12 deficiency anemia type: Qualified Code(s): D64.9 - Anemia, unspecified (5) Weakness: (6) Cancer of neck: -Oncology consult as above -Patient to start chemo this week (7) Cancer of hypopharynx: History of Present Illness Reason for Consultation: Neck cancer Requesting Physician: Dr. Ball Attending Physician: Jess Cortez History of Present Illness This 73 year old male with PMH of tonsillar and cricopharyngeal cancer, s/p surgical flap procedure/chemo/radiation in 2005, who now has recurrent malignancy in left neck, s/p PEG tube placement July 2018, presented to [facility] with syncope. Patient was recently admitted on 10/24/2018 for recurrent syncope and was discharged with diagnosis of vasovagal syncope. During that admission, there was some concern that there was a mass-effect near the carotid bulb causing the vasovagal response. He is admitted to telemetry to monitor. CTA chest, head, and neck obtained which shows increase in size of left neck mass from 09/16/18 PET/CT scan. Also showed osteoblastic focus within the right lateral 8th rib, as is a focus in the left anterior 7th rib. Patient does have pain in left neck and posterior chest wall about where these lesions would be. Pain is 6-7/10, sometimes at 8/10 at its worst. Plans were to start chemo therapy today, but it's obviously on hold due to hospitalization. Dr. Trujillo did come to see patient today and is following. Palliative care is consulted for pain control and supportive care. Thank you kindly for this consult. Please see A&P. Allergies Allergy/AdvReac Type Severity Reaction Status Date / Time latex Allergy Unknown patient Verified 10/31/18 17:21 states had allergy tests which tested + No Known Drug Allergies Allergy Unknown NKDA Verified 10/31/18 17:21 Home Medications Home Medications Medication Instructions Recorded Confirmed Type acetaminophen [Acetaminophen Extra 500 mg PO Q4 PRN 08/29/18 10/31/18 History Strength] allopurinol 300 mg PO DAILY 08/29/18 10/31/18 History aspirin [Aspir-81] 81 mg PO DAILY 08/29/18 10/31/18 History atorvastatin 20 mg PO DAILY 08/29/18 10/31/18 History citalopram 20 mg PO DAILY 08/29/18 10/31/18 History clopidogrel [Plavix] 75 mg PO DAILY 08/29/18 10/31/18 History doxazosin 1 mg PO HS 08/29/18 10/31/18 History gabapentin 300 mg PO TID 08/29/18 10/31/18 History metaxalone 800 mg PO TID PRN 08/29/18 10/31/18 History metoprolol tartrate 50 mg PO Q8 08/29/18 10/31/18 History salmeterol [Serevent Diskus] 1 inh INHALATION BID 08/29/18 10/31/18 History B1,B2,B3,B6,O39-jgyrkt-Vf-isar 5 ml PO DAILY 10/24/18 10/31/18 History [Eldertonic] artificial saliva (yerbas-lyt) 1 applic MUCOUS MEMBRANE QID PRN 10/24/18 History [Mouth Kote] calcium caseinate-whey [ProSource] 1 packet PO TID 10/24/18 10/31/18 History fructoligosaccharides-polydex 1 packet PO TID 10/24/18 10/31/18 History [HyFiber with FOS] guaifenesin 20 ml PO Q4 PRN 10/24/18 10/31/18 History lansoprazole 30 mg PO DAILY 10/24/18 10/31/18 History multivitamin [Multiple Vitamins] 1 tab PO DAILY 10/24/18 10/31/18 History oxycodone 5 ml PO Q4 PRN #0 ml 10/25/18 10/31/18 Rx ondansetron HCl 4 mg PO DAILY PRN 10/31/18 10/31/18 History Patient History Medical History Anxiety Fatty liver (Chronic) Pulmonary nodules (Chronic) BPH (benign prostatic hypertrophy) (Chronic) Hyperlipidemia (Chronic) Cervical stenosis of spinal canal 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" Bacteremia Beta-hemolytic group B streptococcal sepsis Pneumonia CKD (chronic kidney disease) stage 3, GFR 30-59 ml/min CVA (cerebral vascular accident) Hypertension Surgical History S/P tonsillectomy (Chronic) H/O colonoscopy (Chronic) Hx of esophagogastroduodenoscopy (Chronic) H/O umbilical hernia repair (Chronic) Social History Current Living Situation: Spouse Other Information That Helps Us Care for You: Yes Feels Safe at Home: Yes Safety Concerns: Feels Safe At This Time Smoking Status: Former smoker Hx Alcohol Use: No Hx Substance Use: No Beliefs That Will Affect Care: None Communication Ability: Effective Physical Exam 2 Vital Signs (Past 24 Hours): Last Vital Signs Temp 36.7 C 11/02/18 07:42 Pulse 58 L 11/02/18 07:42 Resp 18 11/02/18 07:42 BP 126/67 11/02/18 07:42 Pulse Ox 92 11/02/18 07:42 Constitutional: well developed and well nourished; no acute distress Eyes: PERRL ENMT: Ears: no hearing impairment Neck: trachea midline and + submandibular swelling (left neck mass noted) Respiratory: normal respiratory effort, lungs clear to auscultation Cardiovascular: RRR, no murmur, no edema Gastrointestinal (Abdomen): Inspection/Auscultation: abdomen normal to inspection; abdomen not distended Percussion/Palpation: abdomen soft; abdomen nontender Skin: no rashes, warm and dry Neurologic: awake; not confused Psychiatric: A+Ox3, euthymic affect Time Spent Midlevel 70 minutes with >50% of time spent at bedside with patient discussing condition and plan of care as well as collaborating with physicians to coordinate care.
--- NOTE | 2018-11-02 10:55 | Consultation Report ---
DATE OF CONSULTATION: 11/02/2018 MEDICAL ONCOLOGY CONSULTATION REASON FOR CONSULTATION: A 73-year-old gentleman with recurrent head and neck cancer, admitted to [facility] with syncope. HISTORY OF PRESENT ILLNESS: Mr. Macario is a pleasant but unfortunate 73-year-old gentleman with history of recurrent head and neck cancer, admitted to [facility] on for recurrent syncope. Mr. Macario was admitted less than a week ago for similar symptomatology. I was contacted by the Emergency Room physician upon his recent presentation again with a syncopal episode x2 at home. This gentleman has an enlarging left cervical mass and is pending salvage chemotherapy. I have been engaged in discussion with radiation oncology department on how to optimally approach Mr. Macario. Because of his prior chemoradiation from tonsillar cancer back in 2004, it was decided he would be better served receiving salvage chemotherapy. However, he has had these syncopal episodes which have been problematic in getting his chemo underway. According to his most recent scans, his tumor has increased by approximately 1 cm in size. The carotid arteries and stents appear to be open; however, I asked the medical service to put him in on observational status to rule out any other medical causes for his ongoing syncope including taking him off any antihypertensives he may be on. I am prepared to treat him with combination Taxotere, carboplatin and Erbitux. However, I would like him to be optimally well moving in to salvage treatment. Mr. Macario again has a very complex past history. I initially saw him back in February of 2018 at which time he was diagnosed with cricopharyngeal nodule which was biopsy proven squamous cell carcinoma. At that time, because of his prior history of tonsillar cancer and chemoradiation, I sought surgical options and possibly radiation therapy if the nodule proved to be outside of the original treated field. He was seen by ENT and thoracic surgery in [place] for surgical consultation. Biopsy was carried out the right tonsil on 04/27/2018 consistent with squamous cell carcinoma, HPV associated (P16 positive). Because of the complex nature of his disease, his case was discussed with [place]'s tumor board and there were several opinions against surgery and others who were more in favor of a surgical procedure. He subsequently underwent surgery of the hypopharynx with reconstruction utilizing radial forearm free flap. The hospitalization was extended by postoperative embolic stroke and right hemiparesis. He now has obvious disease progression and the goal is to proceed with chemotherapy. I made very clear to Mr. Macario, I do not like the fact that he has had these syncopal episodes which may be in part attributable to his disease progression. That said, you know, I want to rule out any other medical causes for syncope before engaging in salvage treatment. PAST MEDICAL HISTORY: Again, significant for tonsillar cancer diagnosed in 2006, treated with chemoradiation. The patient remained in remission when he was diagnosed with cricopharyngeal nodule in February of 2018, underwent resection and an esophagus surgery with placement of feeding tube on 05/29/2018. He was recently diagnosed with current left posterior cervical mass. He also suffered a CVA with residual right upper extremity weakness in the 2017. Mr. Macario suffers from hypertension, benign prostatic hypertrophy, gout, gastroesophageal reflux disease, chronic kidney disease, anxiety, cervical radiculopathy and hepatic steatosis. PAST SURGICAL HISTORY: Fasciotomy C5-C6, esophageal surgery as described in the past medical history. HOME MEDICATIONS: Include lansoprazole 30 mg p.o. daily, guaifenesin 20 mL p.o. q. 4 hours p.r.n., artificial saliva 1 application mucous membranes every other day p.r.n., Serevent Diskus one inhalation b.i.d., oxycodone 2.5 mL p.o. q. 4 hours, metoprolol 50 mg p.o. 8 hours, Metaxalone 800 mg p.o. t.i.d. p.r.n., gabapentin 300 mg p.o. t.i.d., doxazosin 1 mg p.o. at bedtime and Plavix 75 mg p.o. daily, citalopram 20 mg p.o. daily, atorvastatin 20 mg p.o. daily, aspirin 81 mg p.o. daily, allopurinol 300 mg p.o. daily. ALLERGIES: LATEX. SOCIAL HISTORY: The patient is retired, is and lives with his spouse, formal tobacco user, negative for alcohol or illicit drugs. FAMILY HISTORY: Noncontributory. REVIEW OF SYSTEMS: The patient was admitted for recurrent syncope. Negative for headaches, lightheadedness or dizziness at present. SKIN: No rashes or lesions. No history of dermatoses. HEENT: Negative for visual or hearing deficits. No sinus symptoms. Positive for dysphagia attributable to his recent surgical procedure. LYMPHATICS: Positive for left cervical lymphadenopathy. CARDIAC: Negative for coronary artery disease. No current angina or palpitations. PULMONARY: Negative for COPD. No shortness of breath, dyspnea or orthopnea. GASTROINTESTINAL: Negative for abdominal pain, nausea, vomiting, diarrhea or constipation. GENITOURINARY: No hematuria, dysuria, urinary incontinence. PSYCHIATRIC: Positive for anxiety. MUSCULOSKELETAL: Negative for weakness. No arthralgias or myalgias. No history of rheumatologic disease. ENDOCRINE: Negative for diabetes or thyroid disease. NEUROLOGIC: Negative for seizures. Positive for right-sided stroke. HEMATOLOGIC: Negative for anemia, thrombophilia or bleeding diathesis. PHYSICAL EXAMINATION: GENERAL: Very pleasant, somewhat anxious, 73-year-old gentleman in no acute distress. VITAL SIGNS: Temperature 36.7, pulse 58, respiratory rate 18, blood pressure 126/67, O2 sat 92% on room air. SKIN: Warm, dry, noncyanotic with petechia, rash or ecchymosis. HEENT: Head is atraumatic, normocephalic. Eyes: PERRLA, EOMI. Sclerae nonicteric. Nares patent without rhinorrhea or discharge. Throat is clear. No buccal lesions or ulcerations. NECK: Enlarging left posterior cervical mass. HEART: Regular rate and rhythm. No clicks, rubs, murmurs or gallops. LUNGS: Clear to auscultation bilaterally. ABDOMEN: Soft, nontender, nondistended without palpable hepatosplenomegaly. EXTREMITIES: No clubbing, cyanosis or edema. NEUROLOGICALLY: He is awake, alert and oriented x3. Cranial nerves are intact. There are no acute motor or sensory deficits noted. LABORATORY DATA: WBC count 8890, hemoglobin 9.7, platelet count 221,000. Sodium 137, potassium 3.8, chloride 103, carbon dioxide 31, BUN 44, creatinine 1.02. CT of the head and neck was performed revealing roughly 1 cm interval growth of the left cervical mass. IMPRESSION: 1. Recurrent syncope. 2. Progressing squamous cell carcinoma of the head and neck. 3. Hyperlipidemia. 4. Benign prostatic hypertrophy. PLAN: Mr. Macario is another of my complicated patients with recurrent head and neck cancer and recurrent syncope. This gentleman is clearly progressing as demonstrated on his most recent scans. Plans are underway to provide salvage chemotherapy. As I explained to the ER physician , I need medicine to rule out any other causes for his ongoing syncope before starting chemotherapy. Therefore, I have recommended a complete discontinuance of any antihypertensives, particularly the beta rito. I have decided to proceed with a combination of Taxotere, carboplatin and Erbitux, which may result in further morbidity and possibly mortality. My plan moving forward is to proceed gently while I observe him closely medically. As I explained to Mr. Macario, I do not want him in and out of the hospital during salvage if at all possible. He understands his disease is terminal and the goal of therapy moving forward is life extension while maintaining quality. Ultimately, if we can achieve some response and alleviate the pressure around his carotid artery hopefully avoiding any further syncopal episodes. If he's medically stable to be discharged, I will make arrangements to begin chemotherapy in the next couple of days. If you have any questions or concerns, feel free to contact me at any time. Thank you very much for assisting me in the care of this very pleasant complex gentleman. JAYLIN
[2018-11-02] MEDS ORDERED: MoRPHine SULFATE 4 MG/ML 1 ML CARP\\VIAL IV PRN (11:01)
[2018-11-02] MEDS ORDERED: fentaNYL 12 MCG/HR TDSY TD SCH (11:15)
[2018-11-02] MEDS ORDERED: CHECK FENTANYL PATCH PLACEMENT SCH (16:00)
--- NOTE | 2018-11-02 18:11 | Discharge Summary ---
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 He presents today with syncope. Patient was admitted for the same earlier this month (10/24/18). His prior admission he reports that he got up from sleeping on his left side and was walking to the bathroom. He became dizzy and nauseated and fell x 3. He was admitted x 2 days. Thought to be secondary to vasovagal syncope. Concern for mass effect near the carotid bulb contributing to symptoms. He was discharged home in stable condition. Patient presents today with recurrent syncopal event. Reports that today around 14:00 he had just completed a tube feeding and he got up and was walking to the bathroom. As before, he became dizzy and nauseated as well as weak and sweaty. He blacked out before he got the the bathroom and then again on the commode. Episodes were witnessed by his . Lasted appx 1 minute Patient denies chest pain, palpitations, prior syncopal events aside from those mentioned above. Syncope has no positional component, no symptoms with shaving or turning head. No symptoms occurring with meals or with urination or defecation. Patient denies relationship with medication timing and syncope. Principal Diagnosis Syncope Discharge Exam Physical Exam: General; no acute distress, normocephalic/atraumatic HEENT; neck is supple/nontender, no LAD of cervical or supraclavicular nodes Cardio; regular rate and rhythm, normal S1-S2, no murmurs/rubs/gallops Pulmonary; clear to auscultation bilaterally, no wheezing/rales/rhonchi Abdomen; nontender, nondistended, normal bowel sounds Extremities; no deformity, no clubbing/cyanosis, no edema Neuro; alert and oriented x4, normal speech, answering questions appropriately, no facial droop, normal strength throughout, cranial nerves grossly intact, negative cerebellar testing Discharge Data Allergies Allergy/AdvReac Type Severity Reaction Status Date / Time latex Allergy Unknown patient Verified 10/31/18 17:21 states had allergy tests which tested + No Known Drug Allergies Allergy Unknown NKDA Verified 10/31/18 17:21 Consultations 10/31/18 19:39 ED Decision to Admit Stat 10/31/18 21:21 Consult Hematology Routine 11/01/18 16:33 Consult Palliative Care Routine Ordered Studies 10/31/18 16:32 CT angio chest PE protocol Stat CT angio head w con Stat CT angio neck with con Stat CT head/brain wo con Stat CT ANGIOGRAM OF THE CHEST CLINICAL HISTORY: Syncope. COMPARISON STUDY: Chest x-ray dated 10/31/2018. Chest CT scans dated 03/28/2018 and 07/17/2017. PET CT dated 10/21/2011. TECHNIQUE: Following the IV administration of 115 cc of Optiray 320, CT angiogram of the chest was performed from the upper abdomen to the thoracic inlet utilizing the pulmonary embolus protocol. Images are reviewed in the axial , sagittal, and coronal planes. 3-D MIPS images are created and assessed. IV contrast was administered without complication. A dose lowering technique was utilized adhering to the principles of ALARA. The examination is compromised by motion artifact, as well as by streak artifact from the arms which could not be elevated above the chest. FINDINGS: Lower neck: There is a large mass lesion centered in the left lower neck around the carotid artery. This measures approximately 7.5 x 6 cm and appears increased in size from the 09/16/2018 PET examination. This encases the left carotid artery, and bilateral carotid artery stents are in place. Numerous surgical clips are seen in the neck. This lesion causes mass effect on the adjacent pharynx. 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 The right lobe appears atrophic. Thoracic aorta: There is mild atherosclerotic calcification of the thoracic aorta, which is normal in caliber and demonstrates standard 3-vessel arch anatomy. No dissection is seen. Pulmonary vasculature: The pulmonary trunk is normal in caliber. There are no filling defects identified in main, lobar, or segmental pulmonary branches to suggest pulmonary embolus. Heart: The patient is status post midline sternotomy. The heart is normal in size and without pericardial effusion. Lungs and pleural spaces: Evaluation of the lung parenchyma is modestly degraded by motion artifact. There is no airspace consolidation or pleural effusion. Bibasilar scarring/atelectasis is observed. There are scattered calcified granulomas. The trachea and central airways are clear. Mediastinum: There is no mediastinal lymphadenopathy. Prema: Clear. Axillae: There is no axillary lymphadenopathy. Upper abdomen: A gastrostomy tube is in place. Reflux of contrast is noted in the IVC and hepatic veins. Skeletal structures: The skeletal structures are osteopenic. An osteoblastic focus within the right lateral 8th rib, as is a focus in the left anterior 7th rib. Fusion hardware is noted in the lower cervical spine. A subacute right posterior 11th rib fracture is unchanged. A superior plate compression deformity of L2 is partially imaged. IMPRESSION: 1. Streak and motion compromised examination. 2. There is no evidence of pulmonary embolus in the main, lobar, or segmental pulmonary arteries. 3. There is no airspace consolidation or pleural effusion. 4. A large mass lesion in the left lower neck centered around the left carotid artery has increased in size from 09/16/2018. 5. Sclerotic foci within bilateral ribs are similar to previous. CT SCAN OF THE BRAIN WITHOUT IV CONTRAST CLINICAL HISTORY: Headache. Syncope. COMPARISON STUDY: CT of the brain dated 10/24/2018. TECHNIQUE: Unenhanced axial CT scan of the brain is performed from the vertex to the skull base. A dose lowering technique was utilized adhering to the principles of ALARA. FINDINGS: Brain parenchyma: There are age-related involutional changes noting mild subcortical and periventricular microangiopathic change. Tiny foci of left frontal and left parietal encephalomalacia are consistent with remote infarcts. There is no hemorrhage, mass effect, or evidence of acute territorial ischemia by CT criteria. Matta-white matter differentiation is preserved. No extra-axial fluid collection is seen. Ventricles, sulci, cisterns: Prominent secondary to involutional change. Intracranial vasculature: There is atherosclerotic calcification of the cavernous carotid and vertebral arteries. Calvarium: Unremarkable. Sinuses and mastoids: There is trace mucosal thickening within the ethmoid and left sphenoid sinuses. The mastoid air cells are well pneumatized. Orbits: The bony orbits are grossly intact. IMPRESSION: There is no hemorrhage, mass effect, or evidence of acute territorial ischemia by CT criteria. CT ANGIOGRAPHY OF THE NECK WITH CONTRAST CLINICAL HISTORY: Neck mass. Esophageal cancer. COMPARISON STUDY: Carotid ultrasound July 29, 2011. PET/CT September 16, 2018. Technique: CT angiography of the carotid and vertebral arteries was obtained using Optiray 320 IV and 3D reconstruction on an independent workstation. NASCET criteria was utilized. Automated exposure control was utilized for the study. A dose lowering technique was utilized adhering to the principles of ALARA. Findings: Please note that the chest CT will be reported separately. A left lower neck mass has increased in size since PET/CT of September 16, 2018. This mass measures approximately 7.5 x 4.2 cm. It previously measured 6.5 x 3.5 cm. The mass/conglomerate adenopathy encases the left common carotid artery which is patent. There are bilateral carotid stents which are patent. There is irregularity with beaded appearance of the proximal right internal carotid artery with mild multifocal stenoses. There is tortuosity of the proximal left internal carotid artery with mild multifocal stenoses. A linear defect within the distal left common carotid artery is probably post surgical. The bilateral vertebral arteries are patent. No additional cervical masses are present. Postoperative findings within the left neck are noted. Chest CT will be reported separate. IMPRESSION: 1. Moderate increase in size of a left lower neck mass which measures 7.5 x 4.2 cm since PET/CT of September 08, 2018. This is consistent with malignancy. This mass/conglomerate adenopathy encases the left common carotid artery which is patent. 2. Patent bilateral carotid stents. Mild multifocal stenoses with vascular irregularity within the proximal bilateral internal carotid arteries. 3. Patent bilateral vertebral arteries. Hospital Course (1) Syncope: 73-year-old male with past medical history of tonsillar and cricopharyngeal cancer presents with syncope. He was recently admitted on 2018 for recurrent syncope and was discharged with diagnosis of vasovagal syncope. During that admission, there was some concern that there was a mass- effect near the carotid bulb. Syncope - orthostatic hypotension on admission - Cause is likely multifactorial: dehydration, blood pressure medications, mass effect on carotid bulb, narcotic medication - Received IVF. Orthostatics improved. - Discontinued metoprolol. Possibly start midodrine in the outpatient if continues to have problem with orthostasis. Past medical history of head neck cancer Followed by oncology, Dr. Trujillo saw the patient--going forward with chemotherapy - Seen by palliative care, continue home pain control, Oxycodone 5 ml q 4 Hyperlipidemia/CAD/hypertension Continue Lipitor 20 mg Continue metoprolol, Plavix BPH Continue doxazosin Depression Continue citalopram Gout Continue allopurinol (2) Anemia: (3) Weakness: (4) Cancer of neck: (5) Cancer of hypopharynx: (6) Hypoxia: Total Time Total Time Spent Total Time Spent (In Minutes): greater than 30 minutes Total Time Includes: Examination of the Patient, Discharge Planning, Medication Reconciliation and Communication With Other Providers Discharge Plan Discharge Items Patient Disposition: Home - Self-Care Reason For Visit: SYNCOPE Discharge Diagnosis: Syncope Condition: Fair Discharge Goals: Decrease discomfort and Improve disease control Activity: Per 'Additional Instructions' section Non-emergency contact: Primary Care Provider Call non-emergency contact if: you have any medication questions Diet: Regular Addtl Provider Instructions: Mr. Macario, We are discharging you home after working up the cause for your syncopal episodes (passing out). We reviewed imaging and test and there were no obvious findings that can explain your symptoms. We believe that there maybe multiple things going on that could be causing the symptoms, including dehydration and medications. In addition, it is possible that the syncopal episodes are secondary to the enlargement of the mass in your neck. This may be causing some compression of the vessels in your neck. We recommend that you follow up with your PCP and your oncologist. We also recommend the following; 1. Stay well hydrated 2. Stop taking your Metoprolol (can cause dizziness) 3. Follow up with Palliative medicine in the outpatient regarding pain control, supportive resources 4. Follow up with Dr. Patton regarding chemotherapy Prescriptions: Continue multivitamin [Multiple Vitamins] Tablet 1 tab PO DAILY RF: 0 guaifenesin 100 mg/5 mL Liquid 20 ml PO Q4 PRN (Reason: Cough) RF: 0 lansoprazole 30 mg Capsule,Delayed Release(Dr/Ec) 30 mg PO DAILY RF: 0 artificial saliva (yerbas-lyt) [Mouth Kote] Aerosol,[place] 1 applic Mucous Membrane QID PRN (Reason: Unknown) RF: 0 calcium caseinate-whey [ProSource] 7.5 gram Packet 1 packet PO TID RF: 0 B1,B2,B3,B6,V85-[id number]-uomy [Eldertonic] 0.5-0.6-7-0.7 mg Elixir 5 ml PO DAILY RF: 0 fructoligosaccharides-polydex [HyFiber with FOS] 12 gram/30 mL Liquid In Packet 1 packet PO TID RF: 0 oxycodone 5 mg/5 mL Solution 5 ml PO Q4 PRN (Reason: Pain) Qty: 0 RF: 0 ondansetron HCl 4 mg tablet 4 mg PO DAILY PRN (Reason: Nausea) RF: 0 atorvastatin 20 mg Tablet 20 mg PO DAILY RF: 0 doxazosin 1 mg Tablet 1 mg PO HS RF: 0 clopidogrel [Plavix] 75 mg Tablet 75 mg PO DAILY RF: 0 aspirin [Aspir-81] 81 mg Tablet,Delayed Release (Dr/Ec) 81 mg PO DAILY RF: 0 acetaminophen [Acetaminophen Extra Strength] 500 mg Tablet 500 mg PO Q4 PRN (Reason: Pain) RF: 0 citalopram 20 mg Tablet 20 mg PO DAILY RF: 0 salmeterol [Serevent Diskus] 50 mcg/dose Blister With Device 1 inh INHALATION BID RF: 0 gabapentin 300 mg Capsule 300 mg PO TID RF: 0 allopurinol 300 mg Tablet 300 mg PO DAILY RF: 0 metaxalone 800 mg Tablet 800 mg PO TID PRN (Reason: Muscle Spasm) RF: 0 Discontinued metoprolol tartrate 50 mg Tablet 50 mg PO Q8 RF: 0 Stand-Alone Forms: [facility] [employer]/Other Patient Handouts: Cancer Managing Pain Ch, Syncope, Syncope Causes Discharge Orders: Discharge Order (Routine); Ordered 11/02/18 Ordered By: Ger Jane Admission Data Admit Date/Time: 10/31/18 20:11 Attending Provider: Jess Cortez Admit Provider: Violetta Dolan Primary Care Provider: Carlo Ahn Other Providers: Violetta Dolan ; Jeyson Trujillo V ; Cristina Mckeon Service: Telemetry Other Interventions: Discharge Summary Assessment (RN) Last Done: 11/02/18 19:32 DC Date/Time DO NOT enter until pt leaves facility: 11/02/18 20:01 Supervising Physician Co-Signing Physician Notes Resident Physician Supervision Note: I independently interviewed and examined the patient and verified the rosenberg history and physical, reviewed labs and image studies, discussed the case with the resident Dr. Jane and agree with the findings and care plan. Time spent in discharge 35 min Resident Activity Tracking Resident Involvement: Resident Care Provided Care Provided: Adult Hospital Medicine
== END 2018-11-02 20:01 | disposition home or self-care (01) ==
LOC: ED 15:15 → 2S 15:15 → SUATTDRO 20:11 → 2S 20:50

== ENCOUNTER 2018-11-13 18:19 | Inpatient (IN) ==
[2018-11-13] MEDS ORDERED: LEVOFLOXACIN/D5W 750 MG/150 ML BAG IV STA (18:29)
[2018-11-13] MEDS ORDERED: PIPERACILLIN/TAZOBACTAM 4.5 GM/120 ML BAG IV STA (18:29)
[2018-11-13] MEDS ORDERED: SODIUM CHLORIDE 0.9% 1000ML 2,000 ML IV SCH (18:30)
--- NOTE | 2018-11-13 18:37 | Emergency Department Note ---
Entered by Toni Saleh acting as a scribe for Domenic James DO History of Present Illness General Chief complaint: Shortness of Breath/Dyspnea Stated complaint: LETHARGIC, SOB, COUGH Home Medications Home Medications Medication Instructions Recorded Confirmed Type acetaminophen [Acetaminophen Extra 500 mg PO Q4 PRN 08/29/18 11/13/18 History Strength] allopurinol 300 mg PO DAILY 08/29/18 11/13/18 History aspirin [Aspir-81] 81 mg PO DAILY 08/29/18 11/13/18 History atorvastatin 20 mg PO DAILY 08/29/18 11/13/18 History citalopram 20 mg PO DAILY 08/29/18 11/13/18 History clopidogrel [Plavix] 75 mg PO DAILY 08/29/18 11/13/18 History doxazosin 1 mg PO HS 08/29/18 11/13/18 History gabapentin 300 mg PO TID 08/29/18 11/13/18 History metaxalone 800 mg PO TID PRN 08/29/18 11/13/18 History salmeterol [Serevent Diskus] 1 inh INHALATION BID 08/29/18 11/13/18 History B1,B2,B3,B6,K53-[id number]-lcdz 5 ml PO DAILY 10/24/18 11/13/18 History [Eldertonic] artificial saliva (yerbas-lyt) 1 applic MUCOUS MEMBRANE QID PRN 10/24/18 History [Mouth Kote] calcium caseinate-whey [ProSource] 1 packet PO TID 10/24/18 11/13/18 History fructoligosaccharides-polydex 1 packet PO TID 10/24/18 11/13/18 History [HyFiber with FOS] guaifenesin 20 ml PO Q4 PRN 10/24/18 11/13/18 History lansoprazole 30 mg PO DAILY 10/24/18 11/13/18 History multivitamin [Multiple Vitamins] 1 tab PO DAILY 10/24/18 11/13/18 History oxycodone 5 ml PO Q4 PRN #0 ml 10/25/18 11/13/18 Rx ondansetron HCl 4 mg PO DAILY PRN 10/31/18 11/13/18 History Allergies Allergy/AdvReac Type Severity Reaction Status Date / Time latex Allergy Unknown patient Verified 11/13/18 18:43 states had allergy tests which tested + No Known Drug Allergies Allergy Unknown NKDA Verified 11/13/18 18:43 Past Med/Surg History Medical History Anxiety Fatty liver (Chronic) Pulmonary nodules (Chronic) BPH (benign prostatic hypertrophy) (Chronic) Hyperlipidemia (Chronic) Cervical stenosis of spinal canal 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" Bacteremia Beta-hemolytic group B streptococcal sepsis Pneumonia CKD (chronic kidney disease) stage 3, GFR 30-59 ml/min CVA (cerebral vascular accident) Hypertension Surgical History S/P tonsillectomy (Chronic) H/O colonoscopy (Chronic) Hx of esophagogastroduodenoscopy (Chronic) H/O umbilical hernia repair (Chronic) Family History Other Hepatocellular carcinoma Lung cancer Social History Current Living Situation: Spouse Feels Safe at Home: Yes Smoking Status: Former smoker Hx Alcohol Use: No Hx Substance Use: No Beliefs That Will Affect Care: None Preferred Language: Beninese Visual Impairment: No Limitations Physical Exam Vital Signs Vital Signs - 24 hr 11/13/18 18:45 11/13/18 19:45 Temperature 37.6 C H Temperature Source Oral Sepsis Recent Fever Within 48 Hours Yes Sepsis New/Unexplained Change in Mental Status No Sepsis Action Taken by Nursing No Action Required Pulse Rate 94 H Pulse Rate [Apical] 100 H Respiratory Rate 22 20 Blood Pressure 119/66 Blood Pressure [Right Arm] 102/63 Blood Pressure Mean 83 Blood Pressure Mean [Right Arm] 76 Pulse Oximetry 94 91 Oxygen Delivery Method Nasal Cannula Nasal Cannula Oxygen Flow Rate 3 3.5 CONSTITUTIONAL/VITAL SIGNS: Reviewed / noted above. GENERAL: Non-toxic in appearance. INTEGUMENTARY: Warm, dry, and [place]. HEAD: Normocephalic. EYES: without scleral icterus or trauma. ENT/OROPHARYNX: clear and moist. The patient does have a productive cough for yellowish sputum. LYMPHADENOPATHY/NECK: Is supple without lymphadenopathy or meningismus. RESPIRATORY: Lungs reveal rhonchi bilaterally. No wheezing appreciated. CARDIOVASCULAR: Regular rate and rhythm. GI/ABDOMEN: Soft and nontender. No organomegaly or pulsatile mass. No rebound or guarding. Normal bowel sounds. EXTREMITIES: Warm and well perfused. BACK: No CVA tenderness. NEUROLOGICAL: Intact without focal deficits. PSYCHIATRIC: normal affect. MUSCULOSKELETAL: Normally developed with good muscle tone. TRIAGE NURSING DOCUMENTATION REVIEWED. Course Administered Medications Discontinued Medications Piperacillin Sod/Tazobactam Sod (Zosyn) 4.5 gm in 120 mls @ 200 mls/hr IV NOW STA Stop: 11/13/18 19:04 Last Admin: 11/13/18 20:16 Dose: 200 mls/hr Sodium Chloride (Nss 1000ml) 2,000 mls @ 999 mls/hr IV .Q2H1M MOE Stop: 11/13/18 20:30 Last Admin: 11/13/18 19:45 Dose: 999 mls/hr Medical Decision Making Differential Diagnosis Differential includes viral illness, influenza, streptococcal pharyngitis, meningitis, pneumonia, sinusitis, UTI, pyelonephritis, otitis media. Laboratory Data Result diagrams: 11/13/18 18:15 11/13/18 18:15 Lab Results 11/13/18 11/13/18 11/13/18 Range/Units 18:15 18:15 18:15 WBC 17.64 H (4.8-10.8) K/uL RBC 3.72 L (4.7-6.1) M/uL Hgb 10.2 L (14.0-18.0) g/dL Hct 33.5 L (42-52) % MCV 90.1 (80-100) fL MCH 27.4 (25-34) pg MCHC 30.4 L (32-36) g/dL RDW Std Deviation 54.1 H (36.4-46.3) fL RDW Coeff of Kobi 16.4 H (11.5-14.5) % Plt Count 314 (130-400) K/uL MPV 11.2 H (7.4-10.4) fL Immature Gran % (Auto) 0.2 % Neut % (Auto) 94.2 % Lymph % (Auto) 1.7 % [place] % (Auto) 3.8 % Eos % (Auto) 0.1 % Baso % (Auto) 0.0 % Immature Gran # (Auto) 0.04 H (0.00-0.02) K/uL Neut # (Auto) 16.62 H (1.4-6.5) K/uL Lymph # (Auto) 0.30 L (1.2-3.4) K/uL [place] # (Auto) 0.67 H (0.11-0.59) K/uL Eos # (Auto) 0.01 (0-0.5) K/uL Baso # (Auto) 0.00 (0-0.2) K/uL PT 10.7 (9.0-12.0) Seconds INR 1.0 (0.9-1.1) Sodium 136 (136-145) mmol/L Potassium 4.5 (3.5-5.1) mmol/L Chloride 96 L (98-107) mmol/L Carbon Dioxide 35 H (21-32) mmol/L Anion Gap 5.0 (3-11) BUN 56 H (7-18) mg/dl Creatinine 1.36 (0.6-1.4) mg/dl Est Cr Clr Drug Dosing 48.2 ml/min Est GFR ( Amer) 60.2 Est GFR (Non-Af Amer) 52.0 BUN/Creatinine Ratio 41.3 H (10-20) Glucose 103 H (70-99) mg/dl POC Lactic Acid Nick (0.90-1.70) mmol/L Calcium 8.6 (8.5-10.1) mg/dl Total Bilirubin 0.5 (0.2-1) mg/dl AST 16 (15-37) U/L ALT 15 (12-78) U/L Alkaline Phosphatase 79 (45-117) U/L Troponin I 0.033 (0-0.045) ng/ml Total Protein 7.2 (6.4-8.2) gm/dl Albumin 3.3 L (3.4-5.0) gm/dl Globulin 3.9 (2.5-4.0) gm/dl Albumin/Globulin Ratio 0.8 L (0.9-2) Procalcitonin (0-0.5) ng/ml Influenza Type A Ag (Neg) Influenza Type B Ag (Neg) 11/13/18 11/13/18 11/13/18 Range/Units 18:15 19:12 19:41 WBC (4.8-10.8) K/uL RBC (4.7-6.1) M/uL Hgb (14.0-18.0) g/dL Hct (42-52) % MCV (80-100) fL MCH (25-34) pg MCHC (32-36) g/dL RDW Std Deviation (36.4-46.3) fL RDW Coeff of Kobi (11.5-14.5) % Plt Count (130-400) K/uL MPV (7.4-10.4) fL Immature Gran % (Auto) % Neut % (Auto) % Lymph % (Auto) % [place] % (Auto) % Eos % (Auto) % Baso % (Auto) % Immature Gran # (Auto) (0.00-0.02) K/uL Neut # (Auto) (1.4-6.5) K/uL Lymph # (Auto) (1.2-3.4) K/uL [place] # (Auto) (0.11-0.59) K/uL Eos # (Auto) (0-0.5) K/uL Baso # (Auto) (0-0.2) K/uL PT (9.0-12.0) Seconds INR (0.9-1.1) Sodium (136-145) mmol/L Potassium (3.5-5.1) mmol/L Chloride (98-107) mmol/L Carbon Dioxide (21-32) mmol/L Anion Gap (3-11) BUN (7-18) mg/dl Creatinine (0.6-1.4) mg/dl Est Cr Clr Drug Dosing ml/min Est GFR ( Amer) Est GFR (Non-Af Amer) BUN/Creatinine Ratio (10-20) Glucose (70-99) mg/dl POC Lactic Acid Nick 1.02 (0.90-1.70) mmol/L Calcium (8.5-10.1) mg/dl Total Bilirubin (0.2-1) mg/dl AST (15-37) U/L ALT (12-78) U/L Alkaline Phosphatase (45-117) U/L Troponin I (0-0.045) ng/ml Total Protein (6.4-8.2) gm/dl Albumin (3.4-5.0) gm/dl Globulin (2.5-4.0) gm/dl Albumin/Globulin Ratio (0.9-2) Procalcitonin 0.45 (0-0.5) ng/ml Influenza Type A Ag Neg for Influ A (Neg) Influenza Type B Ag Neg for Influ B (Neg) MDM Narrative This is a 73-year-old male who presents to the ED with a chief complaint of shortness of breath and productive cough. He was found to have a pulse ox of 8 7% on his arrival on room air. He was on nasal cannula oxygen via EMS. The patient has had cold symptoms and cough for the past several days. His symptoms worsened and his family brought him in for evaluation. The patient does have a history of esophageal cancer with a recent progression of the cancer in his neck. He has had surgery for his esophageal cancer and is currently undergoing chemotherapy. The patient has a PEG tube for which he gets feeds. He does not take anything orally. The patient has not had any vomiting. He did receive a DuoNeb treatment by EMS. EMS reports a fever 100.1. His white blood cell count is 17,000. The BUN is 56. Pro-calcitonin is negative. Troponin was negative, flu swab was negative. X-ray reveals a right base infiltrate. The patient was treated with IV fluids, IV Zosyn as well as IV Levaquin. I spoke with the hospitalist, who will see the patient for further inpatient evaluation and care. Impression & Plan Pneumonia, Hypoxia Discharge Plan Visit Data Chief Complaint: Shortness of Breath/Dyspnea Stated Complaint: LETHARGIC, SOB, COUGH ED Provider: Domenic James Discharge Problem: Pneumonia, Hypoxia Patient Disposition: Being Evaluated by Hospitalist Condition: Fair Forms Stand Alone Forms: My [facility], Important Visit Information Prescriptions Prescriptions: No Action multivitamin [Multiple Vitamins] Tablet 1 tab PO DAILY RF: 0 guaifenesin 100 mg/5 mL Liquid 20 ml PO Q4 PRN (Reason: Cough) RF: 0 lansoprazole 30 mg Capsule,Delayed Release(Dr/Ec) 30 mg PO DAILY RF: 0 artificial saliva (yerbas-lyt) [Mouth Kote] Aerosol,Castaner 1 applic Mucous Membrane QID PRN (Reason: Unknown) RF: 0 calcium caseinate-whey [ProSource] 7.5 gram Packet 1 packet PO TID RF: 0 B1,B2,B3,B6,I52-rweiit-Hk-dgvl [Eldertonic] 0.5-0.6-7-0.7 mg Elixir 5 ml PO DAILY RF: 0 fructoligosaccharides-polydex [HyFiber with FOS] 12 gram/30 mL Liquid In Packet 1 packet PO TID RF: 0 oxycodone 5 mg/5 mL Solution 5 ml PO Q4 PRN (Reason: Pain) Qty: 0 RF: 0 ondansetron HCl 4 mg tablet 4 mg PO DAILY PRN (Reason: Nausea) RF: 0 atorvastatin 20 mg Tablet 20 mg PO DAILY RF: 0 doxazosin 1 mg Tablet 1 mg PO HS RF: 0 clopidogrel [Plavix] 75 mg Tablet 75 mg PO DAILY RF: 0 aspirin [Aspir-81] 81 mg Tablet,Delayed Release (Dr/Ec) 81 mg PO DAILY RF: 0 acetaminophen [Acetaminophen Extra Strength] 500 mg Tablet 500 mg PO Q4 PRN (Reason: Pain) RF: 0 citalopram 20 mg Tablet 20 mg PO DAILY RF: 0 salmeterol [Serevent Diskus] 50 mcg/dose Blister With Device 1 inh INHALATION BID RF: 0 gabapentin 300 mg Capsule 300 mg PO TID RF: 0 allopurinol 300 mg Tablet 300 mg PO DAILY RF: 0 metaxalone 800 mg Tablet 800 mg PO TID PRN (Reason: Muscle Spasm) RF: 0 Referrals Referrals: Carlo Ahn MD [Primary Care Provider] - The scribe's documentation has been prepared under my direction and personally reviewed by me in its entirety. I confirm that the note above accurately reflects all work, treatment, procedures, and medical decision making performed by me.
[2018-11-13 18:44] LABS: Eosinophils # (auto) 0.01 K/uL (0-0.5); Eosinophils % (auto) 0.1 %; Hematocrit (blood only) 33.5 % (42-52); Hemoglobin 10.2 g/dL (14.0-18.0); Immature Granulocytes # (auto) 0.04 K/uL (0.00-0.02); Immature Granulocytes % (auto) 0.2 %; Lymphocytes % (auto) 1.7 %; Mean Corpuscular Hgb Conc 30.4 g/dL (32-36); Mean Corpuscular Volume 90.1 fL (80-100); Mean Platelet Volume 11.2 fL (7.4-10.4); Monocytes # (auto) 0.67 K/uL (0.11-0.59); Monocytes % (auto) 3.8 %; Neutrophils # (auto) 16.62 K/uL (1.4-6.5); Neutrophils % (auto) 94.2 %; Platelet Count 314 K/uL (130-400); RDW Coefficient of Variation 16.4 % (11.5-14.5); RDW Standard Deviation 54.1 fL (36.4-46.3); Red Blood Count 3.72 M/uL (4.7-6.1); White Blood Count 17.64 K/uL (4.8-10.8)
[2018-11-13 18:54] LABS: Prothrombin Time 10.7 Seconds (9.0-12.0)
[2018-11-13 19:00] LABS: Albumin Level 3.3 gm/dl (3.4-5.0); BUN Creatinine Ratio 41.3 (10-20); Calcium 8.6 mg/dl (8.5-10.1); Creatinine Clr Calc Pharmacy 48.2 ml/min; Est GFR (African American) 60.2; Potassium 4.5 mmol/L (3.5-5.1)
[2018-11-13 19:05] LABS: Albumin Globulin Ratio 0.8 (0.9-2); Bilirubin,Total 0.5 mg/dl (0.2-1); Globulin 3.9 gm/dl (2.5-4.0); Total Protein 7.2 gm/dl (6.4-8.2); Troponin I 0.033 ng/ml (0-0.045)
--- NOTE | 2018-11-13 19:10 | XRay Report ---
XR chest 1V portable CLINICAL HISTORY: 73 years-old Male presenting with cough, fever. TECHNIQUE: Portable upright AP view of the chest was obtained. COMPARISON: 10/31/2018. FINDINGS: Vascular stents project over the base of the neck as well as surgical clips on the left. Median jerome otomy wires in the upper sternum. Atherosclerosis of aortic arch. Cardiac silhouette top normal in si ze. Mild pulmonary vascular prominence. Interval development of a right basilar opacity. No large eff usion or pneumothorax. Degenerative changes of the thoracic spine. IMPRESSION: 1. Right basilar infiltrate new from prior. This is consistent with pneumonia. Asymmetry argues agai nst aspiration. Follow-up to resolution recommended. Electronically signed by: Carlo Murillo M.D. 11/13/2018 7:09 PM
[2018-11-13] MEDS ORDERED: ALBUT/IPRATROP 3MG/0.5MG NEB 3 ML VIAL ONE (22:30)
--- NOTE | 2018-11-13 22:48 | History & Physical Report ---
Date of Service November 13, 2018 Assessment & Plan (1) Pneumonia: Acute respiratory failure with hypoxia/pneumonia involving right lower lobe/presumptive aspiration-- Received Zosyn IV and levofloxacin IV in the ED. Admit on vancomycin IV and Zosyn IV. Duonebs every 4 hours while awake and every 2 hours when necessary. Sputum Gram stain and culture. Monitor for aspiration. Present on Admission?: Yes (2) Hypoxia: As above. (3) Hyperlipidemia: Continue atorvastatin via PEG tube Present on Admission?: Yes (4) Cancer of neck: Cancer of neck and hypopharynx-- Presently undergoing chemotherapy. Advised that he may not be able to go through his next chemotherapy which would be in 3 days. Present on Admission?: Yes (5) Cancer of hypopharynx: As above. Present on Admission?: Yes (6) BPH (benign prostatic hypertrophy): Continue doxazosin Present on Admission?: Yes (7) Cancer related pain: Just recently started fentanyl patch at 12.5 mcg, with this being a second patch, may need to be titrated upward. Continue oxycodone and gabapentin. Present on Admission?: Yes History of Present Illness Chief Complaint: Patient presents to the emergency department with worsening shortness of breath, dyspnea on exertion, moist cough and lethargy. Primary Care Provider: Carlo Ahn MD The patient is a 73-year-old male who presents to the emergency department with the above symptoms. He presently is undergoing chemotherapy for esophageal cancer. He gets all his medications through PEG tube, and is on nutritional intake tube via PEG tube as well. Allergies Allergy/AdvReac Type Severity Reaction Status Date / Time latex Allergy Unknown patient Verified 11/13/18 18:43 states had allergy tests which tested + No Known Drug Allergies Allergy Unknown NKDA Verified 11/13/18 18:43 Home Medications Home Medications Medication Instructions Recorded Confirmed Type acetaminophen [Acetaminophen Extra 500 mg FEEDING TUBE Q4 PRN 08/29/18 11/13/18 History Strength] allopurinol 300 mg FEEDING TUBE DAILY 08/29/18 11/13/18 History aspirin [Aspir-81] 81 mg FEEDING TUBE DAILY 08/29/18 11/13/18 History atorvastatin 20 mg FEEDING TUBE DAILY 08/29/18 11/13/18 History citalopram 20 mg FEEDING TUBE DAILY 08/29/18 11/13/18 History clopidogrel [Plavix] 75 mg FEEDING TUBE DAILY 08/29/18 11/13/18 History doxazosin 1 mg FEEDING TUBE HS 08/29/18 11/13/18 History gabapentin 300 mg FEEDING TUBE TID 08/29/18 11/13/18 History metaxalone 800 mg FEEDING TUBE TID PRN 08/29/18 11/13/18 History salmeterol [Serevent Diskus] 1 inh INHALATION BID 08/29/18 11/13/18 History B1,B2,B3,B6,Z09-intlie-Wq-aeyh 5 ml FEEDING TUBE DAILY 10/24/18 11/13/18 History [Eldertonic] artificial saliva (yerbas-lyt) 1 applic MUCOUS MEMBRANE QID PRN 10/24/18 History [Mouth Kote] calcium caseinate-whey [ProSource] 1 packet PO TID 10/24/18 11/13/18 History fructoligosaccharides-polydex 1 packet FEEDING TUBE TID 10/24/18 11/13/18 History [HyFiber with FOS] guaifenesin 20 ml FEEDING TUBE Q4 PRN 10/24/18 11/13/18 History lansoprazole 30 mg FEEDING TUBE DAILY 10/24/18 11/13/18 History multivitamin [Multiple Vitamins] 1 tab FEEDING TUBE DAILY 10/24/18 11/13/18 History ondansetron HCl 4 mg FEEDING TUBE DAILY PRN 10/31/18 11/13/18 History fentanyl 12 mcg TOPICAL Q72H 11/13/18 11/13/18 History oxycodone 5 ml FEEDING TUBE Q4 PRN 11/13/18 11/13/18 History Past Med/Surg History Medical History Anxiety Fatty liver (Chronic) Pulmonary nodules (Chronic) BPH (benign prostatic hypertrophy) (Chronic) Hyperlipidemia (Chronic) Cervical stenosis of spinal canal 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" Bacteremia Beta-hemolytic group B streptococcal sepsis Pneumonia CKD (chronic kidney disease) stage 3, GFR 30-59 ml/min CVA (cerebral vascular accident) Hypertension Surgical History S/P tonsillectomy (Chronic) H/O colonoscopy (Chronic) Hx of esophagogastroduodenoscopy (Chronic) H/O umbilical hernia repair (Chronic) Family History Other Hepatocellular carcinoma Lung cancer Social History Current Living Situation: Spouse Other Information That Helps Us Care for You: No Feels Safe at Home: Yes Smoking Status: Former smoker Hx Alcohol Use: No Hx Substance Use: No Beliefs That Will Affect Care: None Preferred Language: Lao Communication Ability: Effective Review of Systems The patient denies chest pain, palpitations, lower extremity swelling, sore throat, fevers, chills, sweats, nausea, vomiting, diarrhea , constipation, abdominal pain, pelvic pain, blood in urine or stool, dysuria, urinary frequency or urgency, lightheadedness , dizziness, headache, memory loss, loss of consciousness, rash, abnormal bruising or bleeding, imbalance, focal weakness, numbness or tingling in arms or legs, generalized arthralgias or myalgias, back or neck pain, or night sweats. The review of systems is otherwise negative other than for that already noted above, and at least 10 systems have been reviewed. Physical Exam 2 Vital Signs (Past 24 Hours): Last Vital Signs Temp 37.6 C H 11/13/18 18:45 Pulse 118 H 11/13/18 22:38 Resp 24 11/13/18 22:38 BP 139/75 11/13/18 22:38 Pulse Ox 100 11/13/18 22:38 Physical Exam: The patient is awake, alert and oriented 3, normocephalic and atraumatic, lying in bed and in no acute distress. HEENT--PERRL, EOMI, mucous membranes and oropharynx dry. Neck--supple. No JVD. No bruits. Thyroid normal, trachea midline, no adenopathy. Heart--normal S1 and S2. No murmurs, rubs or gallops. Lungs--coarse breath sounds bilaterally, right greater than left Abdomen--normal bowel sounds and soft. Nontender. Mildly distended. PEG tube site looks good. Extremities--no cyanosis or clubbing. No edema. There are good distal pulses b/ l. Dermatologic--normal skin turgor, normal color, no abnormal lymph nodes, no rash. Neurologic--cranial nerves II through XII grossly intact. Rheumatologic--normal range of motion. Psychiatric--normal affect. Results & Data Laboratory Results Laboratory Results WBC 17.64 K/uL (4.8-10.8) H 11/13/18 18:15 RBC 3.72 M/uL (4.7-6.1) L 11/13/18 18:15 Hgb 10.2 g/dL (14.0-18.0) L 11/13/18 18:15 Hct 33.5 % (42-52) L 11/13/18 18:15 MCV 90.1 fL (80-100) 11/13/18 18:15 MCH 27.4 pg (25-34) 11/13/18 18:15 MCHC 30.4 g/dL (32-36) L 11/13/18 18:15 RDW Std Deviation 54.1 fL (36.4-46.3) H 11/13/18 18:15 RDW Coeff of Kobi 16.4 % (11.5-14.5) H 11/13/18 18:15 Plt Count 314 K/uL (130-400) 11/13/18 18:15 MPV 11.2 fL (7.4-10.4) H 11/13/18 18:15 Immature Gran % (Auto) 0.2 % 11/13/18 18:15 Neut % (Auto) 94.2 % 11/13/18 18:15 Lymph % (Auto) 1.7 % 11/13/18 18:15 [place] % (Auto) 3.8 % 11/13/18 18:15 Eos % (Auto) 0.1 % 11/13/18 18:15 Baso % (Auto) 0.0 % 11/13/18 18:15 Immature Gran # (Auto) 0.04 K/uL (0.00-0.02) H 11/13/18 18:15 Neut # (Auto) 16.62 K/uL (1.4-6.5) H 11/13/18 18:15 Lymph # (Auto) 0.30 K/uL (1.2-3.4) L 11/13/18 18:15 [place] # (Auto) 0.67 K/uL (0.11-0.59) H 11/13/18 18:15 Eos # (Auto) 0.01 K/uL (0-0.5) 11/13/18 18:15 Baso # (Auto) 0.00 K/uL (0-0.2) 11/13/18 18:15 PT 10.7 Seconds (9.0-12.0) 11/13/18 18:15 INR 1.0 (0.9-1.1) 11/13/18 18:15 Sodium 136 mmol/L (136-145) 11/13/18 18:15 Potassium 4.5 mmol/L (3.5-5.1) 11/13/18 18:15 Chloride 96 mmol/L (98-107) L 11/13/18 18:15 Carbon Dioxide 35 mmol/L (21-32) H 11/13/18 18:15 Anion Gap 5.0 (3-11) 11/13/18 18:15 BUN 56 mg/dl (7-18) H 11/13/18 18:15 Creatinine 1.36 mg/dl (0.6-1.4) 11/13/18 18:15 Est Cr Clr Drug Dosing 48.2 ml/min 11/13/18 18:15 Est GFR ( Amer) 60.2 11/13/18 18:15 Est GFR (Non-Af Amer) 52.0 11/13/18 18:15 BUN/Creatinine Ratio 41.3 (10-20) H 11/13/18 18:15 Glucose 103 mg/dl (70-99) H 11/13/18 18:15 POC Lactic Acid Nick 1.02 mmol/L (0.90-1.70) 11/13/18 19:41 Calcium 8.6 mg/dl (8.5-10.1) 11/13/18 18:15 Total Bilirubin 0.5 mg/dl (0.2-1) 11/13/18 18:15 AST 16 U/L (15-37) 11/13/18 18:15 ALT 15 U/L (12-78) 11/13/18 18:15 Alkaline Phosphatase 79 U/L (45-117) 11/13/18 18:15 Troponin I 0.033 ng/ml (0-0.045) 11/13/18 18:15 Total Protein 7.2 gm/dl (6.4-8.2) 11/13/18 18:15 Albumin 3.3 gm/dl (3.4-5.0) L 11/13/18 18:15 Globulin 3.9 gm/dl (2.5-4.0) 11/13/18 18:15 Albumin/Globulin Ratio 0.8 (0.9-2) L 11/13/18 18:15 Procalcitonin 0.45 ng/ml (0-0.5) 11/13/18 18:15 Influenza Type A Ag Neg for Influ A (Neg) 11/13/18 19:12 Influenza Type B Ag Neg for Influ B (Neg) 11/13/18 19:12 Diagnostic Findings [place], [place] [phone] XRay Report Patient: DEWAYNE BAKER Date: 11/13/18 MR#: [id number]: [id number] Acct ID:[id number]: Date: [address] Zip: [place] [address] Age: 73Location: ED Sex: M Room/Bed: Att Phy: Diagnosis: LETHARGIC, SOB, COUGH Atiya Phy: Carlo Ahn M.D.Service Date: 11/13/18 Fam Phy: Interpreting Phy: Carlo Murillo MD Admit Phy: Ordering Phy: Domenic James D.O. cc: ~ XR chest 1V portable CLINICAL HISTORY: 73 years-old Male presenting with cough, fever. TECHNIQUE: Portable upright AP view of the chest was obtained. COMPARISON: 10/31/2018. FINDINGS: Vascular stents project over the base of the neck as well as surgical clips on the left. Median sternotomy wires in the upper sternum. Atherosclerosis of aortic arch. Cardiac silhouette top normal in size. Mild pulmonary vascular prominence. Interval development of a right basilar opacity. No large effusion or pneumothorax. Degenerative changes of the thoracic spine. IMPRESSION: 1. Right basilar infiltrate new from prior. This is consistent with pneumonia. Asymmetry argues against aspiration. Follow-up to resolution recommended. Electronically signed by: Carlo Murillo M.D. 11/13/2018 7:09 PM Dictated: 02/1905 Transcribed: 11/13/181905 Medications Administered Home Medications Medication Instructions Recorded Confirmed acetaminophen [Acetaminophen Extra 500 mg FEEDING TUBE Q4 PRN 08/29/18 11/13/18 Strength] allopurinol 300 mg FEEDING TUBE DAILY 08/29/18 11/13/18 aspirin [Aspir-81] 81 mg FEEDING TUBE DAILY 08/29/18 11/13/18 atorvastatin 20 mg FEEDING TUBE DAILY 08/29/18 11/13/18 citalopram 20 mg FEEDING TUBE DAILY 08/29/18 11/13/18 clopidogrel [Plavix] 75 mg FEEDING TUBE DAILY 08/29/18 11/13/18 doxazosin 1 mg FEEDING TUBE HS 08/29/18 11/13/18 gabapentin 300 mg FEEDING TUBE TID 08/29/18 11/13/18 metaxalone 800 mg FEEDING TUBE TID PRN 08/29/18 11/13/18 salmeterol [Serevent Diskus] 1 inh INHALATION BID 08/29/18 11/13/18 B1,B2,B3,B6,B57-pqmixw-Nz-qahb 5 ml FEEDING TUBE DAILY 10/24/18 11/13/18 [Eldertonic] artificial saliva (yerbas-lyt) 1 applic MUCOUS MEMBRANE QID PRN 10/24/18 [Mouth Kote] calcium caseinate-whey [ProSource] 1 packet PO TID 10/24/18 11/13/18 fructoligosaccharides-polydex 1 packet FEEDING TUBE TID 10/24/18 11/13/18 [HyFiber with FOS] guaifenesin 20 ml FEEDING TUBE Q4 PRN 10/24/18 11/13/18 lansoprazole 30 mg FEEDING TUBE DAILY 10/24/18 11/13/18 multivitamin [Multiple Vitamins] 1 tab FEEDING TUBE DAILY 10/24/18 11/13/18 ondansetron HCl 4 mg FEEDING TUBE DAILY PRN 10/31/18 11/13/18 fentanyl 12 mcg TOPICAL Q72H 11/13/18 11/13/18 oxycodone 5 ml FEEDING TUBE Q4 PRN 11/13/18 11/13/18 Code Status & VTE Plan Code Status Full code VTE Prophylaxis Plan VTE Prophylaxis will be ordered: Yes _ (1) Pneumonia Aspiration pneumonia type: Laterality: unspecified laterality Lung location : unspecified part of lung Pneumonia type: due to unspecified organism Qualified Code(s): J18.9 - Pneumonia, unspecified organism (2) Hyperlipidemia Hyperlipidemia type: unspecified Qualified Code(s): E78.5 - Hyperlipidemia, unspecified (3) BPH (benign prostatic hypertrophy) Lower urinary tract symptom presence: symptoms absent Lower urinary tract symptom detail: Qualified Code(s): N40.0 - Benign prostatic hyperplasia without lower urinary tract symptoms
[2018-11-13] MEDS ORDERED: METAXALONE 800 MG TABLET PO PRN (22:59)
[2018-11-13] MEDS ORDERED: ARTIFICIAL SALIVA Mucous Membrane PRN (22:59)
[2018-11-13] MEDS ORDERED: VANCOMYCIN HCL 1,000 MG/270 ML BAG IV STA (22:59)
[2018-11-13] MEDS ORDERED: PIPERACILLIN/TAZOBACTAM 4.5 GM in DEXTROSE 5% 100 ML IV SCH (22:59)
[2018-11-13] MEDS ORDERED: PIPERACILL/TAZOBAC CONSULT ACTIVE PRN (22:59)
[2018-11-13] MEDS ORDERED: ACETAMINOPHEN 500 MG TAB PO PRN (22:59)
[2018-11-13] MEDS ORDERED: VANCOMYCIN CONSULT ACTIVE PRN (22:59)
[2018-11-13] MEDS ORDERED: guaiFENesin SUGAR FREE 100 MG/5 ML UDC PO PRN (22:59)
[2018-11-13] MEDS ORDERED: OXYCODONE HCL SOLN 5 MG/5 ML UDC PO PRN (22:59)
[2018-11-13] MEDS ORDERED: VANCOMYCIN HCL 1,750 MG in SODIUM CHLORIDE 0.9% 500 ML IV SCH (23:30)
[2018-11-14] MEDS ORDERED: OXYCODONE HCL SOLN 5 MG/5 ML UDC PO PRN (01:48)
[2018-11-14] MEDS: PIPERACILLIN/TAZOBACTAM 3.375 GM in DEXTROSE 5% 100 ML IV SCH ×3 (01:59→19:24)
[2018-11-14] MEDS: ACETAMINOPHEN 1000 MG/100 ML IV IV PRN (03:24)
[2018-11-14] MEDS ORDERED: fentaNYL 12 MCG/HR TDSY TD SCH (04:15)
[2018-11-14] MEDS: fentaNYL 12 MCG/HR TDSY TD SCH (05:31)
[2018-11-14 06:42] LABS: Hematocrit (blood only) 29.4 % (42-52); Hemoglobin 8.9 g/dL (14.0-18.0); Immature Granulocytes # (auto) 0.08 K/uL (0.00-0.02); Immature Granulocytes % (auto) 0.5 %; Lymphocytes # (auto) 0.35 K/uL (1.2-3.4); Lymphocytes % (auto) 2.1 %; Mean Corpuscular Hgb Conc 30.3 g/dL (32-36); Mean Corpuscular Volume 89.1 fL (80-100); Mean Platelet Volume 11.3 fL (7.4-10.4); Monocytes # (auto) 0.48 K/uL (0.11-0.59); Monocytes % (auto) 2.9 %; Neutrophils % (auto) 94.5 %; Platelet Count 270 K/uL (130-400); RDW Coefficient of Variation 16.4 % (11.5-14.5); RDW Standard Deviation 53.2 fL (36.4-46.3); White Blood Count 16.71 K/uL (4.8-10.8)
[2018-11-14 06:57] LABS: INR 1.1 (0.9-1.1); Partial Thromboplastin Ratio 1.2; Partial Thromboplastin Time 33.1 Seconds (21.0-31.0); Prothrombin Time 11.3 Seconds (9.0-12.0)
[2018-11-14 07:21] LABS: Albumin Level 2.7 gm/dl (3.4-5.0); BUN Creatinine Ratio 35.6 (10-20); Creatinine Clr Calc Pharmacy 54.2 ml/min; Est GFR (African American) 69.4; Est GFR (Non-African American) 59.9; Potassium 4.5 mmol/L (3.5-5.1)
[2018-11-14] MEDS: ALBUT/IPRATROP 3MG/0.5MG NEB 3 ML VIAL NEB SCH ×4 (07:21→19:11)
[2018-11-14 07:23] LABS: Albumin Globulin Ratio 0.7 (0.9-2); Bilirubin,Total 0.8 mg/dl (0.2-1); Globulin 3.7 gm/dl (2.5-4.0); Total Protein 6.4 gm/dl (6.4-8.2)
[2018-11-14] MEDS: CHECK FENTANYL PATCH PLACEMENT SCH ×3 (08:38→23:41)
[2018-11-14] MEDS: OXYCODONE HCL SOLN 5 MG/5 ML UDC GT PRN ×2 (08:43→13:13)
[2018-11-14] MEDS: PROSOURCE NO CARB 30 ML/PKT PO SCH ×2 (08:44→12:59)
[2018-11-14] MEDS: GABAPENTIN 250 MG/5 ML 470 ML BTL PO SCH ×3 (08:44→21:03)
[2018-11-14] MEDS: CLOPIDOGREL BISULFATE 75 MG TAB PEG SCH (08:45)
[2018-11-14] MEDS: ASPIRIN 81 MG CHEW PO SCH (08:45)
[2018-11-14] MEDS: ATORVASTATIN 20 MG TAB PEG SCH (08:45)
[2018-11-14] MEDS: MULTIVITAMIN TAB PO SCH (08:45)
[2018-11-14] MEDS: HEPARIN SOD 5,000 UNIT/0.5 ML VIAL SQ SCH ×2 (08:45→21:01)
[2018-11-14] MEDS: ALLOPURINOL 300 MG TAB PEG SCH (08:45)
[2018-11-14] MEDS: LANSOPRAZOLE 30 MG SOLTAB PEG SCH (08:45)
[2018-11-14] MEDS ORDERED: ONDANSETRON INJ 2 MG/ML 2 ML VIAL IV PRN ×2 (08:53→10:22)
[2018-11-14] MEDS ORDERED: CITALOPRAM 20 MG TAB PEG SCH (09:00)
[2018-11-14] MEDS ORDERED: [UNRECOGNIZED DRUG - MIXTURE] PO SCH (09:00)
[2018-11-14] MEDS ORDERED: METOCLOPRAMIDE HCL INJ 5 MG/ML 2 ML VIAL IV PRN (09:00)
[2018-11-14] MEDS ORDERED: [UNRECOGNIZED DRUG - OTHER] PO SCH (09:00)
[2018-11-14] MEDS ORDERED: METOPROLOL TARTRATE 1 MG/ML VIAL IV STA ×2 (14:34→19:05)
[2018-11-14] MEDS ORDERED: METOPROLOL TARTRATE 1 MG/ML VIAL IV ONE ×2 (15:09→19:29)
--- NOTE | 2018-11-14 16:04 | Family Medicine Progress Note ---
Date of Service November 14, 2018 Assessment & Plan (1) Right lower lobe pneumonia: 73-year-old male with a history of oral pharyngeal/laryngeal neoplastic disease presents with acute hypoxic respiratory distress secondary to pneumonia , right lower lobe. Acute hypoxic respiratory distress secondary to right lower lobe pneumonia, treating as healthcare acquired Zosyn and vancomycinMRSA swab was negative and vancomycin was discontinued today Patient was septic on point of arrivalwe will continue IV antibiotics for at least 48-72 hours, will follow cultures and response to treatment Continue duo nebs every 4 hours Pharyngeal/laryngeal neoplastic disease Being followed by Dr. Trujillo Currently receiving chemotherapy Continue PEG feedings Continue pain controlfentanyl patch 12.5 mcg, gabapentin 300 mg p.o. 3 times daily, oxycodone 5 mg every 4 as needed for breakthrough pain Continue Zofran 4 mg IV every 6 for nausea Atrial fibrillation with RVR Rates were previously controlled, but acute illness appears to have put him in RVRthe patient is asymptomatic, and vitals are stable We will administer Lopressor 5 mg 1 times dose The patient was previously on metoprolol but was stopped at last hospitalization because of concern for syncopethe tumor may be compressing the patient's carotid bulb causing orthostatis Hyperlipidemia Continue statin BPH Continue doxazosin DVT prophylaxis Heparin 5000 units subcu every 12 FEN PEG tube feeding per home regimen (2) Hypoxia: (3) Cancer related pain: (4) Hyperlipidemia: (5) BPH (benign prostatic hypertrophy): (6) Cancer of hypopharynx: (7) Cancer of neck: Supervising Physician Co-Signing Physician Notes I saw the patient with tomorrow and confirmed rosenberg portions of the history and physical exam. I agree with the impression and plan as noted in his documentation. Patient was admitted overnight with an apparent right lower lobe pneumonia. As noted the patient had a recent admission for a syncopal episode and is currently undergoing chemotherapy for an oral pharyngeal tumor. Upon examination today, the patient states that he feels somewhat better compared to his admission. He continues on 4 L of oxygen via nasal cannula and it is noted that he is not on oxygen at home. IMPRESSION Right lower lobe pneumonia, With hypoxia and leukocytosis Prerenal azotemia Oral pharyngeal tumor undergoing chemotherapy Recent history of syncopal episode PLAN Continue current antibiotics We will advise oncology about the patient's admission Other as noted above Subjective 73-year-old male with a history of oral pharyngeal/laryngeal neoplastic disease presents with acute hypoxic respiratory failure secondary to pneumonia, right lower lobe. Patient is doing much better this morning. He states that yesterday became severely short of breath. He states that he just recently started chemotherapy. Constitutional: no fever, no sweats and no body aches Respiratory: + cough and + dyspnea; no pain on inspiration and no wheezing Cardiovascular: + dyspnea on exertion; no chest pain, no palpitations and no syncope Gastrointestinal: no abdominal pain, no nausea and no diarrhea/loose stools Physical Exam 2 Vital Signs (Past 24 Hours): Last Vital Signs Temp 37.1 C 11/14/18 14:51 Pulse 160 H 11/14/18 15:11 Resp 20 11/14/18 14:51 BP 149/120 H 11/14/18 15:11 Pulse Ox 98 11/14/18 14:51 Constitutional: WD/WN, vitals as above Eyes: PERRL, conjunctivae normal, anicteric sclerae ENMT: external ear and nose normal, oropharynx normal Respiratory: no respiratory distress and no labored breathing Diffused rhonchorous breath sounds bilaterally Cardiovascular: Irregularly irregular rhythm, no murmurs/rubs/gallops Gastrointestinal (Abdomen): normal bowel sounds, soft, nontender, no hepatosplenomegaly Musculoskeletal: no cyanosis or clubbing, extremities motor strength 5/5 Skin: no rashes, warm and dry Psychiatric: A+Ox3, euthymic affect Results & Data Laboratory Results Laboratory Last Values WBC 16.71 K/uL (4.8-10.8) H 11/14/18 06:00 RBC 3.30 M/uL (4.7-6.1) L 11/14/18 06:00 Hgb 8.9 g/dL (14.0-18.0) L 11/14/18 06:00 Hct 29.4 % (42-52) L 11/14/18 06:00 MCV 89.1 fL (80-100) 11/14/18 06:00 MCH 27.0 pg (25-34) 11/14/18 06:00 MCHC 30.3 g/dL (32-36) L 11/14/18 06:00 RDW Std Deviation 53.2 fL (36.4-46.3) H 11/14/18 06:00 RDW Coeff of Kobi 16.4 % (11.5-14.5) H 11/14/18 06:00 Plt Count 270 K/uL (130-400) 11/14/18 06:00 MPV 11.3 fL (7.4-10.4) H 11/14/18 06:00 Immature Gran % (Auto) 0.5 % 11/14/18 06:00 Neut % (Auto) 94.5 % 11/14/18 06:00 Lymph % (Auto) 2.1 % 11/14/18 06:00 Reeves % (Auto) 2.9 % 11/14/18 06:00 Eos % (Auto) 0.0 % 11/14/18 06:00 Baso % (Auto) 0.0 % 11/14/18 06:00 Immature Gran # (Auto) 0.08 K/uL (0.00-0.02) H 11/14/18 06:00 Neut # (Auto) 15.80 K/uL (1.4-6.5) H 11/14/18 06:00 Lymph # (Auto) 0.35 K/uL (1.2-3.4) L 11/14/18 06:00 [place]eves # (Auto) 0.48 K/uL (0.11-0.59) 11/14/18 06:00 Eos # (Auto) 0.00 K/uL (0-0.5) 11/14/18 06:00 Baso # (Auto) 0.00 K/uL (0-0.2) 11/14/18 06:00 Hyposegmented Neuts 2+ 11/14/18 06:00 PT 11.3 Seconds (9.0-12.0) 11/14/18 06:00 INR 1.1 (0.9-1.1) 11/14/18 06:00 APTT 33.1 Seconds (21.0-31.0) H 11/14/18 06:00 PTT Ratio 1.2 11/14/18 06:00 Sodium 138 mmol/L (136-145) 11/14/18 06:00 Potassium 4.5 mmol/L (3.5-5.1) 11/14/18 06:00 Chloride 103 mmol/L (98-107) 11/14/18 06:00 Carbon Dioxide 30 mmol/L (21-32) 11/14/18 06:00 Anion Gap 5.0 (3-11) 11/14/18 06:00 BUN 43 mg/dl (7-18) H 11/14/18 06:00 Creatinine 1.21 mg/dl (0.6-1.4) 11/14/18 06:00 Est Cr Clr Drug Dosing 54.2 ml/min 11/14/18 06:00 Est GFR ( Amer) 69.4 11/14/18 06:00 Est GFR (Non-Af Amer) 59.9 11/14/18 06:00 BUN/Creatinine Ratio 35.6 (10-20) H 11/14/18 06:00 Glucose 113 mg/dl (70-99) H 11/14/18 06:00 POC Glucose 137 (70-99) H 11/14/18 04:37 POC Lactic Acid Nick 1.02 mmol/L (0.90-1.70) 11/13/18 19:41 Calcium 8.0 mg/dl (8.5-10.1) L 11/14/18 06:00 Total Bilirubin 0.8 mg/dl (0.2-1) 11/14/18 06:00 AST 14 U/L (15-37) L 11/14/18 06:00 ALT 13 U/L (12-78) 11/14/18 06:00 Alkaline Phosphatase 62 U/L (45-117) 11/14/18 06:00 Troponin I 0.033 ng/ml (0-0.045) 11/13/18 18:15 Total Protein 6.4 gm/dl (6.4-8.2) 11/14/18 06:00 Albumin 2.7 gm/dl (3.4-5.0) L 11/14/18 06:00 Globulin 3.7 gm/dl (2.5-4.0) 11/14/18 06:00 Albumin/Globulin Ratio 0.7 (0.9-2) L 11/14/18 06:00 Procalcitonin 0.45 ng/ml (0-0.5) 11/13/18 18:15 Nasal Screen MRSA (PCR) Negative (Negative) 11/14/18 10:05 Influenza Type A Ag Neg for Influ A (Neg) 11/13/18 19:12 Influenza Type B Ag Neg for Influ B (Neg) 11/13/18 19:12 Resident Activity Tracking Resident Involvement: Resident Care Provided Care Provided: Adult [facility] _ (1) BPH (benign prostatic hypertrophy) Lower urinary tract symptom detail: Lower urinary tract symptom presence: symptoms absent Qualified Code(s): N40.0 - Benign prostatic hyperplasia without lower urinary tract symptoms (2) Hyperlipidemia Hyperlipidemia type: unspecified Qualified Code(s): E78.5 - Hyperlipidemia, unspecified
[2018-11-14] MEDS ORDERED: PEPTAMEN 1.5 CAL 1,000 ML BAG PEG SCH (16:15)
--- NOTE | 2018-11-14 19:32 | XRay Report ---
SINGLE VIEW CHEST CLINICAL HISTORY: Dyspnea. FINDINGS: An AP, portable, upright chest radiograph is compared to study dated 11/13/2018 and correlat ed with chest CT dated 10/31/2018. The examination is degraded by portable technique and patient rotat ion. The patient is status post midline sternotomy. The heart is mildly enlarged and there is athero sclerotic calcification of the thoracic aorta. The pulmonary vasculature is noncongested. Chronic int erstitial thickening is similar to previous. Bibasilar airspace opacities are observed. No large pleu ral effusion or pneumothorax is seen. The skeletal structures are osteopenic. The bony thorax is flaco sly intact. Fusion hardware is noted in the lower cervical spine. Stents are present in carotid arter ies bilaterally. Surgical clips are noted in the left neck. IMPRESSION: There are bibasilar airspace opacities. This could represent atelectasis versus pneumonia /aspiration pneumonitis. Clinical correlation will be required. Electronically signed by: Rito García M.D. 11/14/2018 7:30 PM
--- NOTE | 2018-11-14 19:33 | XRay Report ---
SINGLE EXPIRATORY VIEW CHEST CLINICAL HISTORY: Dyspnea. FINDINGS: An AP, portable, upright, expiratory chest radiograph is compared to study performed carol r the same day 11/14/2018 and correlated with chest CT dated 10/31/2018. The examination is degraded by portable technique and patient rotation. The patient is status post midline sternotomy. The heart i s mildly enlarged and there is atherosclerotic calcification of the thoracic aorta. The pulmonary vas culature is noncongested. Chronic interstitial thickening is similar to previous. Bibasilar airspace opacities are observed. No large pleural effusion or pneumothorax is seen. The skeletal structures ar e osteopenic. The bony thorax is grossly intact. Fusion hardware is noted in the lower cervical spine . Stents are present in carotid arteries bilaterally. Surgical clips are noted in the left neck. IMPRESSION: There are bibasilar airspace opacities. This could represent atelectasis versus pneumonia /aspiration pneumonitis. Clinical correlation will be required. Electronically signed by: Rito García M.D. 11/14/2018 7:32 PM
[2018-11-14] MEDS: DOXAZOSIN MESYLATE 1 MG TAB PEG SCH (21:01)
[2018-11-15 01:12] LABS: HCO3 ABG 30 mmol/L (19-24); Oxygen Saturation ABG 93.6 % (90-95); PCO2 ABG 62 mmHg (35-46); PO2 ABG 79 mm/Hg (80-95); pH ABG 7.31 (7.35-7.45)
[2018-11-15 01:13] LABS: Allen Test POS (Pos)
[2018-11-15] MEDS: PIPERACILLIN/TAZOBACTAM 3.375 GM in DEXTROSE 5% 100 ML IV SCH ×3 (01:22→17:57)
[2018-11-15] MEDS ORDERED: DEXMEDETOMIDINE HCL 200 MCG in SODIUM CHLORIDE 0.9% 48 ML IV PRN (01:45)
[2018-11-15] MEDS ORDERED: RAPID SEQUENCE INDUCTION BAG ONE (01:45)
[2018-11-15] MEDS ORDERED: AMIODARONE / D5W 360 MG/200 ML BAG IV STA (02:40)
--- NOTE | 2018-11-15 02:40 | Critical Care Consultation ---
Date of Consultation November 15, 2018 Supervising Physician Co-Signing Physician Notes Reason Critically Ill: 73-year-old male with paroxysmal A. fib and squamous cell carcinoma with acute hypercarbic hypoxic respiratory failure PLAN: Neuro: Metabolic encephalopathy -Improved with BiPAP ventilation Squamous cell carcinoma -Salvage therapy per Dr. Trujillo -At high risk for thromboembolic disease -Would consider empiric heparin versus Lovenox given atrial fibrillation and squamous cell carcinoma Chronic pain -Continue current pain regimen Resp: Acute hypercarbic hypoxic respiratory failure -Reported aspiration pneumonia Laryngeal squamous cell carcinoma -I highly anticipate the patient has a paralyzed vocal cord -Patient reports trouble enunciating words and recent voice changes -I offered to perform a laryngoscopy and possible awake intubation however the patient declines aggressive intervention -I did explain the risks and benefits of intubation as well as need for possible tracheostomy as this could improve ventilation and may be by patient additional time however he declines this option CV: Atrial fibrillation with rapid ventricular response -Given concerns of syncope will avoid AV afsaneh blocking agents and use amiodarone -Consideration was given to systemic anticoagulation Prolonged QTC -Discontinued Zofran -Discontinued Celexa Fluids/Renal: Acute respiratory acidosis Elevated BUN ID: Aspiration pneumonia -Agree with Zosyn -Patient declines bronchoscopy -Consider transition to oral antibiotics GI/Nutrition: Hypoalbuminemia -Likely early stages of cachexia -Continue PEG feedings Heme: Anemia of chronic disease DVT prophylaxis: As the patient is transitioning to less aggressive measures I will institute therapeutic Lovenox over heparin to minimize blood draws given cancer and atrial fibrillation Endocrine: ICU hyperglycemia protocol Vascular access: Peripheral IVs Code Status: Patient desires to be DO NOT RESUSCITATE in event of cardiac arrest DO NOT INTUBATE in event of respiratory insufficiency he does request a sponge buffer. He is already a patient of the palliative care service who we will consult. I have personally spent 35 minutes of critical care time in the direct management of this patient. This is a life/limb threatening event. This includes time spent evaluating patient, direct bedside care, chart review, placing orders, interpretation of diagnostic studies, discussion with consultants, patient, and/or family members regarding treatment decisions, as well as other required patient management activities. This time is exclusive of all separately billable procedures, and teaching time and separate from and in addition to any other critical care service time. 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 He has new onset paroxysmal atrial fibrillation and a recent admission for recurrent syncope which is thought to be secondary to mass-effect on the carotid bulb from the squamous cell carcinoma. Is currently being seen by Dr. Trujillo and undergoing salvage chemotherapy and radiation. Allergies Allergy/AdvReac Type Severity Reaction Status Date / Time latex Allergy Unknown patient Verified 11/13/18 18:43 states had allergy tests which tested + No Known Drug Allergies Allergy Unknown NKDA Verified 11/13/18 18:43 Home Medications Home Medications Medication Instructions Recorded Confirmed Type acetaminophen [Acetaminophen Extra 500 mg FEEDING TUBE Q4 PRN 08/29/18 11/13/18 History Strength] allopurinol 300 mg FEEDING TUBE DAILY 08/29/18 11/13/18 History aspirin [Aspir-81] 81 mg FEEDING TUBE DAILY 08/29/18 11/13/18 History atorvastatin 20 mg FEEDING TUBE DAILY 08/29/18 11/13/18 History citalopram 20 mg FEEDING TUBE DAILY 08/29/18 11/13/18 History clopidogrel [Plavix] 75 mg FEEDING TUBE DAILY 08/29/18 11/13/18 History doxazosin 1 mg FEEDING TUBE HS 08/29/18 11/13/18 History gabapentin 300 mg FEEDING TUBE TID 08/29/18 11/13/18 History metaxalone 800 mg FEEDING TUBE TID PRN 08/29/18 11/13/18 History salmeterol [Serevent Diskus] 1 inh INHALATION BID 08/29/18 11/13/18 History B1,B2,B3,B6,O05-nrcrqy-Rx-ndlk 5 ml FEEDING TUBE DAILY 10/24/18 11/13/18 History [Eldertonic] artificial saliva (yerbas-lyt) 1 applic MUCOUS MEMBRANE QID PRN 10/24/18 History [Mouth Kote] calcium caseinate-whey [ProSource] 1 packet PO TID 10/24/18 11/13/18 History fructoligosaccharides-polydex 1 packet FEEDING TUBE TID 10/24/18 11/13/18 History [HyFiber with FOS] guaifenesin 20 ml FEEDING TUBE Q4 PRN 10/24/18 11/13/18 History lansoprazole 30 mg FEEDING TUBE DAILY 10/24/18 11/13/18 History multivitamin [Multiple Vitamins] 1 tab FEEDING TUBE DAILY 10/24/18 11/13/18 History ondansetron HCl 4 mg FEEDING TUBE DAILY PRN 10/31/18 11/13/18 History fentanyl 12 mcg TOPICAL Q72H 11/13/18 11/13/18 History oxycodone 5 ml FEEDING TUBE Q4 PRN 11/13/18 11/13/18 History Patient History Medical History Anxiety Fatty liver (Chronic) Pulmonary nodules (Chronic) BPH (benign prostatic hypertrophy) (Chronic) Hyperlipidemia (Chronic) Cervical stenosis of spinal canal 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" Bacteremia Beta-hemolytic group B streptococcal sepsis Pneumonia CKD (chronic kidney disease) stage 3, GFR 30-59 ml/min CVA (cerebral vascular accident) Hypertension Surgical History S/P tonsillectomy (Chronic) H/O colonoscopy (Chronic) Hx of esophagogastroduodenoscopy (Chronic) H/O umbilical hernia repair (Chronic) Family History Other Hepatocellular carcinoma Lung cancer Social History Current Living Situation: Spouse Other Information That Helps Us Care for You: No Feels Safe at Home: Yes Smoking Status: Former smoker Hx Alcohol Use: No Hx Substance Use: No Beliefs That Will Affect Care: None Communication Ability: Effective Physical Exam 2 Vital Signs (Past 24 Hours): Last Vital Signs Temp 36.8 C 11/14/18 23:24 Pulse 60 11/15/18 00:40 Resp 19 11/15/18 00:40 BP 128/67 11/14/18 23:24 Pulse Ox 100 11/15/18 00:40 General: Obese male who appears his stated age I have reviewed the recorded vital signs Neurological: RASS score: 0, Moves all 4 extremities, Psychological: GCS 15 following complex commands Eyes: Pupils are equal, round and reactive to light, anicteric sclera. Symmetrical lids. HENT: Oropharynx is clear, moist mucous membranes. Neck: Mild deviation of trachea, obvious neck mass to left side Cardiovascular: Normal peripheral perfusion. Distal pulses and capillary refill intact. Irregularly irregular Respiratory: Respirations are non-labored, no accessory muscle use. Breath sounds are equal. Gastrointestinal: Soft. Non-distended. Musculoskeletal: No deformity. No clubbing nor cyanosis. Results & Data Laboratory Results 11/15/18 11/14/18 11/14/18 Range/Units 01:01 10:05 06:00 WBC (4.8-10.8) K/uL RBC (4.7-6.1) M/uL Hgb (14.0-18.0) g/dL Hct (42-52) % MCV (80-100) fL MCH (25-34) pg MCHC (32-36) g/dL RDW Std Deviation (36.4-46.3) fL RDW Coeff of Kobi (11.5-14.5) % Plt Count (130-400) K/uL MPV (7.4-10.4) fL Immature Gran % (Auto) % Neut % (Auto) % Lymph % (Auto) % [place] % (Auto) % Eos % (Auto) % Baso % (Auto) % Immature Gran # (Auto) (0.00-0.02) K/uL Neut # (Auto) (1.4-6.5) K/uL Lymph # (Auto) (1.2-3.4) K/uL [place] # (Auto) (0.11-0.59) K/uL Eos # (Auto) (0-0.5) K/uL Baso # (Auto) (0-0.2) K/uL Hyposegmented Neuts PT (9.0-12.0) Seconds INR (0.9-1.1) APTT (21.0-31.0) Seconds PTT Ratio ABG pH 7.31 L (7.35-7.45) ABG pCO2 62 H (35-46) mmHg ABG pO2 79 L (80-95) mm/Hg ABG HCO3 30 H (19-24) mmol/L ABG O2 Saturation 93.6 (90-95) % ABG Base Excess 2.9 H (-9-1.8) mEq/L Ranjit Test POS (Pos) Barometric Pressure 738.6 mm/Hg Oxygen Given 30% FIO2 Sodium 138 (136-145) mmol/L Potassium 4.5 (3.5-5.1) mmol/L Chloride 103 (98-107) mmol/L Carbon Dioxide 30 (21-32) mmol/L Anion Gap 5.0 (3-11) BUN 43 H (7-18) mg/dl Creatinine 1.21 (0.6-1.4) mg/dl Est Cr Clr Drug Dosing 54.2 ml/min Est GFR ( Amer) 69.4 Est GFR (Non-Af Amer) 59.9 BUN/Creatinine Ratio 35.6 H (10-20) Glucose 113 H (70-99) mg/dl POC Glucose (70-99) Calcium 8.0 L (8.5-10.1) mg/dl Total Bilirubin 0.8 (0.2-1) mg/dl AST 14 L (15-37) U/L ALT 13 (12-78) U/L Alkaline Phosphatase 62 (45-117) U/L Total Protein 6.4 (6.4-8.2) gm/dl Albumin 2.7 L (3.4-5.0) gm/dl Globulin 3.7 (2.5-4.0) gm/dl Albumin/Globulin Ratio 0.7 L (0.9-2) Nasal Screen MRSA (PCR) Negative (Negative) 11/14/18 11/14/18 11/14/18 Range/Units 06:00 06:00 04:37 WBC 16.71 H (4.8-10.8) K/uL RBC 3.30 L (4.7-6.1) M/uL Hgb 8.9 L (14.0-18.0) g/dL Hct 29.4 L (42-52) % MCV 89.1 (80-100) fL MCH 27.0 (25-34) pg MCHC 30.3 L (32-36) g/dL RDW Std Deviation 53.2 H (36.4-46.3) fL RDW Coeff of Kobi 16.4 H (11.5-14.5) % Plt Count 270 (130-400) K/uL MPV 11.3 H (7.4-10.4) fL Immature Gran % (Auto) 0.5 % Neut % (Auto) 94.5 % Lymph % (Auto) 2.1 % [place] % (Auto) 2.9 % Eos % (Auto) 0.0 % Baso % (Auto) 0.0 % Immature Gran # (Auto) 0.08 H (0.00-0.02) K/uL Neut # (Auto) 15.80 H (1.4-6.5) K/uL Lymph # (Auto) 0.35 L (1.2-3.4) K/uL [place] # (Auto) 0.48 (0.11-0.59) K/uL Eos # (Auto) 0.00 (0-0.5) K/uL Baso # (Auto) 0.00 (0-0.2) K/uL Hyposegmented Neuts 2+ PT 11.3 (9.0-12.0) Seconds INR 1.1 (0.9-1.1) APTT 33.1 H (21.0-31.0) Seconds PTT Ratio 1.2 ABG pH (7.35-7.45) ABG pCO2 (35-46) mmHg ABG pO2 (80-95) mm/Hg ABG HCO3 (19-24) mmol/L ABG O2 Saturation (90-95) % ABG Base Excess (-9-1.8) mEq/L Ranjit Test (Pos) Barometric Pressure mm/Hg Oxygen Given Sodium (136-145) mmol/L Potassium (3.5-5.1) mmol/L Chloride (98-107) mmol/L Carbon Dioxide (21-32) mmol/L Anion Gap (3-11) BUN (7-18) mg/dl Creatinine (0.6-1.4) mg/dl Est Cr Clr Drug Dosing ml/min Est GFR ( Amer) Est GFR (Non-Af Amer) BUN/Creatinine Ratio (10-20) Glucose (70-99) mg/dl POC Glucose 137 H (70-99) Calcium (8.5-10.1) mg/dl Total Bilirubin (0.2-1) mg/dl AST (15-37) U/L ALT (12-78) U/L Alkaline Phosphatase (45-117) U/L Total Protein (6.4-8.2) gm/dl Albumin (3.4-5.0) gm/dl Globulin (2.5-4.0) gm/dl Albumin/Globulin Ratio (0.9-2) Nasal Screen MRSA (PCR) (Negative) Diagnostic Findings I have reviewed the chest x-ray as well as inspiratory and expiratory chest x- ray films as well as the radiology report and images for the CT scan of the head and neck.
[2018-11-15] MEDS: ENOXAPARIN 80 MG/0.8 ML SYR SQ SCH ×2 (05:00→16:40)
[2018-11-15 05:05] LABS: Basophils # (auto) 0.02 K/uL (0-0.2); Basophils % (auto) 0.1 %; Eosinophils # (auto) 0.05 K/uL (0-0.5); Eosinophils % (auto) 0.3 %; Hematocrit (blood only) 28.7 % (42-52); Hemoglobin 8.5 g/dL (14.0-18.0); Immature Granulocytes # (auto) 0.09 K/uL (0.00-0.02); Immature Granulocytes % (auto) 0.6 %; Lymphocytes # (auto) 0.36 K/uL (1.2-3.4); Lymphocytes % (auto) 2.3 %; Mean Corpuscular Hgb Conc 29.6 g/dL (32-36); Mean Corpuscular Volume 92.6 fL (80-100); Mean Platelet Volume 10.7 fL (7.4-10.4); Monocytes # (auto) 0.41 K/uL (0.11-0.59); Monocytes % (auto) 2.6 %; Neutrophils # (auto) 15.01 K/uL (1.4-6.5); Neutrophils % (auto) 94.1 %; Platelet Count 248 K/uL (130-400); RDW Coefficient of Variation 16.3 % (11.5-14.5); RDW Standard Deviation 54.5 fL (36.4-46.3); White Blood Count 15.94 K/uL (4.8-10.8)
[2018-11-15 05:16] LABS: Prothrombin Time 10.7 Seconds (9.0-12.0)
[2018-11-15 05:23] LABS: RBC Morphology Unremarkable
[2018-11-15 05:29] LABS: Albumin Level 2.6 gm/dl (3.4-5.0); BUN Creatinine Ratio 40.9 (10-20); Calcium 8.2 mg/dl (8.5-10.1); Creatinine Clr Calc Pharmacy 56.5 ml/min; Magnesium 2.4 mg/dl (1.8-2.4); Potassium 4.1 mmol/L (3.5-5.1)
[2018-11-15 05:31] LABS: Albumin Globulin Ratio 0.7 (0.9-2); Bilirubin,Total 0.4 mg/dl (0.2-1); Globulin 3.9 gm/dl (2.5-4.0); Total Protein 6.5 gm/dl (6.4-8.2)
[2018-11-15] MEDS: AMIODARONE / D5W 360 MG/200 ML BAG IV SCH ×2 (08:25→20:57)
[2018-11-15] MEDS: ASPIRIN 81 MG CHEW PO SCH (08:36)
[2018-11-15] MEDS: CLOPIDOGREL BISULFATE 75 MG TAB PEG SCH (08:37)
[2018-11-15] MEDS: MULTIVITAMIN TAB PO SCH ×2 (08:37→11:17)
[2018-11-15] MEDS: ATORVASTATIN 20 MG TAB PEG SCH (08:37)
[2018-11-15] MEDS: LANSOPRAZOLE 30 MG SOLTAB PEG SCH (08:38)
[2018-11-15] MEDS: ALLOPURINOL 300 MG TAB PEG SCH (08:39)
[2018-11-15] MEDS: ALBUT/IPRATROP 3MG/0.5MG NEB 3 ML VIAL NEB SCH ×4 (08:44→19:21)
[2018-11-15] MEDS: CHECK FENTANYL PATCH PLACEMENT SCH ×3 (09:38→23:35)
[2018-11-15] MEDS ORDERED: PEPTAMEN 1.5 CAL 1,000 ML BAG PEG SCH ×2 (10:15→15:45)
[2018-11-15] MEDS: GABAPENTIN 250 MG/5 ML 470 ML BTL PO SCH ×3 (11:18→21:00)
--- NOTE | 2018-11-15 11:22 | Palliative Care Consultation ---
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 Patient was recently admitted on 10/24/2018 for recurrent syncope and was discharged with diagnosis of vasovagal syncope. During that admission, there was some concern that there was a mass- effect near the carotid bulb causing the vasovagal response. He was discharged home and came back on 11/02 with recurrent syncope. CTA chest, head, and neck obtained which shows increase in size of left neck mass from 09/16/18 PET/CT scan. Also showed osteoblastic focus within the right lateral 8th rib, as is a focus in the left anterior 7th rib. He was admitted under observation over night , was started on fentanyl patch for pain and discharged home with plans to follow up with heme/onc. Patient did have one dose of chemotherapy last week, and now returns with respiratory failure due to pneumonia. Also was in afib with RVR, but converted to NSR with amiodarone infusion, which he remains on. He was initially admitted to ICU, but after discussion with the lay out machine operator, patient decided he did not want to be intubated and was made DNR/DNI. He will likely transfer out of ICU. Palliative care is consulted again for goals of care. -Met with patient in room 108. He is awake, alert and oriented. He is on bipap and he has a very strained voice, so communication was limited. Patient stated that he is feeling quite lousy. Things were going okay at home until this illness started. -Patient confirmed DNR/DNI status. -He does want to continue to treat his acute illness with amiodarone gtt, bipap if needed, abx, etc. No escalation in care. -Informally spoke with patient's oncologist who is aware of patient's admission to hospital. Patient will need to be medically stable to continue chemo. Prior to patient's last admission, he was a fully functioning, independent gentleman. -For pain, continue fentanyl patch at 12mcg/hr. -Has Roxicodone 5mg GT Q4h PRN for breakthrough pain. -Will continue to follow. (2) Hypoxia: (3) Right lower lobe pneumonia: (4) Cancer related pain: (5) Cancer of neck: Supervising Physician Co-Signing Physician Notes Chart reviewed, patient seen and examined in the ICU. Patient is a newly established patient in my palliative clinic-first visit was on 11/08. Patient was seen for cancer related pain-restarted on his fentanyl patch at 12 mcg. Patient has received 1 dose of chemotherapy since his palliative clinic visit on 11/08. Patient states the fentanyl patch has been effective-he required 2 doses 5 mg of oxycodone in the past 24 hours for breakthrough pain. PE: Patient appears comfortable, on oxygen mask. HEENT: Mass does appear smaller than my previous exam 1 week ago Respirations: Slightly labored, rhonchi right base-sats maintained when patient removed his oxygen mask CV: Regular rate, no edema Abdomen: Not distended, G-tube in place Neuro: Alert and oriented x4, +dysphasia Agree with above note, assessment and plan as per DIVYA Santoyo P-we will continue to follow to assist with pain management as well as medical decision making. Expect patient's pain medication requirements to decrease as it appears that the chemo is showing some effect. History of Present Illness Reason for Consultation: Goals of care Requesting Physician: Dr. 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 Patient was recently admitted on 10/24/2018 for recurrent syncope and was discharged with diagnosis of vasovagal syncope. During that admission, there was some concern that there was a mass- effect near the carotid bulb causing the vasovagal response. He was discharged home and came back on 11/02 with recurrent syncope. CTA chest, head, and neck obtained which shows increase in size of left neck mass from 09/16/18 PET/CT scan. Also showed osteoblastic focus within the right lateral 8th rib, as is a focus in the left anterior 7th rib. He was admitted under observation over night , was started on fentanyl patch for pain and discharged home with plans to follow up with heme/onc. Patient did have one dose of chemotherapy last week, and now returns with respiratory failure due to pneumonia. Also was in afib with RVR, but converted to NSR with amiodarone infusion, which he remains on. He was initially admitted to ICU, but after discussion with the lay out machine operator, patient decided he did not want to be intubated and was made DNR/DNI. He will likely transfer out of ICU. Palliative care is consulted again for goals of care. Thank you kindly for this consult. I will follow as needed. Allergies Allergy/AdvReac Type Severity Reaction Status Date / Time latex Allergy Unknown patient Verified 11/13/18 18:43 states had allergy tests which tested + No Known Drug Allergies Allergy Unknown NKDA Verified 11/13/18 18:43 Home Medications Home Medications Medication Instructions Recorded Confirmed Type acetaminophen [Acetaminophen Extra 500 mg FEEDING TUBE Q4 PRN 08/29/18 11/13/18 History Strength] allopurinol 300 mg FEEDING TUBE DAILY 08/29/18 11/13/18 History aspirin [Aspir-81] 81 mg FEEDING TUBE DAILY 08/29/18 11/13/18 History atorvastatin 20 mg FEEDING TUBE DAILY 08/29/18 11/13/18 History citalopram 20 mg FEEDING TUBE DAILY 08/29/18 11/13/18 History clopidogrel [Plavix] 75 mg FEEDING TUBE DAILY 08/29/18 11/13/18 History doxazosin 1 mg FEEDING TUBE HS 08/29/18 11/13/18 History gabapentin 300 mg FEEDING TUBE TID 08/29/18 11/13/18 History metaxalone 800 mg FEEDING TUBE TID PRN 08/29/18 11/13/18 History salmeterol [Serevent Diskus] 1 inh INHALATION BID 08/29/18 11/13/18 History B1,B2,B3,B6,R22-ojefhk-Rn-lhde 5 ml FEEDING TUBE DAILY 10/24/18 11/13/18 History [Eldertonic] artificial saliva (yerbas-lyt) 1 applic MUCOUS MEMBRANE QID PRN 10/24/18 History [Mouth Kote] calcium caseinate-whey [ProSource] 1 packet PO TID 10/24/18 11/13/18 History fructoligosaccharides-polydex 1 packet FEEDING TUBE TID 10/24/18 11/13/18 History [HyFiber with FOS] guaifenesin 20 ml FEEDING TUBE Q4 PRN 10/24/18 11/13/18 History lansoprazole 30 mg FEEDING TUBE DAILY 10/24/18 11/13/18 History multivitamin [Multiple Vitamins] 1 tab FEEDING TUBE DAILY 10/24/18 11/13/18 History ondansetron HCl 4 mg FEEDING TUBE DAILY PRN 10/31/18 11/13/18 History fentanyl 12 mcg TOPICAL Q72H 11/13/18 11/13/18 History oxycodone 5 ml FEEDING TUBE Q4 PRN 11/13/18 11/13/18 History Patient History Medical History Anxiety Fatty liver (Chronic) Pulmonary nodules (Chronic) BPH (benign prostatic hypertrophy) (Chronic) Hyperlipidemia (Chronic) Cervical stenosis of spinal canal 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" Bacteremia Beta-hemolytic group B streptococcal sepsis Pneumonia CKD (chronic kidney disease) stage 3, GFR 30-59 ml/min CVA (cerebral vascular accident) Hypertension Surgical History S/P tonsillectomy (Chronic) H/O colonoscopy (Chronic) Hx of esophagogastroduodenoscopy (Chronic) H/O umbilical hernia repair (Chronic) Family History Other Hepatocellular carcinoma Lung cancer Social History Current Living Situation: Spouse Other Information That Helps Us Care for You: No Feels Safe at Home: Yes Smoking Status: Former smoker Hx Alcohol Use: No Hx Substance Use: No Beliefs That Will Affect Care: None Communication Ability: Effective Review of Systems Constitutional: + weakness; no fever and no chills Ear, Nose, Mouth, Throat: + dry mouth Respiratory: + cough and + dyspnea Cardiovascular: no chest pain and no edema Gastrointestinal: no abdominal pain, no nausea and no vomiting Musculoskeletal: + neck pain (left neck pain r/t mass. is 6/10) Neurologic: no confusion Psychiatric: no depression and no anxiety Physical Exam 2 Vital Signs (Past 24 Hours): Last Vital Signs Temp 36.2 C L 02/26/19 09:00 Pulse 82 11/15/18 11:09 Resp 15 11/15/18 11:00 BP 115/51 L 11/15/18 11:00 Pulse Ox 100 11/15/18 11:09 Constitutional: + ill appearing (acutely) and average body habitus ENMT: Ears: no hearing impairment Neck: trachea midline; + abnormal visual inspection (visible and palpable hard mass on left side of neck under jaw) Respiratory: + tachypneic (mildly); no respiratory distress Auscultation: + diminished lung sounds Cardiovascular: Rate/Rhythm: regular rate and regular rhythm Heart Sounds: normal S1 and normal S2 Vessels: dorsalis pedis pulses present Gastrointestinal (Abdomen): Inspection/Auscultation: abdomen normal to inspection and normal bowel sounds; abdomen not distended Percussion/ Palpation: abdomen soft; abdomen nontender Neurologic: awake; not confused Psychiatric: Orientation: alert and oriented x 3 Affect: + depressed affect Time Spent Midlevel 70 minutes with >50% of time spent at bedside with patient discussing condition and GOC. Attending I spent additional 35 minutes in addition to the above visit by SHOSHANA Santoyo -for a total of 105 minutes with greater than 50% of the time spent at bedside discussing patient's pain control as well as treatment options and goals of care.
[2018-11-15] MEDS: OXYCODONE HCL SOLN 5 MG/5 ML UDC GT PRN ×2 (12:27→20:56)
[2018-11-15] MEDS: MULTI VIT W/MINERALS LIQUID 15 ML UDP PO SCH (12:28)
--- NOTE | 2018-11-15 16:33 | Family Medicine Progress Note ---
Date of Service November 15, 2018 Assessment & Plan (1) Right lower lobe pneumonia: 73-year-old male with a history of oral pharyngeal/laryngeal neoplastic disease presents with acute hypoxic respiratory distress secondary to pneumonia , right lower lobe. Acute hypoxic respiratory distress secondary to right lower lobe pneumonia, treating as aspiration Continue Zosyn Continue duo nebs every 4 hours The patient was in respiratory distress last night and transferred to the ICU. After discussion with bushel worker, it was determined that the patient will be switched to DNR/DNI status. Subsequently, the patient was put on BiPAP. Palliative medicine following, appreciate recommendations Recommend BiPAP while sleeping, oxygen mask while awake Pharyngeal/laryngeal neoplastic disease Being followed by Dr. Trujillo Currently receiving chemotherapy Continue PEG feedings Continue pain controlfentanyl patch 12.5 mcg, gabapentin 300 mg p.o. 3 times daily, oxycodone 5 mg every 4 as needed for breakthrough pain Continue Zofran 4 mg IV every 6 for nausea Atrial fibrillation with RVR Rates were previously controlled, but acute illness appears to have put him in RVRthe patient is asymptomatic, and vitals are stable IV and amiodarone initiated 11/14/2018 will transition to p.o. via PEG. QT prolongation Zofran discontinued switched to Celexa to Lexapro EKG tomorrow morning Hyperlipidemia Continue statin BPH Continue doxazosin DVT prophylaxis Heparin 5000 units subcu every 12 FEN PEG tube feeding per home regimen Nutritional consult (2) Hypoxia: (3) Cancer related pain: (4) Hyperlipidemia: (5) BPH (benign prostatic hypertrophy): (6) Cancer of hypopharynx: (7) Cancer of neck: Supervising Physician Co-Signing Physician Notes Co-Signing Physician Notes I saw the patient with Dr. Jane and confirmed rosenberg portions of the history and physical exam. I agree with the impression and plan as noted in his documentation. Patient with acute respiratory decompensation last evening leading to transfer to the ICU. He was placed on BiPAP and this afternoon is maintaining saturations on mask. Family at bedside. Suspect he had either mucus plugging or perhaps more likely upper airway partial obstruction when he fell asleep (head positioning plus mass effect from from tumor). relays a history at home where he will develop noisy breathing with cyanosis, which resolves when she awakens him). IMPRESSION Right lower lobe pneumonia, with hypoxia and leukocytosis Prerenal azotemia Oral pharyngeal tumor undergoing salvage chemotherapy Recent history of syncopal episode QT prolongation PLAN Discussed BiPAP while sleeping Palliative consult; advise oncology, may need formal consult to help determine prognosis and further treatment Change Bayron to Tommyapro Agree with therapuetic lovenox in the setting of a-fib and malignancy, although not sure I would discharge anticoagulation given his fall risk - this decision would be linked to his overall plan of care. Subjective 73-year-old male with a history of oral pharyngeal/laryngeal neoplastic disease presents with acute hypoxic respiratory failure secondary to pneumonia, right lower lobe. Patient is doing much better this morning. He states that yesterday became severely short of breath. He states that he just recently started chemotherapy. Physical Exam 2 Vital Signs (Past 24 Hours): Last Vital Signs Temp 36.8 C 11/15/18 12:35 Pulse 87 11/15/18 16:18 Resp 18 11/15/18 16:18 BP 107/57 L 11/15/18 12:35 Pulse Ox 97 11/15/18 16:18 Constitutional: WD/WN, vitals as above Eyes: PERRL, conjunctivae normal, anicteric sclerae ENMT: external ear and nose normal, oropharynx normal Neck: trachea midline, no thyromegaly Thyroid: + thyroid asymmetrical ( palpable mass of left cervical chain) Respiratory: no respiratory distress, no labored breathing, does not use accessory muscles and no nasal flaring Auscultation: + rhonchi (diffussed bl) ; no crackles and no wheezes Gastrointestinal (Abdomen): normal bowel sounds, soft, nontender, no hepatosplenomegaly Musculoskeletal: no cyanosis or clubbing, extremities motor strength 5/5 Skin: no rashes, warm and dry Psychiatric: A+Ox3, euthymic affect Results & Data Laboratory Results Laboratory Last Values WBC 15.94 K/uL (4.8-10.8) H 11/15/18 04:49 RBC 3.10 M/uL (4.7-6.1) L 11/15/18 04:49 Hgb 8.5 g/dL (14.0-18.0) L 11/15/18 04:49 Hct 28.7 % (42-52) L 11/15/18 04:49 MCV 92.6 fL (80-100) 11/15/18 04:49 MCH 27.4 pg (25-34) 11/15/18 04:49 MCHC 29.6 g/dL (32-36) L 11/15/18 04:49 RDW Std Deviation 54.5 fL (36.4-46.3) H 11/15/18 04:49 RDW Coeff of Kobi 16.3 % (11.5-14.5) H 11/15/18 04:49 Plt Count 248 K/uL (130-400) 11/15/18 04:49 MPV 10.7 fL (7.4-10.4) H 11/15/18 04:49 Immature Gran % (Auto) 0.6 % 11/15/18 04:49 Neut % (Auto) 94.1 % 11/15/18 04:49 Lymph % (Auto) 2.3 % 11/15/18 04:49 [place] % (Auto) 2.6 % 11/15/18 04:49 Eos % (Auto) 0.3 % 11/15/18 04:49 Baso % (Auto) 0.1 % 11/15/18 04:49 Immature Gran # (Auto) 0.09 K/uL (0.00-0.02) H 11/15/18 04:49 Neut # (Auto) 15.01 K/uL (1.4-6.5) H 11/15/18 04:49 Lymph # (Auto) 0.36 K/uL (1.2-3.4) L 11/15/18 04:49 [place] # (Auto) 0.41 K/uL (0.11-0.59) 11/15/18 04:49 Eos # (Auto) 0.05 K/uL (0-0.5) 11/15/18 04:49 Baso # (Auto) 0.02 K/uL (0-0.2) 11/15/18 04:49 Hyposegmented Neuts 2+ 11/14/18 06:00 RBC Morphology Unremarkable 11/15/18 04:49 PT 10.7 Seconds (9.0-12.0) 11/15/18 04:49 INR 1.0 (0.9-1.1) 11/15/18 04:49 APTT 33.1 Seconds (21.0-31.0) H 11/14/18 06:00 PTT Ratio 1.2 11/14/18 06:00 ABG pH 7.31 (7.35-7.45) L 11/15/18 01:01 ABG pCO2 62 mmHg (35-46) H 11/15/18 01:01 ABG pO2 79 mm/Hg (80-95) L 11/15/18 01:01 ABG HCO3 30 mmol/L (19-24) H 11/15/18 01:01 ABG O2 Saturation 93.6 % (90-95) 11/15/18 01:01 ABG Base Excess 2.9 mEq/L (-9-1.8) H 11/15/18 01:01 Ranjit Test POS (Pos) 11/15/18 01:01 Barometric Pressure 738.6 mm/Hg 11/15/18 01:01 Oxygen Given 30% FIO2 11/15/18 01:01 Sodium 138 mmol/L (136-145) 11/15/18 04:49 Potassium 4.1 mmol/L (3.5-5.1) 11/15/18 04:49 Chloride 103 mmol/L (98-107) 11/15/18 04:49 Carbon Dioxide 29 mmol/L (21-32) 11/15/18 04:49 Anion Gap 6.0 (3-11) 11/15/18 04:49 BUN 47 mg/dl (7-18) H 11/15/18 04:49 Creatinine 1.16 mg/dl (0.6-1.4) 11/15/18 04:49 Est Cr Clr Drug Dosing 56.5 ml/min 11/15/18 04:49 Est GFR ( Amer) 73.0 11/15/18 04:49 Est GFR (Non-Af Amer) 63.0 11/15/18 04:49 BUN/Creatinine Ratio 40.9 (10-20) H 11/15/18 04:49 Glucose 115 mg/dl (70-99) H 11/15/18 04:49 POC Glucose 137 (70-99) H 11/14/18 04:37 POC Lactic Acid Nick 1.02 mmol/L (0.90-1.70) 11/13/18 19:41 Calcium 8.2 mg/dl (8.5-10.1) L 11/15/18 04:49 Magnesium 2.4 mg/dl (1.8-2.4) 11/15/18 04:49 Total Bilirubin 0.4 mg/dl (0.2-1) 11/15/18 04:49 AST 12 U/L (15-37) L 11/15/18 04:49 ALT 12 U/L (12-78) 11/15/18 04:49 Alkaline Phosphatase 63 U/L (45-117) 11/15/18 04:49 Troponin I 0.033 ng/ml (0-0.045) 11/13/18 18:15 Total Protein 6.5 gm/dl (6.4-8.2) 11/15/18 04:49 Albumin 2.6 gm/dl (3.4-5.0) L 11/15/18 04:49 Globulin 3.9 gm/dl (2.5-4.0) 11/15/18 04:49 Albumin/Globulin Ratio 0.7 (0.9-2) L 11/15/18 04:49 Procalcitonin 0.45 ng/ml (0-0.5) 11/13/18 18:15 Nasal Screen MRSA (PCR) Negative (Negative) 11/14/18 10:05 Influenza Type A Ag Neg for Influ A (Neg) 11/13/18 19:12 Influenza Type B Ag Neg for Influ B (Neg) 11/13/18 19:12 Resident Activity Tracking Resident Involvement: Resident Care Provided Care Provided: Adult Hospital Medicine _ (1) BPH (benign prostatic hypertrophy) Lower urinary tract symptom detail: Lower urinary tract symptom presence: symptoms absent Qualified Code(s): N40.0 - Benign prostatic hyperplasia without lower urinary tract symptoms (2) Hyperlipidemia Hyperlipidemia type: unspecified Qualified Code(s): E78.5 - Hyperlipidemia, unspecified
[2018-11-15] MEDS: DOXAZOSIN MESYLATE 1 MG TAB PEG SCH (20:59)
[2018-11-15] MEDS ORDERED: PROCHLORPERAZINE 5 MG in SYRINGE 4 ML IV ONE (22:10)
[2018-11-16] MEDS: ENOXAPARIN 80 MG/0.8 ML SYR SQ SCH ×2 (01:07→15:52)
[2018-11-16] MEDS: PIPERACILLIN/TAZOBACTAM 3.375 GM in DEXTROSE 5% 100 ML IV SCH ×3 (01:07→18:20)
[2018-11-16 06:30] LABS: Basophils # (auto) 0.01 K/uL (0-0.2); Basophils % (auto) 0.1 %; Eosinophils # (auto) 0.07 K/uL (0-0.5); Eosinophils % (auto) 0.6 %; Hematocrit (blood only) 29.6 % (42-52); Hemoglobin 8.6 g/dL (14.0-18.0); Immature Granulocytes # (auto) 0.05 K/uL (0.00-0.02); Immature Granulocytes % (auto) 0.4 %; Lymphocytes # (auto) 0.28 K/uL (1.2-3.4); Lymphocytes % (auto) 2.4 %; Mean Corpuscular Hgb Conc 29.1 g/dL (32-36); Mean Corpuscular Volume 91.6 fL (80-100); Mean Platelet Volume 11.1 fL (7.4-10.4); Monocytes # (auto) 0.43 K/uL (0.11-0.59); Monocytes % (auto) 3.7 %; Neutrophils # (auto) 10.66 K/uL (1.4-6.5); Neutrophils % (auto) 92.8 %; Platelet Count 240 K/uL (130-400); RDW Coefficient of Variation 16.3 % (11.5-14.5); RDW Standard Deviation 54.9 fL (36.4-46.3); Red Blood Count 3.23 M/uL (4.7-6.1)
[2018-11-16 06:56] LABS: INR 1.1 (0.9-1.1)
[2018-11-16 07:06] LABS: Albumin Level 2.5 gm/dl (3.4-5.0); BUN Creatinine Ratio 41.9 (10-20); Calcium 8.8 mg/dl (8.5-10.1); Creatinine Clr Calc Pharmacy 69.7 ml/min; Est GFR (African American) 94.2; Est GFR (Non-African American) 81.2; Magnesium 2.1 mg/dl (1.8-2.4); Potassium 3.9 mmol/L (3.5-5.1)
[2018-11-16 07:09] LABS: Albumin Globulin Ratio 0.6 (0.9-2); Bilirubin,Total 0.3 mg/dl (0.2-1); Globulin 3.9 gm/dl (2.5-4.0); Total Protein 6.4 gm/dl (6.4-8.2)
[2018-11-16] MEDS: ALBUT/IPRATROP 3MG/0.5MG NEB 3 ML VIAL NEB SCH ×4 (07:11→19:18)
[2018-11-16] MEDS: LANSOPRAZOLE 30 MG SOLTAB PEG SCH (09:16)
[2018-11-16] MEDS: ESCITALOPRAM OXALATE ORAL SOLN 10 MG/10 ML UDP PO SCH (09:16)
[2018-11-16] MEDS: ATORVASTATIN 20 MG TAB PEG SCH (09:16)
[2018-11-16] MEDS: CLOPIDOGREL BISULFATE 75 MG TAB PEG SCH (09:16)
[2018-11-16] MEDS: ALLOPURINOL 300 MG TAB PEG SCH (09:16)
[2018-11-16] MEDS: ASPIRIN 81 MG CHEW PO SCH (09:17)
[2018-11-16] MEDS: MULTI VIT W/MINERALS LIQUID 15 ML UDP PO SCH (09:18)
[2018-11-16] MEDS: CHECK FENTANYL PATCH PLACEMENT SCH ×3 (09:18→23:55)
[2018-11-16] MEDS: GABAPENTIN 250 MG/5 ML 470 ML BTL PO SCH ×3 (09:19→21:02)
[2018-11-16] MEDS: OXYCODONE HCL SOLN 5 MG/5 ML UDC GT PRN ×3 (09:23→21:01)
[2018-11-16] MEDS: AMIODARONE / D5W 360 MG/200 ML BAG IV SCH ×2 (09:24→21:02)
--- NOTE | 2018-11-16 13:53 | Palliative Care Progress Note ---
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 Patient was recently admitted on 10/24/2018 for recurrent syncope and was discharged with diagnosis of vasovagal syncope. During that admission, there was some concern that there was a mass- effect near the carotid bulb causing the vasovagal response. He was discharged home and came back on 11/02 with recurrent syncope. CTA chest, head, and neck obtained which shows increase in size of left neck mass from 09/16/18 PET/CT scan. Also showed osteoblastic focus within the right lateral 8th rib, as is a focus in the left anterior 7th rib. He was admitted under observation over night, was started on fentanyl patch for pain and discharged home with plans to follow up with heme/onc. Patient did have one dose of chemotherapy last week, an d now returns with respiratory failure due to pneumonia. Also was in afib with RVR, but converted to NSR with amiodarone infusion, which he remains on. He was initially admitted to ICU, but after discussion with the counselor marriage and family, patient decided he did not want to be intubated and was made DNR/DNI. Palliative care is consulted again for goals of care. -Patient is in PCU today. He is feeling much better. -Patient states he felt okay immediately after his chemo on . Then, he felt terrible on Wednesday-- weakness, nausea, etc. -Patient is nervous about continue chemotherapy but still wants to give it a try. -Patient confirmed that he is DNR/DNI. He states he talked to his and son about his decision last evening and they are supportive of it. He declined needing me to speak with his family at this time. -His pain remains 6/10, which is his baseline amount of pain. He did express that his script for oxycodone at home is about to run out. He will need a script upon discharge. -Continue fentanyl patch at 12mcg/hr. Oxycodone 5mg PO Q4h PRN. -Remains on amiodarone infusion- no cardiology consult at this time. Hospitalists managing. -Will continue to follow. (2) Hypoxia: (3) Right lower lobe pneumonia: (4) Cancer related pain: (5) Cancer of neck: Subjective Patient is more awake today and feeling "much better than yesterday." He is off bipap while awake. No distress. Breathing is unlabored. Constitutional: + weakness; no fever and no chills Ear, Nose, Mouth, Throat: no dysphagia (but receives nutrition via PEG tube) Respiratory: + cough and + dyspnea on exertion; no dyspnea Cardiovascular: no chest pain and no edema Gastrointestinal: + nausea (occasional); no abdominal pain and no vomiting Musculoskeletal: + neck pain (6/10 in left sick of neck (mass)) Neurologic: no confusion Psychiatric: no depression and no anxiety Physical Exam Vital Signs (Past 24 Hours): Last Vital Signs Temp 36.7 C 11/16/18 11:16 Pulse 76 11/16/18 11:16 Resp 12 11/16/18 11:16 BP 128/78 11/16/18 11:16 Pulse Ox 100 11/16/18 11:16 Constitutional: + ill appearing (acutely) and average body habitus ENMT: Ears: no hearing impairment Neck: trachea midline; + abnormal visual inspection (visible and palpable hard mass on left side of neck under jaw) Respiratory: no respiratory distress Auscultation: + diminished lung sounds Cardiovascular: Rate/Rhythm: regular rate and regular rhythm Heart Sounds: normal S1 and normal S2 Vessels: dorsalis pedis pulses present Gastrointestinal (Abdomen): Inspection/Auscultation: abdomen normal to inspection and normal bowel sounds; abdomen not distended Percussion/Palpation: abdomen soft; abdomen nontender Neurologic: awake; not confused Psychiatric: Orientation: alert and oriented x 3 Time Spent Midlevel 35 minutes with >50% of time spent at bedside with patient discussing condition and GOC.
--- NOTE | 2018-11-16 15:34 | Family Medicine Progress Note ---
Date of Service November 16, 2018 Assessment & Plan (1) Right lower lobe pneumonia: 73-year-old male with a history of oral pharyngeal/laryngeal neoplastic disease presents with acute hypoxic respiratory distress secondary to pneumonia, right lower lobe. Acute hypoxic respiratory distress secondary to right lower lobe pneumonia, treating as aspiration Continue Zosyn Continue duo nebs every 4 hours Significant decompensation in the evening when not on BiPAP. 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 PCO2 at that time was 62. Patient has been on continuous pulse ox since hospitalizationwith documented desaturations and increased oxygen requirement while sleeping. Patient tolerating in the evenings since BiPAPdiscussed coordinating outpatient BiPAP with nurse navigator considering significant desaturations Palliative medicine following, appreciate recommendations Recommend BiPAP while sleeping, oxygen mask while awake Pharyngeal/laryngeal neoplastic disease Being followed by Dr. Trujillo Currently receiving chemotherapy Continue PEG feedings Continue pain controlfentanyl patch 12.5 mcg, gabapentin 300 mg p.o. 3 times daily, oxycodone 5 mg every 4 as needed for breakthrough pain Continue Zofran 4 mg IV every 6 for nausea Atrial fibrillation with RVR Rates were previously controlled, but acute illness appears to have put him in RVRthe patient is asymptomatic, and vitals are stable Metoprolol was recently DC'd in the setting of frequent syncope IV and amiodarone initiated 11/14/2018 will transition to p.o. via PEG. Says he sees Dr. Porras in the outpatient, will have Dr. Santos and see the patient while admitted to transition to p.o. and outpatient rhythm control QT prolongation Zofran discontinued switched to Celexa to Lexapro Phenergan for nausea Hyperlipidemia Continue statin BPH Continue doxazosin DVT prophylaxis Heparin 5000 units subcu every 12 FEN PEG tube feeding per home regimen Nutritional consult (2) Hypoxia: (3) Cancer related pain: (4) Hyperlipidemia: (5) BPH (benign prostatic hypertrophy): (6) Cancer of hypopharynx: (7) Cancer of neck: Supervising Physician Co-Signing Physician Notes I saw the patient independent of the resident physician and performed my own history and physical examination. I discussed the case with Dr. Flores and I agree with the impression and plan as noted in his documentation. The patient reports that he did well overnight on BiPAP. In reviewing the patient with nursing staff, no acute events overnight. A examination today and discussion was carried out with the patient's participating over the phone. Upon examination, he is alert and oriented. No acute distress. The left neck there is a firm large fixed mass consistent with his known oral pharyngeal tumor. Heart is irregular irregular. Lungs are clear at the apices with decreased breath sounds in the bases bilaterally. Abdomen is soft and nontender. Extremities without edema. No calf tenderness is appreciated. IMPRESSION Right lower lobe pneumonia, with hypoxia and leukocytosis Prerenal azotemia Oral pharyngeal tumor undergoing salvage chemotherapy Recent history of syncopal episode QT prolongation PLAN Discussed BiPAP while sleeping; this would be an option at home although we will have to see if he meets the usual Medicare requirements. Palliative consult; advise oncology, may need formal consult to help determine prognosis and further treatment Agree with therapuetic lovenox in the setting of a-fib and malignancy, although not sure I would discharge anticoagulation given his fall risk - this decision would be linked to his overall plan of care. We will formally consult cardiology for input regarding his atrial fibrillation. Will discuss future chemotherapy with oncology; he is tentatively scheduled for tomorrow although this may not be feasible given his current condition. Subjective 73-year-old male with a history of oral pharyngeal/laryngeal neoplastic disease presents with acute hypoxic respiratory failure secondary to pneumonia, right lower lobe. Tolerated BiPAP overnight. Doing well. Respiratory: + cough and + dyspnea; no pain on inspiration and no wheezing Cardiovascular: + dyspnea on exertion; no chest pain, no palpitations and no syncope Physical Exam Vital Signs (Past 24 Hours): Last Vital Signs Temp 36.7 C 11/16/18 15:20 Pulse 84 11/16/18 15:20 Resp 18 11/16/18 15:20 BP 128/63 11/16/18 15:20 Pulse Ox 97 11/16/18 15:20 Constitutional: WD/WN, vitals as above Eyes: PERRL, conjunctivae normal, anicteric sclerae ENMT: external ear and nose normal, oropharynx normal Neck: trachea midline, no thyromegaly Thyroid: + thyroid asymmetrical (palpable mass of left cervical chain) Respiratory: no respiratory distress, no labored breathing, does not use accessory muscles and no nasal flaring Auscultation: + rhonchi (diffussed bl, improving); no crackles and no wheezes Gastrointestinal (Abdomen): normal bowel sounds, soft, nontender, no hepatosplenomegaly Musculoskeletal: no cyanosis or clubbing, extremities motor strength 5/5 Skin: no rashes, warm and dry Psychiatric: A+Ox3, euthymic affect Resident Activity Tracking Resident Involvement: Resident Care Provided Care Provided: Adult Hospital Medicine (1) BPH (benign prostatic hypertrophy) Lower urinary tract symptom presence: symptoms absent Qualified Code(s): N40.0 - Benign prostatic hyperplasia without lower urinary tract symptoms (2) Hyperlipidemia Hyperlipidemia type: unspecified Qualified Code(s): E78.5 - Hyperlipidemia, unspecified
[2018-11-16] MEDS: PROMETHAZINE HCL 25 MG/20 ML UDP PO PRN ×2 (15:49→21:02)
[2018-11-16] MEDS: DOXAZOSIN MESYLATE 1 MG TAB PEG SCH (21:02)
[2018-11-17] MEDS: PIPERACILLIN/TAZOBACTAM 3.375 GM in DEXTROSE 5% 100 ML IV SCH ×2 (01:59→10:31)
[2018-11-17] MEDS: ENOXAPARIN 80 MG/0.8 ML SYR SQ SCH ×2 (03:53→16:01)
[2018-11-17] MEDS: fentaNYL 12 MCG/HR TDSY TD SCH (03:54)
[2018-11-17 05:48] LABS: Basophils # (auto) 0.01 K/uL (0-0.2); Basophils % (auto) 0.1 %; Eosinophils # (auto) 0.12 K/uL (0-0.5); Eosinophils % (auto) 1.4 %; Hematocrit (blood only) 28.3 % (42-52); Hemoglobin 8.4 g/dL (14.0-18.0); Immature Granulocytes # (auto) 0.05 K/uL (0.00-0.02); Immature Granulocytes % (auto) 0.6 %; Lymphocytes # (auto) 0.32 K/uL (1.2-3.4); Lymphocytes % (auto) 3.8 %; Mean Corpuscular Hgb Conc 29.7 g/dL (32-36); Mean Corpuscular Volume 90.1 fL (80-100); Monocytes # (auto) 0.42 K/uL (0.11-0.59); Neutrophils % (auto) 89.1 %; Platelet Count 198 K/uL (130-400); RDW Coefficient of Variation 16.2 % (11.5-14.5); RDW Standard Deviation 53.7 fL (36.4-46.3); Red Blood Count 3.14 M/uL (4.7-6.1); White Blood Count 8.32 K/uL (4.8-10.8)
[2018-11-17 06:22] LABS: RBC Morphology Unremarkable
[2018-11-17 06:35] LABS: BUN Creatinine Ratio 28.8 (10-20); Calcium 8.5 mg/dl (8.5-10.1); Est GFR (African American) 105.3; Est GFR (Non-African American) 90.8; Magnesium 1.8 mg/dl (1.8-2.4); Potassium 3.4 mmol/L (3.5-5.1)
[2018-11-17] MEDS: ALBUT/IPRATROP 3MG/0.5MG NEB 3 ML VIAL NEB SCH ×4 (07:40→19:08)
[2018-11-17] MEDS: CHECK FENTANYL PATCH PLACEMENT SCH ×2 (07:47→16:01)
[2018-11-17] MEDS: AMIODARONE / D5W 360 MG/200 ML BAG IV SCH ×2 (07:48→20:12)
[2018-11-17] MEDS: OXYCODONE HCL SOLN 5 MG/5 ML UDC GT PRN ×3 (07:54→18:29)
[2018-11-17] MEDS: GABAPENTIN 250 MG/5 ML 470 ML BTL PO SCH ×3 (07:55→20:15)
[2018-11-17] MEDS: ESCITALOPRAM OXALATE ORAL SOLN 10 MG/10 ML UDP PO SCH (07:56)
[2018-11-17] MEDS: MULTI VIT W/MINERALS LIQUID 15 ML UDP PO SCH (07:56)
[2018-11-17] MEDS: ATORVASTATIN 20 MG TAB PEG SCH (07:57)
[2018-11-17] MEDS: CLOPIDOGREL BISULFATE 75 MG TAB PEG SCH (07:57)
[2018-11-17] MEDS: ALLOPURINOL 300 MG TAB PEG SCH (07:57)
[2018-11-17] MEDS: LANSOPRAZOLE 30 MG SOLTAB PEG SCH (07:58)
[2018-11-17] MEDS: ASPIRIN 81 MG CHEW PO SCH (08:02)
[2018-11-17] MEDS: PROMETHAZINE HCL 25 MG/20 ML UDP PO PRN ×2 (08:30→14:31)
[2018-11-17] MEDS: AMIODARONE 200 MG TAB PO SCH ×2 (09:01→20:14)
--- NOTE | 2018-11-17 10:13 | Consultation Report ---
DATE OF CONSULTATION: 11/17/2018 REQUESTING: Vikram Lai DO [facility] REPAIRER: Alejandro Santos DO, [facility]. REASON FOR CONSULTATION: Atrial fibrillation with a rapid ventricular response. Dear Vikram: Thank you for requesting a cardiology consultation on Shaka with regards to his recurrent paroxysmal atrial fibrillation. 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 He was found to have right-sided weakness. He was also found to have atrial fibrillation with a rapid ventricular response. He had been treated with beta blockers. He had an echocardiogram during that hospitalization that confirmed normal LV size and function with an EF in the range of 65% with mild to moderate mitral regurgitation. During that hospitalization, he had GI bleeding and has had multiple episodes of GI bleeding and therefore is not anticoagulated. He is also known to have PVCs. He was admitted this hospitalization due to pneumonia and respiratory failure. He was admitted on 10/24/2018 with syncope and was discharged with a diagnosis of vasovagal syncope and had recurrent syncope again on 11/02. CT of his chest, head and neck shows increased size of his left neck mass compared to a PET CT scan of 09/16/2018. He also has osteoblastic lesions within multiple ribs. He is currently in 208, he is sleeping with BIPAP at night. He denies any chest pain or chest pressure currently. He denies any significant shortness of breath. He describes being able to walk 100 yards to the mailbox without significant dyspnea. He denies any lightheadedness or dizziness here in the hospital. He has had no further syncope. He notes the episodes at home where he had presyncope or syncope, all occurred with him getting up out of bed or up out of a chair, or likely walking most often to the bathroom and feeling like he is getting tunnel vision and nausea. He has no lower extremity edema. He is fed via PEG tube. He does have a productive cough. He denies any current fevers or chills. The rest of review of system is otherwise negative. PAST MEDICAL HISTORY: 1. Acute hypoxic respiratory failure secondary to pneumonia and aspiration. 2. Hypoxemia requiring BIPAP at night. 3. 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 4. Atrial fibrillation with a rapid ventricular response, now converted back to sinus rhythm with amiodarone. 5. History of frequent PVCs. 6. Prolonged QTC. 7. Hyperlipidemia. 8. BPH. 9. PEG tube for feeding. 10. Cancer related pain. 11. Hyperlipidemia. 12. BPH. FAMILY HISTORY: Positive for lung cancer and hepatocellular carcinoma. SOCIAL HISTORY: He denies any alcohol. He is a former smoker. He is . ALLERGIES: LATEX. MEDICATIONS: Reviewed in electronic medical record. PHYSICAL EXAMINATION: GENERAL: He is awake, alert, oriented x3. He looks chronically ill. VITAL SIGNS: His pulse is 80, blood pressure 167/85. His respirations are 14 and sats 96%. HEENT AND NECK: His neck is very hard and firm. I can palpate a carotid upstroke which felt normal. His jugular venous pressure could not be assessed. His sclerae is anicteric. His hearing was normal. LUNGS: Globally decreased breath sounds especially in the right base with rhonchi in the right base. HEART: Regular rate and rhythm with occasional ectopy. There is a soft systolic ejection murmur at the right sternal border. There is a soft holosystolic murmur at the apex. ABDOMEN: Soft, nontender, nondistended. Positive bowel sounds. EXTREMITIES: No clubbing, cyanosis or edema. PSYCHIATRIC: His affect appeared appropriate. IMAGING DATA: Echocardiogram 06/20/2018, normal biventricular size and function, LVEF 65%, mild left atrial enlargement, mild to moderate mitral regurgitation. Holter monitor 06/21/2018, 64,000 PVCs with 15 ventricular runs. There were 136 triplets, 2479 couplets, 31,000 episodes of ventricular bigeminy. IMPRESSION: 1. Advanced head and neck cancer. 2. Atrial fibrillation with a rapid ventricular response. 3. Very frequent PVCs. 4. Normal biventricular size and function, 06/2018. 5. Admission for pneumonia and significant hypoxemia. 6. Borderline prolonged QT. He has converted to sinus rhythm with IV amiodarone. Given the fact that the care sounds like one that is more palliative than curative, I would recommend continuing amiodarone. I would start 400 mg of amiodarone p.o. b.i.d. for 2 weeks and then drop in the 400 mg a day for 2 weeks and then reduce the dose to 200 mg daily. He cannot be anticoagulated at this point. We will have to closely monitor his QTC while on amiodarone in addition to trying to avoid medications that will additionally prolong his QT. He is on Lexapro which can as well as fentanyl. At this point, given the palliative nature to his care, I would try to maintain these drugs and keep his potassium greater than 4 and his magnesium greater than 2. If there is a change in his medical regimen with a drug that may prolong his QT, he should have an EKG done within a couple of hours of starting that drug. Additionally, he should have an EKG within a week of discharge and followup. His syncopal episodes do sound like they are vasovagal or even possibly neurocardiogenic. They do not sound like a complete heart block, in looking at his EKG, he is in sinus rhythm with a normal NH interval and normal QRS duration. This would make the likelihood of complete heart block or high-degree AV block very low. From a blood pressure standpoint, I would avoid beta blockers at this point given any potential for bradycardia in combination with amiodarone, but amlodipine is a reasonable option if he remains hypertensive, Continue to follow him with you. Thank you for allowing us to participate in his care. JAYLIN
[2018-11-17] MEDS: NON-FORMULARY PATIENT'S OWN MED SCH ×3 (12:02→20:32)
--- NOTE | 2018-11-17 13:41 | Palliative Care Progress Note ---
Date of Service November 17, 2018 Assessment & Plan (1) Goals of care, counseling/discussion: -Patient is doing well. His respiratory status continues to improve and he is essentially at baseline. -PO amiodarone started, cardiology plans to discontinue IV amio tomorrow per nursing. -Used four doses of oxycodone 5mg in 24 hours. Will increase fentanyl patch to 25mcg/hr TD patch Q72h. -Continue oxycodone 5mg via GT Q4h PRN breakthrough pain. -Follow up with Dr. Mckeon as an outpatient. -Patient's also at bedside today and aware of plan. (2) Hypoxia: (3) Right lower lobe pneumonia: (4) Cancer related pain: (5) Cancer of neck: Subjective Patient continues to do well from respiratory standpoint. Still has pain 6/10 in left neck. Used four doses of oxycodone 5mg in 24 hours. No other complalints. Constitutional: + weakness; no fever and no chills Ear, Nose, Mouth, Throat: + dysphagia (has PEG tube) Respiratory: + cough and + dyspnea on exertion; no dyspnea Cardiovascular: no chest pain and no edema Gastrointestinal: + nausea (occasional); no abdominal pain and no vomiting Musculoskeletal: + neck pain (6/10 in left sick of neck (mass)) Neurologic: no confusion Psychiatric: no depression and no anxiety Physical Exam Vital Signs (Past 24 Hours): Last Vital Signs Temp 37.3 C 11/17/18 11:52 Pulse 85 11/17/18 11:52 Resp 16 11/17/18 11:52 BP 147/76 H 11/17/18 11:52 Pulse Ox 85 L 11/17/18 11:52 Constitutional: + ill appearing (acutely) and average body habitus ENMT: Ears: no hearing impairment Neck: trachea midline; + abnormal visual inspection (visible and palpable hard mass on left side of neck under jaw) Respiratory: no respiratory distress Auscultation: + diminished lung sounds Cardiovascular: Rate/Rhythm: regular rate and regular rhythm Heart Sounds: normal S1 and normal S2 Vessels: dorsalis pedis pulses present Gastrointestinal (Abdomen): Inspection/Auscultation: abdomen normal to inspection and normal bowel sounds; abdomen not distended Percussion/Palpation: abdomen soft; abdomen nontender Neurologic: awake; not confused Psychiatric: Orientation: alert and oriented x 3 Supervising Physician Co-Signing Physician Notes Patient seen and examined, at bedside Patient states he is feeling better, anxious to return home PE: No acute distress HEENT: EOMI, palpable neck tumor left side-stable Lungs: Equal breath sounds, unlabored CV: Regular rate Abdomen: Soft nontender, G-tube in place Neuro: Alert and oriented x4 Agree with above note, assessment and plan as per DIVYA Santoyo Will increase patient's fentanyl to 25 mcg-he can follow-up as an outpatient in my palliative clinic where he is already an established patient. Gave patient's hand written prescription for his fentanyl patches so she can take it to [facility] pharmacy in case that there is prior authorization required. Time Spent Midlevel 35 minutes with >50% of time spent at bedside with patient and discussing plan of care and pain management. Attending I personally spent an additional 35 minutes at bedside assessing patient as well as reviewing plan of care. Discussed at length with both patient and the titration of the fentanyl patch, side effects to watch for. Patient will follow up with me in palliative care clinic in 2-3 weeks
[2018-11-17] MEDS ORDERED: fentaNYL 25 MCG/HR TDSY TD SCH (14:00)
--- NOTE | 2018-11-17 15:17 | Family Medicine Progress Note ---
Date of Service November 17, 2018 Assessment & Plan (1) Right lower lobe pneumonia: 73-year-old male with a history of oral pharyngeal/laryngeal neoplastic disease presents with acute hypoxic respiratory distress secondary to pneumonia, right lower lobe. Acute hypoxic respiratory distress secondary to right lower lobe pneumonia, treating as aspiration Transitioning to oral antibiotics, Augmentin 875 twice daily 11/17/2018. Has already received 4 days of Zosyn. Continue duo nebs every 4 hours Significant decompensation in the evening when not on BiPAP. Was transferred to the ICU for respiratory failure slag wheeler 11/15/2018. PCO2 at that time was 62. Patient has been on continuous pulse ox since hospitalizationwith documented desaturations and increased oxygen requirement while sleeping. Patient tolerating in the evenings since BiPAPdiscussed coordinating outpatient BiPAP with nurse navigator considering significant desaturations Would like the patient to be trialed on nasal cannula oxygen tonight, determine home oxygen needs and eligibility for home BiPAP Palliative medicine following, appreciate recommendations Recommend BiPAP while sleeping, oxygen mask while awake Pharyngeal/laryngeal neoplastic disease Being followed by Dr. Trujillo Currently receiving chemotherapy Continue PEG feedings Continue pain controlfentanyl patch 12.5 mcg, gabapentin 300 mg p.o. 3 times daily, oxycodone 5 mg every 4 as needed for breakthrough pain Continue Phenergan for nausea Atrial fibrillation with RVR Rates were previously controlled, but acute illness appears to have put him in RVRthe patient is asymptomatic, and vitals are stable Metoprolol was recently DC'd in the setting of frequent syncope IV and amiodarone initiated 11/14/2018 Cardiology following, appreciate recommendationsamiodarone 400 mg twice daily for 2 weeks, 400 mg once daily for 2 weeks and then finally 200 mg daily thereafter. EKG within 1 week of discharge, amlodipine for hypertension, maintain potassium and magnesium levels, no anticoagulation at this time QT prolongation Daily EKG Zofran discontinued switched to Celexa to Lexapro Phenergan for nausea Hyperlipidemia Continue statin BPH Continue doxazosin DVT prophylaxis Heparin 5000 units subcu every 12 FEN PEG tube feeding per home regimen Nutritional consult (2) Hypoxia: (3) Cancer related pain: (4) Hyperlipidemia: (5) BPH (benign prostatic hypertrophy): (6) Cancer of hypopharynx: (7) Cancer of neck: Supervising Physician Co-Signing Physician Notes I saw the patient with Dr. Jane and confirmed rosenberg portions of the history and physical exam. I agree with the impression and plan as noted in his documentation. Patient did well overnight with supplemental oxygen and intermittent BiPAP. Cardiology saw the patient today in consultation and there input is appreciated. Also discussed the patient with palliative care service; note increase in fentanyl patch. Upon examination, he is alert and oriented. No acute distress. The left neck there is a firm large fixed mass consistent with his known oral pharyngeal tumor. Per discussions with consultants, this mass is smaller -at least by palpation -compared to previous. Heart is regular. Lungs are clear at the apices with decreased breath sounds in the bases bilaterally. Abdomen is soft and nontender. Extremities without edema. No calf tenderness is appreciated. IMPRESSION Right lower lobe pneumonia, with hypoxia and leukocytosis, improving Obstructive upper airway phenomenon secondary to mass-effect, causing hypoxia and hypercapnia, improved with BiPAP Prerenal azotemia Oral pharyngeal tumor undergoing salvage chemotherapy Recent history of syncopal episode Atrial fibrillation, converted to normal sinus rhythm on amiodarone QT prolongation PLAN Ideally I would like to see him qualify for both home oxygen and BiPAP at night and as needed. Will arrange for testing tonight to see if we can aid in qualifications; this was discussed with case management. PO amiodarone per cardiology Based on review of prior notes the patient was not therapeutically anticoagulated as an outpatient and I do not think we will send him home on therapeutic anticoagulation given the risk of prior GI bleeding; at this point will transition to DVT prophylaxis dosing. Overall he remains high risk for venous thromboembolism based on his malignancy, otherwise as documented previously, he has had issues with recurrent gastrointestinal bleeding. Subjective 73-year-old male with a history of oral pharyngeal/laryngeal neoplastic disease presents with acute hypoxic respiratory failure secondary to pneumonia, right lower lobe. Continues to tolerate BiPAP. He only needed BiPAP for a portion of the night and was switched over to oxygen mask without issue. Respiratory: + cough; no dyspnea, no pain on inspiration and no wheezing Cardiovascular: + dyspnea on exertion; no chest pain, no palpitations and no syncope Gastrointestinal: no abdominal pain, no nausea and no vomiting Physical Exam Vital Signs (Past 24 Hours): Last Vital Signs Temp 37.3 C 11/17/18 11:52 Pulse 85 11/17/18 11:52 Resp 16 11/17/18 11:52 BP 147/76 H 11/17/18 11:52 Pulse Ox 85 L 11/17/18 11:52 Constitutional: WD/WN, vitals as above Eyes: PERRL, conjunctivae normal, anicteric sclerae ENMT: external ear and nose normal, oropharynx normal Neck: trachea midline, no thyromegaly Thyroid: + thyroid asymmetrical (palpable mass of left cervical chain) Respiratory: no respiratory distress, no labored breathing, does not use accessory muscles and no nasal flaring Auscultation: + rhonchi (diffussed bl, improving); no crackles and no wheezes Gastrointestinal (Abdomen): normal bowel sounds, soft, nontender, no hepatosplenomegaly Musculoskeletal: no cyanosis or clubbing, extremities motor strength 5/5 Skin: no rashes, warm and dry Psychiatric: A+Ox3, euthymic affect Results & Data Laboratory Results Laboratory Last Values WBC 8.32 K/uL (4.8-10.8) 11/17/18 05:30 RBC 3.14 M/uL (4.7-6.1) L 11/17/18 05:30 Hgb 8.4 g/dL (14.0-18.0) L 11/17/18 05:30 Hct 28.3 % (42-52) L 11/17/18 05:30 MCV 90.1 fL (80-100) 11/17/18 05:30 MCH 26.8 pg (25-34) 11/17/18 05:30 MCHC 29.7 g/dL (32-36) L 11/17/18 05:30 RDW Std Deviation 53.7 fL (36.4-46.3) H 11/17/18 05:30 RDW Coeff of Kobi 16.2 % (11.5-14.5) H 11/17/18 05:30 Plt Count 198 K/uL (130-400) 11/17/18 05:30 MPV 10.0 fL (7.4-10.4) 11/17/18 05:30 Immature Gran % (Auto) 0.6 % 11/17/18 05:30 Neut % (Auto) 89.1 % 11/17/18 05:30 Lymph % (Auto) 3.8 % 11/17/18 05:30 [place] % (Auto) 5.0 % 11/17/18 05:30 Eos % (Auto) 1.4 % 11/17/18 05:30 Baso % (Auto) 0.1 % 11/17/18 05:30 Immature Gran # (Auto) 0.05 K/uL (0.00-0.02) H 11/17/18 05:30 Neut # (Auto) 7.40 K/uL (1.4-6.5) H 11/17/18 05:30 Lymph # (Auto) 0.32 K/uL (1.2-3.4) L 11/17/18 05:30 [place] # (Auto) 0.42 K/uL (0.11-0.59) 11/17/18 05:30 Eos # (Auto) 0.12 K/uL (0-0.5) 11/17/18 05:30 Baso # (Auto) 0.01 K/uL (0-0.2) 11/17/18 05:30 Hyposegmented Neuts 2+ 11/16/18 06:08 RBC Morphology Unremarkable 11/17/18 05:30 PT 11.0 Seconds (9.0-12.0) 11/16/18 06:08 INR 1.1 (0.9-1.1) 11/16/18 06:08 APTT 33.1 Seconds (21.0-31.0) H 11/14/18 06:00 PTT Ratio 1.2 11/14/18 06:00 ABG pH 7.31 (7.35-7.45) L 11/15/18 01:01 ABG pCO2 62 mmHg (35-46) H 11/15/18 01:01 ABG pO2 79 mm/Hg (80-95) L 11/15/18 01:01 ABG HCO3 30 mmol/L (19-24) H 11/15/18 01:01 ABG O2 Saturation 93.6 % (90-95) 11/15/18 01:01 ABG Base Excess 2.9 mEq/L (-9-1.8) H 11/15/18 01:01 Ranjit Test POS (Pos) 11/15/18 01:01 Barometric Pressure 738.6 mm/Hg 11/15/18 01:01 Oxygen Given 30% FIO2 11/15/18 01:01 Sodium 138 mmol/L (136-145) 11/17/18 05:30 Potassium 3.4 mmol/L (3.5-5.1) L 11/17/18 05:30 Chloride 101 mmol/L (98-107) 11/17/18 05:30 Carbon Dioxide 33 mmol/L (21-32) H 11/17/18 05:30 Anion Gap 4.0 (3-11) 11/17/18 05:30 BUN 23 mg/dl (7-18) H 11/17/18 05:30 Creatinine 0.78 mg/dl (0.6-1.4) 11/17/18 05:30 Est Cr Clr Drug Dosing 84.0 ml/min 11/17/18 05:30 Est GFR ( Amer) 105.3 11/17/18 05:30 Est GFR (Non-Af Amer) 90.8 11/17/18 05:30 BUN/Creatinine Ratio 28.8 (10-20) H 11/17/18 05:30 Glucose 137 mg/dl (70-99) H 11/17/18 05:30 POC Glucose 137 (70-99) H 11/14/18 04:37 POC Lactic Acid Nick 1.02 mmol/L (0.90-1.70) 11/13/18 19:41 Calcium 8.5 mg/dl (8.5-10.1) 11/17/18 05:30 Magnesium 1.8 mg/dl (1.8-2.4) 11/17/18 05:30 Total Bilirubin 0.3 mg/dl (0.2-1) 11/16/18 06:08 AST 16 U/L (15-37) 11/16/18 06:08 ALT 13 U/L (12-78) 11/16/18 06:08 Alkaline Phosphatase 64 U/L (45-117) 11/16/18 06:08 Troponin I 0.033 ng/ml (0-0.045) 11/13/18 18:15 Total Protein 6.4 gm/dl (6.4-8.2) 11/16/18 06:08 Albumin 2.5 gm/dl (3.4-5.0) L 11/16/18 06:08 Globulin 3.9 gm/dl (2.5-4.0) 11/16/18 06:08 Albumin/Globulin Ratio 0.6 (0.9-2) L 11/16/18 06:08 Procalcitonin 0.45 ng/ml (0-0.5) 11/13/18 18:15 Nasal Screen MRSA (PCR) Negative (Negative) 11/14/18 10:05 Influenza Type A Ag Neg for Influ A (Neg) 11/13/18 19:12 Influenza Type B Ag Neg for Influ B (Neg) 11/13/18 19:12 Resident Activity Tracking Resident Involvement: Resident Care Provided Care Provided: Adult Hospital Medicine (1) BPH (benign prostatic hypertrophy) Lower urinary tract symptom presence: symptoms absent Qualified Code(s): N40.0 - Benign prostatic hyperplasia without lower urinary tract symptoms (2) Hyperlipidemia Hyperlipidemia type: unspecified Qualified Code(s): E78.5 - Hyperlipidemia, unspecified
[2018-11-17] MEDS: ACETAMINOPHEN 1000 MG/100 ML IV IV PRN (16:06)
[2018-11-17] MEDS ORDERED: ACETAMINOPHEN SOLN 500 MG/15.62 ML UDP PEG PRN (16:59)
[2018-11-17] MEDS ORDERED: AMOXICILLIN/CLAVULANATE 875 MG TAB PO SCH (17:00)
[2018-11-17] MEDS: POTASSIUM CHLORIDE PWD 20 MEQ PACK PO SCH (18:26)
[2018-11-17] MEDS: AMOXICILLIN/CLAVULANATE SUSP 400MG/5ML 50ML BOTTLE GT SCH (18:26)
[2018-11-17] MEDS ORDERED: VANCOMYCIN HCL 1,000 MG in SODIUM CHLORIDE 0.9% 250 ML IV SCH (20:00)
[2018-11-17] MEDS: DOXAZOSIN MESYLATE 1 MG TAB PEG SCH (20:15)
[2018-11-18] MEDS: CHECK FENTANYL PATCH PLACEMENT SCH ×2 (00:31→09:44)
[2018-11-18] MEDS: OXYCODONE HCL SOLN 5 MG/5 ML UDC GT PRN ×2 (02:09→14:31)
[2018-11-18 04:12] VITALS: TEMP 98.2
[2018-11-18 06:15] LABS: Mean Corpuscular Hgb Conc 29.4 g/dL (32-36); Mean Platelet Volume 11.3 fL (7.4-10.4); Platelet Count 217 K/uL (130-400)
[2018-11-18 06:28] LABS: Hematocrit (blood only) 29.6 % (42-52); Hemoglobin 8.7 g/dL (14.0-18.0); Mean Corpuscular Volume 90.2 fL (80-100); RDW Coefficient of Variation 16.2 % (11.5-14.5); RDW Standard Deviation 52.7 fL (36.4-46.3); Red Blood Count 3.28 M/uL (4.7-6.1); White Blood Count 8.61 K/uL (4.8-10.8)
[2018-11-18 06:33] LABS: Calcium 8.6 mg/dl (8.5-10.1); Creatinine Clr Calc Pharmacy 88.6 ml/min; Est GFR (African American) 107.6; Est GFR (Non-African American) 92.8; Magnesium 1.7 mg/dl (1.8-2.4)
[2018-11-18] MEDS: ALBUT/IPRATROP 3MG/0.5MG NEB 3 ML VIAL NEB SCH ×2 (06:56→11:03)
[2018-11-18] MEDS ORDERED: ASPIRIN 81 MG CHEW PEG SCH (09:00)
[2018-11-18] MEDS: NON-FORMULARY PATIENT'S OWN MED SCH ×2 (09:00→14:01)
[2018-11-18] MEDS ORDERED: ENOXAPARIN INJ 40 MG/0.4 ML SYR SQ SCH (09:00)
--- NOTE | 2018-11-18 09:06 | Cardiology Progress Note ---
Date of Service November 18, 2018 Sleeping better today. He has improvement in his overall level of discomfort shortness of breath is improving. He denies any chest pain or palpitations Physical Exam Vital Signs (Past 24 Hours): Last Vital Signs Temp 36.8 C 11/18/18 07:05 Pulse 92 H 11/18/18 07:05 Resp 18 11/18/18 07:05 BP 146/77 H 11/18/18 07:05 Pulse Ox 95 11/18/18 07:05 PHYSICAL EXAMINATION: GENERAL: He is awake, alert, oriented x3. He looks chronically ill. HEENT AND NECK: His neck is very hard and firm. I can palpate a carotid upstroke which felt normal. His jugular venous pressure could not be assessed. His sclerae is anicteric. His hearing was normal. LUNGS: Globally decreased breath sounds especially in the right base with rhonchi in the right base. HEART: Regular rate and rhythm with occasional ectopy. There is a soft systolic ejection murmur at the right sternal border. There is a soft holosystolic murmur at the apex. EXTREMITIES: No clubbing, cyanosis or edema. PSYCHIATRIC: His affect appeared appropriate. IMAGING DATA: Echocardiogram 06/20/2018, normal biventricular size and function, LVEF 65%, mild left atrial enlargement, mild to moderate mitral regurgitation. Holter monitor 06/21/2018, 64,000 PVCs with 15 ventricular runs. There were 136 triplets, 2479 couplets, 31,000 episodes of ventricular bigeminy. IMPRESSION: 1. Advanced head and neck cancer. 2. Atrial fibrillation with a rapid ventricular response with conversion back to NSR with amio 3. Very frequent PVCs. 4. Normal biventricular size and function, 06/2018. 5. Admission for pneumonia and significant hypoxemia. 6. Borderline prolonged QT. As discussed with the primary service he should remain on 400 mg twice daily for 2 weeks then 400 mg a day for 2 weeks then reduce the dose to 200 mg daily for maintenance. He should have a BMP and a magnesium drawn in a calcium and magnesium are acceptable given his borderline QT prolongation. I would also recommend an EKG as part of his post discharge follow-up in approximately a week to 10 days. I agree with stopping his statin therapy at this point. As was discussed with the primary service control of his atrial arrhythmia is palliative in nature.
[2018-11-18] MEDS: AMOXICILLIN/CLAVULANATE SUSP 400MG/5ML 50ML BOTTLE GT SCH (09:44)
[2018-11-18] MEDS: AMIODARONE 200 MG TAB PO SCH (09:45)
[2018-11-18] MEDS: ATORVASTATIN 20 MG TAB PEG SCH (09:45)
[2018-11-18] MEDS: ALLOPURINOL 300 MG TAB PEG SCH (09:45)
[2018-11-18] MEDS: LANSOPRAZOLE 30 MG SOLTAB PEG SCH (09:45)
[2018-11-18] MEDS: CLOPIDOGREL BISULFATE 75 MG TAB PEG SCH (09:45)
[2018-11-18] MEDS: ESCITALOPRAM OXALATE ORAL SOLN 10 MG/10 ML UDP PO SCH (09:45)
[2018-11-18] MEDS: MULTI VIT W/MINERALS LIQUID 15 ML UDP PO SCH (09:46)
[2018-11-18] MEDS: POTASSIUM CHLORIDE PWD 20 MEQ PACK PO SCH (09:46)
[2018-11-18] MEDS: AMIODARONE / D5W 360 MG/200 ML BAG IV SCH (10:23)
[2018-11-18] MEDS: GABAPENTIN 250 MG/5 ML 470 ML BTL PO SCH ×2 (12:34→14:31)
--- NOTE | 2018-11-18 13:05 | Palliative Care Progress Note ---
Date of Service November 18, 2018 Assessment & Plan (1) Goals of care, counseling/discussion: -Patient is doing well. His respiratory status continues to improve and he is essentially at baseline. -PO amiodarone started, cardiology plans to discontinue IV amio tomorrow per nursing. -Used three doses of oxycodone 5mg in 24 hours. Encouraged patient to use his PRN medications. -Fentanyl patch increased to 25mcg/hr TD patch Q72h 11/17/18. -Continue oxycodone 5mg via GT Q4h PRN breakthrough pain. -Follow up with Dr. Mckeon as an outpatient. -Possible discharge today per patient. (2) Hypoxia: (3) Right lower lobe pneumonia: (4) Cancer related pain: (5) Cancer of neck: Subjective Patient continues to do well from respiratory standpoint. Still has pain 6/10 in left neck. States it stays there all the time. Used three doses of oxycodone 5mg in 24 hours. No other complaints. Constitutional: + weakness; no fever and no chills Ear, Nose, Mouth, Throat: + dysphagia (has PEG tube) Respiratory: + cough and + dyspnea on exertion; no dyspnea Gastrointestinal: + nausea (occasional); no abdominal pain and no vomiting Musculoskeletal: + neck pain (6/10 in left sick of neck (mass)) Physical Exam Vital Signs (Past 24 Hours): Last Vital Signs Temp 36.8 C 11/18/18 12:00 Pulse 72 11/18/18 12:00 Resp 18 11/18/18 12:00 BP 144/81 H 11/18/18 12:00 Pulse Ox 93 11/18/18 12:00 Constitutional: average body habitus ENMT: Ears: no hearing impairment Neck: trachea midline; + abnormal visual inspection (visible and palpable hard mass on left side of neck under jaw) Respiratory: no respiratory distress Auscultation: + diminished lung sounds Cardiovascular: Rate/Rhythm: regular rate and regular rhythm Heart Sounds: normal S1 and normal S2 Vessels: dorsalis pedis pulses present Gastrointestinal (Abdomen): Inspection/Auscultation: abdomen normal to inspection and normal bowel sounds; abdomen not distended Percussion/Palpation: abdomen soft; abdomen nontender Neurologic: awake; not confused Psychiatric: Orientation: alert and oriented x 3 Time Spent Midlevel 25 minutes with >50% of time spent at bedside with patient discussing pain management and plan of care.
[2018-11-18 16:10] VITALS: BP 146/77
--- NOTE | 2018-11-18 18:34 | Discharge Summary ---
Date of Service November 18, 2018 Admission HPI Per Admitting Provider This is a 73-year-old male who presents to the ED with a chief complaint of shortness of breath and productive cough. He was found to have a pulse ox of 8 7% on his arrival on room air. He was on nasal cannula oxygen via EMS. The patient has had cold symptoms and cough for the past several days. His symptoms worsened and his family brought him in for evaluation. The patient does have a history of esophageal cancer with a recent progression of the cancer in his neck. He has had surgery for his esophageal cancer and is currently undergoing chemotherapy. The patient has a PEG tube for which he gets feeds. He does not take anything orally. The patient has not had any vomiting. He did receive a DuoNeb treatment by EMS. EMS reports a fever 100.1. His white blood cell count is 17,000. The BUN is 56. Pro-calcitonin is negative. Troponin was negative, flu swab was negative. X-ray reveals a right base infiltrate. The patient was treated with IV fluids, IV Zosyn as well as IV Levaquin. I spoke with the hospitalist, who will see the patient for further inpatient evaluation and care. Admission Exam Per Admitting Provider The patient is awake, alert and oriented 3, normocephalic and atraumatic, lying in bed and in no acute distress. HEENT--PERRL, EOMI, mucous membranes and oropharynx dry. Neck--supple. No JVD. No bruits. Thyroid normal, trachea midline, no adenopathy. Heart--normal S1 and S2. No murmurs, rubs or gallops. Lungs--coarse breath sounds bilaterally, right greater than left Abdomen--normal bowel sounds and soft. Nontender. Mildly distended. PEG tube site looks good. Extremities--no cyanosis or clubbing. No edema. There are good distal pulses b/l. Dermatologic--normal skin turgor, normal color, no abnormal lymph nodes, no rash. Neurologic--cranial nerves II through XII grossly intact. Rheumatologic--normal range of motion. Psychiatric--normal affect. Principal Diagnosis Aspiration pneumonia Discharge Exam Constitutional WD/WN, vitals as above Eyes PERRL, conjunctivae normal, anicteric sclerae ENMT external ear and nose normal, oropharynx normal Neck trachea midline, no thyromegaly Thyroid: + thyroid asymmetrical (palpable mass of left cervical chain) Respiratory no respiratory distress, no labored breathing, does not use accessory muscles and no nasal flaring Auscultation: + rhonchi (diffussed bl, improving); no crackles and no wheezes Gastrointestinal (Abdomen) normal bowel sounds, soft, nontender, no hepatosplenomegaly Musculoskeletal no cyanosis or clubbing, extremities motor strength 5/5 Skin no rashes, warm and dry Psychiatric A+Ox3, euthymic affect Discharge Data Allergies Allergy/AdvReac Type Severity Reaction Status Date / Time latex Allergy Unknown patient Verified 11/13/18 18:43 states had allergy tests which tested + No Known Drug Allergies Allergy Unknown NKDA Verified 11/13/18 18:43 Consultations [place], [place] [phone] XRay Report Patient: DEWAYNE MACARIO Date: 11/13/18 MR#: [id number]: [address] Acct ID:[id number]: Date: 1945[facility] Zip: [place] [address] Age: 73Location: 2S Sex: M Room/Bed: [facility] Att Phy: Prabhakar Lai D.O.Diagnosis: PNEUMONIA Atiya Phy: Carlo Ahn M.D.Service Date: 11/14/18 Fam Phy: Interpreting Phy: Rito García MD Admit Phy: Siva Montiel M.D. Ordering Phy: Ger Jane MD cc: ~ SINGLE EXPIRATORY VIEW CHEST CLINICAL HISTORY: Dyspnea. FINDINGS: An AP, portable, upright, expiratory chest radiograph is compared to study performed earlier the same day 11/14/2018 and correlated with chest CT dated 10/31/2018. The examination is degraded by portable technique and patient rotation. The patient is status post midline sternotomy. The heart is mildly enlarged and there is atherosclerotic calcification of the thoracic aorta. The pulmonary vasculature is noncongested. Chronic interstitial thickening is similar to previous. Bibasilar airspace opacities are observed. No large pleural effusion or pneumothorax is seen. The skeletal structures are osteopenic. The bony thorax is grossly intact. Fusion hardware is noted in the lower cervical spine. Stents are present in carotid arteries bilaterally. Surgical clips are noted in the left neck. IMPRESSION: There are bibasilar airspace opacities. This could represent atelectasis versus pneumonia/aspiration pneumonitis. Clinical correlation will be required. 11/13/18 20:55 ED Decision to Admit Stat 11/13/18 22:59 Consult Case Management - Discharge Planning Routine 11/15/18 01:59 Consult Supervisor [employer] Production Routine 11/15/18 02:47 Consult Palliative Care Routine 11/15/18 07:58 Consult Nutrition Routine 11/16/18 10:16 Consult Cardiology Routine Hospital Course (1) Right lower lobe pneumonia: 73-year-old male with a history of oral pharyngeal/laryngeal neoplastic disease presents with acute hypoxic respiratory distress secondary to pneumonia, right lower lobe. Acute hypoxic respiratory distress secondary to right lower lobe pneumonia, treating as aspiration Aspiration pneumoniapatient was on Zosyn and was subsequently transitioned to Augmentin to finish in the outpatient. The patient required oxygen throughout stay, even as the pneumonia improved. He had significant desaturations with overnight pulse ox testing. Respiratory failurethe patient had significant respiratory decompensation early in his hospitalization that required a transfer to the ICU. He became severely hypoxic and required BiPAP, PCO2 was 62 at that time. Intubation was deferred considering the difficulty it may cause it in the setting of extensive neck cancer. We are arranging outpatient BiPAP. As it is likely that the neck tumor is causing significant obstruction while sleeping. History of pharyngeal and laryngeal neoplasm Will be following up with Dr. Trujillo and Dr. Mckeon. We will continue palliative treatments fentanyl patch/oxycodone as needed for breakthrough pain. Patient will continue salvage chemotherapy. Atrial fibrillation with RVR The patient's previous hospitalization was for frequent syncope. At that time the patient's beta-rito was held. During this hospitalization, was started on amiodarone therapy.The patient will continue the following regimen: -400 mg twice daily for 1 week -400 mg once daily for 1 week -200 mg daily thereafter Patient was seen by the registered medical transcriptionist Dr. Santos, who will be following up with the patient in the outpatient setting. Dr. Santos recommends follow-up EKG, BMP, mag in 1 week QT prolongation Advised the patient to discontinue Zofran Switch the patient from Celexa to Lexapro Follow-up EKG in 1 week Hyperlipidemia Discontinued the patient's statin due to limited life expectancy BPH Continue doxazosin (2) Hypoxia: (3) Cancer related pain: (4) Hyperlipidemia: (5) BPH (benign prostatic hypertrophy): (6) Cancer of hypopharynx: (7) Cancer of neck: Total Time Total Time Spent Total Time Spent (In Minutes): Greater than 30 minutes Total Time Includes: Examination of the Patient, Discharge Planning, Medication Reconciliation and Communication With Other Providers Discharge Plan Discharge Items Patient Disposition: Home - Home Health Services Reason For Visit: PNEUMONIA Discharge Diagnosis: Aspiration pneumonia Condition: Fair Discharge Goals: Improve disease control and Therapeutic intervention Activity: Per 'Additional Instructions' section Non-emergency contact: Primary Care Provider, Platform Software Engineer and Hyperbaric Nurse Call non-emergency contact if: you have any medication questions Follow-up/Referrals: Carlo Ahn MD [Primary Care Provider] - 11/28/18 11:00 am (An appointment has been scheduled on your behalf with Dr. Carlo Ahn at [facility] office. The appointment you had previously scheduled 11/28 at 10:15am has been cancelled and replaced with this appointment on the same day at 11am which will allow more time with Dr. Ahn. Please call the office with any questions or concerns. Thank you! ) Jeyson Trujillo DO [Physician] - 12/08/18 7:50 am (Previously scheduled appointment. A note has been sent to Dr. Trujillo notifying him that you have been in the hospital. ) Jitendra Pennington DO [Physician] - 11/25/18 9:30 am (An appointment with [facility] has been made on your behalf. Please contact the office with any questions or concerns. Thank you! ) Cristina Mckeon MD [Physician] - 11/24/18 1:00 pm (Previously scheduled appointment. ) Diet: Heart Healthy Addtl Provider Instructions: Mr. Macario, You came to the hospital with pneumonia. We treated you with IV antibiotics and are discharging on antibiotic called Augmentin which you will take for 5 more days. During the hospitalization, you experienced trouble with breathing in the evening. It became severe enough that he required a stay at the ICU. The thing that ultimately helped you recover was a device called BiPAP. This creates positive pressure and opens up your throat and helps deliver air to your lungs. While you might not need this device during the daytime, we highly recommend that you use it in the evenings. Although it may be very irritating to use, the more that you use it, the more used to it you will become in the better you will feel. People typically feel a lot better and get a lot more refreshed sleep when they use BiPAP in situations in your condition. We would like you to follow-up with a educational guidance counselor regarding your breathing issues. We have set up an appointment with Dr. Pennington. In addition, you had issues with heart rhythm called atrial fibrillation. As you recall, we stopped giving you metoprolol because it caused issues with fainting. We are prescribing another medication called amiodarone. You will take 400 mg twice daily for 2 weeks and then reduce the dose to 400 mg once daily for 1 week. The standard dose that you will be taking is 200 mg once daily thereafter. We have also. A follow-up appointment with your registered medical transcriptionist Dr. Santos. We have set up an appointment with your primary care doctor and request the following test in the next week: EKG, BMP, magnesium. In addition, we would l nicky you to follow-up with your oncologist and the palliative medicine doctors. We are discharging you with the increased dose of your fentanyl patch, 25 mcg, to be changed every 72 hours. We also have oxycodone 5 mg every 4 hours for breakthrough pain. We have switched you to another antidepressant called Lexapro as this works better with your atrial fibrillation medication, less interactions. Prescriptions: New amoxicillin-pot clavulanate [Augmentin] 875-125 mg tablet 1 tab PO BID 5 Days Qty: 10 RF: 0 amiodarone 400 mg tablet 400 mg PO DAILY 14 Days Qty: 21 RF: 0 amiodarone 200 mg tablet 200 mg PO DAILY 30 Days Qty: 30 RF: 6 escitalopram oxalate [Lexapro] 10 mg tablet 10 mg PO DAILY 30 Days Qty: 30 RF: 6 oxycodone 5 mg capsule 5 mg PO .Q4HR 30 Days Qty: 180 RF: 0 fentanyl 25 mcg/hr patch 72 hour 1 patch TD Q72H 30 Days Qty: 10 RF: 0 Continued multivitamin [Multiple Vitamins] Tablet 1 tab Feeding Tube DAILY RF: 0 guaifenesin 100 mg/5 mL Liquid 20 ml Feeding Tube Q4 PRN (Reason: Cough) RF: 0 lansoprazole 30 mg Capsule,Delayed Release(Dr/Ec) 30 mg Feeding Tube DAILY RF: 0 artificial saliva (yerbas-lyt) [Mouth Kote] Aerosol,Wiggins 1 applic Mucous Membrane QID PRN (Reason: Unknown) RF: 0 calcium caseinate-whey [ProSource] 7.5 gram Packet 1 packet PO TID RF: 0 B1,B2,B3,B6,F11-mbfbpp-Bh-yqoz [Eldertonic] 0.5-0.6-7-0.7 mg Elixir 5 ml Feeding Tube DAILY RF: 0 fructoligosaccharides-polydex [HyFiber with FOS] 12 gram/30 mL Liquid In P acket 1 packet Feeding Tube TID RF: 0 ondansetron HCl 4 mg tablet 4 mg Feeding Tube DAILY PRN (Reason: Nausea) RF: 0 doxazosin 1 mg Tablet 1 mg Feeding Tube HS RF: 0 clopidogrel [Plavix] 75 mg Tablet 75 mg Feeding Tube DAILY RF: 0 aspirin [Aspir-81] 81 mg Tablet,Delayed Release (Dr/Ec) 81 mg Feeding Tube DAILY RF: 0 acetaminophen [Acetaminophen Extra Strength] 500 mg Tablet 500 mg Feeding Tube Q4 PRN (Reason: Pain) RF: 0 salmeterol [Serevent Diskus] 50 mcg/dose Blister With Device 1 inh INHALATION BID RF: 0 gabapentin 300 mg Capsule 300 mg Feeding Tube TID RF: 0 allopurinol 300 mg Tablet 300 mg Feeding Tube DAILY RF: 0 metaxalone 800 mg Tablet 800 mg Feeding Tube TID PRN (Reason: Muscle Spasm) RF: 0 Discontinued atorvastatin 20 mg Tablet 20 mg Feeding Tube DAILY RF: 0 citalopram 20 mg Tablet 20 mg Feeding Tube DAILY RF: 0 oxycodone 5 mg/5 mL solution 5 ml Feeding Tube Q4 PRN (Reason: Pain) RF: 0 fentanyl 12 mcg/hr patch 72 hour 12 mcg topical Q72H RF: 0 Stand-Alone Forms: [facility] Discharge Orders: Discharge Order (Routine); Ordered 11/18/18 Ordered By: Ger Jane Admission Data Admit Date/Time: 11/13/18 21:30 Attending Provider: Archana Pires Admit Provider: Siva Montiel Primary Care Provider: Carlo Ahn Other Providers: Siva Montiel ; Laron Jeong ; Cristina Mckeno ; Ger Jane ; Alejandro Santos Service: Telemetry Other Interventions: Discharge Summary Assessment (RN) Last Done: 11/18/18 16:07 MI Date/Time DO NOT enter until pt leaves facility: 11/18/18 16:30 Supervising Physician Co-Signing Physician Notes Patient seen and examined with Dr. Jane. Agree with history, physical exam findings, and hospital course/assessment and plan as documented. In brief, Mr. Macario is a 73 year old male with hx of head/neck cancer, afib, chronic anemia and hx of recurrent GI bleed admitted with respiratory failure. He has continued to improve, but ultimately requires BiPAP as determined by noc ox testing done last night where he had >5min duration of desaturations below 88% even on 2L of nasal canula oxygen. His respiratory failure is due to right lower lobe pneumonia, likely aspiration pneumonia, that was treated with antibiotics. He will be discharged on Augmentin for 5 more days. Afib with RVR rhythm control with amiodarone. He will continue with oral amio as an outpatient. He is not anticoagulated due to hx of recurrent GI bleeds. He was found to have QTc prolongation. Electrolytes were optimized. Avoided QT prolonging medications. He will require repeat EKG, BMP and Mg in 1 week. All other chronic medical issues were stable and home medications continued. 35 minutes spent discharge planning for this patient. Resident Activity Tracking Resident Involvement: Resident Care Provided Care Provided: Adult Hospital Medicine
[2018-11-18 18:36] VITALS: PULSE 86; O2SAT 95
== END 2018-11-18 16:30 | disposition home health service (06) | DRG 177 ==
LOC: ED 18:19 → SUATTDRO 21:30 → 2S 21:30 → 1E 11-15 01:52 → 2E 11-15 17:17
DX: C10.9 Malignant neoplasm of oropharynx, unspecified; I48.0 Paroxysmal atrial fibrillation; Z66 Do not resuscitate; E88.09 Other disorders of plasma-protein metabolism, not elsewhere classified; G93.41 Metabolic encephalopathy; Z79.82 Long term (current) use of aspirin; Z79.02 Long term (current) use of antithrombotics/antiplatelets; Z87.891 Personal history of nicotine dependence; C79.89 Secondary malignant neoplasm of other specified sites; R79.89 Other specified abnormal findings of blood chemistry; E87.2 Acidosis; Z79.899 Other long term (current) drug therapy; C78.39 Secondary malignant neoplasm of other respiratory organs; C15.9 Malignant neoplasm of esophagus, unspecified; N40.0 Benign prostatic hyperplasia without lower urinary tract symptoms; G89.3 Neoplasm related pain (acute) (chronic); D63.0 Anemia in neoplastic disease; J98.8 Other specified respiratory disorders; Z93.1 Gastrostomy status; I45.81 Long QT syndrome; J69.0 Pneumonitis due to inhalation of food and vomit; Z91.040 Latex allergy status; J38.01 Paralysis of vocal cords and larynx, unilateral; J96.02 Acute respiratory failure with hypercapnia; I49.3 Ventricular premature depolarization; E78.5 Hyperlipidemia, unspecified; J96.01 Acute respiratory failure with hypoxia; Z86.73 Personal history of transient ischemic attack (TIA), and cerebral infarction without residual deficits